=== PATIENT | female | born 1950 | race Caucasian/White ===

== ENCOUNTER → 2023-11-27 09:25 | Outpatient (BNVA) | payer MEDICARE, SELFPAY | PROVIDERS: PCP Internal Medicine; Referring Provider Physician Assistant Medical; Visit Provider Psychiatry & Neurology Neurology | DX: R26.9 Unspecified abnormalities of gait and mobility (principal); M47.812 Spondylosis without myelopathy or radiculopathy, cervical region; M54.9 Dorsalgia, unspecified; M47.816 Spondylosis without myelopathy or radiculopathy, lumbar region; R20.0 Anesthesia of skin; R20.2 Paresthesia of skin | CPT/HCPCS: 99202 ==

== ENCOUNTER 2023-11-27 09:56 | Outpatient (AMB) | payer MEDICARE, SELFPAY ==
--- NOTE | 2023-11-27 09:59 | A.OFFVIS_ITS ---
Intake Vital Signs 11/27/23 10:08 Height 5 ft 8 in Weight 267 lb 2 oz BMI 40.6 BP 122/70 Blood Pressure Location Rt brachial Position Supine Respiration 17 Pulse 59 Pulse Source Pulse Oximeter Pulse Oximetry (%) 95 Oxygen Delivery Method Room Air Intake Visit Reasons: E-SKEIN WINDER: BLE Neuropathy / Gait Instability - CONF Intake Note: Pt presents for new pt evaluation for numbness and tingling of lower and upper extremities. She c/o lack of coordination and mid back pain that radiates to the left mid section. Call Center Assistant Required: No Allergies sulfamethoxazole [From Bactrim] Allergy (Severe, Verified 11/27/23 10:01) Hives trimethoprim [From Bactrim] Allergy (Severe, Verified 11/27/23 10:01) Hives morphine Allergy (Unknown, Verified 11/27/23 10:01) Vomiting Medication List - Last Reconciled 11/27/23 by Angelina Dolan MD acetaminophen ER (Tylenol Arthritis Pain) 650 mg PO Q12H albuterol sulfate 90 mcg/actuation 2 puffs inhalation Q4H PRN amlodipine 10 mg PO DAILY betamethasone dipropionate 0.05% appl topical celecoxib mg PO BID cetirizine (Zyrtec) 10 mg PO DAILY PRN diphenhydramine HCl (Benadryl) 50 mg PO BEDTIME furosemide 40 mg PO DAILY gabapentin 100 mg PO TID ketoconazole 2% 1 appl topical BID lisinopril 40 mg PO DAILY metformin 500 mg PO DAILY metoprolol tartrate 25 mg PO BID nitroglycerin 0.4 mg sublingual Q5M PRN rosuvastatin 40 mg PO DAILY HPI HPI Comments History of Present Illness Details 73y/o female with h/o scoliosis h/o 2 ba ck surgeries , 1 neck surgery comes for evaluation of gait instability and lower extremity numbness, weakness and pain. Her first back surgery was 1982 -she recovered and did good for many years . In 2009 she started having more issues. In 2010 she had another surgery - fusion .she recovered well until 2021 she had neck pain and had surgery with cervical fusion.she did well but now she has pain in shoulders. About 18 months ago she started having numbness in legs balance issues and gait issues .she had multiple evaluations at [facility] and [facility] . she has pain in her midback and shooting pains . she has trouble with urinary incontinence. No recent falls but is using a walker sinceSept 2022. she was unable to do MRI - she could not lay flat [facility] Medical History (Updated 11/27/23 @ 12:45 by Angelina Dolan MD) Back pain Numbness and tingling of both legs Gait disorder Cervical spondylosis HTN (hypertension) Hyperlipidemia Carpal tunnel syndrome Lumbar spondylosis Arthritis of knee Anxiety Prediabetes CHF (congestive heart failure) Surgical History Hx of cervical spine surgery History of surgery on lower extremity History of ankle surgery History of carpal tunnel release History of back surgery Family History Father A-fib Diabetes Kidney disease History of hip replacement Mother Parkinson disease HTN (hypertension) Depression Osteoporosis Sister Breast cancer H/O knee surgery Social History Household Members: None Housing: House Alcohol intake: never Patient Tobacco Use Status: Never used Tobacco Physical Exam Vital Signs: Last Vital Signs Pulse 59 11/27/23 10:08 Resp 17 11/27/23 10:08 BP 122/70 11/27/23 10:08 Pulse Ox 95 11/27/23 10:08 Oxygen Delivery Method Room Air 11/27/23 10:08 BMI result Body Mass Index 40.6 Const General: cooperative and comfortable Nutritional Appearance: obese Orientation/consciousness: patient oriented x3 Neck Neck: Yes no meningeal signs Neuro Other: restricted range of motion - neck Mild weakness of LE extremities gait- was able to walk without walker , mild unsteadiness, slow and antalgic General: patient oriented x3, tone normal, moves all extremities and no meningeal signs Cranial nerves: Yes Facial sensation intact/muscles of mastication intact, Yes Nystagmus not present, Yes Normal facial strength present and Yes Midline tongue present Cognition (Neuro): normal cognition Motor exam (neuro): no tremor noted and Normal motor muscle tone present throughout Deep tendon reflexes (DTR's): Right triceps reflex intensity grade: 2+, Left tr iceps reflex intensity grade: 2+, Rt Biceps (C5, C6): 2+, Left biceps reflex intensity grade: 2+, Right patellar reflex intensity grade: 2+ and Left patellar reflex intensity grade: 2+ Assessment & Plan Assessment & Plan (1) Gait disorder: Comment: multifactorial - musculoskeletal Code(s): R26.9 - Unspecified abnormalities of gait and mobility (2) Cervical spondylosis: Code(s): M47.812 - Spondylosis without myelopathy or radiculopathy, cervical region (3) Back pain: Code(s): M54.9 - Dorsalgia, unspecified (4) Lumbar spondylosis: Code(s): M47.816 - Spondylosis without myelopathy or radiculopathy, lumbar region Plan I suggested to Increase gabapentin to 200mg tid Pain management EMG NCS LE PT for gait training Orders: Orders NE electromyogram (EMG) Today R20.0 - Anesthesia of skin, R20.2 - Paresthesia of skin PT Evaluation and Treatment Today R26.9 - Unspecified abnormalities of gait and mobility Referrals Pain Management Referral M54.9 - Dorsalgia, unspecified Coding Level of Care Code New Pt Level 4 (41953) Diagnoses Gait disorder R26.9 Cervical spondylosis M47.812 Back pain M54.9 Lumbar spondylosis M47.816
[2023-11-27 10:08] VITALS: BP 122/70; PULSE 59; RESP 17; O2SAT 95; BMI 40.6
== END 2023-11-27 10:29 | disposition home or self-care (01) ==
PROVIDERS: PCP Internal Medicine; Referring Provider Physician Assistant Medical; Visit Provider Psychiatry & Neurology Neurology
DX: R26.9 Unspecified abnormalities of gait and mobility (principal); M47.812 Spondylosis without myelopathy or radiculopathy, cervical region; M54.9 Dorsalgia, unspecified; M47.816 Spondylosis without myelopathy or radiculopathy, lumbar region
CPT/HCPCS: 99204

== ENCOUNTER 2023-12-06 13:59 | Outpatient (AMB) | payer MEDICARE, OTHER, SELFPAY ==
--- NOTE | 2023-12-06 14:14 | MHC.OFFVIS ---
Intake Vital Signs 12/06/23 14:28 Height 5 ft 8 in Weight 268 lb BMI 40.7 BP 140/80 H Blood Pressure Location Lt radial Position Sitting Respiration 16 Pulse 60 Pulse Source Pulse Oximeter Pulse Oximetry (%) 97 Oxygen Delivery Method Room Air Intake Visit Reasons: Dorsalgia, Unspecified/confirmed Allergies sulfamethoxazole [From Bactrim] Allergy (Severe, Verified 12/06/23 14:27) Hives trimethoprim [From Bactrim] Allergy (Severe, Verified 12/06/23 14:27) Hives morphine Allergy (Unknown, Verified 12/06/23 14:27) Vomiting HPI Dorsalgia, Unspecified/confirmed HPI Details Patient is a pleasant 73 years old female with prior history of cervical and lumbar spondylosis, scoliosis, gait disorder, knee arthritis, carpal tunnel syndrome with CTS release (06/2020), numbness and tingling of both legs, back surgery (1982), cervical spine fusion (2021), L4-L5 laminectomy with fusion (2010), complex left leg fracture repair with hardware (04/13/2018), left ankle triple arthrodesis (2012), presents today for evaluation of mid back pain with radiation to the left which is associated with shooting and sharp symptoms for the past 6 months. Denies any trauma, injury or falls. She denies any neck or lower back pain today. She has pending EMG and NVC studies scheduled for next month per Neurology. Her main concerns today are radicular left thoracic back pain which has been resistant to conservative treatments, including Tylenol, NSAIDs, gabapentin and daily home stretching exercises. She reports relief when she leans forward to the right. She recently completed lumbar xray and has showed report via her iphone which is attached below. Patient reports significant bilateral numbness and weakness in her legs and bilateral lymphadenopathy. She is wearing compression stockings and regularly takes furosemide. Patient also reports urinary incontinence and has been using walker since June 2023. Denies any fever, weight loss, bowel dysfunction or saddle anesthesia. Location Middle back pain radiates to the left Duration Chronic pain for >6 month in mid back Characteristics of symptom or complaint Shooting, sharp, spreading, radiating, piercing, aching Aggravating or associated factors Walking, standing, bending, extension, getting up Relieving factors Sitting, leaning forward and to the right, Tylenol, Celecoxib, gabapentin, Treatment None for mid back pain [facility] Medical History Back pain Numbness and tingling of both legs Gait disorder Cervical spondylosis HTN (hypertension) Hyperlipidemia Carpal tunnel syndrome Lumbar spondylosis Arthritis of knee Anxiety Prediabetes CHF (congestive heart failure) Surgical History Hx of cervical spine surgery History of surgery on lower extremity History of ankle surgery History of carpal tunnel release History of back surgery Family History Father A-fib Diabetes Kidney disease History of hip replacement Mother Parkinson disease HTN (hypertension) Depression Osteoporosis Sister Breast cancer H/O knee surgery Social History Household Members: None Housing: House Alcohol intake: never Patient Tobacco Use Status: Never used Tobacco Review of Systems Const All systems reviewed & are unremarkable except as noted in HPI and below Physical Exam Vital Signs: Last Vital Signs Pulse 60 12/06/23 14:28 Resp 16 12/06/23 14:28 BP 140/80 H 12/06/23 14:28 Pulse Ox 97 12/06/23 14:28 Oxygen Delivery Method Room Air 12/06/23 14:28 BMI result Body Mass Index 40.7 General: Appears afebrile. Alert and oriented. Mood and affect appropriate. Follows and participates in conversation appropriately. Respiratory effort is unlabored. No cough. Able to transition from sit to stand with assistance of walker. Neck Neck: Yes supple, No anterior neck swelling, Yes no JVD and Yes prominent dorsocervical fat pad Back/Spine/Pelvis Cervical Spine: loss of normal cervical lordosis, cervical muscular tenderness, pain with cervical ROM, Cervical spine scars present and No Cervical spine tenderness Thoracic/Lumbar Spine: Thoracic/lumbar spine scar(s), Lasegue's sign negative, straight leg raise negative bilaterally, pain with thoraco-lumbar ROM, paraspinal muscle tenderness on the left, thoraco-lumbar ROM limited, Thoracic/lumbar scoliosis, thoracic spinal tenderness and No lumbar spinal tenderness Pelvis: no buttock tenderness Sacroiliac joints: bilaterally nontender Results Reviewed Results Reviewed: CT CERVICAL SPINE WITHOUT CONTRAST 09/18/23 at [facility] HISTORY: Patient with neck pain and spondylosis with myelopathy. Please evaluate. History of prior surgery. COMPARISON: 03/28/2022. ENCOUNTER: Subsequent TECHNIQUE: Volumetric MDCT of the cervical spine using 40 x 1.0 mm collimation was done from the skull base to the lung apices reconstructed at 3 mm axial slice thickness for review with additional multiplanar 2D reformatted reconstructions. The following dose reduction technique was used: Dose was minimized by utilizing adaptive iterative reconstruction. FINDINGS: Again seen is the reversal of the usual cervical lordosis. There is no evidence of any prevertebral soft tissue swelling. C1-2: There is no evidence of any subluxation of C1 on C2. The lateral masses of C1 and C2 are in good alignment. The ring of C1 is in good alignment with the occiput. There are degenerative osteophytes and sclerosis noted involving the anterior C1-C2 articulation. C2-3: Again seen of the moderate left and mild right facet hypertrophic degenerative changes. Minimal posterior osteophytic ridging is seen. No bony canal or foraminal encroachment is seen. C3-4: Again seen is the mild soft tissue disc protrusion and a very slight anterolisthesis of C3 on C4 with moderate to severe left and moderate right facet hypertrophic degenerative changes with left-sided uncinate vertebral hypertrophy. This creates a mild canal narrowing and a severe left foraminal narrowing. The right neural foramen is mildly narrowed. C4-5: Again seen is the mild anterolisthesis of C4 on C5 with a mild posterior soft tissue disc protrusion with osteophytic ridging. This very mildly narrows the spinal canal. Moderate facet hypertrophic degenerative changes moderately narrows both neural foramen. There is moderate anterior osteophytes noted anteriorly. C5-6 through C7-T1: Note is made of the new posterior decompressive laminectomy changes with bilateral pedicle screws seen in the C5, C7 and T2 vertebral bodies and a left-sided pedicle screw in the C6 vertebral body. There are bilateral posterior fusion rods noted. There is anterior osteophytes noted with bony fusion of C5 and C6. There is loss of disc space height at C6-C7. There is a slight anterolisthesis of C7 on T1 again seen in the fused position. There is also loss of disc space height of T1 and T2 with endplate sclerotic changes. The spinal canal is mostly patent without any bony encroachment secondary to the decompressive laminectomy. There is moderate bony foraminal narrowing at C5-C6, C6-C7, C7-T1 and T1-T2. Mild postsurgical atrophy and changes involving the paraspinal muscles is noted. The remaining visualized extra-axial regions are unremarkable for acute abnormality. The lung apices are clear except for apical scarring. IMPRESSION: 1. Again seen is the reversal of the usual cervical lordosis. 2. There is now status post decompressive laminectomy changes and surgical fusion hardware as described above from the C5-C6 through C7-T1 levels. 3. There is cervical spondylosis present as described above. MRI would better assess for soft tissue disc protrusions. Please see above report for full details. Assessment & Plan Assessment & Plan (1) Lymphedema of both lower extremities: Code(s): I89.0 - Lymphedema, not elsewhere classified (2) Lumbar spondylosis: Code(s): M47.816 - Spondylosis without myelopathy or radiculopathy, lumbar region (3) Radicular pain of thoracic region: Code(s): M54.14 - Radiculopathy, thoracic region (4) Thoracic back pain: Code(s): M54.6 - Pain in thoracic spine (5) Muscle spasm: Code(s): M62.838 - Other muscle spasm (6) Post laminectomy syndrome: Code(s): M96.1 - Postlaminectomy syndrome, not elsewhere classified Plan MRI of the thoracic spine to assess for neural integrity and compression to address her ongoing left thoracic radicular pain. Patient requests this to be done at [facility] [[email or web address] Briefly discussed interventional treatments for thoracic back pain and post-laminectomy syndrome, including therapeutic injections, PNS vs SCS trial and RFA procedurs. Informational pamphlets provided to patient. Scripts provided for lidocaine patches and baclofen. Side effects and precautions reviewed with patient. Vascular Referral for evaluation of bilateral lymphedema which causes her significant BLE swelling and stiffness. All questions and concerns have been answered and patient agreed with the plan. Follow up for MRI results and sooner as needed. Orders: Orders MR thoracic spine wo con 12/06/23 M47.816 - Spondylosis without myelopathy or radiculopathy, lumbar region, M54.14 - Radiculopathy, thoracic region, M54.6 - Pain in thoracic spine Referrals Vascular Surgery Referral I89.0 - Lymphedema, not elsewhere classified Medications: New lidocaine 5% 1 patch topical DAILY 30 days 30 ea 0RF pain M54.14 - Radiculopathy, thoracic region, M54.6 - Pain in thoracic spine, M62.838 - Other muscle spasm baclofen 10 mg PO BID 30 days PRN 60 tabs 0RF muscle spasm M54.6 - Pain in thoracic spine, M62.838 - Other muscle spasm Coding Level of Care Code New Pt Level 4 (42209) Diagnoses Lymphedema of both lower extremities I89.0 Lumbar spondylosis M47.816 Radicular pain of thoracic region M54.14 Thoracic back pain M54.6 Muscle spasm M62.838 Post laminectomy syndrome M96.1
[2023-12-06 14:28] VITALS: BP 140/80; PULSE 60; RESP 16; O2SAT 97; BMI 40.7
== END 2023-12-06 15:25 | disposition home or self-care (01) ==
PROVIDERS: PCP Internal Medicine; Referring Provider Psychiatry & Neurology Neurology; Visit Provider Nurse Practitioner Family
DX: I89.0 Lymphedema, not elsewhere classified (principal); M47.816 Spondylosis without myelopathy or radiculopathy, lumbar region; M54.14 Radiculopathy, thoracic region; M54.6 Pain in thoracic spine; M62.838 Other muscle spasm; M96.1 Postlaminectomy syndrome, not elsewhere classified
CPT/HCPCS: 99204

== ENCOUNTER → 2023-12-06 13:59 | Outpatient (BNVA) | payer MEDICARE, OTHER, SELFPAY | PROVIDERS: PCP Internal Medicine; Referring Provider Psychiatry & Neurology Neurology; Visit Provider Nurse Practitioner Family | DX: M47.816 Spondylosis without myelopathy or radiculopathy, lumbar region (principal); I89.0 Lymphedema, not elsewhere classified; M54.14 Radiculopathy, thoracic region; M54.6 Pain in thoracic spine; M62.838 Other muscle spasm; M96.1 Postlaminectomy syndrome, not elsewhere classified | CPT/HCPCS: 99202 ==

== ENCOUNTER 2023-12-28 13:35 | Outpatient (REF) | payer MEDICARE, OTHER, SELFPAY ==
--- NOTE | 2023-12-28 13:40 | EMG_ITS ---
Chief complaint: Pain, numbness, weakness on lower extremities. History of 2 lumbar surgeries in the past, L4-5, fusion. History of left tibia/fibula fracture and surgery in the past. Reason for referral: Evaluate for neuropathy Referred by: Kavita Serrano FLOOR MANAGER Procedure done: Bilateral lower extremity NCS/EMG Precautions and/or limitations: Bilateral leg edema History of lumbar fusion The limb temperature was monitored continuously and remained between 32-36 degrees C during the performance of the NCS. Nerve Conduction Studies Anti Sensory Summary Table ?Stim Site NR Onset (ms) Norm Onset (ms) Peak (ms) Norm Peak (ms) O-P Amp (?V) Norm O-P Amp Site1 Site2 Delta-0 (ms) Dist (cm) [place] (m/s) Norm [place] (m/s) Left Sural Anti Sensory (Lat Mall) Calf ? 2.3 2.9 <4.0 7.6 >5.0 Calf Lat Mall 2.3 14.0 61 Right Sural Anti Sensory (Lat Mall) Calf ? 2.6 3.3 <4.0 10.4 >5.0 Calf Lat Mall 2.6 14.0 54 Motor Summary Table ?Stim Site NR Onset (ms) Norm Onset (ms) O-P Amp (mV) Norm O-P Amp iAmp (mV) Amp (1st) (%) Site1 Site2 Delta-0 (ms) Dist (cm) Dakota (m/s) Norm [place] (m/s) Right Peroneal Motor (Ext Dig Brev) Ankle ? 4.6 <4.0 1.4 >2.5 1.7 100.0 Ankle Ext Dig Brev 4.6 0.0 B Fib NR B Fib Ankle 37.0 >40 Poplt ? 12.4 1.3 1.5 92.9 Poplt B Fib 6.0 >40 Left Tibial Motor (Abd [place] Brev) Ankle ? 5.9 <5 2.2 >2.5 2.8 100.0 Ankle Abd [place] Brev 5.9 0.0 Knee ? 15.8 1.0 1.4 45.5 Knee Ankle 9.9 41.0 41 >40 Right Tibial Motor ([place]d [place] Brev) Ankle ? 5.4 <5 3.2 >2.5 3.8 100.0 Ankle Abd [place] Brev 5.4 0.0 Knee ? 13.8 0.2 0.4 6.3 Knee Ankle 8.4 40.0 48 >40 EMG ?Side Muscle Nerve Root Ins Act Fibs Psw Amp Dur Poly Recrt Int Pat Comment Right AbdHallucis MedPlantar S1-2 Nml Nml Nml Nml Nml 0 Nml Complete Right AntTibialis Dp Br Peron L4-5 Nml Nml Nml Nml Nml 0 Nml Complete Right PostTibialis Tibial L5, S1 Nml Nml Nml Nml Nml 0 Nml Complete Right MedGastroc Tibial S1-2 Nml Nml Nml Nml Nml 0 Nml Complete Right VastusMed Femoral L2-4 Nml Nml Nml Nml Nml 0 Nml Complete Left AbdHallucis MedPlantar S1-2 Nml Nml Nml Nml Nml 0 Nml Complete Left AntTibialis Dp Br Peron L4-5 Nml Nml Nml Incr Incr 0 Nml Complete Left MedGastroc Tibial S1-2 Nml Nml Nml Nml Nml 0 Nml Complete Left VastusMed Femoral L2-4 Nml Nml Nml Nml Nml 0 Nml Complete Left Peroneus Long Sup Br Peron L5-S1 Nml Nml Nml Nml Nml 0 Nml Complete FINDINGS: Right peroneal nerve showed prolonged distal latency, small amplitudes and difficulty obtaining response below fibula. Right tibial nerve showed prolonged distal latency and very small amplitude proximally. Left tibial nerve showed prolonged distal latency, small amplitudes and normal conduction velocity. Bilateral sural nerves were within normal. Concentric needle EMG was performed in selected muscles of the bilateral lower extremity. Study revealed Signs of electric abnormalities as shown in the table below. Left vastus medialis showed increased insertional activity, PSWs and fibrillations. IMPRESSION: 1. This is an abnormal study. 2. There are electrodiagnostic findings suggestive for chronic L4-5 radiculopathy. 3. There is no electrodiagnostic evidence for lumbosacral plexopathy, or peripheral neuropathy. CLINICAL COMMENT: Further clinical correlation recommended. Thank you for your kind referral. Lindsay Bass MD, LAUREL Board Certified, [place] [employer] and Rehabilitation (ABPMR) Board Certified, [place] Board of Electrodiagnostic Medicine (ABEM) CODIN 90254 x 2 MTDD
== END 2023-12-28 13:36 | disposition home or self-care (01) ==
LOC: HO.NEURO 13:35
PROVIDERS: PCP Internal Medicine; Visit Provider Psychiatry & Neurology Neurology
DX: R20.0 Anesthesia of skin (principal); R20.2 Paresthesia of skin
CPT/HCPCS: 95886; 95909

== ENCOUNTER → 2023-12-28 13:40 | Outpatient (BNV) | payer MEDICARE, OTHER, SELFPAY | PROVIDERS: PCP Internal Medicine; Visit Provider Physical Medicine & Rehabilitation | DX: M54.16 Radiculopathy, lumbar region (principal); M79.604 Pain in right leg; M79.605 Pain in left leg | CPT/HCPCS: 95886; 95909 ==

== ENCOUNTER 2024-01-02 14:00 | Outpatient (RCR) | payer MEDICARE, OTHER, SELFPAY ==
--- NOTE | 2023-12-19 15:07 | MHC.PT.EP ---
[facility] [place] Office [place] Office [place] Office [address] Michell Nazario [address] [phone] F: [phone] F: [phone] F: [phone] F: [phone] Physical Therapy Plan of Care Date of Evaluation: 12/19/23 Date of Surgery: Diagnosis: This is a 73 yo female presenting to skilled PT with a script for gait disorder. Assessment: This is a 73 yo female presenting to skilled PT with a script for gait disorder. Patient has a significant prior history of cervical and lumbar spondylosis, scoliosis, gait disorder, knee arthritis, carpal tunnel syndrome with CTS release (06/2020), numbness and tingling of both legs, back surgery (1982), cervical spine fusion (2021), L4-L5 laminectomy with fusion (2010), complex left leg fracture repair with hardware (04/13/2018), left ankle triple arthrodesis (2012), significant bilateral numbness and weakness in her legs and bilateral lymphadenopathy, urinary incontinence and has been using walker since June 2023. She has also had cardiac issues and SOB in the past few years. She just wrapped up PT for her knees at [facility] and reports bone on bone . The patient does report that her balance has been off and increasing so for the last 5 months. No new falls noted (in the past year). She reports that her L leg feels numb, tingling, and jabs of pain in the feet. Her R leg has shoots of pain and tingling in the great toe. She does have neuropathy and circulation problems. Assessment reveals pain that ranges from up to a 9/10 at the worst. Patient demos decreased BLE ROM, strength of core, back and BLE, and impaired posture with forward head and rounded shoulders, decreased balance, gait and endurance. Based on functional limitations, impaired QOL and pain tolerance patient is a good candidate for skilled PT 2x/wk for 4wks. Frequency and Duration: The patient will be seen 2x/wk for 4wks Short Term Goals: I in HEP Demo proper understanding of core stab in various positions Improve pain to at least 8/10 Shelter Goals: Increase balance tests to 30 secs EO and EC improve BLE strength to at least 4+/5 Improve confidence by 50% tolerate ascending and descending stairs with reciprocal gait Treatment Plan: Modalities to reduce pain, spasms and effusion. Manual therapy to restore motion and function. Therapeutic exercise to improve strength and flexibility. Neuromuscular re-education for posture and balance. Therapeutic activities to return to functional activities of daily living. Electronically signed by: Allie Alvarez PT Please sign and return to therapist. Thank you for your referral.
--- NOTE | 2024-02-01 14:41 | MHC.PT.DC ---
[facility] [place] [facility] [place] [facility] [place] [facility] [address] Michell Nazario [address] [phone] F: [phone] F: [phone] F: [phone] F: [phone] Physical Therapy Discharge Report Diagnosis: This is a 73 yo female presenting to skilled PT with a script for gait disorder. Date of Surgery: Date of Evaluation: 12/19/23 Date of Discharge: 02/01/24 Treatments to Date: 4 Cancellations to Date: 0 No Shows to Date: 0 Discharge Status: Patient Elected to Stop Discharge Summary: Patient came to 4 visits of PT, cancelled remaining appointments and did not call to rebook within 30 days of the last appointment. Patient has an HEP to continue on her own at this time. Chart was DC'd after 30 days of not being in the facility. Electronically signed by: Allie Alvarez PT Please sign and return to therapist. Thank you for your referral.
== END 2024-02-01 14:41 | disposition home or self-care (01) ==
LOC: HO.PTCHIC 14:00
PROVIDERS: PCP Internal Medicine; Visit Provider Psychiatry & Neurology Neurology
DX: R26.9 Unspecified abnormalities of gait and mobility (principal)
CPT/HCPCS: 97110; 97112; 97163

== ENCOUNTER 2024-01-22 14:16 | Outpatient (AMB) | payer MEDICARE, OTHER, SELFPAY ==
[2024-01-22 14:26] VITALS: BMI 40.7
--- NOTE | 2024-01-22 14:26 | MHC.OFFVIS ---
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 Pt states that swelling is worse in the evening and not so bad in the a.m.. Has tried compression stockings and Lasix. Also c/o weakness and numbness in both legs. Started in Jun 2022. Does have Hx of Left knee and ankle surgery. 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 She actually had to be hospitalized in the past for severe edema and was treated with diuretics. This seemed to improve the situation. She does have persistent swelling. In addition she has had a bout of cellulitis on that right lower extremity. She actually follows pain management for lumbar spondylosis. Upon discussion with her she has no prior history of any venous interventions. In addition she has no prior history of DVT as well. She now presents to us for evaluation regarding swollen lower extremities. Of note at the time of exam she was actually wearing compression stockings. [facility] Medical History Back pain Numbness and tingling of both legs Gait disorder Cervical spondylosis HTN (hypertension) Hyperlipidemia Carpal tunnel syndrome Lumbar spondylosis Arthritis of knee Anxiety Prediabetes CHF (congestive heart failure) Surgical History Hx of cervical spine surgery History of surgery on lower extremity History of ankle surgery History of carpal tunnel release History of back surgery Family History Father A-fib Diabetes Kidney disease History of hip replacement Mother Parkinson disease HTN (hypertension) Depression Osteoporosis Sister Breast cancer H/O knee surgery Social History Household Members: None Housing: House Alcohol intake: never Patient Tobacco Use Status: Never used Tobacco Review of Systems Const Reports as per HPI ENT Reports no additional complaints Card Denies chest pain, Denies chest pain at rest and Denies chest pain with activity Resp Denies chest congestion and Denies cough GI Reports no additional complaints Musc Details: pain over varicosities, aching of lower extremities, swelling, cramping, heaviness and tiredness, itching Denies abnormal gait Skin/Breast Reports pruritus and Denies wounds Neuro Reports no additional complaints and Denies abnormal gait Psych Denies no additional complaints Physical Exam Vital Signs: BMI result Body Mass Index 40.7 Const General: cooperative, healthy appearing and comfortable Orientation/consciousness: oriented to person, oriented to place and oriented to time Neck Carotids: no bruits Chest Chest palpation & inspection: normal inspection of the chest and normal palpation of entire chest wall Resp Effort & Inspection: normal respiratory effort and able to speak in complete sentences Cardio Rate: regular rate Heart sounds: S1 normal heart sound present and S2 normal heart sound present Peripheral pulses: Peripheral pulses 2+ throughout GI Inspection: Yes normal to inspection Skin Other: +2 edema, General skin exam: dry skin Neuro General: oriented to person, oriented to place and oriented to time Extrem Right lower extremity: full ROM, normal capillary refill and edema Left lower extremity: full ROM, normal capillary refill and edema Psych Mental Status: mental status grossly normal Assessment & Plan Assessment & Plan (1) Varicose veins of right lower extremity with inflammation: Code(s): I83.11 - Varicose veins of right lower extremity with inflammation Plan: Patient has significantly swollen lower extremities. I have taken the liberty of ordering venous insufficiency testing to rule that out. Should that prove to be negative will treat for lymphedema. (2) Lymphedema: Code(s): I89.0 - Lymphedema, not elsewhere classified Plan: Patient has clinical stigmata lymphedema. We will do venous testing. In addition we discussed use of compression and manual decongestive therapy. She will try that for the next month. Upon follow-up we will discuss possible treatment options including lymphedema pumps. Thank you for allowing us to assist in her care. If there are any questions or concerns please do not hesitate to contact us. Orders: Orders US venous duplex LE BI 1 Week I83.11 - Varicose veins of right lower extremity with inflammation Coding Level of Care Code Est Pt Level 4 (48802) Diagnoses Varicose veins of right lower extremity with inflammation I83.11 Lymphedema I89.0
== END 2024-01-22 15:20 | disposition home or self-care (01) ==
PROVIDERS: PCP Internal Medicine; Visit Provider Surgery Vascular Surgery
DX: I83.11 Varicose veins of right lower extremity with inflammation (principal); I89.0 Lymphedema, not elsewhere classified
CPT/HCPCS: 99213

== ENCOUNTER → 2024-01-22 14:16 | Outpatient (BNVA) | payer MEDICARE, OTHER, SELFPAY | PROVIDERS: PCP Internal Medicine; Visit Provider Surgery Vascular Surgery | DX: I83.11 Varicose veins of right lower extremity with inflammation (principal); I89.0 Lymphedema, not elsewhere classified | CPT/HCPCS: 99212 ==

== ENCOUNTER 2024-01-30 12:43 | Outpatient (REF) | payer MEDICARE, SELFPAY ==
--- NOTE | ~2024-01-30 | US_ITS ---
EXAMINATION: US LOWER EXTREMITY VENOUS (REFLUX EXAM), BILATERAL CLINICAL INFORMATION: Chronic venous insufficiency with lower extremity varicose veins with inflammation COMPARISON: None. TECHNIQUE: Color flow triplex imaging and compression Doppler was performed to evaluate both the deep and the superficial systems bilaterally. To evaluate the superficial system, the examination was performed in the upright position. Color-flow Doppler ultrasound and compression ultrasound were utilized. In addition, maneuvers were utilized to demonstrate reflux. FINDINGS: 1. DEEP VENOUS ULTRASOUND OF THE RIGHT LOWER EXTREMITY: Common Femoral Vein: Compressible, normal respiratory variation and augmented flow. Femoral Vein: Compressible, normal color flow and augmentation. Popliteal Vein: Compressible, normal augmentation. Deep Reflux: There is no evidence of reflux in the deep system in either the common femoral vein, superficial femoral or the popliteal vein. There is no evidence of a Gutierrez's cyst. Subcutaneous edema seen throughout the right calf 2. SUPERFICIAL ULTRASOUND WITH DOPPLER OF RIGHT LOWER EXTREMITY: GREAT SAPHENOUS VEIN: Saphenofemoral Junction: 1.1 cm; Reflux: 0 ms Proximal Thigh: 0.3 cm; Reflux: 0 ms Mid Thigh: 0.3 cm; Reflux: 0 ms Distal Thigh: 0.3 cm; Reflux: 0 ms At Knee: 0.3 cm; Reflux: 0 ms Proximal Calf: 0.2 cm; Reflux: 0 ms Mid Calf: 0.1 cm; Reflux: 0 ms Distal Calf: 0.2 cm; Reflux: 0 ms DUPLICATED MEDIAL GREAT SAPHENOUS VEIN: Diameter: None imaged Reflux: NA DUPLICATED LATERAL GREAT SAPHENOUS VEIN: Diameter: None imaged Reflux: NA SMALL SAPHENOUS VEIN: Saphenopopliteal Junction: 0.4 cm; Reflux: 0 ms Proximal: 0.3 cm; Reflux: 0 ms Distal: 0.2 cm; Reflux: 0 ms VEIN OF GIACOMINI: Size: NA Reflux: NA VARICOSITIES: Location: Proximal thigh arising from the great saphenous vein and midcalf arising from the great saphenous vein. Size: 0.3-0.4 cm Reflux: None PERFORATORS: Location: None imaged. Size: NA Reflux: NA 3. DEEP VENOUS ULTRASOUND OF THE LEFT LOWER EXTREMITY: Common Femoral Vein: Compressible, normal respiratory variation and augmented flow. Femoral Vein: Compressible, normal color flow and augmentation. Popliteal Vein: Compressible, normal augmentation. Deep Reflux: Deep venous reflux is seen in the popliteal vein measuring 1896 ms There is no evidence of a Gutierrez's cyst. 4. SUPERFICIAL ULTRASOUND WITH DOPPLER OF LEFT LOWER EXTREMITY: GREAT SAPHENOUS VEIN: Saphenofemoral Junction: 0.8 cm; Reflux: 0 ms Proximal Thigh: 0.6 cm; Reflux: 0 ms Mid Thigh: 0.3 cm; Reflux: 640 ms Distal Thigh: 0.3 cm; Reflux: 0 ms At Knee: 0.2 cm; Reflux: 0 ms Proximal Calf: 0.3 cm; Reflux: 0 ms Mid Calf: 0.2 cm; Reflux: 0 ms Distal Calf: 0.2 cm; Reflux: 0 ms DUPLICATED MEDIAL GREAT SAPHENOUS VEIN: Diameter: 0.3 cm Reflux: None DUPLICATED LATERAL GREAT SAPHENOUS VEIN: Diameter: None imaged. Reflux: NA SMALL SAPHENOUS VEIN: Saphenopopliteal Junction: 0.4 cm; Reflux: 0 ms Proximal: 0.3 cm; Reflux: 0 ms Distal: 0.3 cm; Reflux: 0 ms VEIN OF GIACOMINI: Size: NA Reflux: NA PERFORATORS: Location: None imaged Size: NA Reflux: NA VARICOSITIES: Location: Proximal and distal thigh and mid calf off the great saphenous vein Size: 0.3 cm Reflux: 1372 ms in the mid calf US/US venous insuf bilat IMPRESSION: Right: No significant venous insufficiency or reflux in the great saphenous vein or small saphenous vein. Branching varicosities are seen within the thigh and calf without significant reflux Left: Deep venous reflux in the left popliteal vein. There is also focal area of segmental reflux in the left great saphenous vein in the mid thigh. Branching varicosities in the thigh as described above
== END 2024-01-30 12:44 | disposition home or self-care (01) ==
LOC: HO.US 12:43
PROVIDERS: PCP Internal Medicine; Visit Provider Surgery Vascular Surgery
DX: I83.11 Varicose veins of right lower extremity with inflammation (principal)
CPT/HCPCS: 93970

== ENCOUNTER 2024-01-31 13:30 | Outpatient (AMB) | payer MEDICARE, OTHER, SELFPAY ==
--- NOTE | 2024-01-31 13:36 | A.OFFVIS_ITS ---
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 Patient continues to endorse mid back pain with radiation into her left side with shooting, burning, numbness and tingling sensations. Denies any recent cough, cold, infection, fever, any significant changes in her medical history, medications or recent hospitalizations. Ambulates with slow, antalgic gait. Uses walker with seat. Patient recently underwent Vascular Evaluation with Dr. Jackson and has pending results for venous insufficiency testing and potential lymphedema treatment. She continues to wear compression stockings. PRIOR: Patient is a pleasant 73 years old female with prior history of cervical and lumbar spondylosis, scoliosis, gait disorder, knee arthritis, carpal tunnel syndrome with CTS release (06/2020), numbness and tingling of both legs, back surgery (1982), cervical spine fusion (2021), L4-L5 laminectomy with fusion (2010), complex left leg fracture repair with hardware (04/13/2018), left ankle triple arthrodesis (2012), presents today for evaluation of mid back pain with radiation to the left which is associated with shooting and sharp symptoms for the past 6 months. Denies any trauma, injury or falls. She denies any neck or lower back pain today. She has pending EMG and NVC studies scheduled for next month per Neurology. Her main concerns today are radicular left thoracic back pain which has been resistant to conservative treatments, including Tylenol, NSAIDs, gabapentin and daily home stretching exercises. She reports relief when she leans forward to the right. She recently completed lumbar xray and has showed report via her iphone which is attached below. Patient reports significant bilateral numbness and weakness in her legs and bilateral lymphadenopathy. She is wearing compression stockings and regularly takes furosemide. Patient also reports urinary incontinence and has been using walker since June 2023. Denies any fever, weight loss, bowel dysfunction or saddle anesthesia. Location Middle back pain radiates to the left Duration Chronic pain for >6 month in mid back Characteristics of symptom or complaint Shooting, sharp, spreading, radiating, piercing, aching Aggravating or associated factors Walking, standing, bending, extension, getting up Relieving factors Sitting, leaning forward and to the right, Tylenol, Celecoxib, gabapentin, Treatment None for mid back pain [facility] Medical History Back pain Numbness and tingling of both legs Gait disorder Cervical spondylosis HTN (hypertension) Hyperlipidemia Carpal tunnel syndrome Lumbar spondylosis Arthritis of knee Anxiety Prediabetes CHF (congestive heart failure) Surgical History Hx of cervical spine surgery History of surgery on lower extremity History of ankle surgery History of carpal tunnel release History of back surgery Family History Father A-fib Diabetes Kidney disease History of hip replacement Mother Parkinson disease HTN (hypertension) Depression Osteoporosis Sister Breast cancer H/O knee surgery Social History Household Members: None Housing: House Alcohol intake: never Patient Tobacco Use Status: Never used Tobacco Review of Systems Const All systems reviewed & are unremarkable except as noted in HPI and below Physical Exam General: Appears afebrile. Alert and oriented. Mood and affect appropriate. Follows and participates in conversation appropriately. Respiratory effort is unlabored. No cough. Able to transition from sit to stand with assistance of walker. Antalgic gait. Neck Neck: Yes supple, No anterior neck swelling, Yes no JVD and Yes prominent dorsocervical fat pad Back/Spine/Pelvis Other: No midline tenderness to palpation in the thoracic or lumbar spine. Tenderness to palpation along the left paraspinal muscles in the thoracic and upper lumbar area. Lumbar extension and flexion reproduces moderate pain. Painful facet loading bilaterally. Cervical Spine: loss of normal cervical lordosis, cervical muscular tenderness, pain with cervical ROM, Cervical spine scars present and No Cervical spine tenderness Thoracic/Lumbar Spine: thoracic and lumbar spine normal to inspection, Thoracic/lumbar spine scar(s), pain with thoraco-lumbar ROM, paraspinal muscle tenderness on the left, thoraco-lumbar ROM limited, Thoracic/lumbar scoliosis, thoraco-lumbar spasm (lower thoracic) on the left, thoracic spinal tenderness and No lumbar spinal tenderness Pelvis: no buttock tenderness Results Reviewed Results Reviewed: MR SPINE THORACIC without CONTRAST 01/24/24 at [facility] INDICATION: Spondylosis without myelopathy or radiculopathy, lumbar region. Pain in thoracic spine, mid back radiating to the left. Scoliosis. TECHNIQUE: Unenhanced multiplanar, multisequence MR imaging of the thoracic spine. COMPARISON: None Available. FINDINGS: There is dextrocurvature of the thoracic spine. Vertebral heights are well maintained. There are type I Modic changes at T2-T3, T8-T9, and T10-T11. No suspicious osseous lesion is identified. Prevertebral and paraspinal soft tissues are within normal limits. Thoracic cord demonstrates normal course, caliber, and signal characteristics. No epidural fluid collection or hematoma is identified. There are degenerative multilevel disc bulges/protrusions at T1-T2, T2-T3, T3-T4 and T4-T5 and T5-T6, T6-T7, T8-T9 and T9-T10 and T10-T11. There is mild canal stenosis at T9-T10 and moderate to severe canal stenosis at T10-T11. There is diffuse multilevel neural foraminal narrowing severe at the bilateral T7-T8, T8- T9, and T9-T10 and T10-T11 Visualized chest and abdomen are grossly unremarkable. There are bilateral small shoulder effusions. IMPRESSION: Multilevel spondylosis with multilevel disc herniations/protrusions resulting in moderate to severe canal stenosis at T10-T11. There is multilevel neural foraminal narrowing severe at the bilateral T7-T8, T8-T9, T9-T10, T10-T11.. Multilevel endplate edema/Modic changes. CT CERVICAL SPINE WITHOUT CONTRAST 07/16/23 at [facility] HISTORY: Patient with neck pain and spondylosis with myelopathy. Please evaluate. History of prior surgery. COMPARISON: 03/28/2022. ENCOUNTER: Subsequent TECHNIQUE: Volumetric MDCT of the cervical spine using 40 x 1.0 mm collimation was done from the skull base to the lung apices reconstructed at 3 mm axial slice thickness for review with additional multiplanar 2D reformatted reconstructions. The following dose reduction technique was used: Dose was minimized by utilizing adaptive iterative reconstruction. FINDINGS: Again seen is the reversal of the usual cervical lordosis. There is no evidence of any prevertebral soft tissue swelling. C1-2: There is no evidence of any subluxation of C1 on C2. The lateral masses of C1 and C2 are in good alignment. The ring of C1 is in good alignment with the occiput. There are degenerative osteophytes and sclerosis noted involving the anterior C1-C2 articulation. C2-3: Again seen of the moderate left and mild right facet hypertrophic degenerative changes. Minimal posterior osteophytic ridging is seen. No bony canal or foraminal encroachment is seen. C3-4: Again seen is the mild soft tissue disc protrusion and a very slight anterolisthesis of C3 on C4 with moderate to severe left and moderate right facet hypertrophic degenerative changes with left-sided uncinate vertebral hypertrophy. This creates a mild canal narrowing and a severe left foraminal narrowing. The right neural foramen is mildly narrowed. C4-5: Again seen is the mild anterolisthesis of C4 on C5 with a mild posterior soft tissue disc protrusion with osteophytic ridging. This very mildly narrows the spinal canal. Moderate facet hypertrophic degenerative changes moderately narrows both neural foramen. There is moderate anterior osteophytes noted anteriorly. C5-6 through C7-T1: Note is made of the new posterior decompressive laminectomy changes with bilateral pedicle screws seen in the C5, C7 and T2 vertebral bodies and a left-sided pedicle screw in the C6 vertebral body. There are bilateral posterior fusion rods noted. There is anterior osteophytes noted with bony fusion of C5 and C6. There is loss of disc space height at C6-C7. There is a slight anterolisthesis of C7 on T1 again seen in the fused position. There is also loss of disc space height of T1 and T2 with endplate sclerotic changes. The spinal canal is mostly patent without any bony encroachment secondary to the decompressive laminectomy. There is moderate bony foraminal narrowing at C5-C6, C6-C7, C7-T1 and T1-T2. Mild postsurgical atrophy and changes involving the paraspinal muscles is noted. The remaining visualized extra-axial regions are unremarkable for acute abnormality. The lung apices are clear except for apical scarring. IMPRESSION: 1. Again seen is the reversal of the usual cervical lordosis. 2. There is now status post decompressive laminectomy changes and surgical fusion hardware as described above from the C5-C6 through C7-T1 levels. 3. There is cervical spondylosis present as described above. MRI would better assess for soft tissue disc protrusions. Please see above report for full details. Assessment & Plan Assessment & Plan (1) Thoracic back pain: Code(s): M54.6 - Pain in thoracic spine (2) Post laminectomy syndrome: Code(s): M96.1 - Postlaminectomy syndrome, not elsewhere classified (3) Thoracic spinal stenosis: Code(s): M48.04 - Spinal stenosis, thoracic region (4) Radicular pain of thoracic region: Code(s): M54.14 - Radiculopathy, thoracic region (5) Lumbar spondylosis: Code(s): M47.816 - Spondylosis without myelopathy or radiculopathy, lumbar region Plan Thoracic spine MRI results discussed with patient in greater detail today, noted for moderate to severe canal stenosis at T10-T1. We will proceed with Left Parasagital Interlaminar T10-T11 JORDIN with local and fluoroscopy to address left thoracic radicular symptoms. Expectations, risks and benefits were reviewed. Patient is aware she will be contacted to schedule this procedure. For thoracic spondylosis with multilevel degenerative disc changes, we reviewed diagnostic medial branch blocks for potential stimulative or ablative treatments. Short script provided for oxycodone for moderate to severe pain while awaiting to be scheduled for procedure. Continue intermittent use of NSAIDs, Tylenol, and muscle relaxants. All questions and concerns have been answered and patient agreed with the plan. Follow up after injections and sooner as needed. Medications: Changed 2 From oxycodone Partial Fill upon patient request. Take one tab 30 min prior to MRI test. May repeat x1. 5 mg PO ONCE PRN 2 tabs 0RF pain M48.04 - Spinal stenosis, thoracic region, M54.6 - Pain in thoracic spine, M96.1 - Postlaminectomy syndrome, not elsewhere classified To oxycodone 5 mg PO Q12H 10 days PRN 20 tabs 0RF pain (scale score 7-10) M48.04 - Spinal stenosis, thoracic region, M54.6 - Pain in thoracic spine, M96.1 - Postlaminectomy syndrome, not elsewhere classified Coding Level of Care Code Est Pt Level 4 (61294) Diagnoses Thoracic back pain M54.6 Post laminectomy syndrome M96.1 Thoracic spinal stenosis M48.04 Radicular pain of thoracic region M54.14 Lumbar spondylosis M47.816
[2024-01-31 13:41] VITALS: BP 148/65; PULSE 64; O2SAT 97; BMI 40.8
== END 2024-01-31 14:00 | disposition home or self-care (01) ==
PROVIDERS: PCP Internal Medicine; Visit Provider Nurse Practitioner Family
DX: M54.6 Pain in thoracic spine (principal); M96.1 Postlaminectomy syndrome, not elsewhere classified; M48.04 Spinal stenosis, thoracic region; M54.14 Radiculopathy, thoracic region; M47.816 Spondylosis without myelopathy or radiculopathy, lumbar region
CPT/HCPCS: 99214

== ENCOUNTER → 2024-01-31 13:30 | Outpatient (BNVA) | payer MEDICARE, OTHER, SELFPAY | PROVIDERS: PCP Internal Medicine; Visit Provider Nurse Practitioner Family | DX: M47.816 Spondylosis without myelopathy or radiculopathy, lumbar region (principal); M54.14 Radiculopathy, thoracic region; M48.04 Spinal stenosis, thoracic region; M54.6 Pain in thoracic spine; M96.1 Postlaminectomy syndrome, not elsewhere classified | CPT/HCPCS: 99212 ==

== ENCOUNTER 2024-02-26 06:12 | Outpatient (REF) | payer MEDICARE, OTHER, SELFPAY ==
--- NOTE | ~2024-02-26 | FL_ITS ---
EXAMINATION: XR FLUOROSCOPY WITH IMAGES CLINICAL INFORMATION: Left thoracic spine pain injection. COMPARISON: None available. TECHNIQUE: Fluoroscopy Supervised By: Dr. Ty Dai. Fluoroscopy Time: 0.3 minutes. Cumulative Dose: 7.68 mGy. DAP: 0.0947 mGym2. Images: 3. FINDINGS: The submitted images show a needle and injected contrast in the vicinity of the posterior elements of the thoracic spine. FL/FL guidance in treatment room IMPRESSION: Intraoperative fluoroscopic guidance is provided during thoracic spine pain management procedure. Please see the patient's Operative Report for full procedural details.
== END 2024-02-26 06:13 | disposition home or self-care (01) ==
LOC: CF 06:12
PROVIDERS: Visit Provider Anesthesiology
DX: M54.6 Pain in thoracic spine (principal); M96.1 Postlaminectomy syndrome, not elsewhere classified; M48.04 Spinal stenosis, thoracic region; M54.14 Radiculopathy, thoracic region; M47.816 Spondylosis without myelopathy or radiculopathy, lumbar region
CPT/HCPCS: 62321; J3301; Q9967

== ENCOUNTER 2024-02-26 09:10 | Outpatient (AMB) | payer MEDICARE, OTHER, SELFPAY ==
[2024-02-26 09:14] VITALS: BP 118/70; PULSE 58; RESP 14; O2SAT 94; BMI 40.7
--- NOTE | 2024-02-26 09:14 | MHC.OFFVIS ---
Vital Signs 02/26/24 09:14 02/26/24 10:27 Height 5 ft 8 in Weight 268 lb BMI 40.7 BP 118/70 120/76 Blood Pressure Location Lt brachial Lt brachial Position Sitting Sitting Respiration 14 18 Pulse 58 66 Pulse Source Pulse Oximeter Pulse Oximeter Pulse Oximetry (%) 94 96 Oxygen Delivery Method Room Air Room Air Comment Pre-Op Post-Op Intake Visit Reasons: LEFT PARASAGITTAL INTERLAMINAR T10,T11 JORDIN Allergies sulfamethoxazole [From Bactrim] Allergy (Severe, Verified 01/31/24 13:41) Hives trimethoprim [From Bactrim] Allergy (Severe, Verified 01/31/24 13:41) Hives morphine Allergy (Unknown, Verified 01/31/24 13:41) Vomiting PFSH Medical History Back pain Numbness and tingling of both legs Gait disorder Cervical spondylosis HTN (hypertension) Hyperlipidemia Carpal tunnel syndrome Lumbar spondylosis Arthritis of knee Anxiety Prediabetes CHF (congestive heart failure) Surgical History Hx of cervical spine surgery History of surgery on lower extremity History of ankle surgery History of carpal tunnel release History of back surgery Family History Father A-fib Diabetes Kidney disease History of hip replacement Mother Parkinson disease HTN (hypertension) Depression Osteoporosis Sister Breast cancer H/O knee surgery Social History Household Members: None Housing: House Alcohol intake: never Patient Tobacco Use Status: Never used Tobacco Physical Exam Vital Signs: Last Vital Signs Pulse 66 02/26/24 10:27 Resp 18 02/26/24 10:27 BP 120/76 02/26/24 10:27 Pulse Ox 96 02/26/24 10:27 Oxygen Delivery Method Room Air 02/26/24 10:27 BMI result Body Mass Index 40.7 Assessment & Plan Assessment & Plan (1) Thoracic back pain: Code(s): M54.6 - Pain in thoracic spine Category: Medical (2) Post laminectomy syndrome: Code(s): M96.1 - Postlaminectomy syndrome, not elsewhere classified Category: Medical (3) Thoracic spinal stenosis: Code(s): M48.04 - Spinal stenosis, thoracic region Category: Medical (4) Radicular pain of thoracic region: Code(s): M54.14 - Radiculopathy, thoracic region Category: Medical Plan: Interlaminar T10-T11 epidural steroid injection. ?Informed consent was explained to the patient. All questions were explained and answered.? The patient was taken inside the operating room where she was positioned prone on the operating table. Time-out was performed delineating correct site, side, the nature of the procedure, patient's allergy, preoperative antibiotic if needed.? All operating room staff was participating in OR time-out procedure. The back the thorax was prepped with ChloraPrep and draped with sterile towels.? Sterilely draped C-arm was brought over the operating field as square as possible image of T11 vertebrae was delineated on the screen. To obtain a sq image of the T11 vertebra tilting of the railroad car inspector contralateral to the right was required to 27 degrees.. The left lamina of the T11 vertebra was chosen as the starting point of the injection. The projection of the lamina to the skin was injected with small amount of lidocaine 1% and after that 20 gauge Touhy needle was inserted through the skin wheal and advanced toward the epidural space on intermittent anterior posterior and lateral views. Loss of resistance to air technique was used to locate the epidural space. When loss of resistance was felt injection of the contrast was performed delineating no intrathecal and no intravascular spread of the contrast. After that injection of the solution of preservative-free lidocaine 1% mixed with Kenalog 40 mg was performed into the needle. The needle was withdrawn sterile Band-Aid was applied. The patient tolerated procedure well. She was taken outside of the operating room to the recovery room and she recovered uneventfully. She is wheelchair-bound with chronic weakness of the bilateral lower extremities. She was taken outside of the recovery room in the wheelchair. She did not report progression of the weakness in bilateral lower extremities after the procedure. (5) Lumbar spondylosis: Code(s): M47.816 - Spondylosis without myelopathy or radiculopathy, lumbar region Category: Medical Plan Thoracic spine MRI results discussed with patient in greater detail today, noted for moderate to severe canal stenosis at T10-T1. We will proceed with Left Parasagital Interlaminar T10-T11 JORDIN with local and fluoroscopy to address left thoracic radicular symptoms. Expectations, risks and benefits were reviewed. Patient is aware she will be contacted to schedule this procedure. For thoracic spondylosis with multilevel degenerative disc changes, we reviewed diagnostic medial branch blocks for potential stimulative or ablative treatments. Short script provided for oxycodone for moderate to severe pain while awaiting to be scheduled for procedure. Continue intermittent use of NSAIDs, Tylenol, and muscle relaxants. All questions and concerns have been answered and patient agreed with the plan. Follow up after injections and sooner as needed. Orders: Orders FL guidance in treatment room Today Smiley Hopkins, [employer], [place] M54.6 - Pain in thoracic spine Referrals Neurosurgery Referral Ty Dai MD M48.04 - Spinal stenosis, thoracic region Coding Level of Care Code Procedure Only Diagnoses Thoracic back pain M54.6 Post laminectomy syndrome M96.1 Thoracic spinal stenosis M48.04 Radicular pain of thoracic region M54.14 Lumbar spondylosis M47.816
[2024-02-26 10:27] VITALS: BP 120/76; PULSE 66; RESP 18; O2SAT 96
== END 2024-02-26 10:14 | disposition home or self-care (01) ==
LOC: HO.PMCPRC 09:10
PROVIDERS: PCP Internal Medicine; Visit Provider Anesthesiology
DX: M54.6 Pain in thoracic spine (principal); M96.1 Postlaminectomy syndrome, not elsewhere classified; M48.04 Spinal stenosis, thoracic region; M54.14 Radiculopathy, thoracic region; M47.816 Spondylosis without myelopathy or radiculopathy, lumbar region
CPT/HCPCS: 62321

== ENCOUNTER 2024-02-27 14:39 | Outpatient (AMB) | payer MEDICARE, OTHER, SELFPAY ==
--- NOTE | 2024-02-27 14:46 | A.SPINEOV_ITS ---
Intake Visit Reasons: sever cervical stenosis Intake Note: Ms. Love is here today c/o neck pain. 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 She is a pleasant 73-year-old female comes in today with a chief complaint of mid back pain and numbness / tingling in her bilateral hands. She also reports worsening urinary and fecal incontinence over the course of the last 8 months, difficulties with balance over the course of the last year leading to her utilizing a walker, difficulties with hand articulation over the course of the last 8 months including dropping things, and feeling of instability while standing upright. She has a history of childhood scoliosis which was diagnosed 60+ years ago. She also reports a history of 3 previous spine surgeries including an L4-[address] Hannon, a L4-[address] La, and a multi-level cervical / thoracic laminectomy with Dr. La. She reports she has been utilizing Gabapentin, Celebrex, and Tylenol to help mitigate her symptoms with only modest relief. She has been to physical therapy and recently completed 6 weeks of PT 2 months ago. She also has had cortisone injections, the last of which was completed in the thoracic spine yesterday with Dr. Dai. PMH: L4-[address] Hannon, a L4-[address] La, and a multi-level cervical / thoracic laminectomy with Dr. La. Left ankle fusion after distal tibia fracture. HTN, HLD, Nephrolithiasis, coronary artery disease, asthma, seasonal allergies, anxiety. Social hx: Patient does not smoke, reports no substance use. Medications: Lisinopril, amlodipine, metoprolol, Celebrex, gabapentin, rosuvastatin, albuterol, Nasacort, furosemide, Zyrtec. Does not take nitroglycerin, was prescribed it for CAD but never used it. Allergies: Bactrim, morphine. Physical exam: The patient has 5/5 strength in her upper and lower extremities. She reports her bilateral hands have a feeling of numbness/tingling. The rest of her sensation is grossly intact. Her reflexes are 2+ intact, with no notable hyperreflexia. She has difficulty with ambulation due to balance issues, needs to utilize a walker. She rises from a seated position with the assistance of a chair/walker. (+) 3 beats of clonus on the right, no clonus on the left but possibly confounded by left ankle fusion. (-) Barker's bilaterally. Imaging review: MRI of the thoracic spine completed here at [facility] shows a notable dextroscoliosis thoracic spine. There is also several areas of mild-moderate stenosis likely as a result of the scoliosis found throughout the thoracic spine. However, most notable is the severe spinal cord compression seen at C3-4 on the localize review of the MRI. Impression: Denver is a pleasant 73-year-old female who comes in today with a chief complaint of mid back pain and bilateral hand numbness/tingling. She also reports several myelopathic symptoms such as fecal and urinary incontinence that is worsening over the course of the last 8 months, loss of hand maintenance of way supervisor strength, and loss of balance. She has 3 beats of clonus noted in her right ankle, and her MRI of the thoracic spine shows a severe compression of the spinal cord at C3-4 in the localizer view. The bulk of her symptoms are likely a result of the severe compression seen at C3-4. Most concerning is her disclosure that these symptoms have been worsening over the course of the last year. I was able to evaluate the patient a second time alongside Dr. Millard, who offered the patient a C3-4 ACDF. Due to the severity of the compression seen on MRI imaging, we adjusted our schedule and were able to fit her in for next week, 03/06/24. She was asked to call her primary care physician and flight engineer performance qualified see if they can see her before this. If not I asked her to at the very least ask to obtain an EKG. I will be ordering her a dedicated MRI of the cervical spine which will not prevent us from following through with her surgery, however it would be useful to better evaluate the extent of damage. Denver was given risk and benefits of surgery including but not limited to infection, hematoma, nerve injury, durotomy, weakness, bowel/bladder injury, persistent pain, as well as the option to continue with conservative treatment and patient wishes to proceed with surgery. They are aware they should stop NSAIDs 7 days prior to surgery. All questions were answered to the best of our ability. If there is anything about this patients medical history that we have overlooked or concerns you have about us proceeding with surgery we would appreciate any input you can offer. Thank you for allowing us to care for your patient. The total time spent with this visit with this patient was 65 minutes reviewing history, physical exam, MRI imaging review, and implementation of treatment plan or further diagnostic testing Javid Millard MD,PhD [facility] Orders: Orders MR cervical spine wo con Today G95.9 - Disease of spinal cord, unspecified Coding Level of Care Code New Pt Level 5 (56979) Diagnoses Cervical myelopathy G95.9
== END 2024-02-28 08:49 | disposition home or self-care (01) ==
PROVIDERS: PCP Internal Medicine; Referring Provider Nurse Practitioner Family; Visit Provider Physician Assistant
DX: G95.9 Disease of spinal cord, unspecified (principal)
CPT/HCPCS: 99205

== ENCOUNTER → 2024-02-27 14:39 | Outpatient (BNVA) | payer MEDICARE, SELFPAY | PROVIDERS: PCP Internal Medicine; Visit Provider Physician Assistant ==

== ENCOUNTER 2024-02-27 16:34 | Outpatient (REF) | payer MEDICARE, OTHER, SELFPAY ==
--- NOTE | ~2024-02-27 | MR_ITS ---
EXAMINATION: MR CERVICAL SPINE WITHOUT CONTRAST CLINICAL INFORMATION: Balance issues with urinary and fecal incontinence. Myelopathic reflexes. COMPARISON: CT cervical spine dated 03/28/2022. TECHNIQUE: Multiplanar, multisequential imaging of the cervical spine was performed without contrast. FINDINGS: VERTEBRAL BODIES AND PARASPINAL SOFT TISSUES: There is a reversal of the normal cervical lordosis centered at the C5-C6 level where there is severe disc space narrowing and endplate to endplate osseous fusion changes with a slight retrosubluxation. A rightward curvature of the cervical spine is again evident as well. No compression fractures are seen. There are chronic suspected endplate fusion changes at the C2-C3 level with ankylosis of the facet joints as well. Mild anterolisthesis again noted at the C3-C4 level with advanced facet arthropathy, more so on the left side. Mild anterior subluxation also again noted at the C4-C5 level with chronic disc desiccation and hypertrophic facet degeneration. Multilevel decompressive laminectomies are visible from the C5 through the C7 levels with posterior fusion hardware spanning from the C5 through the T2 levels. There are chronic-appearing endplate fusion changes at the C5-C6 level with bulky anterior endplate spurring. Severe loss of disc height hypertrophic endplate spurring evident at the C6-C7 level. There is kzbdtasw-eo-zujfyk disc space narrowing and an anterolisthesis at the C7-T1 level. Significant multilevel degenerative disc disease also visible in the upper thoracic spine with facet arthropathy and endplate spurring resulting in uaalujii-rj-olgtef foraminal encroachment. The paraspinal soft tissues are normal. There is a partial retropharyngeal course of the left common carotid artery. The vertebral artery flow-voids are maintained. The imaged portions of the lungs are grossly clear, though limited for assessment. CERVICOMEDULLARY JUNCTION AND VISUALIZED POSTERIOR FOSSA: The craniovertebral junction and imaged portions of the brain parenchyma appear normal. No syrinx is seen. There is perceived focal mild T2 hyperintense signal change within the cord at the C3-C4 level which may reflect myelomalacia and/or edema. SPINAL LEVELS: C2-C3: Mild endplate ridging in the midline. No central canal stenosis. Ankylosis of the hypertrophied facet joints. No significant foraminal encroachment. C3-C4: Mild anterolisthesis and broad-based central disc protrusion with thickening of the ligamentum flavum and advanced facet arthropathy. Findings result in severe central canal stenosis and moderate cord compression without intramedullary signal change. Significant bilateral foraminal narrowing as well, worse on the left side. C4-C5: Disc desiccation and mild anterolisthesis with ankylosis of the hypertrophied facet joints. No central canal stenosis. Uskfgtzh-pu-gcemnx bilateral foraminal narrowing, worse on the left side. C5-C6: Bulky anterior endplate fusion changes and facet arthropathy with a decompressive laminectomy. Significant bilateral foraminal narrowing. Posterior fusion hardware in place. C6-C7: Severe loss of disc height with disc desiccation and endplate ridging. Bilateral facet arthropathy. Decompressive laminectomy with severe left foraminal encroachment and moderate right foraminal narrowing. C7-T1: Decompressive laminectomy and mild anterolisthesis with unroofed desiccated disc. Severe right foraminal narrowing and moderate left foraminal narrowing from osseous spurring. Severe degenerative disc disease visible at the thoracic levels with disc-osteophyte complexes and facet arthropathy resulting in significant foraminal encroachment at the T1-T2 and T2-T3 levels. MR/MR cervical spine wo con IMPRESSION: Extensive multilevel cervicothoracic spondylosis and reversal of the normal cervical lordosis with a rightward curvature of the cervical spine as well. Status post decompressive laminectomies at the C5-C6 and C6-C7 levels with posterior fusion hardware in place spanning from the C5 through the T2 levels. High-grade central canal stenosis due to significant spondylosis with a broad-based central disc protrusion at the C3-C4 level compressing the cord. Mild intramedullary signal change may reflect myelomalacia and/or edema. Recommend follow-up neurosurgical consultation to guide further management. Spondylosis with hypertrophic facet degeneration contributes to significant multilevel foraminal narrowing as described, also evident at the upper thoracic levels as well.
== END 2024-02-27 16:35 | disposition home or self-care (01) ==
LOC: HO.MRI 16:34
PROVIDERS: PCP Internal Medicine; Visit Provider Physician Assistant
DX: G95.9 Disease of spinal cord, unspecified (principal)
CPT/HCPCS: 72141; 99202

== ENCOUNTER 2024-03-06 07:32 | Day surgery (SDC) | payer MEDICARE, OTHER, SELFPAY ==
[2024-03-04 12:15] VITALS: BP 118/58; PULSE 55; RESP 17; O2SAT 95; BMI 39.2
[2024-03-06] VITALS (12 sets, daily range): BP systolic 115–144; BP diastolic 49–71; PULSE 49–58; RESP 12–20; TEMP 36.1–36.3; O2SAT 93–97
--- NOTE | ~2024-03-06 | FL_ITS ---
EXAMINATION: XR FLUOROSCOPY WITH IMAGES CLINICAL INFORMATION: C3-C4, C4-C5 anterior cervical disc with fusion and plate. COMPARISON: None available. TECHNIQUE: Fluoroscopy Supervised By: Dr. Bryan Millard. Fluoroscopy Time: 15.0 seconds. Cumulative Dose: 2.5838 mGy. DAP: 0.5898 Gy-cm2. Images: 2. FINDINGS: Intraoperative fluoroscopy and spot films were performed during a procedure in the OR. There is ACDF hardware at C3-C4. Lateral mass fixation rods are present below that with multiple lateral mass screws extending below this. Please see Dr. Bryan Millard' report for complete details. FL/FL guidance in OR IMPRESSION: Intraoperative fluoroscopy and spot films were obtained. Please see Dr. Bryan Millard' report for complete details.
--- NOTE | 2024-03-06 07:03 | P.HPSUR_ITS ---
Pre-Procedural Eval Section A - 24 Hr Update-Section A only Date of Service: 03/06/24 The patient is an INPATIENT: No Changes since office visit: No Cold of Flu in the past 2 weeks, No New Medical Problems, No Changes in Medication and No Patient answered all questions The patient has been examined within 24 hours of the surgical procedure. The History & Physical has been completed within 30 days and I have reviewed it.: No Section B - Complete if H&P > 30 days Chief Complaint: Disease of spinal cord, unspecified Allergies: Allergies Allergy/AdvReac Type Severity Reaction Status Date / Time sulfamethoxazole Allergy Severe Hives Verified 01/31/24 13:41 [From Bactrim] trimethoprim [From Bactrim] Allergy Severe Hives Verified 01/31/24 13:41 morphine Allergy Unknown Vomiting Verified 01/31/24 13:41 Review of Systems Sugical H&P ROS: Negative: Constitution, Cardiovascular, Respiratory, Neuro logical, Psychiatric, Hem-Onc, Allergic/Immunologic, Gastrointestinal, Genitourinary, Musculoskeletal, Integumentary, Endocrine and Eyes/Ears/Nose/Throat Exam Surgical H&P Exam: Not Evaluated: HEENT, Not Evaluated: Heart, Not Evaluated: Lungs, Not Evaluated: Extremities, Not Evaluated: Abdomen, Not Evaluated: Skin and Not Evaluated: Neurological Plan Diagnosis/Plan: Unchanged C3-4, C4-5 ACDF with plating Time Spent With Patient Time: Total time managing care of this patient today _5___ minutes.
[2024-03-06] MEDS: methocarbamoL 750 MG TABLET PO (08:25)
[2024-03-06 08:30] LABS: Glucose, Whole Blood 102 mg/dL (60-115)
[2024-03-06] MEDS: Lactated Ringers 1,000 ML 100 ML IVCONT (08:57)
--- NOTE | 2024-03-06 09:35 | P.CONAN_ITS ---
Documented by User: Tequila Jones NP 03/05/24 11:46 HPI - Anesthesia Eval Consult details Narrative: 73yo F for Ant Cerv Discectomy w/ fusion PCP cleared Follows pulmo for asthma and chronic DEXTER Follows [facility] for htn, HF, non obstructive CAD by cath 2021, last office visit note 10/2023 states 02/2023 stress test falst positive No recent illness No CP/SOB with walking with walker Asthma. Stable. Rescue inhaler only with URI. Last was Fall 2022 CHF. LE edema 1-2+ is patients baseline Bilat groin rash. Tx with ketoconazole Pt requests sedated prior to laying flat d/t pain from back PMFSH Active Problems Active Problems: All Active Problems Cervical myelopathy (Acute) Thoracic spinal stenosis (Acute) Lymphedema (Acute) Varicose veins of right lower extremity with inflammation (Acute) Post laminectomy syndrome (Acute) Muscle spasm (Acute) Radicular pain of thoracic region (Acute) Thoracic back pain (Acute) Lymphedema of both lower extremities (Acute) Back pain (Acute) Numbness and tingling of both legs (Acute) Gait disorder (Acute) Cervical spondylosis (Acute) HTN (hypertension) (Acute) Hyperlipidemia (Acute) Carpal tunnel syndrome (Acute) Lumbar spondylosis (Acute) Arthritis of knee (Acute) Anxiety (Acute) Prediabetes (Acute) Past Medical History Medical History (Updated 03/04/24 @ 12:08 by Ena Reid RN) History of broken leg Kidney stones Sleep apnea SOB (shortness of breath) On beta amandeep at home Morbid obesity with BMI of 40.0-44.9, adult Umbilical hernia Diverticulosis Asthma Lumbar radiculopathy COVID-19 Habitual snoring DDD (degenerative disc disease), lumbar Osteoarthritis Shortness of breath on exertion Diastolic congestive heart failure Abnormal cardiovascular function study Back pain Numbness and tingling of both legs Gait disorder Cervical spondylosis HTN (hypertension) Hyperlipidemia Carpal tunnel syndrome Lumbar spondylosis Arthritis of knee Anxiety Prediabetes CHF (congestive heart failure) Family History Family History Father A-fib Diabetes Kidney disease History of hip replacement Mother Parkinson disease HTN (hypertension) Depression Osteoporosis Sister Breast cancer H/O knee surgery Family history of problems with anesthesia: No (Both parents with allergery to morphine) Surgical History Surgical History (Updated 03/04/24 @ 12:08 by Ena Reid RN) History of tonsillectomy and adenoidectomy Hx of umbilical hernia repair H/O colonoscopy Hx of cervical spine surgery History of surgery on lower extremity History of ankle surgery History of carpal tunnel release History of back surgery History of Problems with Anesthesia: No (Vomitting with morphine) Social History Social History Household Members: None Housing: House Are you a primary healthcare applications analyst to a significant other at home: No Do you presently have visiting nurse or other home services: No Alcohol intake: never Patient Tobacco Use Status: Never used Tobacco Use of substances other than those prescribed or required for medical reasons: No Have you been hit, kicked, punched, or otherwise hurt by someone within the past year? If so, by whom?: No Are you DNR?: No Advance Directives: No Advance Directives Information Provided: Yes Advance Directives on File: No Recently lost weight without trying: No How much weight loss: 2-13 pounds Eating poorly because of decreased appetite: No Nutrition screen score: 1 Nutrition Risks: No Nutritional Risk Patient : No : No Poor oral hygiene: No Meds Allergies Allergy/AdvReac Type Severity Reaction Status Date / Time sulfamethoxazole Allergy Severe Hives Verified 01/31/24 13:41 [From Bactrim] trimethoprim [From Bactrim] Allergy Severe Hives Verified 01/31/24 13:41 morphine Allergy Unknown Vomiting Verified 01/31/24 13:41 Home Medications ?Medication ?Instructions ?Recorded ?Confirmed ?Last Taken ?Type acetaminophen 650 mg 650 mg PO Q12H 01/09/22 03/04/24 03/05/24 History tablet,extended release (Tylenol Arthritis Pain) albuterol sulfate 90 mcg/actuation 2 puff inhalation Q4H PRN 01/09/22 03/04/24 03/06/24 History aerosol inhaler Shortness Of Breath Or Wheezing amlodipine 10 mg tablet 10 mg PO DAILY 01/09/22 03/04/24 03/06/24 History celecoxib 200 mg capsule 200 mg PO BID 01/09/22 03/04/24 02/27/24 History cetirizine 10 mg tablet (Zyrtec) 10 mg PO DAILY 01/09/22 03/04/24 03/05/24 History diphenhydramine HCl 25 mg capsule 50 mg PO BEDTIME 01/09/22 03/04/24 03/05/24 History (Benadryl) lisinopril 40 mg tablet 40 mg PO DAILY 01/09/22 03/04/24 03/05/24 History metoprolol tartrate 25 mg tablet 25 mg PO BID 01/09/22 03/04/24 03/06/24 History furosemide 40 mg tablet 40 mg PO DAILY 11/27/23 03/04/24 03/05/24 History ketoconazole 2 % topical cream 1 appl topical BID 11/27/23 03/04/24 03/05/24 History metformin 500 mg tablet 500 mg PO DAILY 11/27/23 03/04/24 03/05/24 History nitroglycerin 0.4 mg sublingual 0.4 mg sublingual Q5M PRN Angina 11/27/23 03/04/24 Unknown History tablet rosuvastatin 40 mg tablet 40 mg PO BEDTIME 11/27/23 03/04/24 03/05/24 History aspirin 81 mg tablet,delayed 81 mg PO DAILY 12/06/23 03/04/24 02/27/24 History release gabapentin 300 mg capsule 300 mg PO TID 01/31/24 03/04/24 03/06/24 History cholecalciferol (vitamin D3) 50 50 mcg PO DAILY 03/04/24 03/04/24 03/05/24 History mcg (2,000 unit) tablet (Vitamin D3) triamcinolone acetonide 55 mcg 2 spray intranasal DAILY 03/04/24 03/04/24 03/05/24 History nasal spray aerosol Exam Pertinent Lab Results Pertinent Lab Results: CBC and BMP reviewed on patients own portal access. Results from 11/2023 WNL. Requested results be faxed from [facility] Narrative Narrative: EKG 02/2024 per clearance note NSR RBBB Chronic T wave inversion in lead III No new changes ECHO 2022 Nml LV chamber size, Nml RWM, Nml LV systolic function, LVEF 55-60%, Indeterminate LV diastolic function 2. Mild concentric LVH 3. Severely dilated LA 4. Dilated RA 5. No hemodynamically signif valve ds Airway Mallampati Class: II TM Dist: >3cm Neck ROM: Limited Loose/Missing/Broken Teeth: No Heart: RRR Lungs: CTAB Assessment and Plan Assessment Anesthesia Assessment: Anesthesia Plan Discussed and PAT Visit Final Anesthetic Review Family History of Problems with Anesthesia: No (Both parents with allergery to morphine) History of Problems with Anesthesia: No (Vomitting with morphine) Documented by User: Lyric Baker, DO 03/06/24 09:37 [facility] Past Medical History Medical History (Updated 03/04/24 @ 12:08 by Ena Reid RN) History of broken leg Kidney stones Sleep apnea SOB (shortness of breath) On beta amandeep at home Morbid obesity with BMI of 40.0-44.9, adult Umbilical hernia Diverticulosis Asthma Lumbar radiculopathy COVID-19 Habitual snoring DDD (degenerative disc disease), lumbar Osteoarthritis Shortness of breath on exertion Diastolic congestive heart failure Abnormal cardiovascular function study Back pain Numbness and tingling of both legs Gait disorder Cervical spondylosis HTN (hypertension) Hyperlipidemia Carpal tunnel syndrome Lumbar spondylosis Arthritis of knee Anxiety Prediabetes CHF (congestive heart failure) Family History Family History Father A-fib Diabetes Kidney disease History of hip replacement Mother Parkinson disease HTN (hypertension) Depression Osteoporosis Sister Breast cancer H/O knee surgery Family history of problems with anesthesia: No Surgical History Surgical History (Updated 03/04/24 @ 12:08 by Ena Reid RN) History of tonsillectomy and adenoidectomy Hx of umbilical hernia repair H/O colonoscopy Hx of cervical spine surgery History of surgery on lower extremity History of ankle surgery History of carpal tunnel release History of back surgery History of Problems with Anesthesia: No Social History Social History Household Members: None Housing: House Are you a primary healthcare applications analyst to a significant other at home: No Do you presently have visiting nurse or other home services: No Alcohol intake: never Patient Tobacco Use Status: Never used Tobacco Use of substances other than those prescribed or required for medical reasons: No Have you been hit, kicked, punched, or otherwise hurt by someone within the past year? If so, by whom?: No Are you DNR?: No Advance Directives: No Advance Directives Information Provided: Yes Advance Directives on File: No Recently lost weight without trying: No How much weight loss: 2-13 pounds Eating poorly because of decreased appetite: No Nutrition screen score: 1 Nutrition Risks: No Nutritional Risk Patient : No : No Poor oral hygiene: No Meds Allergies Allergy/AdvReac Type Severity Reaction Status Date / Time sulfamethoxazole Allergy Severe Hives Verified 01/31/24 13:41 [From Bactrim] trimethoprim [From Bactrim] Allergy Severe Hives Verified 01/31/24 13:41 morphine Allergy Unknown Vomiting Verified 01/31/24 13:41 Home Medications ?Medication ?Instructions ?Recorded ?Confirmed ?Last Taken ?Type acetaminophen 650 mg 650 mg PO Q12H 01/09/22 03/04/24 03/05/24 History tablet,extended release (Tylenol Arthritis Pain) albuterol sulfate 90 mcg/actuation 2 puff inhalation Q4H PRN 01/09/22 03/04/24 03/06/24 History aerosol inhaler Shortness Of Breath Or Wheezing amlodipine 10 mg tablet 10 mg PO DAILY 01/09/22 03/04/24 03/06/24 History celecoxib 200 mg capsule 200 mg PO BID 01/09/22 03/04/24 02/27/24 History cetirizine 10 mg tablet (Zyrtec) 10 mg PO DAILY 01/09/22 03/04/24 03/05/24 History diphenhydramine HCl 25 mg capsule 50 mg PO BEDTIME 01/09/22 03/04/24 03/05/24 History (Benadryl) lisinopril 40 mg tablet 40 mg PO DAILY 01/09/22 03/04/24 03/05/24 History metoprolol tartrate 25 mg tablet 25 mg PO BID 01/09/22 03/04/24 03/06/24 History furosemide 40 mg tablet 40 mg PO DAILY 11/27/23 03/04/24 03/05/24 History ketoconazole 2 % topical cream 1 appl topical BID 11/27/23 03/04/2424 History metformin 500 mg tablet 500 mg PO DAILY 11/27/23 03/04/24 03/05/24 History nitroglycerin 0.4 mg sublingual 0.4 mg sublingual Q5M PRN Angina 11/27/23 03/04/24 Unknown History tablet rosuvastatin 40 mg tablet 40 mg PO BEDTIME 11/27/23 03/04/24 03/05/24 History aspirin 81 mg tablet,delayed 81 mg PO DAILY 12/06/23 03/04/24 02/27/24 History release gabapentin 300 mg capsule 300 mg PO TID 01/31/24 03/04/24 03/06/24 History cholecalciferol (vitamin D3) 50 50 mcg PO DAILY 03/04/24 03/04/24 03/05/24 History mcg (2,000 unit) tablet (Vitamin D3) triamcinolone acetonide 55 mcg 2 spray intranasal DAILY 03/04/24 03/04/24 03/05/24 History nasal spray aerosol Exam Exam Date and Time: March 06, 2024 0935 Height,Weight and Vital Signs: Height 5 ft 8 in Weight 117.027 kg Vital Signs Pulse Rate 55 03/04/24 12:15 Respiratory Rate 17 03/04/24 12:15 Blood Pressure 118/58 L 03/04/24 12:15 Pulse Oximetry 95 03/04/24 12:15 Oxygen Delivery Method Room Air 03/04/24 12:15 Temperature 97.4 F 03/06/24 08:27 Pulse Rate 54 03/06/24 08:27 Respiratory Rate 20 03/06/24 08:27 Blood Pressure 144/66 H 03/06/24 08:27 Pulse Oximetry 97 03/06/24 08:27 Oxygen Delivery Method Room Air 03/06/24 08:27 Airway Mallampati Class: II TM Dist: >3cm Neck ROM: Limited Loose/Missing/Broken Teeth: No (patient denies any loose or broken teeth) Heart: S1S2 Assessment and Plan Assessment Anesthesia Assessment: Anesthesia Plan Discussed and Chart Reviewed Final Anesthetic Review Family History of Problems with Anesthesia: No History of Problems with Anesthesia: No NPO: Yes ASA Class: III Final Preanesthetic Review: No Changes in Pt Med Stat, Meds/Allgs Chart Reviewed, Consent Obtained/Reviewed and Anes Risks/Benef Reviewed Patient Risk: Intermediate Procedure Risk: Intermediate Anesthetic Plan Anesthetic Plan: GA and Agree w/ Assess. and Plan Disposition: Standard PACU
--- NOTE | 2024-03-06 10:01 | PM.DS ---
DS: Providers Provider Date of Service: 03/06/24 <JUAN Hammonds - Last Filed: 03/06/24 10:02> Date of discharge: 03/06/24 <JUAN Hammonds - Last Filed: 03/06/24 10:02> Primary care physician: Patsy York MD <JUAN Hammonds - Last Filed: 03/06/24 10:02> Admitting clinician: Bryan Millard <JUAN Hammonds - Last Filed: 03/06/24 10:02> DS: Diagnosis Discharge Diagnosis (1) Cervical myelopathy: Status: Acute <JUAN Hammonds - Last Filed: 03/06/24 10:02> DS: Summary Time Attestation Discharge Coordination Time (in mins): 15 <JUAN Mathew - Last Filed: 03/06/24 12:20> Quality: Safe Use of Opioids Does Pt have an Active Cancer Diagnosis on the Problem List?: No <JUAN Mathew - Last Filed: 03/06/24 12:20> Quality: Stroke Does the patient have a stroke diagnosis?: No <JUAN Mathew - Last Filed: 03/06/24 12:20> Physical Exam Vital Signs: Vital Signs: Last Vital Signs Temp 97.4 F 03/06/24 08:27 Pulse 54 03/06/24 08:27 Resp 20 03/06/24 08:27 BP 144/66 H 03/06/24 08:27 Pulse Ox 97 03/06/24 08:27 O2 Del Method Room Air 03/06/24 08:27 BMI result Body Mass Index 39.2 <JUAN Hammonds - Last Filed: 03/06/24 10:02> DS: Data Data Completed and Pending Labs on day of discharge: Laboratory Results - last 24 hr 03/06/24 08:25 POC Glucose 102 <JUAN Hammonds - Last Filed: 03/06/24 10:02> Discharge Plan Discharge Patient Disposition: Home, Self-Care <JUAN Hammonds - Last Filed: 03/06/24 10:02> Referrals: Patsy York MD [Primary Care Provider] - 1 Week <JUAN Hammonds - Last Filed: 03/06/24 10:02> Discharge Medications: New oxycodone 5 mg tablet 5 mg PO Q6H PRN (Reason: severe pain (scale score 7-10)) Qty: 30 0RF Rx Instructions: Partial Fill upon patient request. Continued triamcinolone acetonide 55 mcg Aerosol,[place] 2 spray INTRANASAL DAILY Rx Instructions: administer into each nostril cholecalciferol (vitamin D3) [Vitamin D3] 50 mcg (2,000 unit) Tablet 50 mcg PO DAILY amlodipine 10 mg tablet 10 mg PO DAILY celecoxib 200 mg capsule 200 mg PO BID metoprolol tartrate 25 mg tablet 25 mg PO BID albuterol sulfate 90 mcg/actuation HFA aerosol inhaler 2 puff inhalation Q4H PRN (Reason: Shortness Of Breath Or Wheezing) lisinopril 40 mg tablet 40 mg PO DAILY cetirizine [Zyrtec] 10 mg tablet 10 mg PO DAILY diphenhydramine HCl [Benadryl] 25 mg capsule 50 mg PO BEDTIME acetaminophen [Tylenol Arthritis Pain] 650 mg tablet extended release 650 mg PO Q12H rosuvastatin 40 mg tablet 40 mg PO BEDTIME furosemide 40 mg tablet 40 mg PO DAILY metformin 500 mg tablet 500 mg PO DAILY ketoconazole 2 % cream 1 appl topical BID gabapentin 300 mg capsule 300 mg PO TID Held nitroglycerin 0.4 mg tablet, sublingual 0.4 mg sublingual Q5M PRN (Reason: Angina) Hold Instructions: Resume on 05/06/24. Patient reports she has never taken this medication Rx Instructions: do not exceed 3 doses per episode aspirin 81 mg tablet,delayed release (DR/EC) 81 mg PO DAILY Hold Instructions: Resume on 03/13/24. You may resume aspirin 1 week from the date of surgery <JUAN Hammonds - Last Filed: 03/06/24 10:02> Discharge Orders: Discharge Order (Routine); Ordered 03/06/24 Ordered By: Javid Hankins <JUAN Hammonds - Last Filed: 03/06/24 10:02> Diet: Advance to usual diet <JUAN Hammonds - Last Filed: 03/06/24 10:02> Advance to usual diet <JUAN Mathew - Last Filed: 03/06/24 12:20> Activity on Discharge: As tolerated <JUAN Hammonds Last Filed: 03/06/24 10:02> As tolerated <JUAN Mathew - Last Filed: 03/06/24 12:20> Activity Restrictions/Additional Instructions: After your spinal surgery we ask you to observe the following restrictions/guidelines: Activity: It is normal to feel some discomfort as you increase your activity, but that will improve with time. We ask you avoid heavy lifting or acitivities that cause pain. As a general rule, 8lbs is a safe limit for lifting right after surgery. Walk as much as you feel comfortable but not to exhaustion. You will feel extra tired the first few days after surgery. Stay well hydrated. It is OK to walk up and down stairs You may return to driving when you are off narcotics (such as vicodin, oxycodone, dilaudid, etc), and you are back to normal functional capacity. If you have any concerns please check with office before driving. Return to work is specific to each patient and each surgery, so please speak with your doctor/PA at first follow up. Please bring paperwork such as FMLA at that time if you need it filled out. Medications: You may resume aspirin 1 week from the date of surgery For optimum pain control, it is best to start with a combination of 500 mg of Tylenol every 4 hours with 600 mg of Motrin every 8 hours, and use narcotics as needed in between for breakthrough pain. We will give you a short supply of narcotics after surgery (usually one weeks worth). If you need more please call the office but do not use more than prescribed. You will need to give our office 48 hours notice if you need narcotics refilled and we do not fill narcotics on weekends or evenings. If you are on a narcotic, it is a good idea to take a stool softener such as colace or senna to avoid constipation If you take blood thinner such as aspirin, Plavix, Coumadin, Effient, Eliquis etc for conditions such as Afib, DVT, Pulmonary embolus, coronary disease, stents etc please speak with your surgeon about specific details as to when you can resume these medications. You can resume NSAIDs on post op day 1 (eg: Motrin, Naproxen, etc). Follow up: Please call the office, , after surgery to arrange a 3 week follow up for wound check. Wound Care: You may remove your dressing on the first day after surgery. ?You may ?leave open to air. Please do not remove the steri strips underneath. they will fall off on their own in one week. IT IS NORMAL FOR THE WOUND TO OOZE OR BE BLOODY FOR A FEW DAYS AFTER SURGERY. ?IF THIS HAPPENS JUST PLACE NEW DRESSING OVER IT TO AVOID STAINING CLOTHES. You may shower on post op day # 1 We ask that you do not let the water soak the wound. If it does get wet, just towel dry lightly. Please do not scrub your incision or place any type of chemical/ointment on the wound. No tub baths, pools or jacuzzis for one month. If you have any leaking or redness from your wound, or fevers, please call office <JUAN Hammonds - Last Filed: 03/06/24 10:02> Print Language: Tajik <JUAN Hammonds - Last Filed: 03/06/24 10:02>
[2024-03-06] MEDS: HYDROmorphone HCl 0.5 MG/0.5 ML SYRINGE IVPUSH ×4 (12:50→13:40)
--- NOTE | 2024-03-06 13:32 | P.OP_ITS ---
Operative Note Operative Note Date of Service: 03/06/24 Narrative: Preoperative Diagnosis: Progressive cervical myelopathy and cervical deformity. Status post posterior cervical laminectomy and instrumented fusion in another institution Procedure: C3-C4 Anterior discectomy, arthrodesis and implantation cage ; C3-C4 anterior instrumentation ; local autograft; microscope Informed Consent was obtained for this operation. I have explained the nature, purpose and benefits of the operation. I have discussed the risks and benefit of the operation including possible complications or adverse events with patient/family. Alternative(s) were discussed with the patient with their relative benefits and risks as well as the consequences of not accepting the operation were included in obtaining consent. Surgeon: CHANDNI PASTOR MD, PHD Procedure Assisted By: mina Keenan Description of Procedure: This patient is suffering from progressive cervical myelopathy due to severe spinal cord compression C3-C4. 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 The plan is to at least decompress the spinal cord and if possible also address the C4-5 level. The procedure complications were explained. The patient was consented. The patient was brought to the operating room and endotracheally intubated. The patient was put in supine position with slight extension of the neck. Prep and drape was done followed by timeout. A mid cervical incision was made followed by opening of the platysma. The prevertebral fascia was reached following the natural planes while the physician assistant passenger locomotive engineer provided manual retraction. The prevertebral fascia was opened to expose the disc space. A spinal needle was placed in the disk space to confirm the correct level with xray. The longus colli muscles were released bilaterally and a self retaining retractor was inserted. It became clear that there was severe osteoporosis and that the C4-5 interspace was overgrown with bone. Therefore I thought it was not a good idea to go into the C4-5 disc space. I turned my attention to the C3-C4 level. Two [employer] pins were placed in the C3 and C4 vertebral bodies and careful distraction was give over the interspace. The discectomy was completed toward the posterior annulus of the disc. The microscope was brought in. The remainder of the discectomy was completed. The posterior ligament was opened and resected to expose the underlying dura. Osteophytes were resected from the body of C3 and C4 and saved for autograft. Bilateral foraminotomies were done. The endplates were prepared after which a 8 mm cage filled with autograft was inserted into the disc space. A separate attached plate was locked down with 2 x 14 mm screws as anterior instrumentation. Finally I tried to put a 26 mm anterior plate from C3-C5 but the poor bone quality just did not allowing me to get appropriate fixation for the screws. Final x-rays in AP and lateral projection showed a satisfactory position of the implant. The physician assistant passenger locomotive engineer took over. The [employer] pin was removed. Hemostasis was done. He closed the incision in 2 layers with a 3-0 Vicryl. Steri-Strips used to approximate incision. An OpSite with Tegaderm was used to cover the incision. All sponge and needle counts were correct. Patient was extubated and transported in stable is to recovery room. Anesthesia: General Estimated Blood Loss (ml): 30 mL Duration of Surgery: 1 hour and 15 minutes Postoperative Plan: Discharge home Complications: None
== END 2024-03-06 15:08 | disposition home or self-care (01) ==
PROVIDERS: PCP Internal Medicine; Visit Provider Neurological Surgery
PROC: (CPT 22551; principal; 2024-03-06 10:20)
DX: G95.89 Other specified diseases of spinal cord (principal); G95.29 Other cord compression; M40.202 Unspecified kyphosis, cervical region; R20.0 Anesthesia of skin; R20.2 Paresthesia of skin; Z98.1 Arthrodesis status; R26.89 Other abnormalities of gait and mobility; R73.03 Prediabetes; I25.10 Atherosclerotic heart disease of native coronary artery without angina pectoris; I11.0 Hypertensive heart disease with heart failure; I50.30 Unspecified diastolic (congestive) heart failure; J45.909 Unspecified asthma, uncomplicated; Z79.51 Long term (current) use of inhaled steroids; Z79.899 Other long term (current) drug therapy; Z88.2 Allergy status to sulfonamides; Z88.5 Allergy status to narcotic agent; Z98.890 Other specified postprocedural states
CPT/HCPCS: 22551; 22853; 20936; 22845; 82947; C1713; C1889; J0131; J0690; J1100; J1170; J2405; J2704; J3010

== ENCOUNTER → 2024-03-06 07:32 | Outpatient (BNV) | payer MEDICARE, OTHER, SELFPAY | PROVIDERS: PCP Internal Medicine; Visit Provider Physician Assistant | DX: G95.9 Disease of spinal cord, unspecified (principal) | CPT/HCPCS: 20930; 22551; 22552; 22845; 22853; 99499 ==

== ENCOUNTER 2024-03-27 14:43 | Outpatient (REF) | payer MEDICARE, OTHER, SELFPAY | END 2024-03-27 14:44 | disposition home or self-care (01) | LOC: HO.HOSX 14:43 | PROVIDERS: PCP Internal Medicine; Visit Provider Physician Assistant | DX: G95.9 Disease of spinal cord, unspecified (principal); Z48.811 Encounter for surgical aftercare following surgery on the nervous system | CPT/HCPCS: 99212 ==

== ENCOUNTER 2024-03-27 14:43 | Outpatient (AMB) | payer MEDICARE, OTHER, SELFPAY ==
--- NOTE | 2024-03-27 14:54 | HO.SPINEOV ---
Intake Visit Reasons: 1st post op Intake Note: Ms. Love is here today for her 1st post-op appointment. 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 This patient originally presented with myelopathy, in the setting of a previous posterior laminectomy and lateral mass fixation done by few years back. She still continues to have the arm pain and numbness going down to her hands that she had before surgery but her legs feel significantly stronger in her walking is better. Overall from the standpoint of surgery she is recovered reasonably well. She continues to wear the collar. It seems to help some of her neck pain. She does not need any medications at this point for the neck pain, it is more stiffness and discomfort. No issues swallowing. On my exam, she is able to stand up out of her chair independently, she walks with a flexed posture and has her hard collar in place. Her wound is healed up nicely. In terms of her motor examination, she does have some mild hand weakness but overall strength in the upper extremities seems almost full. She has some mild iliopsoas weakness but distal lower extremity strength is full. We discussed activity guidelines, restrictions and expectations after anterior cervical fusion. Because of the poor bone quality seen at the time of surgery, and the hyperflexed position of her neck in the setting of the 2 previous surgeries, I am going to keep her in the collar for another 3 weeks and reassess with flexion-extension x-rays. If those look okay at that time, I will talk with Dr. Millard about letting her out of the collar. Jaison Millard MD, PhD [facility] Orders: Orders XR cervical spine 4V Today G95.9 - Disease of spinal cord, unspecified Coding Level of Care Code Global (03166) Diagnoses Cervical myelopathy G95.9
== END 2024-03-27 15:18 | disposition home or self-care (01) ==
PROVIDERS: PCP Internal Medicine; Visit Provider Physician Assistant
DX: G95.9 Disease of spinal cord, unspecified (principal)
CPT/HCPCS: 99024

== ENCOUNTER 2024-04-07 10:44 | Outpatient (AMB) | payer MEDICARE, OTHER, SELFPAY ==
[2024-04-07 10:45] VITALS: BMI 38.8
--- NOTE | 2024-04-07 10:45 | MHC.OFFVIS ---
Vital Signs 04/07/24 10:45 Height 5 ft 8 in Weight 255 lb BMI 38.8 Intake Visit Reasons: LEFT PARASAGITTAL INTERLAMINAR T10,T11 JORDIN Transitional Living Specialist Required: No Allergies sulfamethoxazole [From Bactrim] Allergy (Severe, Verified 04/07/24 10:46) Hives trimethoprim [From Bactrim] Allergy (Severe, Verified 04/07/24 10:46) Hives morphine Allergy (Unknown, Verified 04/07/24 10:46) Vomiting HPI Comments Details: Patient presents today via telehealth encounter to assess response to left parasagittal interlaminar T10-T11 JORDIN on 02/26/[address] Dai. Patient reports 30% but moderate pain relief in her mid back pain symptoms since the procedure with improvement in her daily functioning and sleep. She has also underwent cervical C3-C4 ACDF on 03/06/[address] Millard with improvement in her neck pain and gait balance with walking. Patient reports minimal 2/10 pain today. She reports ongoing muscle spasms with stiffness in lower thoracic spine and neck stiffness and requests baclofen refill. Reports good tolerance with baclofen without any side effects. She also reports taking Celebrex BID and gabapentin TID by PCP. Denies any recent cough, cold, infection, fever, or any other significant changes in her medical history, medications or recent hospitalizations. Past Procedures: 02/26/24: left Parasagittal Interlaminar T10-T11 JORDIN-30% pain relief PRIOR: Patient presents today to discuss recent thoracic spine MRI results. Patient continues to endorse mid back pain with radiation into her left side with shooting, burning, numbness and tingling sensations. Denies any recent cough, cold, infection, fever, any significant changes in her medical history, medications or recent hospitalizations. Ambulates with slow, antalgic gait. Uses walker with seat. Patient recently underwent Vascular Evaluation with Dr. Jackson and has pending results for venous insufficiency testing and potential lymphedema treatment. She continues to wear compression stockings. PRIOR: Patient is a pleasant 73 years old female with prior history of cervical and lumbar spondylosis, scoliosis, gait disorder, knee arthritis, carpal tunnel syndrome with CTS release (06/2020), numbness and tingling of both legs, back surgery (1982), cervical spine fusion (2021), L4-L5 laminectomy with fusion (2010), complex left leg fracture repair with hardware (04/13/2018), left ankle triple arthrodesis (2012), presents today for evaluation of mid back pain with radiation to the left which is associated with shooting and sharp symptoms for the past 6 months. Denies any trauma, injury or falls. She denies any neck or lower back pain today. She has pending EMG and NVC studies scheduled for next month per Neurology. Her main concerns today are radicular left thoracic back pain which has been resistant to conservative treatments, including Tylenol, NSAIDs, gabapentin and daily home stretching exercises. She reports relief when she leans forward to the right. She recently completed lumbar xray and has showed report via her iphone which is attached below. Patient reports significant bilateral numbness and weakness in her legs and bilateral lymphadenopathy. She is wearing compression stockings and regularly takes furosemide. Patient also reports urinary incontinence and has been using walker since June 2023. Denies any fever, weight loss, bowel dysfunction or saddle anesthesia. Location Middle back pain radiates to the left Duration Chronic pain for >6 month in mid back Characteristics of symptom or complaint Shooting, sharp, spreading, radiating, piercing, aching Aggravating or associated factors Walking, standing, bending, extension, getting up Relieving factors Sitting, leaning forward and to the right, Tylenol, Celecoxib, gabapentin, Treatment None for mid back pain [facility] Medical History History of broken leg Kidney stones Sleep apnea SOB (shortness of breath) On beta amandeep at home Morbid obesity with BMI of 40.0-44.9, adult Umbilical hernia Diverticulosis Asthma Lumbar radiculopathy COVID-19 Habitual snoring DDD (degenerative disc disease), lumbar Osteoarthritis Shortness of breath on exertion Diastolic congestive heart failure Abnormal cardiovascular function study Back pain Numbness and tingling of both legs Gait disorder Cervical spondylosis HTN (hypertension) Hyperlipidemia Carpal tunnel syndrome Lumbar spondylosis Arthritis of knee Anxiety Prediabetes CHF (congestive heart failure) Surgical History History of tonsillectomy and adenoidectomy Hx of umbilical hernia repair H/O colonoscopy Hx of cervical spine surgery History of surgery on lower extremity History of ankle surgery History of carpal tunnel release History of back surgery Family History Father A-fib Diabetes Kidney disease History of hip replacement Mother Parkinson disease HTN (hypertension) Depression Osteoporosis Sister Breast cancer H/O knee surgery Social History Household Members: None Housing: House Are you a primary resident care aide to a significant other at home: No Do you presently have visiting nurse or other home services: No Alcohol intake: never Patient Tobacco Use Status: Never used Tobacco Review of Systems Const All systems reviewed & are unremarkable except as noted in HPI and below ENT Reports Normal hearing present Neuro Reports Normal hearing present and Denies confusion Psych Denies confusion Physical Exam Vital Signs: BMI result Body Mass Index 38.8 Const General: cooperative, alert and awake; No confusion Orientation/consciousness: patient oriented x3 and No confusion Resp Effort & Inspection: able to speak in complete sentences, no audible wheezes and no cough Neuro General: patient oriented x3 and No confusion Cranial nerves: Yes Normal hearing present Cognition (Neuro): normal cognition Psych Mental Status: mental status grossly normal Speech and movement: Clear speech present Affect: normal affect Attitude: cooperative Thought process: Normal thought process present Thought content: Normal thought content present and No Depressive thoughts present Insight: Good insight present (Psych) Judgement: Good judgement present (Psych) Telehealth Telehealth Telehealth Platform: Telephone Location of provider rendering services: practice address Location of patient: address on file Patient Identification confirmed using: Name, : Yes Telehealth method: voice only Patient verbally consented to treatment: Yes Patient verbally consented to billing insurance company: Yes Patient informed of any privacy concerns related to visit: Yes Minutes spent on Phone/Video with Pt.: 16 Results Reviewed Results Reviewed: MR SPINE THORACIC without CONTRAST 01/24/24 at [facility] INDICATION: Spondylosis without myelopathy or radiculopathy, lumbar region. Pain in thoracic spine, mid back radiating to the left. Scoliosis. TECHNIQUE: Unenhanced multiplanar, multisequence MR imaging of the thoracic spine. COMPARISON: None Available. FINDINGS: There is dextrocurvature of the thoracic spine. Vertebral heights are well maintained. There are type I Modic changes at T2-T3, T8-T9, and T10-T11. No suspicious osseous lesion is identified. Prevertebral and paraspinal soft tissues are within normal limits. Thoracic cord demonstrates normal course, caliber, and signal characteristics. No epidural fluid collection or hematoma is identified. There are degenerative multilevel disc bulges/protrusions at T1-T2, T2-T3, T3-T4 and T4-T5 and T5-T6, T6-T7, T8-T9 and T9-T10 and T10-T11. There is mild canal stenosis at T9-T10 and moderate to severe canal stenosis at T10-T11. There is diffuse multilevel neural foraminal narrowing severe at the bilateral T7-T8, T8-T9, and T9-T10 and T10-T11 Visualized chest and abdomen are grossly unremarkable. There are bilateral small shoulder effusions. IMPRESSION: Multilevel spondylosis with multilevel disc herniations/protrusions resulting in moderate to severe canal stenosis at T10-T11. There is multilevel neural foraminal narrowing severe at the bilateral T7-T8, T8-T9, T9-T10, T10-T11.. Multilevel endplate edema/Modic changes. MR CERVICAL SPINE WITHOUT CONTRAST 02/27/24 CLINICAL INFORMATION: Balance issues with urinary and fecal incontinence. Myelopathic reflexes. COMPARISON: CT cervical spine dated 03/28/2022. TECHNIQUE: Multiplanar, multisequential imaging of the cervical spine was performed without contrast. FINDINGS: VERTEBRAL BODIES AND PARASPINAL SOFT TISSUES: There is a reversal of the normal cervical lordosis centered at the C5-C6 level where there is severe disc space narrowing and endplate to endplate osseous fusion changes with a slight retrosubluxation. A rightward curvature of the cervical spine is again evident as well. No compression fractures are seen. There are chronic suspected endplate fusion changes at the C2-C3 level with ankylosis of the facet joints as well. Mild anterolisthesis again noted at the C3-C4 level with advanced facet arthropathy, more so on the left side. Mild anterior subluxation also again noted at the C4-C5 level with chronic disc desiccation and hypertrophic facet degeneration. Multilevel decompressive laminectomies are visible from the C5 through the C7 levels with posterior fusion hardware spanning from the C5 through the T2 levels. There are chronic-appearing endplate fusion changes at the C5-C6 level with bulky anterior endplate spurring. Severe loss of disc height hypertrophic endplate spurring evident at the C6-C7 level. There is [id number] disc space narrowing and an anterolisthesis at the C7-T1 level. Significant multilevel degenerative disc disease also visible in the upper thoracic spine with facet arthropathy and endplate spurring resulting in [id number] foraminal encroachment. The paraspinal soft tissues are normal. There is a partial retropharyngeal course of the left common carotid artery. The vertebral artery flow-voids are maintained. The imaged portions of the lungs are grossly clear, though limited for assessment. CERVICOMEDULLARY JUNCTION AND VISUALIZED POSTERIOR FOSSA: The craniovertebral junction and imaged portions of the brain parenchyma appear normal. No syrinx is seen. There is perceived focal mild T2 hyperintense signal change within the cord at the C3-C4 level which may reflect myelomalacia and/or edema. SPINAL LEVELS: C2-C3: Mild endplate ridging in the midline. No central canal stenosis. Ankylosis of the hypertrophied facet joints. No significant foraminal encroachment. C3-C4: Mild anterolisthesis and broad-based central disc protrusion with thickening of the ligamentum flavum and advanced facet arthropathy. Findings result in severe central canal stenosis and moderate cord compression without intramedullary signal change. Significant bilateral foraminal narrowing as well, worse on the left side. C4-C5: Disc desiccation and mild anterolisthesis with ankylosis of the hypertrophied facet joints. No central canal stenosis. [id number] bilateral foraminal narrowing, worse on the left side. C5-C6: Bulky anterior endplate fusion changes and facet arthropathy with a decompressive laminectomy. Significant bilateral foraminal narrowing. Posterior fusion hardware in place. C6-C7: Severe loss of disc height with disc desiccation and endplate ridging. Bilateral facet arthropathy. Decompressive laminectomy with severe left foraminal encroachment and moderate right foraminal narrowing. C7-T1: Decompressive laminectomy and mild anterolisthesis with unroofed desiccated disc. Severe right foraminal narrowing and moderate left foraminal narrowing from osseous spurring. Severe degenerative disc disease visible at the thoracic levels with disc-osteophyte complexes and facet arthropathy resulting in significant foraminal encroachment at the T1-T2 and T2-T3 levels. IMPRESSION: Extensive multilevel cervicothoracic spondylosis and reversal of the normal cervical lordosis with a rightward curvature of the cervical spine as well. Status post decompressive laminectomies at the C5-C6 and C6-C7 levels with posterior fusion hardware in place spanning from the C5 through the T2 levels. High-grade central canal stenosis due to significant spondylosis with a broad-based central disc protrusion at the C3-C4 level compressing the cord. Mild intramedullary signal change may reflect myelomalacia and/or edema. Recommend follow-up neurosurgical consultation to guide further management. Spondylosis with hypertrophic facet degeneration contributes to significant multilevel foraminal narrowing as described, also evident at the upper thoracic levels as well. 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 of non-steroidal anti-inflammatories (NSAID) Category: Medical (2) Thoracic spinal stenosis: Code(s): M48.04 - Spinal stenosis, thoracic region Category: Medical (3) Muscle spasm: Code(s): M62.838 - Other muscle spasm Category: Medical (4) Post laminectomy syndrome: Code(s): M96.1 - Postlaminectomy syndrome, not elsewhere classified Category: Medical (5) Radicular pain of thoracic region: Code(s): M54.14 - Radiculopathy, thoracic region Category: Medical (6) Thoracic back pain: Code(s): M54.6 - Pain in thoracic spine Category: Medical (7) Cervical spondylosis: Code(s): M47.812 - Spondylosis without myelopathy or radiculopathy, cervical region Category: Medical Plan Patient is 1.5 months status post left parasagittal interlaminar T10-T11 JORDIN with mild-moderate pain relief with improvement in her daily functioning and sleep. She also underwent C3-C4 ACDF surgery on 03/06/24 with improvement in her neck pain, gait balance and walking. Discussed long-term adverse effects with NSAID use. CMP labs ordered per patient's requests. She is aware to take Celebrex on prn basis only. Refill for baclofen sent today. All questions and concerns have answered and patient agreed with the treatment plan. Follow-up as needed. I hereby testify that I spent 16 minutes in conversation with this patient as well as with planning and coordinating care for this patient and organizing this note. Orders: Orders Comprehensive Met. Panel Today Z79.1 - intermediate (current) use of non-steroidal anti-inflammatories (NSAID) Medications: Refilled baclofen 10 mg PO BID 30 days PRN 60 tabs 1RF muscle spasm M54.6 - Pain in thoracic spine, M62.838 - Other muscle spasm Coding Level of Care Code Tele Est Pt Level 4 (60666) Diagnoses NSAID long-term use Z79.1 Thoracic spinal stenosis M48.04 Muscle spasm M62.838 Post laminectomy syndrome M96.1 Radicular pain of thoracic region M54.14 Thoracic back pain M54.6 Cervical spondylosis M47.812
== END 2024-04-07 10:54 | disposition home or self-care (01) ==
LOC: HO.PMC 10:45
PROVIDERS: PCP Internal Medicine; Visit Provider Nurse Practitioner Family
DX: Z79.1 Long term (current) use of non-steroidal anti-inflammatories (NSAID) (principal); M48.04 Spinal stenosis, thoracic region; M62.838 Other muscle spasm; M96.1 Postlaminectomy syndrome, not elsewhere classified; M54.14 Radiculopathy, thoracic region; M54.6 Pain in thoracic spine; M47.812 Spondylosis without myelopathy or radiculopathy, cervical region
CPT/HCPCS: 99442

== ENCOUNTER → 2024-04-07 10:44 | Outpatient (BNVA) | payer MEDICARE, OTHER, SELFPAY | PROVIDERS: PCP Internal Medicine; Visit Provider Nurse Practitioner Family ==

== ENCOUNTER 2024-04-08 14:51 | Outpatient (AMB) | payer MEDICARE, OTHER, SELFPAY ==
[2024-04-08 15:02] VITALS: BMI 38.8
--- NOTE | 2024-04-08 15:02 | A.OFFVIS_ITS ---
Vital Signs 04/08/24 15:02 Height 5 ft 8 in Weight 255 lb BMI 38.8 Intake Visit Reasons: 01/29 US Follow Up Intake Note: follow up US bilateral LE 01/30/24 w/ hx of bilateral LE swelling Left LE slightly worse than the Right LE and worse in the evening, has tried compression stockings and this started in Jun 2022. Hx of LEft knee and ankle surgery. Pt states she feels legs are a bit stronger s/p cervical spine surgery ( 4 weeks ago) and lumbar injection. Accompanied by: Self / Same As Patient Allergies sulfamethoxazole [From Bactrim] Allergy (Severe, Verified 04/08/24 15:06) Hives trimethoprim [From Bactrim] Allergy (Severe, Verified 04/08/24 15:06) Hives morphine Allergy (Unknown, Verified 04/08/24 15:06) Vomiting HPI HPI 01/29 US Follow Up: Details: Very pleasant 73-year-old female presents for follow-up regarding lower extremity swelling. She has undergone venous insufficiency testing. Also of note she has most recently undergone Neurosurgery cervical spine C3-C4 anterior diskectomy arthrodesis and cage placement. She appears to be doing extremely well from that. She notes that the pain and discomfort in her neck and arms have decreased. She is still in the process of recovering at as a cervical collar. She now presents for follow-up. [facility] Medical History History of broken leg Kidney stones Sleep apnea SOB (shortness of breath) On beta amandeep at home Morbid obesity with BMI of 40.0-44.9, adult Umbilical hernia Diverticulosis Asthma Lumbar radiculopathy COVID-19 Habitual snoring DDD (degenerative disc disease), lumbar Osteoarthritis Shortness of breath on exertion Diastolic congestive heart failure Abnormal cardiovascular function study Back pain Numbness and tingling of both legs Gait disorder Cervical spondylosis HTN (hypertension) Hyperlipidemia Carpal tunnel syndrome Lumbar spondylosis Arthritis of knee Anxiety Prediabetes CHF (congestive heart failure) Surgical History History of tonsillectomy and adenoidectomy Hx of umbilical hernia repair H/O colonoscopy Hx of cervical spine surgery History of surgery on lower extremity History of ankle surgery History of carpal tunnel release History of back surgery Family History Father A-fib Diabetes Kidney disease History of hip replacement Mother Parkinson disease HTN (hypertension) Depression Osteoporosis Sister Breast cancer H/O knee surgery Social History Household Members: None Housing: House Are you a primary rn complex care to a significant other at home: No Do you presently have visiting nurse or other home services: No Alcohol intake: never Patient Tobacco Use Status: Never used Tobacco Review of Systems Const Reports as per HPI ENT Reports no additional complaints Card Denies chest pain, Denies chest pain at rest and Denies chest pain with activity Resp Denies chest congestion and Denies cough GI Reports no additional complaints Musc Details: pain over varicosities, aching of lower extremities, swelling, cramping, heaviness and tiredness, itching Denies abnormal gait Skin/Breast Reports pruritus and Denies wounds Neuro Reports no additional complaints and Denies abnormal gait Psych Denies no additional complaints Physical Exam Vital Signs: BMI result Body Mass Index 38.8 Const General: cooperative, healthy appearing and comfortable Orientation/consciousness: oriented to person, oriented to place and oriented to time Neck Carotids: no bruits Chest Chest palpation & inspection: normal inspection of the chest and normal palpation of entire chest wall Resp Effort & Inspection: normal respiratory effort and able to speak in complete sentences Cardio Rate: regular rate Heart sounds: S1 normal heart sound present and S2 normal heart sound present Peripheral pulses: Peripheral pulses 2+ throughout GI Inspection: Yes normal to inspection Skin Other: +2 edema, left leg more so than right General skin exam: dry skin Neuro General: oriented to person, oriented to place and oriented to time Extrem Right lower extremity: full ROM, normal capillary refill and edema Left lower extremity: full ROM, normal capillary refill and edema Psych Mental Status: mental status grossly normal Results Reviewed Results Reviewed: Brief summary of venous insufficiency testing is as follows: right great saphenous vein: negative right small saphenous vein: negative right accessory vein: none present left great saphenous vein: negative left small saphenous vein: negative left accessory vein: none present Please note there is no evidence of any venous aneurysms or significant tortuosity Assessment & Plan Assessment & Plan (1) Lymphedema: Code(s): I89.0 - Lymphedema, not elsewhere classified Category: Medical Plan: In short patient has an element of lymphedema. At the current time I would like her to recover from her Neurosurgery procedure. We did discuss routine conservative measures including compression elevation and exercise. She will follow up with us in approximately 3 months time. Thank you for allowing us to assist in her care Coding Level of Care Code Est Pt Level 4 (64077) Diagnoses Lymphedema I89.0
== END 2024-04-08 15:47 | disposition home or self-care (01) ==
PROVIDERS: PCP Internal Medicine; Visit Provider Surgery Vascular Surgery
DX: I89.0 Lymphedema, not elsewhere classified (principal)
CPT/HCPCS: 99213

== ENCOUNTER → 2024-04-08 14:51 | Outpatient (BNVA) | payer MEDICARE, OTHER, SELFPAY | PROVIDERS: PCP Internal Medicine; Visit Provider Surgery Vascular Surgery | DX: I89.0 Lymphedema, not elsewhere classified (principal) | CPT/HCPCS: 99212 ==

== ENCOUNTER 2024-04-15 10:51 | Outpatient (AMB) | payer MEDICARE, OTHER, SELFPAY ==
--- NOTE | 2024-04-15 11:09 | MHC.OFFVIS ---
Vital Signs 04/15/24 11:19 Height 5 ft 8 in Weight 257 lb 6 oz BMI 39.1 BP 134/82 Blood Pressure Location Lt brachial Position Sitting Pulse 56 Pulse Source Pulse Oximeter Pulse Oximetry (%) 96 Oxygen Delivery Method Room Air Intake Visit Reasons: 4 mo f/u - Conf Intake Note: Patient presents for 4 months f/u. Allergies sulfamethoxazole [From Bactrim] Allergy (Severe, Verified 04/15/24 11:14) Hives trimethoprim [From Bactrim] Allergy (Severe, Verified 04/15/24 11:14) Hives morphine Allergy (Unknown, Verified 04/15/24 11:14) Vomiting HPI Comments Details: 73y/o female with h/o scoliosis h/o 2 back surgeries , 1 neck surgery comes for follow up. she had recent ACDF C3-C4 on March 06 and still recovering . Her gait is better but still has some balance issues. she sees pain management. Her first back surgery was 1982 -she recovered and did good for many years . In 2009 she started having more issues. In 2010 she had another surgery - fusion .she recovered well until 2021 she had neck pain and had surgery with cervical fusion.she did well but now she has pain in shoulders. About 18 months ago she started having numbness in legs balance issues and gait issues .she had multiple evaluations at [facility] and [facility] . she has pain in her midback and shooting pains . she has trouble with urinary incontinence. No recent falls but is using a walker sinceSept 2022. [facility] Medical History History of broken leg Kidney stones Sleep apnea SOB (shortness of breath) On beta amandeep at home Morbid obesity with BMI of 40.0-44.9, adult Umbilical hernia Diverticulosis Asthma Lumbar radiculopathy COVID-19 Habitual snoring DDD (degenerative disc disease), lumbar Osteoarthritis Shortness of breath on exertion Diastolic congestive heart failure Abnormal cardiovascular function study Back pain Numbness and tingling of both legs Gait disorder Cervical spondylosis HTN (hypertension) Hyperlipidemia Carpal tunnel syndrome Lumbar spondylosis Arthritis of knee Anxiety Prediabetes CHF (congestive heart failure) Surgical History History of neck surgery History of tonsillectomy and adenoidectomy Hx of umbilical hernia repair H/O colonoscopy Hx of cervical spine surgery History of surgery on lower extremity History of ankle surgery History of carpal tunnel release History of back surgery Family History Father A-fib Diabetes Kidney disease History of hip replacement Mother Parkinson disease HTN (hypertension) Depression Osteoporosis Sister Breast cancer H/O knee surgery Social History Household Members: None Housing: House Are you a primary respiratory care technician to a significant other at home: No Do you presently have visiting nurse or other home services: No Alcohol intake: never Patient Tobacco Use Status: Never used Tobacco Physical Exam Vital Signs: Last Vital Signs Pulse 56 04/15/24 11:19 BP 134/82 04/15/24 11:19 Pulse Ox 96 04/15/24 11:19 Oxygen Delivery Method Room Air 04/15/24 11:19 BMI result Body Mass Index 39.1 Const General: cooperative and comfortable Nutritional Appearance: obese Orientation/consciousness: patient oriented x3 Neck Other: neck brace Neuro Other: Mild weakness of LE extremities gait- was able to walk without walker , mild unsteadiness, slow and antalgic General: patient oriented x3, tone normal and moves all extremities Cranial nerves: Yes Facial sensation intact/muscles of mastication intact, Yes Nystagmus not present, Yes Normal facial strength present and Yes Midline tongue present Cognition (Neuro): normal cognition Motor exam (neuro): no tremor noted and Normal motor muscle tone present throughout Deep tendon reflexes (DTR's): Right triceps reflex intensity grade: 1+, Left triceps reflex intensity grade: 1+, Rt Biceps (C5, C6): 1+, Left biceps reflex intensity grade: 1+, Right brachioradialis reflex intensity grade: 1+, Left brachioradialis reflex intensity grade: 1+, Right patellar reflex intensity grade: 1+ and Left patellar reflex intensity grade: 1+ Assessment & Plan Assessment & Plan (1) Gait disorder: Comment: multifactorial - musculoskeletal, cervical myelopathy Code(s): R26.9 - Unspecified abnormalities of gait and mobility Category: Medical (2) Cervical spondylosis: Code(s): M47.812 - Spondylosis without myelopathy or radiculopathy, cervical region Category: Medical (3) Back pain: Code(s): M54.9 - Dorsalgia, unspecified Category: Medical (4) Lumbar spondylosis: Code(s): M47.816 - Spondylosis without myelopathy or radiculopathy, lumbar region Category: Medical Plan continue gabapentin to 100mg tid F/u Pain management and Spine surgeons will consider PT for gait training Medications: Discontinued oxycodone Partial Fill upon patient request. Discontinued Reason: Stopped on Transfer 5 mg PO Q6H PRN 30 tabs 0RF severe pain (scale score 7-10) baclofen Discontinued Reason: Patient no longer taking 10 mg PO BID 30 days PRN 60 tabs 1RF muscle spasm M54.6 - Pain in thoracic spine, M62.838 - Other muscle spasm Coding Level of Care Code Est Pt Level 4 (23477) Diagnoses Gait disorder R26.9 Cervical spondylosis M47.812 Back pain M54.9 Lumbar spondylosis M47.816
[2024-04-15 11:19] VITALS: BP 134/82; PULSE 56; O2SAT 96; BMI 39.1
== END 2024-04-15 11:32 | disposition home or self-care (01) ==
PROVIDERS: PCP Internal Medicine; Visit Provider Psychiatry & Neurology Neurology
DX: R26.9 Unspecified abnormalities of gait and mobility (principal); M47.812 Spondylosis without myelopathy or radiculopathy, cervical region; M54.9 Dorsalgia, unspecified; M47.816 Spondylosis without myelopathy or radiculopathy, lumbar region
CPT/HCPCS: 99214

== ENCOUNTER → 2024-04-15 10:51 | Outpatient (BNVA) | payer MEDICARE, OTHER, SELFPAY | PROVIDERS: PCP Internal Medicine; Visit Provider Psychiatry & Neurology Neurology | DX: R26.9 Unspecified abnormalities of gait and mobility (principal); M47.812 Spondylosis without myelopathy or radiculopathy, cervical region; M54.9 Dorsalgia, unspecified; M47.816 Spondylosis without myelopathy or radiculopathy, lumbar region; Z79.899 Other long term (current) drug therapy | CPT/HCPCS: 99212 ==

== ENCOUNTER 2024-04-18 13:58 | Outpatient (AMB) | payer MEDICARE, OTHER, SELFPAY ==
--- NOTE | 2024-04-18 14:16 | A.SPINEOV_ITS ---
Intake Visit Reasons: 2nd post op with xrays Intake Note: Ms. Love is here today for her 2nd post op with xrays. 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 About 6 weeks ago she underwent an ACDF C3-4, unable to do C4-5 due to auto fusion. Severe osteoporosis was seen at the time of surgery. She had a severe cervical myelopathy at the time with gait imbalance, hand weakness and numbness of her arms. She tells me that since our last visit, she is continued to wear the collar religiously. She has not seen any significant improvement in the weakness and numbness of her hands, but does feel like her balance is better. Her is here with her today and he confirms that she is more steady on her feet. I reviewed her imaging today and reexamined her. She still does have significant hand weakness which I would rate as 4- out of 5 and some iliopsoas weakness with similar 4- out of 5. I did not elicit any hyperreflexia with reflex testing. Her X rays show stable implants of the C3-4 interbody cage. She has a over exaggerated kyphotic segment at C4-5 which puts her neck and a naturally flexed posture. With extension and in neutral views I do not see any change in position of the graft. I showed the patient her x-rays and told her that I would let her out of her collar but if she has any return of the sharp stabbing neck pain that she had before surgery she is to give us a call and we can reimage. I told her she can wean out of the collar as tolerated or just do away with it altogether. I will reassess in 6 weeks with another set of x-rays. I will also reimage her cervical spine with a new MRI if she does not see any improvement at that time in any of the weakness of her hands and numbness of her arms. I will update Dr. Millard in the status of her x-rays. Jaison Millard MD, PhD [facility] Orders: Orders XR cervical spine 4V Today G95.9 - Disease of spinal cord, unspecified Coding Level of Care Code Global (71098) Diagnoses Cervical myelopathy G95.9
== END 2024-04-18 15:06 | disposition home or self-care (01) ==
PROVIDERS: PCP Internal Medicine; Visit Provider Physician Assistant
DX: G95.9 Disease of spinal cord, unspecified (principal)
CPT/HCPCS: 99024

== ENCOUNTER → 2024-04-18 13:58 | Outpatient (BNVA) | payer MEDICARE, OTHER, SELFPAY | PROVIDERS: PCP Internal Medicine; Visit Provider Physician Assistant ==

== ENCOUNTER 2024-04-18 13:59 | Outpatient (REF) | payer MEDICARE, OTHER, SELFPAY ==
--- NOTE | ~2024-04-18 | XR_ITS ---
EXAMINATION: XR cervical spine 4V CLINICAL INFORMATION: Diffuse of the spinal cord COMPARISON: MR cervical spine 02/27/2024 TECHNIQUE: 4 views of the cervical spine were obtained. FINDINGS: The cervical spine is visualized to the level of C7-T1 on the lateral view. Reversal of usual cervical lordosis with cervical kyphosis. Status post C3-C4 anterior discectomy and spinal fusion and C4-T1 posterior spinal fusion and multilevel decompression. No evidence of hardware fracture or complication. Vertebral body heights are maintained. Evaluation for instability is limited by motion degradation on extension views. There is 4 mm of anterolisthesis of C3 on C4 in flexion which appears grossly similar in extension and 4 mm anterolisthesis of C4 on C5 in flexion which appears grossly similar and extension views. Advanced multilevel degenerative disc disease. No prevertebral soft tissue swelling. XR/XR cervical spine 4V IMPRESSION: 1. Status post C3-C4 anterior discectomy and spinal fusion and C4-T1 posterior spinal fusion and multilevel decompression. No evidence of hardware fracture or complication. 2. Evaluation for instability is limited by motion degradation on extension views. There is 4 mm of anterolisthesis of C3 on C4 in flexion which appears grossly similar in extension and 4 mm anterolisthesis of C4 on C5 in flexion which appears grossly similar and extension views. 3. Advanced multilevel degenerative disc disease. 4. Reversal of usual cervical lordosis with cervical kyphosis.
== END 2024-04-18 14:00 | disposition home or self-care (01) ==
LOC: HO.HOSX 13:59
PROVIDERS: Visit Provider Physician Assistant
DX: G95.9 Disease of spinal cord, unspecified (principal)
CPT/HCPCS: 72050; 99212

== ENCOUNTER 2024-05-30 13:32 | Outpatient (AMB) | payer MEDICARE, OTHER, SELFPAY ==
--- NOTE | 2024-05-30 13:43 | HO.SPINEOV ---
Intake Visit Reasons: 6 week f/u with Xrays Intake Note: Ms. Love is here today for a 6 week f/u. 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 We had attempted a C4-5 anterior diskectomy as well to to provide more correction of her curvature but found at the time of surgery that she was already fused at this level. She tells me that she has been weaning herself out of the collar but probably using it more than I would like. Her gait is stable she still has some mild hand weakness, her wound is healed up well. Her x-rays show stable positioning of the hardware. I told her to get rid of her collar and I gave her a referral to PT at her request as she would like to do some strengthening with her arms but I specifically told her that in no way shape perform his anyone to touch her neck or manipulate her neck or attempt range of motion of exercises etc.. She will follow up in 3 months with x-rays. Total amount of time spent in this visit was 20 minutes in discussion of symptoms, cervical x-ray imaging results and subsequent plan of care Jaison Millard MD,PhD [facility] Orders: Orders PT Evaluation and Treatment Today G95.9 - Disease of spinal cord, unspecified XR cervical spine 4V Today G95.9 - Disease of spinal cord, unspecified Coding Level of Care Code Est Pt Level 3 (38630) Diagnoses Cervical myelopathy G95.9
== END 2024-05-30 14:45 | disposition home or self-care (01) ==
PROVIDERS: PCP Internal Medicine; Visit Provider Physician Assistant
DX: G95.9 Disease of spinal cord, unspecified (principal)
CPT/HCPCS: 99024

== ENCOUNTER 2024-05-30 13:32 | Outpatient (REF) | payer MEDICARE, OTHER, SELFPAY ==
--- NOTE | ~2024-05-30 | XR_ITS ---
EXAMINATION: XR CERVICAL SPINE CLINICAL INFORMATION: Disease of spinal cord unspecified. COMPARISON: 03/06/2024, 02/27/2024, 04/18/2024. TECHNIQUE: 4 views of the cervical spine. FINDINGS: Diffuse demineralization. Reversal of the normal cervical lordosis with cervical kyphosis. Status post C3-C4 anterior discectomy and spinal fusion. Status post C4-T1 posterior spinal fusion and multilevel decompression. Limited visualization of C7 due to overlying bony and soft tissue structures. 4 mm anterolisthesis of C3 on C4 with flexion and extension. 4 mm anterolisthesis of C4 on C5 with flexion and extension. Advanced multilevel degenerative changes. XR/XR cervical spine 4V IMPRESSION: 1. Status post C3-C4 anterior discectomy and spinal fusion. Status post C4-T1 posterior spinal fusion and multilevel decompression. 2. Advanced multilevel degenerative changes.
== END 2024-05-30 13:33 | disposition home or self-care (01) ==
LOC: HO.HOSX 13:32
PROVIDERS: PCP Internal Medicine; Visit Provider Physician Assistant
DX: G95.9 Disease of spinal cord, unspecified (principal)
CPT/HCPCS: 72050; 99212

== ENCOUNTER 2024-07-29 14:33 | Outpatient (AMB) | payer MEDICARE, OTHER, SELFPAY ==
[2024-07-29 14:52] VITALS: BMI 38.8
--- NOTE | 2024-07-29 14:52 | A.OFFVIS_ITS ---
Vital Signs 07/29/24 14:52 Height 5 ft 8 in Weight 255 lb BMI 38.8 Intake Visit Reasons: 3m leg check/no testing Intake Note: 3 mo LE Check for LE swelling, bilateral LE swelling w/ Left LE worse than the Right LE. Pt states she does have some changes to the color of her skin, no drainage, does have some pain even with ambulation. Does have a discolored nodule on the back of her Right thigh. Accompanied by: Self / Same As Patient Allergies sulfamethoxazole [From Bactrim] Allergy (Severe, Verified 07/29/24 14:58) Hives trimethoprim [From Bactrim] Allergy (Severe, Verified 07/29/24 14:58) Hives morphine Allergy (Unknown, Verified 07/29/24 14:58) Vomiting HPI HPI 3m leg check/no testing: Details: Very pleasant 73-year-old female presents for follow-up regarding lower extremity swelling. She has had no significant improvement. She continues to improve with her C3-C4 anterior diskectomy arthrodesis and cage placement. She is actually due for a follow-up on 09/04/2024 with her primary care doctor. In a ddition she does have an appointment for her right posterior thigh mass with a general surgeon. She now presents for routine follow-up. She has had no significant improvement of her lower extremities. [facility] Medical History History of broken leg Kidney stones Sleep apnea SOB (shortness of breath) On beta amandeep at home Morbid obesity with BMI of 40.0-44.9, adult Umbilical hernia Diverticulosis Asthma Lumbar radiculopathy COVID-19 Habitual snoring DDD (degenerative disc disease), lumbar Osteoarthritis Shortness of breath on exertion Diastolic congestive heart failure Abnormal cardiovascular function study Back pain Numbness and tingling of both legs Gait disorder Cervical spondylosis HTN (hypertension) Hyperlipidemia Carpal tunnel syndrome Lumbar spondylosis Arthritis of knee Anxiety Prediabetes CHF (congestive heart failure) Surgical History History of neck surgery History of tonsillectomy and adenoidectomy Hx of umbilical hernia repair H/O colonoscopy Hx of cervical spine surgery History of surgery on lower extremity History of ankle surgery History of carpal tunnel release History of back surgery Family History Father A-fib Diabetes Kidney disease History of hip replacement Mother Parkinson disease HTN (hypertension) Depression Osteoporosis Sister Breast cancer H/O knee surgery Social History Household Members: None Housing: House Are you a primary long term care social worker to a significant other at home: No Do you presently have visiting nurse or other home services: No Alcohol intake: never Patient Tobacco Use Status: Never used Tobacco Review of Systems Const All systems reviewed & are unremarkable except as noted in HPI and below Reports no additional complaints ENT Reports Normal hearing present Card Denies chest pain, Denies chest pain at rest, Denies chest pain with activity and Denies pedal edema Resp Denies cough GI Denies abdominal pain Musc Denies abnormal gait, Denies muscle cramps and Denies radiating pain into limb Skin/Breast Denies skin ulcer and Denies wounds Neuro Reports Normal hearing present and Denies abnormal gait Psych Reports no additional complaints Physical Exam Vital Signs: BMI result Body Mass Index 38.8 Const General: cooperative, healthy appearing and comfortable Orientation/consciousness: oriented to person, oriented to place and oriented to time HEENT Head: Yes normal to inspection Neck Neck: Yes normal visual inspection Carotids: no bruits Chest Chest palpation & inspection: normal inspection of the chest Resp Effort & Inspection: normal respiratory effort and able to speak in complete sentences Auscultation: clear to auscultation bilaterally, no crackles, no rales, no rhonchi and no wheezes Cardio Rate: regular rate Rhythm: regular rhythm Heart sounds: S1 normal heart sound present and S2 normal heart sound present Bruits: no carotid bruits Peripheral pulses: Peripheral pulses 2+ throughout GI Inspection: Yes normal to inspection Skin Other: Right posterior thigh mass approximately 2 cm in diameter Wounds: no wounds Hair: normal Neuro General: oriented to person, oriented to place and oriented to time Cranial nerves: Yes CN's II-XII intact bilaterally and Yes Normal hearing present Cognition (Neuro): normal cognition Motor exam (neuro): 5/5 motor strength present throughout Extrem Other: venous exam: +2 edema Right in cm: Thigh 69 Knee 52 Calf 49.75 Ankle 33.25 Left in cm: Thigh 66 Knee 53 Calf 49.75 Ankle 33.5 Hip/waist 139 General: No clubbing, No cyanosis and Yes edema Psych Appearance: grossly normal Mental Status: mental status grossly normal Speech and movement: Normal speech and movement present Assessment & Plan Assessment & Plan (1) Lymphedema of both lower extremities: Code(s): I89.0 - Lymphedema, not elsewhere classified Category: Medical Plan: In short the patient has late on sent lymphedema. The patient has been on conservative treatment for at least 3 months with minimal relief. Patient has tried 30 mm of mercury compression garments, elevation, exercise healthy diet and doing manual says self MLD to the best of their ability for over 4 weeks but with no significant relief. She has been compliant with the program but has provided minimal relief. In addition on physical we are noticing hyperpigmentation. It appears that she has stage 2 lymphedema. Patient has c ompleted multiple forms of conservative therapy yet significant symptoms remain. Patient requires the use of a pneumatic compression device which we will assist in trying to have the patient obtain them. A pneumatic compression device will help reduce swelling and other lymphedema comorbidities. We will try to coordinate this after her neurosurgery follow-up in addition to the plan of this posterior thigh mass. She will follow up with us in our lymphedema clinic. Thank you for allowing us to assist in this patient's care. Coding Level of Care Code Est Pt Level 4 (91770) Diagnoses Lymphedema of both lower extremities I89.0
== END 2024-07-29 15:18 | disposition home or self-care (01) ==
PROVIDERS: PCP Internal Medicine; Visit Provider Surgery Vascular Surgery
DX: I89.0 Lymphedema, not elsewhere classified (principal)
CPT/HCPCS: 99214

== ENCOUNTER → 2024-07-29 14:33 | Outpatient (BNVA) | payer MEDICARE, OTHER, SELFPAY | PROVIDERS: PCP Internal Medicine; Visit Provider Surgery Vascular Surgery | DX: I89.0 Lymphedema, not elsewhere classified (principal) | CPT/HCPCS: 99212 ==

== ENCOUNTER 2024-09-04 13:55 | Outpatient (REF) | payer MEDICARE, OTHER, SELFPAY | END 2024-09-04 13:56 | disposition home or self-care (01) | LOC: HO.HOSX 13:55 | PROVIDERS: PCP Internal Medicine; Visit Provider Physician Assistant | DX: G95.9 Disease of spinal cord, unspecified (principal); M48.04 Spinal stenosis, thoracic region; Z98.1 Arthrodesis status | CPT/HCPCS: 72050; 99212 ==

== ENCOUNTER 2024-09-04 13:55 | Outpatient (AMB) | payer MEDICARE, OTHER, SELFPAY ==
--- NOTE | 2024-09-04 14:27 | HO.SPINEOV ---
Intake Visit Reasons: 3rd post op Intake Note: Ms. Love is here today for her 3rd post op. [employer] Required: No Allergies sulfamethoxazole [From Bactrim] Allergy (Severe, Verified 09/04/24 14:28) Hives trimethoprim [From Bactrim] Allergy (Severe, Verified 09/04/24 14:28) Hives morphine Allergy (Unknown, Verified 09/04/24 14:28) Vomiting Assessment & Plan Assessment & Plan (1) Thoracic spinal stenosis: Code(s): M48.04 - Spinal stenosis, thoracic region Category: Medical Plan Mrs Love is following up in the office today for a postoperative visit. She underwent a C3-4 anterior cervical fusion in the setting of a previous C5-7 fusion posteriorly at [facility], and had a significant kyphotic deformity with stenosis at C3-4 with myelopathic features. Our plan was to correct the C3-4 and C4-5 segments but unfortunately the time of surgery was found that C4-5 had already fused itself. We therefore did a C3-4 anterior cervical fusion. The patient had good results from that postoperatively in the sense that her neck pain got better, some of her myelopathic symptoms such as her urinary incontinence and gait imbalance improved as well. She has been followed with serial x-rays in the hardware appears to be in stable condition. She had another set of x-rays today and it looks as though the implant has not moved. It was noted at the time of surgery and on her x-rays that she does have osteoporosis. This was known from her pre-surgical evaluation as well with a DEXA scan showing osteoporosis. She has never had this treated. I think she is healing up well from the standpoint of her cervical spine, but unfortunately she has almost no range of motion of her neck. She does have some atrophy on the side of the muscles along the sternomastoid and scalene muscles. She also wanted to talk today about the original reason that she came in to see us which was thoracic back pain. This was being worked up by pain management and she had a number of injections which did give her a little bit of relief. What she reports is that the pain is still there when she is standing and moving around. It is in the mid to lower thoracic area. She also continues to complain of some worsening gait and the incontinence issues starting to creep back in. I evaluated her again today and shows she still has mild weakness of her iliopsoas muscle groups. She is still hyperreflexic in her Achilles with clonus in both ankles. She is still walking with a walker. It is hard to know if this is just residual from her cervical myelopathy or if it is related to her previous thoracic stenosis seen at T10-11. Her thoracic MRI done at [facility] also showed significant facet hypertrophy and overgrowth on the left from T9-T12. I am going to order a new thoracic MRI to see if this is getting worse. It is also clear on the thoracic MRI from earlier in the year that she has a significant scoliotic curvature so I will get standing scoliosis survey and AP and lateral thoracic x-rays. I will also get a CT scan to see how much of her thoracic spine is fused. This will help us make a better surgical determination. I will see her back on a day when Dr. Millard and I are both in clinic. Total amount of time spent in this visit was 30 minutes in discussion of symptoms, thoracic imaging results and subsequent plan of care Jaison Millard MD,PhD [facility] Orders: Orders MR thoracic spine wo con Today M48.04 - Spinal stenosis, thoracic region CT thoracic spine wo IV con Today M48.04 - Spinal stenosis, thoracic region XR scoliosis survey Today M48.04 - Spinal stenosis, thoracic region XR thoracic spine 2V Today M48.04 - Spinal stenosis, thoracic region Coding Level of Care Code Est Pt Level 4 (76376) Diagnoses Thoracic spinal stenosis M48.04
== END 2024-09-04 15:22 | disposition home or self-care (01) ==
LOC: HO.HNS 13:56
PROVIDERS: PCP Internal Medicine; Visit Provider Physician Assistant
DX: M48.04 Spinal stenosis, thoracic region (principal)
CPT/HCPCS: 99214

== ENCOUNTER 2024-09-17 14:00 | Outpatient (RCR) | payer MEDICARE, OTHER, SELFPAY ==
--- NOTE | 2024-07-01 14:54 | MHC.PT.EP ---
[facility] [place] Office [place] Office [place] Office [address] Michell Nazario [address] [phone] F: [phone] F: [phone] F: [phone] F: [phone] Physical Therapy Plan of Care Date of Evaluation: 07/01/24 Date of Surgery: 03/06/24 Diagnosis: This is a 73 yo female presenting to skilled PT with a script for s/p 03/06/24 cervical fusion. Assessment: This is a 73 yo female presenting to skilled PT with a script for s/p 03/06/24 cervical fusion. Patient is s/p anterior cervical fusion C3-4 for severe kyphotic curvature and cervical myelopathy (of note: Dr. Espitia attempted a C4-5 anterior diskectomy as well to to provide more correction of her curvature but found at the time of surgery that she was already fused at this level.) Per Dr. Espitia's note and instructions: She tells me that she has been weaning herself out of the collar but probably using it more than I would like. Her gait is stable she still has some mild hand weakness, her wound is healed up well. Her x-rays show stable positioning of the hardware. I told her to get rid of her collar and I gave her a referral to PT at her request as she would like to do some strengthening with her arms but I specifically told her that in no way shape or form is anyone to touch her neck or manipulate her neck or attempt range of motion of exercises etc. She will follow up in 3 months with x-rays. She reports that her pain increases without her collar, with ADLs and reaching up. Assessment reveals pain that ranges from up to a 6/10 at the worst. Patient demos decreased B shoulder ROM, strength of B shoulder's and impaired posture with forward head and rounded shoulders. Based on functional limitations, impaired QOL and pain tolerance patient is a good candidate for skilled PT 2x/wk for 4wks. Frequency and Duration: The patient will be seen 2x/wk for 4wks Short Term Goals: (In 2 weeks) Demo I with HEP Demo proper scapular recruitment with appropriate shoulder strengthening exercises Usp Goals: (in 4 wks) Improve shoulder nonpainful AROM to almost near equal B Demo at least 1 grade improvement in MMT for shoulder Improve outcome measure by at least 10 points Improve overall functional QOL by at least 50% Treatment Plan: Modalities to reduce pain, spasms and effusion. Manual therapy to restore motion and function. Therapeutic exercise to improve strength and flexibility. Neuromuscular re-education for posture and balance. Therapeutic activities to return to functional activities of daily living. Electronically signed by: Allie Alvarez PT Please sign and return to therapist. Thank you for your referral.
--- NOTE | 2024-10-16 14:17 | MHC.PT.DC ---
[facility] [place] [facility] [place] [facility] [place] [facility] [address] Michell Nazario [address] [phone] F: [phone] F: [phone] F: [phone] F: [phone] Physical Therapy Discharge Report Diagnosis: This is a 73 yo female presenting to skilled PT with a script for s/p 03/06/24 cervical fusion. Date of Surgery: 03/06/24 Date of Evaluation: 07/01/24 Date of Discharge: Treatments to Date: 16 Cancellations to Date: 0 No Shows to Date: 0 Discharge Status: Achieved Goals Improved Function Discharge Summary: 09/17: Patient has come to 16 visits of PT. She has been instructed thoroughly on and HEP and should be I at this time. She has met her goals for a strengthening program and is appropriate for DC at this time. DC to HEP. Electronically signed by: Allie Alvarez PT Please sign and return to therapist. Thank you for your referral.
== END 2024-10-16 14:17 | disposition home or self-care (01) ==
LOC: HO.PTCHIC 14:00
PROVIDERS: PCP Internal Medicine; Visit Provider Physician Assistant
DX: G95.9 Disease of spinal cord, unspecified (principal)
CPT/HCPCS: 97110; 97162

== ENCOUNTER 2024-10-17 15:28 | Outpatient (REF) | payer MEDICARE, OTHER, SELFPAY | END 2024-10-17 15:29 | disposition home or self-care (01) | LOC: HO.CT 15:28 | PROVIDERS: PCP Internal Medicine; Visit Provider Physician Assistant | DX: M48.04 Spinal stenosis, thoracic region (principal) | CPT/HCPCS: 72128 ==

== ENCOUNTER → 2024-10-25 14:02 | Outpatient (BNV) | payer MEDICARE, OTHER, SELFPAY | PROVIDERS: PCP Internal Medicine; Visit Provider Radiology Diagnostic Radiology | DX: M47.895 Other spondylosis, thoracolumbar region (principal); M41.9 Scoliosis, unspecified | CPT/HCPCS: 72146 ==

== ENCOUNTER 2024-10-25 14:04 | Outpatient (REF) | payer MEDICARE, OTHER, SELFPAY ==
--- NOTE | ~2024-10-25 | MR_ITS ---
EXAMINATION: MR THORACIC SPINE WITHOUT CONTRAST CLINICAL INFORMATION: Spinal stenosis, thoracic region. COMPARISON: None available. Correlated to CT thoracic spine dated October 17, 2024. TECHNIQUE: MRI of the thoracic spine was obtained using routine sequences without contrast. FINDINGS: Submitted for interpretation on November 03, 2024. S-shaped curvature of the thoracolumbar spine with a levoconvex rotoscoliosis in the lumbar spine with an apex at L1-2 and dextroconvex curvature at T9. There is paramagnetic field distortion secondary to metallic hardware at C7 and T2 level. There is bone marrow STIR signal abnormality in the endplates and posterior elements of T10 and T11. There is bone marrow STIR signal in the endplates from T1 to T5. Multilevel marginal osteophyte formation and disc desiccation. Probable grade 1 anterolisthesis T6-7 on a degenerative basis. Grade 1 anterolisthesis C7-T1. There is central spinal canal stenosis on a multifactorial basis at T10-11 resulting in CSF effacement of the thecal sac. No gross cord signal abnormality. There is central spinal canal stenosis at T3-4, T4-5 and T8-9 on a multifactorial basis without cord compression or cord signal abnormality. There is a left subarticular disc protrusion at T6-7 without cord compression. No cord signal abnormality. No prevertebral compartment hematoma, mass or fluid collection. The descending thoracic aorta diameter is 3 cm. MR/MR thoracic spine wo con IMPRESSION: Multilevel thoracolumbar spondylosis and dextroconvex scoliosis apex at T9 and levoconvex rotoscoliosis apex at L1-2. No central spinal canal stenosis at T10-11 and to a lesser extent T3-4, T4-5 and T8-9 levels without cord edema and or myelopathy. Electronically signed by: Balaji Holcomb MD 11/03/2024 02:30 PM [facility]
== END 2024-10-25 14:05 | disposition home or self-care (01) ==
LOC: HO.MRI 14:04
PROVIDERS: PCP Internal Medicine; Visit Provider Physician Assistant
DX: M48.04 Spinal stenosis, thoracic region (principal)
CPT/HCPCS: 72146

== ENCOUNTER → 2024-11-14 14:38 | Outpatient (BNVA) | payer MEDICARE, OTHER, SELFPAY | PROVIDERS: PCP Internal Medicine; Visit Provider Physician Assistant | DX: M47.14 Other spondylosis with myelopathy, thoracic region (principal) | CPT/HCPCS: 99212 ==

== ENCOUNTER 2025-01-14 05:57 | Day surgery (SDC) | payer MEDICARE, OTHER, SELFPAY ==
[2024-12-17 09:57] VITALS: BMI 40.3
[2024-12-17 10:02] VITALS: BP 132/61; PULSE 71; RESP 18; O2SAT 97
[2024-12-17 11:07] LABS: Hematocrit 39.1 % (37.0-47.0); Hemoglobin 13.3 g/dl (12.0-16.0); Mean Corpuscular Hemoglobin 31.4 pg (27.0-33.0); Mean Corpuscular Volume 92.2 fL (80.0-98.0); Mean Platelet Volume 10.7 fL (9.4-12.3); Platelet Count 191 X10*3/uL (160-400); Red Blood Count 4.24 X10*6/uL (4.20-5.50); Red Cell Distribution Width 12.8 % (11.0-16.0); White Blood Count 5.1 X10*3/uL (4.8-10.8)
[2024-12-17 11:30] LABS: Anion Gap 13 (12-20); Blood Urea Nitrogen 20 mg/dL (9-16); Calcium 9.7 mg/dL (8.4-10.2); Carbon Dioxide 26 mmol/L (22-29); Chloride 107 mmol/L (96-108); Creatinine Clr Calc Pharmacy 97.7; Estimated Glomerular Filt Rate > 60; Glucose Random 96 mg/dL (60-115); Potassium 3.8 mmol/L (3.3-5.1); Sodium 142 mmol/L (135-145)
--- NOTE | 2024-12-30 08:50 | P.CONAN_ITS ---
Documented by User: Tequila Jones NP 01/13/25 14:52 HPI - Anesthesia Eval Consult details Narrative: 74yo M for Right T10-T11 Laminotomy Thoracic, 01/14/25 12/17/[address] Mcdonough s/p ACDF 02/2024 with [facility]T 7 Follows [facility]. Stable at 10/2024 office visit, nonobstructive CAD. OK'd to proceed with gallbladder or lithotripsy . PMFSH Active Problems Active Problems: All Active Problems Thoracic myelopathy (Acute) Thoracic spinal stenosis (Acute) NSAID long-term use (Acute) Cervical myelopathy (Acute) Thoracic spinal stenosis (Acute) Lymphedema (Acute) Varicose veins of right lower extremity with inflammation (Acute) Post laminectomy syndrome (Acute) Muscle spasm (Acute) Radicular pain of thoracic region (Acute) Thoracic back pain (Acute) Lymphedema of both lower extremities (Acute) Carpal tunnel syndrome (Acute) Back pain (Acute) Numbness and tingling of both legs (Acute) Gait disorder (Acute) Cervical spondylosis (Acute) HTN (hypertension) (Acute) Hyperlipidemia (Acute) Lumbar spondylosis (Acute) Arthritis of knee (Acute) Anxiety (Acute) Prediabetes (Acute) Past Medical History Medical History Family history of anesthesia complication History of broken leg Kidney stones Sleep apnea On beta amandeep at home Morbid obesity with BMI of 40.0-44.9, adult Diverticulosis Asthma Lumbar radiculopathy COVID-19 Habitual snoring DDD (degenerative disc disease), lumbar Osteoarthritis Diastolic congestive heart failure Abnormal cardiovascular function study Back pain Numbness and tingling of both legs Gait disorder Cervical spondylosis HTN (hypertension) Hyperlipidemia Lumbar spondylosis Arthritis of knee Anxiety Prediabetes CHF (congestive heart failure) Family History Family History Father A-fib Diabetes Kidney disease History of hip replacement Mother Parkinson disease HTN (hypertension) Depression Osteoporosis Sister Breast cancer H/O knee surgery Family history of problems with anesthesia: No Surgical History Surgical History Hx of cystoscopy History of neck surgery History of tonsillectomy and adenoidectomy Hx of umbilical hernia repair H/O colonoscopy Hx of cervical spine surgery History of surgery on lower extremity History of ankle surgery History of carpal tunnel release History of back surgery History of Problems with Anesthesia: No Social History Social History Household Members: None Housing: House Are you a primary gericare aide to a significant other at home: No Do you presently have visiting nurse or other home services: No Alcohol intake: never Comment: advised of trip hazard Patient Tobacco Use Status: Never used Tobacco Use of substances other than those prescribed or required for medical reasons: No Have you been hit, kicked, punched, or otherwise hurt by someone within the past year? If so, by whom?: No Spiritual Healthcare Practices: none Restoration Healthcare Practices: Spiritism Cultural Healthcare Practices: none Are you DNR?: No Advance Directives: No Advance Directives Information Provided: Yes (as above noted) Advance Directives on File: No Recently lost weight without trying: No Eating poorly because of decreased appetite: No Nutrition Risks: No Nutritional Risk FDLMP: n/a : No (n/a) Poor oral hygiene: No (one chipped tooth left lower back side) Meds Allergies Allergy/AdvReac Type Severity Reaction Status Date / Time sulfamethoxazole Allergy Severe Hives Verified 01/14/25 06:17 [From Bactrim] trimethoprim [From Bactrim] Allergy Severe Hives Verified 01/14/25 06:17 morphine Allergy Intermediate Vomiting Verified 01/14/25 06:17 Home Medications ?Medication ?Instructions ?Recorded ?Confirmed ?Last Taken ?Type acetaminophen 650 mg 650 mg PO Q12H 01/09/22 01/14/25 03/05/24 History tablet,extended release (Tylenol Arthritis Pain) albuterol sulfate 90 mcg/actuation 2 puff inhalation Q4H PRN 01/09/22 01/14/25 03/06/24 History aerosol inhaler Shortness Of Breath Or Wheezing amlodipine 10 mg tablet 10 mg PO QAM 01/09/22 01/14/25 01/14/25 History celecoxib 200 mg capsule 200 mg PO BID 01/09/22 01/14/25 01/07/25 History cetirizine 10 mg tablet (Zyrtec) 10 mg PO QAM 01/09/22 01/14/25 03/05/24 History diphenhydramine HCl 25 mg capsule 50 mg PO BEDTIME 01/09/22 01/14/25 03/05/24 History (Benadryl) lisinopril 40 mg tablet 40 mg PO QAM 01/09/22 01/14/25 01/13/25 History furosemide 40 mg tablet 40 mg PO QAM 11/27/23 01/14/25 01/11/25 History ketoconazole 2 % topical cream 1 appl topical BID 11/27/23 01/14/25 03/05/24 History nitroglycerin 0.4 mg sublingual 0.4 mg sublingual Q5M PRN Angina 11/27/23 01/14/25 Unknown History tablet rosuvastatin 40 mg tablet 40 mg PO BEDTIME 11/27/23 01/14/25 03/05/24 History aspirin 81 mg tablet,delayed 81 mg PO QAM 12/06/23 01/14/25 01/07/25 History release cholecalciferol (vitamin D3) 50 50 mcg PO QAM 03/04/24 01/14/25 03/05/24 History mcg (2,000 unit) tablet (Vitamin D3) triamcinolone acetonide 55 mcg 2 spray intranasal BID 03/04/24 01/14/25 03/05/24 History nasal spray aerosol metformin 500 mg tablet,extended 500 mg PO QAM 04/07/24 01/14/25 01/13/25 History release 24 hr gabapentin 300 mg capsule 300 mg PO TID 07/29/24 01/14/25 01/14/25 History Tumeric 01/14/25 01/11/25 History Exam Height,Weight and Vital Signs: Height 5 ft 8 in Weight 120.202 kg Last Vital Signs Pulse 71 12/17/24 10:02 Resp 18 12/17/24 10:02 BP 132/61 12/17/24 10:02 Pulse Ox 97 12/17/24 10:02 O2 Del Method Room Air 12/17/24 10:02 Pertinent Lab Results Pertinent Lab Results: Laboratory Tests 12/17/24 10:46 WBC 5.1 RBC 4.24 Hgb 13.3 Hct 39.1 MCV 92.2 MCH 31.4 MCHC 34.0 RDW 12.8 Plt Count 191 MPV 10.7 Absolute Nucleated RBC 0.000 Nucleated RBC % (auto) 0.0 Sodium 142 Potassium 3.8 Chloride 107 Carbon Dioxide 26 Anion Gap 13 BUN 20 H Creatinine 0.71 Estim Creat Clear Calc 97.7 Estimated GFR > 60 Random Glucose 96 Calcium 9.7 Narrative Narrative: EKG 02/2024 per clearance note NSR RBBB Chronic T wave inversion in lead III No new changes ECHO 2022 Nml LV chamber size, Nml RWM, Nml LV systolic function, LVEF 55-60%, Indetermin ate LV diastolic function 2. Mild concentric LVH 3. Severely dilated LA 4. Dilated RA 5. No hemodynamically signif valve ds Assessment and Plan Assessment Anesthesia Assessment: Chart Reviewed Final Anesthetic Review Family History of Problems with Anesthesia: No History of Problems with Anesthesia: No Documented by User: Peyton Zamudio MD 01/14/25 08:15 [facility] Past Medical History Medical History Family history of anesthesia complication History of broken leg Kidney stones Sleep apnea On beta amandeep at home Morbid obesity with BMI of 40.0-44.9, adult Diverticulosis Asthma Lumbar radiculopathy COVID-19 Habitual snoring DDD (degenerative disc disease), lumbar Osteoarthritis Diastolic congestive heart failure Abnormal cardiovascular function study Back pain Numbness and tingling of both legs Gait disorder Cervical spondylosis HTN (hypertension) Hyperlipidemia Lumbar spondylosis Arthritis of knee Anxiety Prediabetes CHF (congestive heart failure) Family History Family History Father A-fib Diabetes Kidney disease History of hip replacement Mother Parkinson disease HTN (hypertension) Depression Osteoporosis Sister Breast cancer H/O knee surgery Surgical History Surgical History Hx of cystoscopy History of neck surgery History of tonsillectomy and adenoidectomy Hx of umbilical hernia repair H/O colonoscopy Hx of cervical spine surgery History of surgery on lower extremity History of ankle surgery History of carpal tunnel release History of back surgery Social History Social History Household Members: None Housing: House Are you a primary gericare aide to a significant other at home: No Do you presently have visiting nurse or other home services: No Alcohol intake: never Comment: advised of trip hazard Patient Tobacco Use Status: Never used Tobacco Use of substances other than those prescribed or required for medical reasons: No Have you been hit, kicked, punched, or otherwise hurt by someone within the past year? If so, by whom?: No Spiritual Healthcare Practices: none Restoration Healthcare Practices: Spiritism Cultural Healthcare Practices: none Are you DNR?: No Advance Directives: No Advance Directives Information Provided: Yes (as above noted) Advance Directives on File: No Recently lost weight without trying: No Eating poorly because of decreased appetite: No Nutrition Risks: No Nutritional Risk FDLMP: n/a : No (n/a) Poor oral hygiene: No (one chipped tooth left lower back side) Meds Allergies Allergy/AdvReac Type Severity Reaction Status Date / Time sulfamethoxazole Allergy Severe Hives Verified 01/14/25 06:17 [From Bactrim] trimethoprim [From Bactrim] Allergy Severe Hives Verified 01/14/25 06:17 morphine Allergy Intermediate Vomiting Verified 01/14/25 06:17 Home Medications ?Medication ?Instructions ?Recorded ?Confirmed ?Last Taken ?Type acetaminophen 650 mg 650 mg PO Q12H 01/09/22 01/14/25 03/05/24 History tablet,extended release (Tylenol Arthritis Pain) albuterol sulfate 90 mcg/actuation 2 puff inhalation Q4H PRN 01/09/22 01/14/25 03/06/24 History aerosol inhaler Shortness Of Breath Or Wheezing amlodipine 10 mg tablet 10 mg PO QAM 01/09/22 01/14/25 01/14/25 History celecoxib 200 mg capsule 200 mg PO BID 01/09/22 01/14/25 01/07/25 History cetirizine 10 mg tablet (Zyrtec) 10 mg PO QAM 01/09/22 01/14/25 03/05/24 History diphenhydramine HCl 25 mg capsule 50 mg PO BEDTIME 01/09/22 01/14/25 03/05/24 History (Benadryl) lisinopril 40 mg tablet 40 mg PO QAM 01/09/22 01/14/25 01/13/25 History furosemide 40 mg tablet 40 mg PO QAM 11/27/23 01/14/25 01/11/25 History ketoconazole 2 % topical cream 1 appl topical BID 11/27/23 01/14/25 03/05/24 History nitroglycerin 0.4 mg sublingual 0.4 mg sublingual Q5M PRN Angina 11/27/23 01/14/25 Unknown History tablet rosuvastatin 40 mg tablet 40 mg PO BEDTIME 11/27/23 01/14/25 03/05/24 History aspirin 81 mg tablet,delayed 81 mg PO QAM 12/06/23 01/14/25 01/07/25 History release cholecalciferol (vitamin D3) 50 50 mcg PO QAM 03/04/24 01/14/25 03/05/24 History mcg (2,000 unit) tablet (Vitamin D3) triamcinolone acetonide 55 mcg 2 spray intranasal BID 03/04/24 01/14/25 03/05/24 History nasal spray aerosol metformin 500 mg tablet,extended 500 mg PO QAM 04/07/24 01/14/25 01/13/25 History release 24 hr gabapentin 300 mg capsule 300 mg PO TID 07/29/24 01/14/25 01/14/25 History Tumeric 01/14/25 01/11/25 History Exam Airway Mallampati Class: III (unable to lie head flat) TM Dist: >3cm Neck ROM: Poor Loose/Missing/Broken Teeth: No Heart: RRR Lungs: mild wheeze bilateral bases Assessment and Plan Assessment Anesthesia Assessment: Anesthesia Plan Discussed Final Anesthetic Review NPO: Yes ASA Class: III Final Preanesthetic Review: Meds/Allgs Chart Reviewed, Consent Obtained/Reviewed and Anes Risks/Benef Reviewed Patient Risk: Intermediate Procedure Risk: Intermediate Anesthetic Plan Anesthetic Plan: GA Disposition: Standard PACU
[2025-01-14] VITALS (27 sets, daily range): BP systolic 87–157; BP diastolic 30–84; PULSE 63–81; RESP 14–21; TEMP 36.8–37.1; O2SAT 93–99; BMI 41.3
--- NOTE | ~2025-01-14 | FL_ITS ---
EXAMINATION: FL GUIDANCE ONLY HISTORY: t10-11 laminotomy COMPARISON: None available. TECHNIQUE: Fluoroscopy time: 18 seconds. Cumulative Dose: 20.382 mGy. DAP: 6.5225 mGym2 Images: 3. FINDINGS: Images demonstrate a probe directed toward a thoracic vertebral body. FL/FL guidance in OR IMPRESSION: Fluoroscopy during procedure. Please see procedure report for additional information. Electronically signed by: Polo Milan MD 01/14/2025 09:53 AM EDT
[2025-01-14] MEDS: methocarbamoL 750 MG TABLET PO (06:37)
[2025-01-14] MEDS: Albuterol Sulfate (0.083%) 2.5 MG/3 ML VIAL.NEB INHALE (06:38)
[2025-01-14] MEDS: Lactated Ringers 1,000 ML 50 ML IVCONT (06:58)
--- NOTE | 2025-01-14 07:00 | PC.NURSE ---
Patient in preop. States she took Tumeric supplement 3 days ago. Jaison Espitia, Javid Hankins, and Dr. Millard made aware. Okay per Dr. Millard, may proceed with surgery with no issues.
--- NOTE | 2025-01-14 07:18 | MHC.SHP ---
Pre-Procedural Eval Section A - 24 Hr Update-Section A only Date of Service: 01/14/25 Section B - Complete if H&P > 30 days Chief Complaint: Other spondylosis with myelopathy, thoracic region Allergies: Allergies Allergy/AdvReac Type Severity Reaction Status Date / Time sulfamethoxazole Allergy Severe Hives Verified 01/14/25 06:17 [From Bactrim] trimethoprim [From Bactrim] Allergy Severe Hives Verified 01/14/25 06:17 morphine Allergy Intermediate Vomiting Verified 01/14/25 06:17 Review of Systems Sugical H&P ROS: Negative: Constitution, Cardiovascular, Respiratory, Neurological, Psychiatric, Hem-Onc, Allergic/Immunologic, Gastrointestinal, Genitourinary, Musculoskeletal, Integumentary, Endocrine and Eyes/Ears/Nose/Throat Exam Surgical H&P Exam: Not Evaluated: HEENT, Not Evaluated: Heart, Not Evaluated: Lungs, Not Evaluated: Extremities, Not Evaluated: Abdomen, Not Evaluated: Skin and Not Evaluated: Neurological Exam Comment: The patient is awake, alert, no acute distress. Proposed surgical incision site is clean, dry with no signs of recent trauma or surgery. Plan Diagnosis/Plan: Unchanged I have reviewed the history and physical and performed a pertinent physical examination on my patient. No changes have occurred unless specified. Plan remains the same, T10-11 laminotomy. Time Spent With Patient Time: Total time managing care of this patient today __15__ minutes.
[2025-01-14] MEDS: ceFAZolin Sodium/Dextrose,Iso 2 GM/50 ML PIGGYBACK IV (07:40)
--- NOTE | 2025-01-14 07:53 | PM.DS ---
DS: Providers Provider Date of Service: 01/14/25 Date of discharge: 01/14/25 Primary care physician: Patsy York MD DS: Summary Time Attestation Discharge Coordination Time (in mins): 12 Quality: Safe Use of Opioids Does Pt have an Active Cancer Diagnosis on the Problem List?: No Quality: Stroke Does the patient have a stroke diagnosis?: No Physical Exam Vital Signs: Vital Signs: Last Vital Signs Temp 98.7 F 01/14/25 06:30 Pulse 78 01/14/25 06:30 Resp 16 01/14/25 06:30 BP 157/84 H 01/14/25 06:30 Pulse Ox 96 01/14/25 06:30 O2 Del Method Room Air 01/14/25 06:30 BMI result Body Mass Index 41.3 Discharge Plan Discharge Patient Disposition: Home, Self-Care Referrals: Patsy York MD [Primary Care Provider] - 1 Week Discharge Medications: New oxycodone 5 mg tablet 5 mg PO Q6H PRN (Reason: pain) Qty: 30 0RF Rx Instructions: Partial Fill upon patient request. Continued triamcinolone acetonide 55 mcg Aerosol,[place] 2 spray INTRANASAL BID Rx Instructions: administer into each nostril cholecalciferol (vitamin D3) [Vitamin D3] 50 mcg (2,000 unit) Tablet 50 mcg PO QAM Tumeric amlodipine 10 mg tablet 10 mg PO QAM celecoxib 200 mg capsule 200 mg PO BID albuterol sulfate 90 mcg/actuation HFA aerosol inhaler 2 puff inhalation Q4H PRN (Reason: Shortness Of Breath Or Wheezing) lisinopril 40 mg tablet 40 mg PO QAM cetirizine [Zyrtec] 10 mg tablet 10 mg PO QAM diphenhydramine HCl [Benadryl] 25 mg capsule 50 mg PO BEDTIME acetaminophen [Tylenol Arthritis Pain] 650 mg tablet extended release 650 mg PO Q12H rosuvastatin 40 mg tablet 40 mg PO BEDTIME furosemide 40 mg tablet 40 mg PO QAM nitroglycerin 0.4 mg tablet, sublingual 0.4 mg sublingual Q5M PRN (Reason: Angina) Rx Instructions: do not exceed 3 doses per episode ketoconazole 2 % cream 1 appl topical BID metformin 500 mg tablet extended release 24 hr 500 mg PO QAM gabapentin 300 mg capsule 300 mg PO TID Held aspirin 81 mg tablet,delayed release (DR/EC) 81 mg PO QAM Hold Instructions: Resume on 01/18/25. Discharge Orders: Discharge Order (Routine); Ordered 01/14/25 Ordered By: Javid Hankins Diet: Advance to usual diet Activity on Discharge: As tolerated Activity Restrictions/Additional Instructions: After your spinal surgery we ask you to observe the following restrictions/guidelines: Activity: It is normal to feel some discomfort as you increase your activity, but that will improve with time. We ask you avoid heavy lifting or acitivities that cause pain. As a general rule, 8lbs is a safe limit for lifting right after surgery. Walk as much as you feel comfortable but not to exhaustion. You will feel extra tired the first few days after surgery. Stay well hydrated. It is OK to walk up and down stairs You may return to driving when you are off narcotics (such as vicodin, oxycodone, dilaudid, etc), and you are back to normal functional capacity. If you have any concerns please check with office before driving. Return to work is specific to each patient and each surgery, so please speak with your doctor/PA at first follow up. Please bring paperwork such as FMLA at that time if you need it filled out. Medications: Please hold your aspirin for 3 days after surgery. We recommend you take 1,000mg Tylenol every 8 hours for the first few weeks after surgery, if you do not have any liver issues and can tolerate this medication. Do not exceed 4,000mg daily. We will give you a short supply of narcotics after surgery (usually one weeks worth). If you need more please call the office but do not use more than prescribed. You will need to give our office 48 hours notice if you need narcotics refilled and we do not fill narcotics on weekends or evenings. If you are on a narcotic, it is a good idea to take a stool softener such as colace or senna to avoid constipation If you take blood thinner such as aspirin, Plavix, Coumadin, Effient, Eliquis etc for conditions such as Afib, DVT, Pulmonary embolus, coronary disease, stents etc please speak with your surgeon about specific details as to when you can resume these medications. You can resume NSAIDs on post op day 1 (eg: Motrin, Naproxen, etc). Follow up: Please call the office, , after surgery to arrange a 3 week follow up for wound check. Wound Care: You may remove your dressing on the first day after surgery. ?You may ?leave open to air. Please do not remove the steri strips underneath. they will fall off on their own in one week. IT IS NORMAL FOR THE WOUND TO OOZE OR BE BLOODY FOR A FEW DAYS AFTER SURGERY. ?IF THIS HAPPENS JUST PLACE NEW DRESSING OVER IT TO AVOID STAINING CLOTHES. You may shower on post op day # 1 We ask that you do not let the water soak the wound. If it does get wet, just towel dry lightly. Please do not scrub your incision or place any type of chemical/ointment on the wound. No tub baths, pools or jacuzzis for one month. If you have any leaking or redness from your wound, or fevers, please call the office. Print Language: Danish
--- NOTE | 2025-01-14 09:20 | W.PM.OPN ---
Operative Note Operative Note Date of Service: 01/14/25 Narrative: Preoperative Diagnosis: T10-T11 spinal stenosis Operation: T10 T11 Laminotomy, Partial facetectomy and foraminotomy with use of microscope Consent Informed Consent was obtained for this operation. I have explained the nature, purpose and benefits of the operation. I have discussed the risks and benefit of the operation including possible complications or adverse events with patient/family. Alternative(s) were discussed with the patient with their relative benefits and risks as well as the consequences of not accepting the operation were included in obtaining consent. Surgeon: CHANDNI PASTOR MD, PHD Procedure Assisted By: JUAN Mathew Description of Procedure This 74-year-old female is what we are thinking is suffering from a thoracic myelopathy. Imaging reviews a extensive thoracolumbar scoliosis with the MRI showing predominantly right-sided spinal cord compression at T10-11.. The patient was offered a decompression of this level. The procedure complications were explained. The patient was consented. The patient was brought to the operating room and endotracheally intubated. The patient was turned in prone position on the Russel spine table. Prep and drape was done followed by timeout. It was extremely hard to verify the correct level. Lateral images were used less due to the scoliosis. The patient did have previous lumbar instrumentation in and this instrumentation was seen on a AP registered medical transcriptionist image on the MRI. I was able to count from the top of the instrumentation to the surgical level on the registered medical transcriptionist MRI. I then took an intraoperative AP and I was able to match this image with the AP registered medical transcriptionist MRI to confirm the T10-11 level. This was the best way of verifying the level to be operated on. The disc space was marked. A mid thoracic incision was made followed by release of the paravertebral muscles on the right side to expose the T10-T11 lamina. An intraoperative x-ray confirmed the level identified. The microscope was brought in. A right T10-11 laminotomy was done with a high-speed drill. I indeed found the compression of the spinal cord on the right side consisting of flavum ligament hypertrophy and synovial cyst, which was accordingly resected with a 2. Kerrison. This immediately led to a good decompression of the spinal cord. A final AP x-ray was taken to confirm the decompressed area. The microscope was removed. Hemostasis was done. The physician hospital clinic assistant close the incision in 2 layers. Steri-Strips were used to approximate incision. An OpSite with Tegaderm was used to cover the incision. All sponge needle counts were correct. Patient was extubated and transported in stable is to recovery room. Anesthesia: General Estimated Blood Loss (ml): 20 Complications: None Duration of Surgery: Under 90 Minutes Postoperative Plan: Discharge to home
[2025-01-14] MEDS: fentaNYL citrate/PF 100 MCG/2 ML VIAL 25 MCG IVPUSH ×4 (10:00→10:15)
[2025-01-14] MEDS: HYDROmorphone HCl 0.5 MG/0.5 ML SYRINGE 0.25 MG IVPUSH ×9 (10:20→11:10)
[2025-01-14] MEDS: oxyCODONE HCl Immed Release 5 MG TABLET PO (11:31)
== END 2025-01-14 13:33 | disposition home or self-care (01) ==
PROVIDERS: Anesthesiology; PCP Internal Medicine; Visit Provider Neurological Surgery
PROC: (CPT 63046; principal; 2025-01-14 07:30)
DX: M48.04 Spinal stenosis, thoracic region (principal); M47.14 Other spondylosis with myelopathy, thoracic region; G47.33 Obstructive sleep apnea (adult) (pediatric); Z88.2 Allergy status to sulfonamides; Z88.5 Allergy status to narcotic agent
CPT/HCPCS: 63046; 36415; 80048; 85027; J0131; J0690; J1171; J2003; J2371; J2405; J2598; J2704; J3010

== ENCOUNTER → 2025-01-14 05:57 | Outpatient (BNV) | payer MEDICARE, OTHER, SELFPAY | PROVIDERS: PCP Internal Medicine; Visit Provider Neurological Surgery | DX: M48.04 Spinal stenosis, thoracic region (principal) | CPT/HCPCS: 63046; 99499 ==

== ENCOUNTER 2025-01-27 16:05 | Outpatient (AMB) | payer MEDICARE, OTHER, SELFPAY ==
--- NOTE | 2025-01-27 16:22 | HO.SPINEOV ---
Intake Visit Reasons: Admission follow up Allergies sulfamethoxazole [From Bactrim] Allergy (Severe, Verified 01/14/25 06:17) Hives trimethoprim [From Bactrim] Allergy (Severe, Verified 01/14/25 06:17) Hives morphine Allergy (Intermediate, Verified 01/14/25 06:17) Vomiting Assessment & Plan Assessment & Plan (1) Thoracic myelopathy: Code(s): M47.14 - Other spondylosis with myelopathy, thoracic region Category: Medical Plan [place] is a pleasant 74 year old female who underwent T10 T11 Laminotomy, Partial facetectomy and foraminotomy on 01/14/25 to address her progressive thoracic myelopathy. To recap she presented to clinic before surgery with worsening leg weakness and numbness. She also had a component of intermittent incontinence. Pre-operatively she was documented as having a lot of difficulty standing up out of a chair to an upright position. She also had proximal leg weakness but distally had full strength per pre-operative records. Unfortunately she had a fairly complicated postoperative course, and was admitted to [facility] about 2-3 days after surgery for right-sided upper abdominal pain. She was initially worked up for possible cholelithiasis, and was scheduled for cholecystectomy. After further evaluation, she was found to have fairly significant hypoesthesia over her left lower extremity, it is significantly limited strength. Therefore, her cholecystectomy was postponed, and a subsequent MRI was ordered. This was reviewed in real time as the results became available by Dr. Millard and this commercial loan underwriter. The images were of very poor quality and provided minimal utility when attempting to decide subsequent interventions for [place]. Today, she reports that she is staying at an acute rehabilitation facility. She does feel that her strength is slowly improving, but is still worse than it was prior to surgery per her report. She is unable to ambulate independently, it continues to report pain that originates in her mid back and shoots around her side into the upper abdominal area. She reports continued hypoesthesia over her left lower extremity, and difficulty engaging much strength in her left lower extremity other than passive range of motion. On examination the patient is awake, alert, in no acute distress. She arrives today via EMS from her acute rehabilitation center, and remains in the stretcher for the duration of this examination. She reports decreased sensation to light touch over the left lower extremity, diffusely. She points near the liver when describing where the bulk of her pain is. Her left lower extremity strength is about 3/5 antigravity, but she is unable to engage much more than that. Her right lower extremity strength is 4/5 diffusely. The patient was evaluated alongside the attending neurosurgeon Dr. Millard today, who recommended that the patient come back in obtain a set of dynamic thoracic spine x-rays. We were unable to have them completed today as our x-ray department is already closed. I provided the patient with a letter to bring back to her rehabilitation facility requesting subsequent transportation next week to have x-ray orders completed no later than 02/06/2025. It was a standing order and the patient is aware that she may come any time during the day between [id number]. I would like to follow up with [place] on 02/13/2025 @ 2:00pm. Javid Millard MD,PhD [facility] Coding Level of Care Code Global (24841) Diagnoses Thoracic myelopathy M47.14
--- OUTSIDE RECORDS SUMMARY | 2025-01-27 18:43 | XMS_ITS ---
Author Organization [address] [facility] Address [address] [place] [address] Phone Care Team Providers Care Marine Geologist Name Role Phone Patsy York MD Primary Care Provider [phone] Post Acute Care Coordination Status:Closed (Closed) Start date:01/22/2025 Enrollment date:01/22/2025 Enrollment reason:Post acute care coordination End date:01/22/2025 Close reason:Created in Error Continued Care and Services Coordination
--- OUTSIDE RECORDS SUMMARY | 2025-01-27 18:43 | XMS_ITS | Encounter Summary ---
Author Organization [facility] Address [address] [place] [address] Care Team Providers Care Clerical Stock Inspector Name Role Phone Patsy York MD Primary Care Provider [phone] Encounter Details Date Type Department Care Team (Late st Contact Info) Description 12/12/[address] [facility] - Main Lab [address] [place] [address] Willis Martinez MD [address] [address] Dysuria Social History Tobacco Use Types Packs/Day Years Used Date Smoking Tobacco: Never Smokeless Tobacco: Never Alcohol Use Standard Drinks/Week Comments Yes 0 (1 standard drink = 0.6 oz pur e alcohol) Comments No Sex and Gender Information Value Date Recorded Sex Assigned at Female 01/18/2025 1:00 PM EDT Legal Sex Female 12:17 AM EST Gender Identity Female 01/18/2025 1:00 PM EDT Sexual Orientation Straight 01/18/2025 1: 00 PM EDT documented as of this encounter Plan of Treatment Upcoming Encounters Date Type Department Care Team (Late st Contact Info) Description 02/03/2025 1:00 PM EDT Office Visit General Surgery - [place] [address] [place] [id number] Ildefonso Ko MD [address] [facility] [address] [place] [address] 03/02/2025 1:00 PM EDT Office Visit Pulmonolgy - [place] [address] [place] [phone] Latrice Patino NP [address] [facility] [address] [place] [address] documented as of this encounter Procedures Procedure Name Priority Date/Time Associated Diagnosis Comments BACTERIAL IDENTIFICATION AND SUSCEPTIBILITY, AEROBIC Routine 12/11/2024 12:00 AM EST Dysuria documented in this encounter Results * (ABNORMAL) Bacterial identification and susceptibility, aerobic (12/11/2024 12:00 AM EST) Pathologist [facility] Culture, Bacterial ID and Sensitivity Pseudomonas aeruginosa(A) BARI 12/15/2024 9:11 AM EST [facility] Comment: The organism value for this result has been updated. These results have been appended to the previously preliminary verified report. Culture, Bacterial ID and Sensitivity Proteus mirabilis ESBL(A) BARI 12/15/2024 9:11 AM EST [facility] Comment: THIS ORGANISM IS POSITIVE FOR EXTENDED SPECTRUM BETA-LACTAMASE (ESBL). ??EXTENDED SPECTRUM BETA-LACTAMASE ??PRODUCING ORGANISMS DEMONSTRATE DECREASED ACTIVITY WITH PENICILLILNS, CEPHALOSPORINS AND AZTREONAM. The organism value for this result has been updated. These results have been appended to the previously preliminary verified report. Edited result: Previously reported as Proteus species on 12/13/2024 at 1040 EST. Edited result: Previously reported as Proteus mirabilis on 12/14/2024 at 0849 EST. Other Urine specimen from urethra / Unknown 12/11/2024 12/12/2024 10:22 AM EST [facility] - 12/15/2024 9:11 AM EST ESBL faxed to [facility] Organism Antibiotic Method Susceptibility Pseudomonas aeruginosa Piperacillin/Tazobactam BARI <=4 ug/ml: Susceptible Pseudomonas aeruginosa Ceftazidime BARI 1 ug/ml: Susceptible Pseudomonas aeruginosa Cefepime BARI 2 ug/ml: Susceptible Pseudomonas aeruginosa Meropenem BARI <=0.25 ug/ml: Susceptible Pseudomonas aeruginosa Amikacin BARI 2 ug/ml: Susceptible Pseudomonas aeruginosa Ciprofloxacin BARI 0.12 ug/ml: Susceptible Pseudomonas aeruginosa Levofloxacin BARI 0.5 ug/ml: Susceptible Proteus mirabilis ESBL Amoxicillin/Clavulanate BARI <=2 ug/ml: Susceptible Proteus mirabilis ESBL Ampicillin/Sulbactam BARI <=2 ug/ml: Susceptible Proteus mirabilis ESBL Piperacillin/Tazobactam BARI <=4 ug/ml: Susceptible Proteus mirabilis ESBL Cefazolin (Urine) BARI 2 ug/ml: Susceptible Proteus mirabilis ESBL Cefoxitin BARI <=4 ug/ml: Susceptible Proteus mirabilis ESBL Ceftazidime BARI <=0.5 ug/ml: Susceptible Proteus mirabilis ESBL Ceftriaxone BARI <=0.25 ug/ml: Susceptible Proteus mirabilis ESBL Cefepime BARI <=0.12 ug/ml: Susceptible Proteus mirabilis ESBL Meropenem BARI <=0.25 ug/ml: Susceptible Proteus mirabilis ESBL Amikacin BARI 4 ug/ml: Susceptible Proteus mirabilis ESBL Gentamicin BARI <=1 ug/ml: Susceptible Proteus mirabilis ESBL Ciprofloxacin BARI <=0.06 ug/ml: Susceptible Proteus mirabilis ESBL Levofloxacin BARI <=0.12 ug/ml: Susceptible Proteus mirabilis ESBL Nitrofurantoin BARI 128 ug/ml: Resistant Proteus mirabilis ESBL Trimethoprim/Sulf amethoxazol e BARI <=20 ug/ml: Susceptible us Willis Martinez MD LAB MICROBIOLOGY - G ENERAL ORDERABLES Final Result [facility] [address] [place] [address], [place] [phone] documented in this encounter Visit Diagnoses Diagnosis Dysuria documented in this encounter Additional Health Concerns Infection Onset Date Last Indicated Resolved Time ESBL 12/11/2024 12/11/2024 documented as of this encounter Care Teams Clerical Stock Inspector Relationship Specialty Start Date End Date Patsy York MD [address] [place] [address] PCP - General Internal Medicine 07/21/15 documented as of this encounter
--- OUTSIDE RECORDS SUMMARY | 2025-01-27 18:43 | XMS_ITS | Clinical Summary ---
Author Organization 175 [facility] Address [address] [place] [address] Phone Care Team Providers Care Transmitter Engineer In Charge Name Role Phone Patsy York MD Primary Care Provider Allergies Active Allergy Reactions Criticality Noted Date Comments Sulfamethoxazole-Trimethop rim 09/01/2024 Morphine Sulfate 09/01/2024 Sulfa (Sulfonamide Antibiotics) High 02/14/2006 Other Reaction(s): Hives/Urticaria Medications albuterol HFA (PROAIR HFA ; PROVENTIL HFA ; VENTOLIN HFA) 90 mcg/actuation inhaler Inhale 2 puffs by mouth. 04/24/20 24 Active aspirin 81 mg EC tablet Take 1 tablet (81 mg total) by mouth 1 (one) time each day. Active cetirizine (ZyrTEC) 10 mg capsule Take 1 capsule (10 mg total) by mouth 1 (one) time each day. 08/22/20 16 Active furosemide (LASIX) 40 mg tablet Take 1 tablet (40 mg total) by mouth 2 (two) times a day. Active gabapentin (NEURONTIN) 300 mg capsule Take 1 capsule (300 mg total) by mouth. 02/04/20 24 Active nitroglycerin (NITROSTAT) 0.[address] 1 tablet (0.4 mg total) under the tongue every 5 (five) minutes if needed. 03/01/20 23 Active oxyBUTYnin XL (DITROPAN-XL) 10 mg 24 hr tablet Take 1 tablet (10 mg total) by mouth 1 (one) time each day. 01/28/20 24 Active triamcinolone (NASACORT) 55 mcg nasal inhaler Administer 1 spray into affected nostril(s). Active zinc oxide 20 % ointment Apply thick layer to affected area (right buttock) twice daily. 11/26/19 24 Active calcium carbonate-vitam in D (Calcium with Vitamin D) 600 mg-10 mcg (400 unit) per tablet Take 1 tablet by mouth 2 (two) times a day. 04/15/20 24 Active fluticasone propion-salmete roL (Advair HFA) 230-21 mcg/actuation inhalerIndicati ons:Moderate persistent asthma without complication Inhale 2 puffs by mouth 2 (two) times a day. Rinse mouth with water after use to reduce aftertaste and incidence of candidiasis. Do not swallow. 12 g 6 09/01/20 24 025 Active rosuvastatin (CRESTOR) 40 mg tablet TAKE 1 TABLET BY MOUTH EVERY DAY 90 tablet 1 10/13/20 24 Active celecoxib (CeleBREX) 200 mg capsule TAKE 1 CAPSULE BY MOUTH TWICE A DAY 180 capsule 1 10/17/20 24 Active amLODIPine (NORVASC) 10 mg tabletIndicatio ns:Essential (primary) hypertension TAKE 1 TABLET BY MOUTH EVERY DAY 90 tablet 11/17/19 25 Active lisinopril (PRINIVIL,ZESTR IL) 40 mg tabletIndicatio ns:Essential (primary) hypertension Take 1 tablet (40 mg total) by mouth 1 (one) time each day. 90 tablet 1 11/14/19 25 Active metFORMIN XR (GLUCOPHAGE-XR) 500 mg 24 hr tablet Take 1 tablet (500 mg total) by mouth 1 (one) time each day with breakfast. 90 tablet 1 11/14/19 25 Active acetaminophen (TYLENOL) 500 mg tablet Take 2 tablets (1,000 mg total) by mouth every 8 (eight) hours for 7 days. 01/26/20 25 025 Active baclofen (LIORESAL) 10 mg tablet Take 1 tablet (10 mg total) by mouth 3 (three) times a day. 90 each 01/26/20 25 025 Active levoFLOXacin (LEVAQUIN) 750 mg tablet Take 1 tablet (750 mg total) by mouth 1 (one) time each day for 2 doses. 2 each 01/27/20 25 025 Active HYDROmorphone (DILAUDID) 2 mg tabletIndicatio ns:Thoracic myelopathy Take 1-2 tablets (2-4 mg total) by mouth every 6 (six) hours if needed for moderate pain or severe pain. Max Daily Amount: 16 mg 14 tablet 01/26/20 Active lidocaine 4 % patch Apply 1 patch topically 1 (one) time each day for 14 days. 01/27/20 Active pantoprazole (PROTONIX) 40 mg EC tablet Take 1 tablet (40 mg total) by mouth 2 (two) times a day before meals for 14 days. Do not crush, chew, or split. 01/26/20 025 Active polyethylene glycol (MIRALAX) 17 gram packet Take 17 g by mouth 1 (one) time each day for 3 days. 51 g 01/27/20 025 Active prochlorperazin e (COMPAZINE) 10 mg tablet Take 1 tablet (10 mg total) by mouth every 6 (six) hours if needed for nausea or vomiting for up to 7 days. 01/26/20 25 025 Active senna (SENOKOT) 8.6 mg tablet Take 2 tablets (17.2 mg total) by mouth at bedtime. 60 each 11 01/26/20 25 026 Active acetaminophen (TYLENOL 8 HOUR) 650 mg 8 hr tablet Take 1 tablet (650 mg total) by mouth. 025 Discontinued cholecalciferol (VITAMIN D-3) 50 mcg (2,000 unit) tablet Take 1 tablet (2,000 Units total) by mouth 1 (one) time each day. 12/10/19 24 025 Discontinued fluconazole (DIFLUCAN) 150 mg tablet Take one tablet every 3 days for 3 doses 04/02/20 24 025 Discontinued oxyCODONE (ROXICODONE) 5 mg immediate release tablet 01/31/20 025 Discontinued(S top Taking at Discharge) Active Problems Problem Noted Date Diagnosed Date Thoracic myelopathy 01/25/2025 Intractable abdominal pain 01/19/2025 Pain in abdomen on palpation 01/18/2025 RUQ abdominal pain 07/23/2024 CAD S/P percutaneous coronary angioplasty 2023 CTS (carpal tunnel syndrome) 07/23/2024 Biliary dyskinesia 07/23/2024 Morbid obesity with BMI of 40.0-44.9, adult 06/30 Family history of breast cancer 07/23/2024 Family history of colonic polyps 07/23/2024 Age related osteoporosis 04/17/2024 Cutaneous candidiasis 04/02/2024 Abnormal cardiovascular function study Overview (07/23/2024): Last Assessment & Plan: She has an abnormal stress test but otherwise unremarkable cardiac catheterization from November 2020. At this time I would pursue a coronary CTA for further delineation given I do not believe her dyspnea is related to worsening coronary disease. This seems most consistent with a combination of diastolic heart failure and elevation of her left hemidiaphragm causing atelectasis. Shortness of breath on exertion 03/12/2023 Overview (07/23/2024): Last Assessment & Plan: As I noted she has been getting short of breath with exertion which she feels like at times is getting worse since October. Etiology is not clear. Recent chest x-ray demonstrated her lungs were clear. I do not think she is in heart failure but she did have a BNP done when she was at [facility] and I will check that. On exam there is nothing to suggest significant valve disease and she did have an echocardiogram in January where LV function was normal. Her diastolic function was indeterminate. Her estimated PA pressure was not increased. She did have a nuclear stress test which was a regadenoson.Myocardial perfusion demonstrated a small in size mild intensity reversible perfusion defect in basal to mid inferolateral wall. The results would suggest she has ischemia due to coronary disease. This could cause shortness of breath with exertion however as I noted back in November 2020 cardiac catheter that I really did not demonstrate no significant coronary disease. I think would be unlikely to have progressed to severe coronary disease in that period of time. She does have some wheezing. I am going to check PFTs but she snores we will also check a sleep test. We will also check a D-dimer. BNP from February 12, 2023 was 51. Diastolic congestive heart failure 08/25/2022 Overview (07/23/2024): Last Assessment & Plan: Volume status appears acceptable today. Echocardiogram was rather unremarkable and she was thought to have mild diastolic dysfunction. We discussed dietary restrictions and low-salt diet. She will call the office if she gains more than 3 pounds in 1 day or 5 pounds in 1 week. . She has nonobstructive coronary disease based off catheterization from November 2020. Acute CHF (congestive heart failure) 08/09/2022 Anxiety 06/21/2021 Osteoarthritis of carpometac arpal (CMC) joint of both thumbs 04/06/2021 Primary osteoarthritis of right knee 04/06/2021 DDD (degenerative disc disease), lumbar 04/06/20 21 Lumbar radiculopathy 03/09/2021 Carpal tunnel syndrome, bilateral 03/09/2021 Overview (07/23/2024): Last Assessment & Plan: The patient has been diagnosed with bilateral carpal tunnel syndrome with the left side much more severely involved than the right. She is observed her hands for 5 years or more. She has had a variety of management including observation, activity modification, bracing, oral anti-inflammatories, Tylenol. None of these treatments have been effective. Nerve testing is confirmed the diagnosis and has not identified any other nerve involvement in the upper extremities. I have recommended left open carpal tunnel release as the next step in her treatment. I reviewed with her the risks of the surgery, and the benefits of the surgery. After this discussion of treatment alternatives and the surgery she has voiced informed consent. We will get her scheduled for left open carpal tunnel release to be done whenever OR time is available and convenient for her. She will follow up with me about 10-14 days postop for recheck and suture removal. She also may follow-up at any time on a as needed basis. Snoring 01/26/2021 Overview (07/23/2024): Last Assessment & Plan: She does snore. Question if she could have sleep apnea. We will schedule for sleep test. COVID-19 virus detected 12/23/2020 Overview (07/23/2024): Diagnosed in August 2020. 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 Hyperlipidemia 04/13/2007 Overview (07/23/2024): Last Assessment & Plan: Last lipid panel from March 2023. Total cholesterol 142, triglycerides 287, HDL 44, LDL 41. Continue statin therapy. We discussed low-fat diet and daily low impact exercise to improve triglycerides. Essential hypertension, benign 03/15/2006 Overview (07/23/2024): Last Assessment & Plan: 130/74 in office today, well-controlled on current regimen. Continue amlodipine, Lasix, lisinopril, and metoprolol. Assessment & Plan (11/07/2024 3:06 PM EST): Orders: Lipid panel with reflex to direct LDL; Future Encounters Date Type Department Care Team Description 01/18/2025 12:45 PM EDT - 01/25/2025 2:30 PM EDT Hospital Encounter [facility] [address] [place] [phone] Mina Colón MD Sondhi, Vikram, MD Santoyo-Pacheco, Omar D, MD Intractable abdominal pain (Primary Dx); Biliary dyskinesia; Pain in abdomen on palpation; Thoracic myelopathy Discharge Disposition: [facility] 12/12/2024 Lab Requisition [facility] Lab [address] [facility] [place] [phone] Willis Martinez MD Dysuria 11/07/2024 2:00 PM EST Office Visit [facility] [address] [facility] [address] [place] [phone] Sea Marie MD Essential hypertension, benign (Primary Dx); Coronary artery disease due to calcified coronary lesion; DEXTER (dyspnea on exertion) from Last 3 Months Immunizations Name Administration Dates Next Due Influenza trivalent, 0.5mL ( Fluzone High-dose) 65yo and older 07/05/2022,09/27/2021 Influenza trivalent, with pr eservative (Fluzone; Afluria) 6mo and older 08/22/2016,08/16/2015,09/30/2012,09/16 [employer] SARS-CoV-2 COVID -19, vector-nr, rS-Ad26, preservative free 01/31/2021 [employer] SARS-CoV-2 COVID-19, mRNA, LNP-S, preservative free 11/27/2021 Pneumococcal conjugate 20 va lent (Prevnar 20, PCV 20) 2mo and older 05/14/2023 Pneumococcal polysaccharide 23 valent (Pneumovax 23) 2yo and older 08/16/2015 RSV, bivalent, protein subun it RSVpreF, 0.5mL, Preservative Free (Arexvy) 60yo and older 08/15/2023 Tdap Tetanus diptheria acell ular pertussis (Boostrix; Adacel) 7yo and older 02/06/2011 Surgical History Surgery Date Site/Laterality Comments COLONOSCOPY 12/09/2007 PROCEDURE: HISTORICAL COLONOSCOPY; COMMENT: Negative/diverticulosis TONSILLECTOMY PROCEDURE: HISTORICAL TONSILLECTOMY KIDNEY STONE SURGERY PROCEDURE: AR NEPHROLITHOTOMY REMOVAL CALCULUS HERNIA REPAIR PROCEDURE: REPAIR UMBILICAL HERNIA BACK SURGERY 2010 PROCEDURE: HISTORICAL BACK SURGERY COLONOSCOPY 01/05/2015 PROCEDURE: HISTORICAL COLONOSCOPY; COMMENT: 5 mm cecal polyp: Tubular adenoma. ANKLE SURGERY 10/29/2012 Left PROCEDURE: HISTORICAL ANKLE SURGERY LEG SURGERY Left PROCEDURE: HISTORICAL LEG SURGERY; COMMENT: Tib/fib fx, mult surgery, most recent 05/02/2018 COLONOSCOPY 03/03/2021 PROCEDURE: HISTORICAL COLONOSCOPY; COMMENT: Sigmoid colon polyp, unable to visualize cecum. Pathology: tubular adenoma. Medical History Medical History Date Comments Essential hypertension, benign 03/15/2006 D X:Essential hypertension, benign Unspecified disorder of lipo id metabolism 04/13/2007 DX:Unspecified disorder of l ipoid metabolism Family history of colonic polyps 12/09/2007 DX:Family history of colonic polyps; COMMENT: Mother and father with diagnosis of colonic polyps at age younger than 60. Negative colonoscopy 12/09/2007, no colon cancer screening needed for 5 years. Back pain 11/24/2010 DX:Back pain; CO MMENT: Diffused spondylosis L, C spine Esophageal reflux DX:Esophageal reflux Asthma DX:Asthma Anxiety 06/21/2021 DX:Anxiety Morbid obesity with BMI of 4 0.0-44.9, adult ([facility]) 10/23/2013 DX:Morbid obesity with BMI o f 40.0-44.9, adult ([facility]); COMMENT: BMI 40.26 0n 08/28/13. Family History Medical History Relation Name Comments Breast cancer Aunt pat Arthritis Father Ankylosing Spon dyitis Colon polyps Father age < 60 Arthritis Mother Osteoporosis, s coliosis Colon polyps Mother age < 60 Breast cancer Mother's side pat niece Arthritis Paternal Grandmother Breast cancer Paternal Grandmother Breast cancer Sister 1 age 35 paternal grand mother, aunt and great aunt (all paternal) Relation Name Status Comments Aunt pat Alive Father Alive polyps, dm, htn Mother (Age 80) gi bleed,h tn, polyps Mother's side pat niece Alive Paternal Grandmother breast cancer in 80's Sister 1 age 35 Alive Sister 2 Alive breast cancer a ge 35 Sister 3 Alive Social History Tobacco Use Types Packs/Day Years Used Date Smoking Tobacco: Never Smokeless Tobacco: Never Tobacco Cessation:Counseling Given: Not Answered Alcohol Use Standard Drinks/Week Comments Yes 0 (1 standard drink = 0.6 oz pur e alcohol) Interpersonal Safety Answer Date Record ed Physical Abuse 01/18/2025 Verbal Abuse 01/18/2025 Comments No Sex and Gender Information Value Date Recorded Sex Assigned at Female 01/18/2025 1:00 PM EDT Legal Sex Female 12:17 AM EST Gender Identity Female 01/18/2025 1:00 PM EDT Sexual Orientation Straight 01/18/2025 1: 00 PM EDT Obstetrics History Para Term AB IAB SAB Ectopic Multiple Livin g Live Births 1 1 1 Date Outcome GA Total Labor Labor/2nd/3rd Weight Sex Type Anes PTL Zakia A1 A5 Name Clin Term Last Filed Vital Signs Vital Sign Reading Time Taken Comments Blood Pressure 137/76 01/25/2025 7:39 AM EDT Pulse 56 01/25/2025 7:39 AM EDT Temperature 36.7 ??C (98 ??F) 01/25/2025 7:39 AM EDT Respiratory Rate 17 01/25/2025 7:39 AM EDT Oxygen Saturation 98% 01/25/2025 7:39 AM EDT Inhaled Oxygen Concentration - - Weight 120 kg (264 lb 3.2 oz) 01/18/2025 10:36 P M EDT Height 172.7 cm (5' 7.99 ) 01/18/2025 10:36 PM E DT Body Mass Index 40.18 01/18/2025 10:36 PM EDT Plan of Treatment Upcoming Encounters Date Type Department Care Team (Late st Contact Info) Description 02/03/2025 1:00 PM EDT Office Visit [facility] [address] [phone] Ildefonso Ko MD [address] [phone] 03/02/2025 1:00 PM EDT Office Visit Pul[facility] [address] [phone] Latrice Patino NP [address] [phone] Health Maintenance Due Date Last Done Comments Zoster Vaccines (1 of 2) 2002 DTaP,Tdap,and Td Vaccines (2 - Td or Tdap) 02/06/2021 02/06/2011 Colorectal Cancer Screening: Stool Based Tests (FOBT/FIT) 10/07/2022 Depression Screening 10/07/2022 Hepatitis C Screening 10/07/2022 Medicare Annual Wellness Visit 10/07/2022 Social Influencers of Health Screening 10/07/2022 COVID-19 Vaccine ( season) 2024 08/15/2023, 11/27/2021, 01/31/2021 Hypertension/CHF/CAD Annual BMP Blood Test 01/24/2026 01/24/2025, 01/22/2025, 01/20/2025, Additional history exists Falls Risk Assessment 01/25/2026 01/25/2025 Breast Cancer Screening 10/08/2026 10/08/20, 09/23/2024, 03/08/2023, Additional history exists Cholesterol Screening (Lipid Panel) 04/02/2028 04/02/2023 Osteoporosis Screening (Bone Density Screening) 03/26/2034 03/26/2024, 03/26/2024, 04/21/2019 Pneumococcal Vaccine: 50+ Years Completed 05/14/2023, 08/16/2015 RSV Immunization Patients 60+ Years Old Completed 08/15/2023 Influenza Vaccine Completed 08/14/2024, , 09/27/2021, Additional history exists HIB Vaccines Aged Out No longer eligi ble based on patient's age to complete this topic HPV Vaccines Aged Out No longer eligi ble based on patient's age to complete this topic Hepatitis A Vaccines Aged Out No long er eligible based on patient's age to complete this topic Hepatitis B Vaccines Aged Out No long er eligible based on patient's age to complete this topic IPV Vaccines Aged Out No longer eligi ble based on patient's age to complete this topic MMR Vaccines Aged Out No longer eligi ble based on patient's age to complete this topic Meningococcal ACWY Vaccine Aged Out N o longer eligible based on patient's age to complete this topic Meningococcal B Vacine Aged Out No lo nger eligible based on patient's age to complete this topic RSV Immunization Patients Under 20 months Aged Out No longer eligible based on patient's age to complete this topic Varicella Vaccines Aged Out No longer eligible based on patient's age to complete this topic Procedures Procedure Name Priority Date/Time Associated Diagnosis Comments POCT GLUCOSE BLOOD Routine 01/25/2025 11:09 AM EDT POCT GLUCOSE BLOOD Routine 01/25/2025 7:39 AM EDT POCT GLUCOSE BLOOD Routine 01/24/2025 8:57 PM EDT POCT GLUCOSE BLOOD Routine 01/24/2025 4:37 PM EDT POCT GLUCOSE BLOOD Routine 01/24/2025 11:11 AM EDT POCT GLUCOSE BLOOD Routine 01/24/2025 8:26 AM EDT CBC WITH AUTO DIFFERENTIAL Routine 01/24/2025 6:17 AM EDT C-REACTIVE PROTEIN Routine 01/24/2025 6:17 AM EDT MAGNESIUM Routine 01/24/2025 6:17 AM EDT CBC AND DIFFERENTIAL Routine 01/24/2025 6:17 AM EDT BASIC METABOLIC PANEL Routine 01/24/2025 6:17 AM EDT POCT GLUCOSE BLOOD Routine 01/23/2025 8:31 PM EDT POCT GLUCOSE BLOOD Routine 01/23/2025 4:22 PM EDT ECG 12-LEAD Routine 01/23/2025 2:07 PM EDT POCT GLUCOSE BLOOD Routine 01/23/2025 11:01 AM EDT POCT GLUCOSE BLOOD Routine 01/23/2025 7:41 AM EDT POCT GLUCOSE BLOOD Routine 01/22/2025 8:09 PM EDT POCT GLUCOSE BLOOD Routine 01/22/2025 4:09 PM EDT POCT GLUCOSE BLOOD Routine 01/22/2025 11:10 AM EDT POCT GLUCOSE BLOOD Routine 01/22/2025 7:46 AM EDT CBC WITH AUTO DIFFERENTIAL Routine 01/22/2025 6:38 AM EDT C-REACTIVE PROTEIN Routine 01/22/2025 6:38 AM EDT CBC AND DIFFERENTIAL Routine 01/22/2025 6:38 AM EDT BASIC METABOLIC PANEL Routine 01/22/2025 6:38 AM EDT POCT GLUCOSE BLOOD Routine 01/21/2025 8:21 PM EDT MR LUMBAR SPINE WO AND W CONTRAST STAT 01/21/2025 6:23 PM EDT MR THORACIC SPINE WO AND W CONTRAST Routine 01/21/2025 6:23 PM EDT POCT GLUCOSE BLOOD Routine 01/21/2025 4:10 PM EDT POCT GLUCOSE BLOOD Routine 01/21/2025 11:18 AM EDT POCT GLUCOSE BLOOD Routine 01/21/2025 8:32 AM EDT POCT GLUCOSE BLOOD Routine 01/20/2025 7:47 PM EDT MR THORACIC SPINE WO CONTRAST STAT 01/20/2025 5:44 PM EDT POCT GLUCOSE BLOOD Routine 01/20/2025 5:36 PM EDT POCT GLUCOSE BLOOD Routine 01/20/2025 11:02 AM EDT POCT GLUCOSE BLOOD Routine 01/20/2025 8:07 AM EDT POCT GLUCOSE BLOOD Routine 01/20/2025 6:54 AM EDT CBC WITH AUTO DIFFERENTIAL Routine 01/20/2025 6:14 AM EDT TYPE AND SCREEN Routine 01/20/2025 6:14 AM EDT PROTHROMBIN TIME WITH INR Routine 01/20/2025 6:14 AM EDT ACTIVATED PARTIAL THROMBOPLASTIN TIME Routine 01/20/2025 6:14 AM EDT PHOSPHORUS Routine 01/20/2025 6:14 AM EDT MAGNESIUM Routine 01/20/2025 6:14 AM EDT BASIC METABOLIC PANEL Routine 01/20/2025 6:14 AM EDT CBC AND DIFFERENTIAL Routine 01/20/2025 6:14 AM EDT POCT GLUCOSE BLOOD Routine 01/19/2025 7:44 PM EDT POCT GLUCOSE BLOOD Routine 01/19/2025 4:54 PM EDT NM HEPATOBILIARY SYSTEM IMAGING Routine 01/19/2025 3:38 PM EDT POCT GLUCOSE BLOOD Routine 01/19/2025 11:14 AM EDT POCT GLUCOSE BLOOD Routine 01/19/2025 7:40 AM EDT COMPLETE BLOOD COUNT Routine 01/19/2025 6:46 AM EDT BASIC METABOLIC PANEL Routine 01/19/2025 6:46 AM EDT RAMÍREZ URINE CULTURE TUBE STAT 01/18/2025 4:50 PM EDT URINALYSIS WITH REFLEX MICROSCOPIC AND CULTURE STAT 01/18/2025 4:50 PM EDT URINALYSIS WITH REFLEX MICROSCOPIC AND CULTURE STAT 01/18/2025 4:50 PM EDT CULTURE URINE STAT 01/18/2025 4:50 PM EDT US ABDOMEN LIMITED STAT 01/18/2025 3:[address] ABDOMEN PELVIS WO CONTRAST STAT 01/18/2025 2:34 PM EDT LIPASE Add-On 01/18/2025 12:23 PM EDT CBC WITH AUTO DIFFERENTIAL STAT 01/18/2025 12:23 PM EDT COMPREHENSIVE METABOLIC PANEL STAT 01/18/2025 12:23 PM EDT CBC AND DIFFERENTIAL STAT 01/18/2025 12:23 PM EDT EXTERNAL XRAY REPORT 01/14/2025 EXTERNAL XRAY REPORT 01/14/2025 BACTERIAL IDENTIFICATION AND SUSCEPTIBILITY, AEROBIC Routine 12/11/2024 12:00 AM EST Dysuria MG MAMMO DIGITAL DIAGNOSTIC W FRANC RIGHT Routine 10/08/2024 2:22 PM EST Abnormal mammogram PERFECTO DEXA AXIAL SKELETON Routine 03/26/2024 5:09 PM EDT Encounter for screening for osteoporosis LIPID PANEL Routine 04/02/2023 CHOLECYSTECTOMY LAPAROSCOPIC Biliary dyskinesia Case Notes please add on for Dr. Perdomo 01/20/25 - laparoscopic cholecystectomy from Last 3 Months or Most Recently Relevant to Health Maintenance Results * (ABNORMAL) POCT Glucose, blood (01/25/2025 11:09 AM EDT) Only the most recent of27 resultswithin the time period is included. [facility] Glucose POCT 152(H) 70 - 100 mg/dL 01/25/2025 11:10 AM EDT [facility] Blood Capillary blood specimen / Unknown 01/25/2025 11:09 AM EDT 01/25/2025 11:11 AM EDT us Scott Wolfe MD LAB POINT OF C ARE TEST DOCKED DEVICE UNSOLICITED RESULTS Final Result [facility] [address] [place] [address], * (ABNORMAL) CBC auto differential (01/24/2025 6:17 AM EDT) Only the most recent of4 resultswithin the time period is included. [facility] WBC 8.7 4.8 - 10.8 K/mcL LAB HEMETOLOGY METHOD 01/24/2025 7:35 AM EDT [facility] RBC 4.40 3.80 - 4.80 M/mcL LAB HEMETOLOGY METHOD 01/24/2025 7:35 AM EDT [facility] Hemoglobin 13.6 11.5 - 16.0 g/dL LAB HEMETOLOGY METHOD 01/24/2025 7:35 AM [facility] Hematocrit 41.3 35.0 - 47.0 % LAB HEMETOLOGY METHOD 01/24/2025 7:35 AM EDT [facility] MCV 93.4 79.0 - 98.0 FL LAB HEMETOLOGY METHOD 01/24/2025 7:35 AM EDT [facility] MCH 30.8 27.0 - 32.0 pcg LAB HEMETOLOGY METHOD 01/24/2025 7:35 AM [facility] MCHC 32.9 32.0 - 37.0 g/dL LAB HEMETOLOGY METHOD 01/24/2025 7:35 AM [facility] RDW 12.6 11.0 - 15.0 % LAB HEMETOLOGY METHOD 01/24/2025 7:35 AM [facility] Platelets 261 130 - 400 K/mcL LAB HEMETOLOGY METHOD 01/24/2025 7:35 AM [facility] MPV 10.9 7.0 - 11.0 FL LAB HEMETOLOGY METHOD 01/24/2025 7:35 AM [facility] NRBC 0.0 <1.0 % LAB HEMETOLOGY METHOD 01/24/2025 7:35 AM [facility] NRBC Absolute 0.00 <0.10 K/[facility] LAB HEMETOLOGY METHOD 01/24/2025 7:35 AM [facility] Neutrophils Relative 78.8 % LAB HEMETOLOGY METHOD 01/24/2025 7:35 AM [facility] Lymphocytes Relative 9.6 % LAB HEMETOLOGY METHOD 01/24/2025 7:35 AM [facility] Monocytes Relative 10.4 % LAB HEMETOLOGY METHOD 01/24/2025 7:35 AM [facility] Eosinophils Relative 0.3 % LAB HEMETOLOGY METHOD 01/24/2025 7:35 AM [facility] Basophils Relative 0.0 % LAB HEMETOLOGY METHOD 01/24/2025 7:35 AM [facility] Immature Granulocytes Relative 0.9 % LAB HEMETOLOGY METHOD 01/24/2025 7:35 AM [facility] Neutrophils Absolute 6.84 1.50 - 7.00 [facility] HEMETOLOGY METHOD 01/24/2025 7:35 AM [facility] Lymphocytes Absolute 0.83(L) 1.00 - 5.00 K/[facility] LAB HEMETOLOGY METHOD 01/24/2025 7:35 AM EDT [facility] Monocytes Absolute 0.90 0.20 - 1.00 K/mcL LAB HEMETOLOGY METHOD 01/24/2025 7:35 AM EDT [facility] Eosinophils Absolute 0.03 0.00 - 0.50 K/mcL LAB HEMETOLOGY METHOD 01/24/2025 7:35 AM EDT [facility] Basophils Absolute 0.00 0.00 - 0.20 K/[facility] LAB HEMETOLOGY METHOD 01/24/2025 7:35 AM EDT [facility] Immature Granulocytes Absolute 0.08(H) 0.00 - 0.03 K/[facility] LAB HEMETOLOGY METHOD 01/24/2025 7:35 AM EDT [facility] Blood Venous blood specimen / Unknown Venipuncture / Unknown 01/24/2025 6:17 AM EDT 01/24/2025 7:03 AM EDT us Scott Wolfe MD LAB BLOOD ORDERABLES F inal Result [facility] [address] [place] [address], * C-reactive protein (01/24/2025 6:17 AM EDT) Only the most recent of2 resultswithin the time period is included. C-Reactive Protein <0.29 <=0.50 mg/dL LAB CHEMISTRY METHOD 01/24/2025 8:08 AM EDT [facility] Blood Venous blood specimen / Unknown Venipuncture / Unknown 01/24/2025 6:17 AM EDT 01/24/2025 7:02 AM EDT us Scott Wolfe MD LAB BLOOD ORDERABLES F inal Result [facility] [address] [place] [address], [place] [phone] * Magnesium (01/24/2025 6:17 AM EDT) Only the most recent of2 resultswithin the time period is included. [facility] Magnesium 2.3 1.9 - 2.6 mg/dL LAB CHEMISTRY METHOD 01/24/2025 7:59 AM EDT [facility] Blood Venous blood specimen / Unknown Venipuncture / Unknown 01/24/2025 6:17 AM EDT 01/24/2025 7:02 AM EDT Scott Wolfe MD LAB BLOOD ORDERABLES F inal Result [facility] [address] [place] [address], * (ABNORMAL) Basic metabolic panel (01/24/2025 6:17 AM EDT) Only the most recent of4 resultswithin the time period is included. [facility] Sodium 138 133 - 145 mmol/L LAB CHEMISTRY METHOD 01/24/2025 8:08 AM [facility] Potassium 3.9 3.5 - 5.5 mmol/L LAB CHEMISTRY METHOD 01/24/2025 8:08 AM [facility] Chloride 100 96 - 110 mmol/L LAB CHEMISTRY METHOD 01/24/2025 8:08 AM EDT [facility] CO2 33(H) 21 - 32 mmol/L LAB CHEMISTRY METHOD 01/24/2025 8:08 AM T [facility] Anion Gap 5 3 - 11 LAB CHEMISTRY METHOD 01/24/2025 8:08 AM [facility] Glucose 145(H) 70 - 100 mg/dL LAB CHEMISTRY METHOD 01/24/2025 8:08 AM [facility] BUN 22 5 - 25 mg/dL LAB CHEMISTRY METHOD 01/24/2025 8:08 AM EDT [facility] Creatinine 0.64 0.50 - 1.10 mg/dL LAB CHEMISTRY METHOD 01/24/2025 8:08 AM EDT [facility] eGFR 94 >=60 mL/min/1. 73m2 LAB CHEMISTRY METHOD 01/24/2025 8:08 AM EDT [facility] Comment:Calculation based on the??Chronic Kidney Disease Epidemiology Collaboration (CKD-EPI) equation refit??without adjustment for race. BUN/Creatinine Ratio 34.4 LAB CHEMISTRY METHOD 01/24/2025 8:08 AM EDT [facility] Calcium 9.1 8.5 - 10.5 mg/dL LAB CHEMISTRY METHOD 01/24/2025 8:08 AM EDT [facility] Blood Venous blood specimen / Unknown Venipuncture / Unknown 01/24/2025 6:17 AM EDT 01/24/2025 7:02 AM EDT us Scott Wolfe MD LAB BLOOD ORDERABLES F inal Result [facility] [address] [place] [address], * ECG 12 lead (01/23/2025 2:07 PM EDT) Ventricular Rate ECG 63 BPM GEMUSE Atrial Rate 63 BPM GEMUSE P-R Interval 156 ms GEMUSE QRS Duration 156 ms GEMUSE Q-T Interval 464 ms GEMUSE QTc 474 ms GEMUSE P Wave [place] 42 degrees GEMUSE R [place] -39 degrees GEMUSE T [place] -21 degrees GEMUSE ECG Interpretation Normal sinus rhythm Left axis deviation Right bundle branch block Abnormal ECG When compared with ECG of 09-AUG-2023 13:03, T wave inversion now evident in Anterior leads Confirmed by MD Frank, Sea ([id number]) on 01/24/2025 8:50:02 AM GEMUSE 01/23/2025 2:07 PM EDT 01/24/2025 8:50 AM EDT us Scott Wolfe MD ECG ORDERABLES Final Result GEMUSE * MR Lumbar Spine wo and w Contrast (01/21/2025 6:23 PM EDT) Anatomical Region Laterality Modality L-spine, Spine Magnetic Resonan ce 01/21/2025 6:57 PM EDT Impressions 01/21/2025 6:57 PM EDT Impression: 1. Limited exam as described above. 2. Likely at least mild central canal stenoses at L4-5. 3. No other definable significant abnormalities appreciated. This document has been electronically signed by: Antonio Alonso MD on 01/21/2025 18:57:31 Narrative 01/21/2025 6:57 PM EDT INDICATION: Numbness or tingling, paresthesia (Ped 0-18y) Exam: MRI of the lumbar spine, including gadolinium enhanced imaging. Comparison: Same day MRI thoracic spine. Findings: There is significant levoconvex lumbar curvature. There is posterior fusion hardware with bilateral pedicle screws at L3 and L5, with resultant susceptibility artifact. Otherwise, lumbar vertebral heights and signal intensities appear maintained. There is diffuse disc desiccation. Conus medullaris is not well delineated although appears to terminate near L1-L2 level. Axial images reveal likely mild central canal stenoses at L4-5 (6; 29). No other significant appearing central canal stenoses or significant focal disc herniation appreciated. Evaluation of foramina is limited by dextroconvex curvature. Gadolinium enhanced imaging reveals no definable abnormal epidural or paraspinal enhancement. No enhancing intradural lesions. Procedure Note Antonio Alonso MD - 01/21/2025 INDICATION: Numbness or tingling, paresthesia (Ped 0-18y) Exam: MRI of the lumbar spine, including gadolinium enhanced imaging. Comparison: Same day MRI thoracic spine. Findings: There is significant levoconvex lumbar curvature. There is posterior fusion hardware with bilateral pedicle screws at L3 and L5,with resultant susceptibility artifact. Otherwise, lumbar vertebral heightsand signal intensities appear maintained. There is diffuse disc desiccation. Conus medullaris is not well delineated although appears to terminatenear L1-L2 level. Axial images reveal likely mild central canal stenoses at L4-5 (6; 29).No other significant appearing central canal stenoses or significant focal disc herniation appreciated. Evaluation of foramina is limited by dextroconvex curvature. Gadolinium enhanced imaging reveals no definable abnormal epidural or paraspinal enhancement. No enhancing intradural lesions. IMPRESSION: Impression: 1. Limited exam as described above. 2. Likely at least mild central canal stenoses at L4-5. 3. No other definable significant abnormalities appreciated. This document has been electronically signed by: Antonio Alonso MD on 01/21/2025 18:57:31 Rose Mary MARTINEZ IMG MRI PROCEDURES Bella l Result * MR Thoracic Spine wo and w Contrast (01/21/2025 6:23 PM EDT) Anatomical Region Laterality Modality T-spine, Spine Magnetic Resonan ce 01/21/2025 6:48 PM EDT Impressions 01/21/2025 6:48 PM EDT Impression: 1. Limited exam as described above. 2. There appears to be at least moderate central canal stenoses at a lower thoracic level, possibly T11-T12 although indeterminate. 3. At the level above the significant central canal stenoses, there is some circumferential likely epidural enhancement, raising concern for epidural phlegmon in this location. There is a posterior paraspinal collection at this level as described above as well. This document has been electronically signed by: Antonio Alonso MD on 01/21/2025 18:48:29 Narrative 01/21/2025 6:48 PM EDT INDICATION: Myelopathy, acute or progressive Exam: MRI of the thoracic spine, including gadolinium enhanced imaging. Comparison: None. Findings: Evaluation of the thoracic vertebral level labeling is limited due to thoracolumbar curvature and incomplete coverage on localizer images. There is intact thoracic vertebral body heights. There is diffuse disc desiccation. Signal intensity within thoracic cord appears to be generally maintained. Axial images through the lower lumbar spine are provided. Axial images reveal likely at least moderate central canal stenoses at lower thoracic level (11; 20). This may be T11-T12 level however level is indeterminate. There is a posterior paraspinal circumscribed collection at this level measuring 4.3 x 1.8 cm transverse and AP dimension (13; 90), and 3.8 cm craniocaudad dimension (12; 9), differential considerations include postoperative seroma although infected collection not excluded. There appears to be some likely epidural rim enhancement at the level above significant central canal stenoses (13; 7), raising concern for epidural phlegmon in this location. No other clearly definable epidural collection appreciated. Procedure Note Antonio Alonso MD - 01/21/2025 INDICATION: Myelopathy, acute or progressive Exam: MRI of the thoracic spine, including gadolinium enhanced imaging. Comparison: None. Findings: Evaluation of the thoracic vertebral level labeling is limited due to thoracolumbar curvature and incomplete coverage on localizer images. There is intact thoracic vertebral body heights. There isdiffuse disc desiccation. Signal intensity within thoracic cord appears to be generally maintained. Axial images through the lower lumbar spine are provided. Axial images reveal likely at least moderate central canal stenoses at lower thoracic level (11; 20). This may be T11-T12 level however levelis indeterminate. There is a posterior paraspinal circumscribed collectionat this level measuring 4.3 x 1.8 cm transverse and AP dimension (13; 90), and 3.8 cm craniocaudad dimension (12; 9), differential considerations include postoperative seroma although infected collection not excluded. There appears to be some likely epidural rim enhancement at the level above significant central canal stenoses (13; 7), raising concern for epidural phlegmon in this location. No other clearly definable epidural collection appreciated. IMPRESSION: Impression: 1. Limited exam as described above. 2. There appears to be at least moderate central canal stenoses at alower thoracic level, possibly T11-T12 although indeterminate. 3. At the level above the significant central canal stenoses, there is some circumferential likely epidural enhancement, raising concern for epidural phlegmon in this location. There is a posterior paraspinal collection at this level as described above as well. This document has been electronically signed by: Antonio Alonso MD on 01/21/2025 18:48:29 us Scott Wolfe MD IMG MRI PROCEDURES Fin al Result * MR Thoracic Spine wo Contrast (01/20/2025 5:44 PM EDT) Anatomical Region Laterality Modality T-spine, Spine Magnetic Resonan ce 01/20/2025 5:44 PM EDT Impressions 01/20/2025 6:01 PM EDT Abbreviated exam at the patient's request. Only sagittal images were obtained before the patient requested to end the exam. Evidence of recent left T10-11 laminectomy with postsurgical changes in the posterior paraspinal musculature. ??Persistent severe spinal canal stenosis with mass effect upon the thoracic cord and increased cord signal at T10-11. Moderate to severe spinal canal stenosis with mass effect upon the cord at T9-10 and T12-L1. -------- FINAL REPORT -------- Dictated By: KD FLORES Dictated Date: 01/20/2025 17:44 ET Assigned Physician: KD FLORES Reviewed and Electronically Signed By: KD FLORES Signed Date: 01/20/2025 18:01 ET Workstation ID: [id number] Transcribed By: Self Edit Transcribed Date: 01/20/2025 17:44 ET Narrative 01/20/2025 6:01 PM EDT PROCEDURE: Thoracic spine MRI INDICATION: Spinal cord compression, numbness, tingling TECHNIQUE: Multiplanar, multisequence MRI of the thoracic spine Without contrast. COMPARISON: ??No priors available. FINDINGS: Motion degraded exam. ??Sagittal images only were obtained. Severe levoconvex thoracolumbar scoliosis with dextroconvex thoracic curvature. ??Straightening of the normal thoracic kyphosis. No fracture or suspicious marrow replacing lesion. Severe thoracolumbar facet arthritis. Diffuse degenerative disc bulging seen at several levels with endplate spurring. Congenitally narrow spinal canal. Fluid within the T12-L1 disc space with diffuse disc bulge and bilateral facet arthropathy with ligamentum flavum thickening contribute to moderate to severe spinal canal stenosis with mass effect upon the cord. There is also moderate to severe spinal canal stenosis with mass effect upon the cord at T9-10 secondary to diffuse disc bulging, bilateral facet arthropathy, and ligamentum flavum thickening. Left laminectomy with small fluid in the laminectomy bed at the level of T10-11. ??There is persistent severe spinal canal stenosis with mass effect upon the thoracic cord at T10-11. Increased cord signal at T10-11. ??Thoracic cord is otherwise normal in signal. ?? Cervicothoracic posterior fusion hardware seen extending to the level of T3. ??Lower lumbar fusion hardware noted. Postsurgical changes in the posterior paraspinal musculature at T10-11 with small fluid collection in the lower thoracic subcutaneous tissues, most likely a postoperative seroma Procedure Note Kd Flores MD - 01/20/2025 PROCEDURE: Thoracic spine MRI INDICATION: Spinal cord compression, numbness, tingling TECHNIQUE: Multiplanar, multisequence MRI of the thoracic spine Withoutcontrast. COMPARISON: No priors available. FINDINGS: Motion degraded exam. Sagittal images only were obtained. Severe levoconvex thoracolumbar scoliosis with dextroconvex thoraciccurvature. Straightening of the normal thoracic kyphosis. No fracture or suspicious marrow replacing lesion. Severe thoracolumbar facet arthritis. Diffuse degenerative disc bulging seen at several levels with endplatespurring. Congenitally narrow spinal canal. Fluid within the T12-L1 disc space with diffuse disc bulge and bilateralfacet arthropathy with ligamentum flavum thickening contribute to moderateto severe spinal canal stenosis with mass effect upon the cord. There is also moderate to severe spinal canal stenosis with mass effectupon the cord at T9-10 secondary to diffuse disc bulging, bilateral facetarthropathy, and ligamentum flavum thickening. Left laminectomy with small fluid in the laminectomy bed at the level [id number]. 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 Increased cord signal at T10-11. Thoracic cord is otherwise normal insignal. Cervicothoracic posterior fusion hardware seen extending to the level ofT3. Lower lumbar fusion hardware noted. Postsurgical changes in the posterior paraspinal musculature at [id number] small fluid collection in the lower thoracic subcutaneous tissues,most likely a postoperative seroma IMPRESSION: Abbreviated exam at the patient's request. Only sagittal images wereobtained before the patient requested to end the exam. Evidence of recent left T10-11 laminectomy with postsurgical changes inthe posterior paraspinal musculature. Persistent severe spinal canalstenosis with mass effect upon the thoracic cord and increased cord signalat T10-11. Moderate to severe spinal canal stenosis with mass effect upon the cord atT9-10 and T12-L1. -------- FINAL REPORT -------- Dictated By: KD FLORES Dictated Date: 01/20/2025 17:44 ET Assigned Physician: KD FLORES Reviewed and Electronically Signed By: KD FLORES Signed Date: 01/20/2025 18:01 ET Workstation ID: [id number] Transcribed By: Self Edit Transcribed Date: 01/20/2025 17:44 ET us Rose Mary MARTINEZ IMG MRI PROCEDURES Bella l Result * Activated partial thromboplastin time (01/20/2025 6:14 AM EDT) aPTT 27.1 24.1 - 39.3 sec LAB COAGULATION METHOD 01/20/2025 7:39 AM EDT [facility] Blood Venous blood specimen / Unknown Venipuncture / Unknown 01/20/2025 6:14 AM EDT 01/20/2025 6:58 AM EDT us Britt MARTINEZ LAB BLOOD ORDERABLES Final Re sult [facility] [address] [place] [address], [place] [phone] * (ABNORMAL) Prothrombin time with INR (01/20/2025 6:14 AM EDT) Protime 16.7(H) 10.6 - 13.9 sec LAB COAGULATION METHOD 01/20/2025 7:39 AM EDT [facility] INR 1.3 LAB COAGULATION METHOD 01/20/2025 7:39 AM EDT [facility] Blood Venous blood specimen / Unknown Venipuncture / Unknown 01/20/2025 6:14 AM EDT 01/20/2025 6:58 AM EDT us Britt MARTINEZ LAB BLOOD ORDERABLES Final Re sult Performing Organization Address [facility]/ZIP Co de Phone Number [facility] [address] [place] [address], [place] [phone] * Type and screen (01/20/2025 6:14 AM EDT) ABO Group B 01/20/2025 8:17 AM EDT [facility] Rh Type Positive 01/20/2025 8:17 AM EDT [facility] Antibody Screen Negative 01/20/2025 8:17 AM EDT [facility] Blood Venous blood specimen / Unknown Venipuncture / Unknown 01/20/2025 6:14 AM EDT 01/20/2025 6:59 AM EDT us Britt MARTINEZ LAB BLOOD BANK TEST ORDERABLE S Final Result Performing Organization Address [facility] de Phone Number [facility] [address] [place] [address], [place] [phone] * Phosphorus (01/20/2025 6:14 AM EDT) Phosphorus 2.6 2.5 - 4.5 mg/dL LAB CHEMISTRY METHOD 01/20/2025 7:39 AM EDT [facility] Blood Venous blood specimen / Unknown Venipuncture / Unknown 01/20/2025 6:14 AM EDT 01/20/2025 6:58 AM EDT us Britt MARTINEZ LAB BLOOD ORDERABLES Final Re sult [facility] [address] [place] [address], [place] [phone] * NM Hepatobiliary System Imaging (01/19/2025 3:38 PM EDT) Anatomical Region Laterality Modality Body Nuclear Medicine 01/19/2025 4:39 PM EDT Impressions 01/19/2025 4:42 PM EDT Impression: 1. No evidence of cystic or common bile duct obstruction. 2.. Delayed biliary to bowel transit. Teleulises MARTINEZ ([id number]) -------- FINAL REPORT -------- Dictated By: Ilda Baez Dictated Date: 01/19/2025 16:39 ET Assigned Physician: Ilda Baez Reviewed and Electronically Signed By: Ilda Baez Signed Date: 01/19/2025 16:42 ET Workstation ID: [id number] Transcribed By: Self Edit Transcribed Date: 01/19/2025 16:39 ET Narrative 01/19/2025 4:42 PM EDT History: Abdominal pain, distended gallbladder. Technique: Continuous anterior imaging of the abdomen was performed for 60 minutes following the intravenous administration of 4.3 mCi technetium 99m Choletec. Delayed images of the right upper quadrant were also obtained at 90 minutes and at 6 hours. Findings: The initial image demonstrates a normal, homogeneous pattern of radiotracer distribution throughout the liver. Activity is seen within the bile ducts by 10 minutes, within the gallbladder by 20 minutes, and within the small bowel by 6 hours. There is normal washout of hepatic activity. Procedure Note Ilda Baez MD - 01/19/2025 History: Abdominal pain, distended gallbladder. Technique: Continuous anterior imaging of the abdomen was performed for 60minutes following the intravenous administration of 4.3 mCi technetium 99mCholetec. Delayed images of the right upper quadrant were also obtained at90 minutes and at 6 hours. Findings: The initial image demonstrates a normal, homogeneous pattern ofradiotracer distribution throughout the liver. Activity is seen within thebile ducts by 10 minutes, within the gallbladder by 20 minutes, and withinthe small bowel by 6 hours. There is normal washout of hepatic activity. IMPRESSION: Impression: 1. No evidence of cystic or common bile duct obstruction. 2.. Delayed biliary to bowel transit. Telerad JUAN ([id number]) -------- FINAL REPORT -------- Dictated By: Ilda Baez Dictated Date: 01/19/2025 16:39 ET Assigned Physician: Ilda Baez Reviewed and Electronically Signed By: Ilda Baez Signed Date: 01/19/2025 16:42 ET Workstation ID: [id number] Transcribed By: Self Edit Transcribed Date: 01/19/2025 16:39 ET Rose Mary MARTINEZ IMG NM PROCEDURES Final Result * Complete blood count (01/19/2025 6:46 AM EDT) WBC 8.2 4.8 - 10.8 K/mcL LAB HEMETOLOGY METHOD 01/19/2025 7:59 AM EDT [facility] RBC 3.90 3.80 - 4.80 M/mcL LAB HEMETOLOGY METHOD 01/19/2025 7:59 AM EDT [facility] Hemoglobin 11.8 11.5 - 16.0 g/dL LAB HEMETOLOGY METHOD 01/19/2025 7:59 AM EDT [facility] Hematocrit 35.6 35.0 - 47.0 % LAB HEMETOLOGY METHOD 01/19/2025 7:59 AM EDT [facility] MCV 92.5 79.0 - 98.0 FL LAB HEMETOLOGY METHOD 01/19/2025 7:59 AM EDT [facility] MCH 30.6 27.0 - 32.0 pcg LAB HEMETOLOGY [facility] MCHC 33.1 32.0 - 37.0 g/dL LAB HEMETOLOGY METHOD 01/19/2025 7:59 AM [facility] RDW 12.7 11.0 - 15.0 % LAB HEMETOLOGY METHOD 01/19/2025 7:59 AM [facility] Platelets 212 130 - 400 K/mcL LAB HEMETOLOGY METHOD 01/19/2025 7:59 AM EDT [facility] MPV 10.7 7.0 - 11.0 FL LAB HEMETOLOGY METHOD 01/19/2025 7:59 AM EDT [facility] NRBC 0.0 <1.0 % LAB HEMETOLOGY METHOD 01/19/2025 7:59 AM EDT [facility] NRBC Absolute 0.00 <0.10 K/mcL LAB HEMETOLOGY METHOD 01/19/2025 7:59 AM EDT [facility] Blood Venous blood specimen / Unknown Venipuncture / Unknown 01/19/2025 6:46 AM EDT 01/19/2025 7:43 AM EDT Rancho Kemp MD LAB BLOOD ORDERABLES Final Resu lt [facility] [address] [place] [address], [place] [phone] * (ABNORMAL) Urinalysis with reflex microscopic and culture (01/18/2025 4:50 PM EDT) Specific [place] Urine 1.020 1.003 - 1.030 LAB URINALYSIS - AUTOMATED METHOD 01/18/2025 5:25 PM EDT [facility] pH, Urine 6.5 5.0 - 8.0 pH LAB URINALYSIS - AUTOMATED METHOD 01/18/2025 5:25 PM EDT [facility] Leukocytes, Urine Moderate(A) Negative LAB URINALYSIS - AUTOMATED METHOD [facility]2025 [facility] Nitrite, Urine Positive(A) Negative LAB URINALYSIS - AUTOMATED METHOD 01/18/2025 5:25 PM EDT [facility] Protein, Urine 30(A) <=Trace mg/dL LAB URINALYSIS - AUTOMATED METHOD 01/18/2025 5:25 PM [facility] Glucose, Urine Negative Negative mg/dL LAB URINALYSIS - AUTOMATED METHOD 01/18/2025 5:25 PM [facility] Ketones, Urine 40(A) Negative mg/dL LAB URINALYSIS - AUTOMATED METHOD 01/18/2025 5:25 PM [facility] Urobilinogen , Urine 1.0 0.2 - 1.0 mg/dL LAB URINALYSIS - AUTOMATED METHOD 01/18/2025 5:25 PM [facility] Bilirubin, Urine Negative Negative LAB URINALYSIS - AUTOMATED METHOD 01/18/2025 5:25 PM [facility] Blood, Urine Moderate(A) Negative LAB URINALYSIS - AUTOMATED METHOD 01/18/2025 5:25 PM [facility] RBC, Urine 31.4(H) 0 - 4 /HPF LAB URINALYSIS - AUTOMATED METHOD 01/18/2025 5:25 PM [facility] WBC, Urine 114.2(H) 0 - 4 /HPF LAB URINALYSIS - AUTOMATED METHOD 01/18/2025 5:25 PM [facility] Squamous Epithelial, Urine 73(H) 0 - 60 /LPF LAB URINALYSIS - AUTOMATED METHOD 01/18/2025 5:25 PM [facility] Bacteria, Urine Few(A) Negative /HPF LAB URINALYSIS - AUTOMATED METHOD 01/18/2025 5:25 PM [facility] Hyaline Casts, Urine 8.8(H) 0 - 3 /LPF LAB URINALYSIS - AUTOMATED METHOD 01/18/2025 5:25 PM [facility] Urine Urine specimen obtained by clean catch procedure / Unknown Non-blood Collection / Unknown 01/18/2025 4:50 PM EDT 01/18/2025 5:14 PM EDT Mina Colón MD LAB URINE ORDERABLES Final Result Performing Organization Address City/[facility]/ZIP Co de Phone Number [facility] [address] [place] [address], [place] [phone] * Ramírez urine culture tube (01/18/2025 4:50 PM EDT) Extra Tube Hold for add-ons. 01/18/2025 7:01 PM EDT [facility] Comment:Auto resulted. Urine Urine specimen obtained by clean catch procedure / Unknown Non-blood Collection / Unknown 01/18/2025 4:50 PM EDT 01/18/2025 5:14 PM EDT Mina Colón MD LAB URINE ORDERABLES Final Result Performing Organization Address [facility]/ZIP Co de Phone Number [facility] [address] [place] [address], [place] [phone] * (ABNORMAL) Culture urine (01/18/2025 4:50 PM EDT) Culture, Urine >100,000 CFU/mL Pseudomonas aeruginosa(A) BARI 01/21/2025 8:20 AM EDT [facility] Comment: This is an edited result. Previous organism was Gram negative bacilli on 01/20/2025 at 1000 EDT. Urine Urine specimen obtained by clean catch procedure / Unknown Non-blood Collection / Unknown 01/18/2025 4:50 PM EDT 01/18/2025 5:24 PM EDT Narrative Organism Antibiotic Method Susceptibility Pseudomonas aeruginosa Piperacillin/Tazobactam BARI 8 ug/ml: Susceptible Pseudomonas aeruginosa Ceftazidime BARI 2 ug/ml: Susceptible Pseudomonas aeruginosa Cefepime BARI 2 ug/ml: Susceptible Pseudomonas aeruginosa Meropenem BARI 0.5 ug/ml: Susceptible Pseudomonas aeruginosa Amikacin BARI 4 ug/ml: Susceptible Pseudomonas aeruginosa Ciprofloxacin BARI 0.25 ug/ml: Susceptible Pseudomonas aeruginosa Levofloxacin BARI 0.5 ug/ml: Susceptible us Mina Colón MD LAB MICROBIOLOGY - GENERAL ORDERABLES Final Result [facility] ([facility]) [facility] [address] [place] [address], [place] [phone] * US Abdomen Limited (01/18/2025 3:47 PM EDT) Anatomical Region Laterality Modality Body Ultrasound 01/18/2025 3:49 PM EDT Impressions 01/18/2025 3:52 PM EDT Impression: 1. Distended gallbladder with small amount of mobile sludge and no specific findings of acute cholecystitis. 2. Fatty liver. Telerad JUAN ([id number]) -------- FINAL REPORT -------- Dictated By: Ilda Baez Dictated Date: 01/18/2025 15:49 ET Assigned Physician: Ilda Baez Reviewed and Electronically Signed By: Ilda Baez Signed Date: 01/18/2025 15:52 ET Workstation ID: [id number] Transcribed By: Self Edit Transcribed Date: 01/18/2025 15:49 ET Narrative 01/18/2025 3:52 PM EDT History: Distended gallbladder noted on recent abdominal CT performed for right- sided abdominal pain. Comparison: CT abdomen/pelvis from earlier today. Findings: Real-time imaging of the abdomen, limited to the right upper quadrant, was performed. The hepatic echogenicity is moderately increased, with poor visualization of the nelson of the peripheral pulmonary vasculature, consistent with fatty infiltration. No masses are identified. The portal vein is patent and exhibits normal, hepatopedal flow. The gallbladder is distended to approximately 12 cm in length. No calculi are identified. A small amount of mobile sludge is present, felt to account for the heterogeneous gallbladder contents noted on the CT. The gallbladder wall is normal in thickness. No pericholecystic fluid is identified. The common duct is not visualized. No ascites is seen in the right upper quadrant. A survey view of the right kidney is remarkable for a nonobstructing calculus at the lower pole. The smaller calculus noted on the CT is not visualized. The pancreas is completely obscured by bowel gas shadowing and cannot be evaluated. Procedure Note Ilda Baez MD - 01/18/2025 History: Distended gallbladder noted on recent abdominal CT performed forright- sided abdominal pain. Comparison: CT abdomen/pelvis from earlier today. Findings: Real-time imaging of the abdomen, limited to the right upper quadrant, wasperformed. The hepatic echogenicity is moderately increased, with poor visualizationof the nelson of the peripheral pulmonary vasculature, consistent withfatty infiltration. No masses are identified. The portal vein is patentand exhibits normal, hepatopedal flow. The gallbladder is distended to approximately 12 cm in length. No calculiare identified. A small amount of mobile sludge is present, felt toaccount for the heterogeneous gallbladder contents noted on the CT. Thegallbladder wall is normal in thickness. No pericholecystic fluid isidentified. The common duct is not visualized. No ascites is seen in the right upper quadrant. A survey view of the rightkidney is remarkable for a nonobstructing calculus at the lower pole. Thesmaller calculus noted on the CT is not visualized. The pancreas is completely obscured by bowel gas shadowing and cannot beevaluated. IMPRESSION: Impression: 1. Distended gallbladder with small amount of mobile sludge and nospecific findings of acute cholecystitis. 2. Fatty liver. Teleulises MARTINEZ ([id number]) -------- FINAL REPORT -------- Dictated By: Ilda Baez Dictated Date: 01/18/2025 15:49 ET Assigned Physician: Ilda Baez Reviewed and Electronically Signed By: Ilda Baez Signed Date: 01/18/2025 15:52 ET Workstation ID: [id number] Transcribed By: Self Edit Transcribed Date: 01/18/2025 15:49 ET us Mina Colón MD IMG US PROCEDURES Final Res ult * CT Abdomen Pelvis wo Contrast (01/18/2025 2:34 PM EDT) Anatomical Region Laterality Modality Body Computed Tomogra phy 01/18/2025 2:40 PM EDT Impressions 01/18/2025 2:46 PM EDT Impression: 1. Abnormally distended gallbladder with suspected cholelithiasis. No specific findings of acute cholecystitis are seen. Consider right upper quadrant ultrasound if clinically appropriate. 2. Nonobstructing right renal calculi. Flores MARTINEZ ([id number]) -------- FINAL REPORT -------- Dictated By: Ilda Baez Dictated Date: 01/18/2025 14:40 ET Assigned Physician: Ilda Baez Reviewed and Electronically Signed By: Ilda Baez Signed Date: 01/18/2025 14:46 ET Workstation ID: [id number] Transcribed By: Self Edit Transcribed Date: 01/18/2025 14:40 ET Narrative 01/18/2025 2:46 PM EDT History: Right flank pain for several days. Comparison: 07/30/20 Technique: Helical volumetric imaging of the abdomen and pelvis was performed without intravenous or oral contrast (stone kee protocol). DLP: 1124.25 mGy/cm [employer] / [email or web address] VCT Iterative reconstruction technique Findings: The kidneys are normal in position and size. Nonobstructing right renal calculi include a 6 mm calculus in the interpolar area and a 10 mm calculus in the lower pole. No ureteral calculi are identified and there is no hydronephrosis. The perinephric fat is preserved. The unenhanced liver is heterogeneous in attenuation, suggesting fatty infiltration. This limits evaluation for masses. The gallbladder is distended to at least 11.5 cm in length. Heterogeneous gallbladder contents may reflect small calculi or sludge. There is no apparent gallbladder wall thickening and the pericholecystic fat is preserved. No biliary dilatation is noted. The spleen, pancreas and adrenal glands are unremarkable. The abdominal aorta is atherosclerotic. No aneurysm is identified. There is no ascites. The uterus is small, consistent with age. The urinary bladder is normal. No evidence of bowel obstruction is seen. Diverticulosis of the colon is present. The appendix is normal in caliber in the right lower quadrant. No abnormal perienteric or pericolonic fat stranding is seen. A small hiatal hernia is present. Ventral herniorrhaphy sequela are again noted. Postop changes consistent with old posterior decompression and fusion in the lower lumbar spine are again noted, with intact hardware. Procedure Note Ilda Baez MD - 01/18/2025 History: Right flank pain for several days. Comparison: 07/30/20 Technique: Helical volumetric imaging of the abdomen and pelvis wasperformed without intravenous or oral contrast (stone kee protocol). DLP: 1124.25 mGy/cm [employer] / [email or web address] VCT Iterative reconstruction technique Findings: The kidneys are normal in position and size. Nonobstructing right renalcalculi include a 6 mm calculus in the interpolar area and a 10 mmcalculus in the lower pole. No ureteral calculi are identified and thereis no hydronephrosis. The perinephric fat is preserved. The unenhanced liver is heterogeneous in attenuation, suggesting fattyinfiltration. This limits evaluation for masses. The gallbladder isdistended to at least 11.5 cm in length. Heterogeneous gallbladdercontents may reflect small calculi or sludge. There is no apparentgallbladder wall thickening and the pericholecystic fat is preserved. Nobiliary dilatation is noted. The spleen, pancreas and adrenal glands are unremarkable. The abdominal aorta is atherosclerotic. No aneurysm is identified. Thereis no ascites. The uterus is small, consistent with age. The urinarybladder is normal. No evidence of bowel obstruction is seen. Diverticulosis of the colon ispresent. The appendix is normal in caliber in the right lower quadrant. Noabnormal perienteric or pericolonic fat stranding is seen. A small hiatalhernia is present. Ventral herniorrhaphy sequela are again noted. Postop changes consistent with old posterior decompression and fusion inthe lower lumbar spine are again noted, with intact hardware. IMPRESSION: Impression: 1. Abnormally distended gallbladder with suspected cholelithiasis. Nospecific findings of acute cholecystitis are seen. Consider right upperquadrant ultrasound if clinically appropriate. 2. Nonobstructing right renal calculi. Teleulises MARTINEZ ([id number]) -------- FINAL REPORT -------- Dictated By: Ilda Baez Dictated Date: 01/18/2025 14:40 ET Assigned Physician: Ilda Baez Reviewed and Electronically Signed By: Ilda Baez Signed Date: 01/18/2025 14:46 ET Workstation ID: [id number] Transcribed By: Self Edit Transcribed Date: 01/18/2025 14:40 ET us Mina Colón MD IMG CT PROCEDURES Final Res ult * Lipase (01/18/2025 12:23 PM EDT) [facility] Lipase 22 13 - 75 unit/L LAB CHEMISTRY METHOD 01/18/2025 6:47 PM EDT [facility] Blood Venous blood specimen / Unknown Venipuncture / Unknown 01/18/2025 12:23 PM EDT 01/18/2025 12:55 PM EDT us Henrietta MARTINEZ LAB BLOOD ORDERABLES Final Resu lt [facility] [address] [place] [address], [place] [phone] * (ABNORMAL) Comprehensive metabolic panel (01/18/2025 12:23 PM EDT) [facility] Sodium 139 133 - 145 mmol/L LAB CHEMISTRY METHOD 01/18/2025 1:25 PM [facility] Potassium 3.9 3.5 - 5.5 mmol/L LAB CHEMISTRY METHOD 01/18/2025 1:25 PM [facility] Chloride 101 96 - 110 mmol/L LAB CHEMISTRY METHOD 01/18/2025 1:25 PM T [facility] CO2 30 21 - 32 mmol/L LAB CHEMISTRY METHOD 01/18/2025 1:25 PM EDT [facility] Anion Gap 8 3 - 11 LAB CHEMISTRY METHOD 01/18/2025 1:25 PM [facility] Glucose 115(H) 70 - 100 mg/dL LAB CHEMISTRY METHOD 01/18/2025 1:25 PM [facility] BUN 18 5 - 25 mg/dL LAB CHEMISTRY METHOD 01/18/2025 1:25 PM [facility] Creatinine 0.59 0.50 - 1.10 mg/dL LAB CHEMISTRY METHOD 01/18/2025 1:25 PM EDT [facility] eGFR 96 >=60 mL/min/1. 73m2 LAB CHEMISTRY METHOD 01/18/2025 1:25 PM T [facility] Comment:Calculation based on the??Chronic Kidney Disease Epidemiology Collaboration (CKD-EPI) equation refit??without adjustment for race. BUN/Creatinine Ratio 30.5 LAB CHEMISTRY METHOD 01/18/2025 1:25 PM EDT [facility] Calcium 9.9 8.5 - 10.5 mg/dL LAB CHEMISTRY METHOD 01/18/2025 1:25 PM [facility] AST (SGOT) 30 10 - 42 unit/L LAB CHEMISTRY METHOD 01/18/2025 1:25 PM [facility] ALT (SGPT) 29 10 - 60 unit/L LAB CHEMISTRY METHOD 01/18/2025 1:25 PM T [facility] Alkaline Phosphatase 114 42 - 121 unit/L LAB CHEMISTRY METHOD 01/18/2025 1:25 PM [facility] Total Protein 7.3 6.0 - 8.0 g/dL LAB CHEMISTRY METHOD 01/18/2025 1:25 PM [facility] Albumin 3.9 3.2 - 5.0 g/dL LAB CHEMISTRY METHOD 01/18/2025 1:25 PM [facility] Total Bilirubin 1.0 0.0 - 1.4 mg/dL LAB CHEMISTRY METHOD 01/18/2025 1:25 PM [facility] Blood Venous blood specimen / Unknown Venipuncture / Unknown 01/18/2025 12:23 PM EDT 01/18/2025 12:55 PM EDT us Mina Colón MD LAB BLOOD ORDERABLES Final Result [facility] [address] [place] [address], [place] [phone] * External Xray Report (01/14/2025) Only the most recent of2 resultswithin the time period is included. Anatomical Region Laterality Modality Radiographic Gudelia ging us Provider [facility] IMG XR PROCEDURES Final Result * (ABNORMAL) Bacterial identification and susceptibility, aerobic (12/11/2024 12:00 AM EST) Pathologist [facility] Culture, Bacterial ID and Sensitivity Pseudomonas aeruginosa(A) BARI 12/15/2024 9:11 AM EST [facility] Comment: The organism value for this result has been updated. These results have been appended to the previously preliminary verified report. Culture, Bacterial ID and Sensitivity Proteus mirabilis ESBL(A) BARI 12/15/2024 9:11 AM EST [facility] Comment: THIS ORGANISM IS POSITIVE [...] / Unknown 12/11/2024 12/12/2024 10:22 AM EST Narrative [facility] - 12/15/2024 9:11 AM EST ESBL [...] MICROBIOLOGY - G ENERAL ORDERABLES Final Result [facility]) [facility] [address] [place] [address], * MG Mammo Digital Diagnostic w Franc Right (10/08/2024 2:22 PM EST) Anatomical Region Laterality Modality Breast Right Mammography 10/08/2024 3:16 PM EST Impressions 10/08/2024 3:57 PM EST RIGHT BREAST: 0.4 cm mass in the lower outer quadrant, similar in appearance to prior studies as far back as 2021, can be considered a benign finding. ??Benign, no evidence of malignancy. Normal interval follow-up mammogram is recommended in 12 months. Findings and recommendations were discussed with the patient. ?? BREAST DENSITY: B - There are scattered areas of fibroglandular density. ?? BI-RADS CATEGORY: 2 - BENIGN RECOMMENDATION: Mammography: Screening bilateral mammogram is recommended in 1 year. Ultrasound: Screening left mammogram is recommended in 1 year. Mammo Location: [facility], [address] [place] [address], [phone], . -------- FINAL REPORT -------- Dictated By: Shima Boyd Dictated Date: 10/08/2024 15:16 ET Assigned Physician: Shima Boyd Reviewed and Electronically Signed By: Shima Boyd Signed Date: 10/08/2024 15:57 ET Workstation ID: [id number] Transcribed By: Self Edit Transcribed Date: 10/08/2024 15:31 ET Narrative 10/08/2024 3:57 PM EST HISTORY: Callback from screening for finding in the upper-outer quadrant of the right breast. STUDIES: 1. ??Unilateral right diagnostic mammography with tomosynthesis and CAD 2. ??Targeted ultrasound of the right breast TECHNIQUE: Unilateral right digital diagnostic mammography is obtained and read in conjunction with computer-aided detection. ??Tomosynthesis as well as 2-D C view imaging were obtained. Spot compression Tomosynthesis images were also obtained. COMPARISON: Comparison made to multiple prior, most recent September 23, 2024, and most remote December 08, 2023. RIGHT BREAST: ??Previously seen 0.4 cm mass is identified in the lower outer quadrant at about 5-7 cm from the nipple: ML 90 degrees , spot MLO 15/80 and spot CC 10/. ??On today's images, this appears similar to prior studies as far back as 2021. Targeted ultrasound of the right breast was performed at the location of the mammographic finding. ??The survey performed throughout the lower outer quadrant, including along the 9:00 axis, did not reveal suspicious sonographic findings. Procedure Note Shima Boyd MD - 10/08/2024 HISTORY: Callback from screening for finding in the upper-outer quadrantof the right breast. STUDIES: 1. Unilateral right diagnostic mammography with tomosynthesis and CAD 2. Targeted ultrasound of the right breast TECHNIQUE: Unilateral right digital diagnostic mammography is obtained andread in conjunction with computer-aided detection. Tomosynthesis as wellas 2-D C view imaging were obtained. Spot compression Tomosynthesis imageswere also obtained. COMPARISON: Comparison made to multiple prior, most recent August, and most remote December 08, 2023. RIGHT BREAST: Previously seen 0.4 cm mass is identified in the lowerouter quadrant at about 5-7 cm from the nipple: ML 90 degrees , spotMLO / and spot CC . On today's images, this appears similar toprior studies as far back as 2021. Targeted ultrasound of the right breast was performed at the location ofthe mammographic finding. The survey performed throughout the lower outerquadrant, including along the 9:00 axis, did not reveal suspicioussonographic findings. IMPRESSION: RIGHT BREAST: 0.4 cm mass in the lower outer quadrant, similar inappearance to prior studies as far back as 2021, can be considered abenign finding. Benign, no evidence of malignancy. Normal intervalfollow-up mammogram is recommended in 12 months. Findings and recommendations were discussed with the patient. BREAST DENSITY: B - There are scattered areas of fibroglandular density. BI-RADS CATEGORY: 2 - BENIGN RECOMMENDATION: Mammography: Screening bilateral mammogram is recommended in 1 year. Ultrasound: Screening left mammogram is recommended in 1 year. Mammo Location: [facility], [address] [place] [address], [id number], . -------- FINAL REPORT -------- Dictated By: Shima Boyd Dictated Date: 10/08/2024 15:16 ET Assigned Physician: Shima Boyd Reviewed and Electronically Signed By: Shima Boyd Signed Date: 10/08/2024 15:57 ET Workstation ID: [id number] Transcribed By: Self Edit Transcribed Date: 10/08/2024 15:31 ET Patsy York MD IMG BI PROCEDURES Final Result * [facility] DEXA AXIAL SKELETON (03/26/2024 5:09 PM EDT) Anatomical Region Laterality Modality Mammography 03/26/2024 1:05 PM EDT Narrative 03/26/2024 5:09 PM EDT [facility] Diagnostic Imaging Department [address] [place] [address] Patient: ??SARAH LOVEAN ?/Age/Sex: 1950 - Unit#: ??[id number] ? Location/Status: ??SPDIMAM/REG CLI ? Mnemonic/Ordering Site: ??MAMDEXAAX/SPMAM Ordering Physician: ??RORY ACOSTA PA-C [facility] Dexa Axial Skeleton - 03/26/24 - [id number] Report Status:Signed History: Low estrogen state due to menopause. Personal history of fracture. Comparison: No comparison imaging. Findings: Bone densitometry is performed utilizing dual energy x-ray absorptiometry (DXA) in the [employer] unit. The lumbar spine and proximal femora are evaluated in the AP projection. The FRAX questionaire was completed. The results indicate osteoporosis, with a left femoral neck T-score of -2.8. The Z score is -1.8, indicating low bone mineral density for age. ??The detailed DEXA report will be mailed to the referring physician's office. [employer]em[employer] FRAX: 10-year Probability of Fracture: Major Osteoporotic 16.6 percent ??Hip 3.1 percent. IMPRESSION: Osteoporosis. [id number] Dictating Physician: ??ILDA BAEZ MD Electronically Signed by: ??ILDA BAEZ MD Dic Date/Time: ??03/26/241708 Sign date/Time: ??03/26/241708 Procedure Note Ilda Baez MD - 06/16/2024 [facility] Diagnostic Imaging Department [address] [place] [address] Patient: ISAElenaDENVER./Age/Sex: 1950 - 73 - F Unit#: [id number] Location/Status: [facility] Mnemonic[facility] Ordering Physician: RORY ACOSTA PA-C [facility] Dexa Axial Skeleton - 03/26/24 - [id number] Report Status:Signed History: Low estrogen state due to menopause. Personal history offracture. Comparison: No comparison imaging. Findings: Bone densitometry is performed utilizing dual energy x-ray absorptiometry(DXA) in the [employer] unit. The lumbar spine and proximal femora areevaluated in the AP projection. The FRAX questionaire was completed. The results indicate osteoporosis, with a left femoral neck T-score of-2.8. The Z score is -1.8, indicating low bone mineral density for age. Thedetailed DEXA report will be mailed to the referring physician's office. [employer] FRAX: 10-year Probability of Fracture: Major Osteoporotic 16.6 percent Hip 3.1 percent. IMPRESSION: Osteoporosis. [id number] Dictating Physician: ILDA BAEZ MD Electronically Signed by: ILDA BAEZ MD Dic Date/Time: 03/26/241708 Sign date/Time: 03/26/241708 Rory MARTINEZ IMG BI PROCEDURES Final Result * (ABNORMAL) Lipid panel (04/02/2023) LDL/HDL Ratio 3 0 - 4 Triglycerides 287(A) 0 - 150 mg/dL Cholesterol 142 0 - 200 mg/dL HDL 44 >=40 mg/dL LDL Cholesterol 41 0 - 100 mg/dL Blood Venous blood specimen / Unknown Historical Provider LAB BLOOD ORDERABLES Bella l Result from Last 3 Months or Most Recently Relevant to Health Maintenance Additional Health Concerns Infection Onset Date Last Indicated ESBL 12/11/2024 12/11/2024 Insurance MEDICARE [facility] Advance Directives Documents on File Type Date Recorded Patient [employer] Attendant Expl anation Advance Directives and Living Will 01/21/2025 3:34 PM Luli Iqbal Health Care Prox y * Full Code - Default (Latest Code Status on File) Date Activated Date Inactivated Comments 01/18/2025 7:44 PM 01/25/2025 6:12 PM This is orde r is used when code status has not been discussed with the patient, or code status is otherwise unknown/unconfirmed To update the patient's code status, place a code status order. Do not modify or discontinue any currently active code status orders. Healthcare Agents on File Name Relationship Healthcare Agent [facility] p Communication Luli Romero Daughter First Alternate Health Care Agent Trang Iqbal Sister Second Alternate Health Care Agent Care Teams Transmitter Engineer In Charge Relationship Specialty Start Date End Date Patsy York MD [address] [place] [address] PCP - General Internal Medicine 07/21/15
--- OUTSIDE RECORDS SUMMARY | 2025-01-27 18:44 | XMS_ITS | Encounter Summary ---
Author Organization [employer] Address [address] [place] [address] Care Team Providers Care Mesh Cutter Name Role Phone Patsy York MD Primary Care Provider [phone] Reason for Visit * Reason Comments Flank Pain * Auth/Cert (Routine) Specialty Diagnoses / Procedures Referred By Contac t Referred To Contact Diagnoses Intractable abdominal pain Pain in abdomen on palpation Procedures . Rancho Kemp MD [address] [place] [phone] Phone: tel: fax: [facility] [address] [place] [phone] Phone: tel: Referral ID Status Reason Start Date Expiration Date Visits Re quested Visits Authorized [id number] 1 1 Encounter Details Date Type Department Care Team (Latest Contact Info) Description 01/18/2025 12:45 PM EDT - 01/25/2025 2:30 PM EDT Hospital Encounter [facility] [address] [place] [phone] Mina Colón MD [address] [address] Rancho Kemp MD [address] [place] [address] Scott Wolfe MD [address] [place] [address] Intractable abdominal pain (Primary Dx); Biliary dyskinesia; Pain in abdomen on palpation; Thoracic myelopathy Discharge Disposition: Residential Facility Social History Tobacco Use Types Packs/Day Years [...] PM EDT documented as of this encounter Last Filed Vital Signs Vital Sign Reading [...] Mass Index 40.18 01/18/2025 10:36 PM EDT documented in this encounter Functional Status * Are you deaf or do you have serious difficulty hearing? Answer Date of Assessment Author No 01/18/2025 3:13 PM EDT Sophia Cordoba RN * Are you blind or do you have serious difficulty seeing, even when wearing glasses? Answer Date of Assessment Author No 01/18/2025 3:13 PM EDT Sophia Cordoba RN * Do you have serious difficulty walking or climbing stairs? Answer Date of Assessment Author No 01/18/2025 3:13 PM EDSophia Valadez RN * Do you have serious difficulty dressing or bathing? Answer Date of Assessment Author No 01/18/2025 3:13 PM EDSophia Valadez RN * Because of a physical, mental, or emotional condition, do you have serious difficulty doing errandsalone such as visiting the doctor? Answer Date of Assessment Author No 01/18/2025 3:13 PM EDSophia Valadez RN documented as of this encounter Mental Status * Because of a physical, mental, or emotional condition, do you have serious difficulty concentrating, remembering, or making decisions? (5 years old or older) Answer Entry Date Author No 01/18/2025 3:13 PM Sophia Mckenna RN documented in this encounter Discharge Summaries * Scott Wolfe MD - 01/25/2025 2:12 PM EDT Images from the original note were not included. SOMERSET DISCHARGE SUMMARY Patient Information Denver Love : 1950 [74 y.o.] Admitting Provider Scott Wolfe MD Discharge Provider Jemal Velasquez MD, Scott Wolfe, * Primary Care Physician Patsy York MD Admission Date 01/18/2025 Discharge Date 01/25/2025 Summary of Hospital Problems Primary Discharge Diagnosis: Biliary colic/Dyskinesia Thoracic myelopathy UTI Secondary Discharge Diagnosis: HTN DM HLD Spinal stenosis Discharge Destination: SNF Code Status at Discharge: Full code Hospital Course Summary As taken from the history and physical: 74-year-old female with PMH of hypertension, hyperlipidemia, back pain, NIDDM and obesity presentsto the ED for abdominal pain, nausea, vomiting and constipation Patient reported having back surgery on 01/14/2025 She reported abdominal discomfort as per symptoms in the right upper quadrant area. Patient had pain on night but was unable to tolerate pain medication due to nausea and vomiting She has been able to tolerate small sips of water but feels dehydrated She denies any significant rectal pain/pressure. But has not had a bowel movement since her surgery. Denies any fever, chills, chest pain, shortness of breath, lightheaded, dizziness. She does have urinary incontinence at baseline but denies any dysuria, hematuria or difficulty with bladder emptying Enema was ordered earlier in the night but patient refused due to severe abdominal pain at the time Vitals - 130/59, pulse 58, RR 16, 94% on room air, and afebrile Labs - CBC and CMP within normal limits. UA + protein, moderate leukocytes, WBC 114, RBC 73. Urine culture pending Abdomen US - Distended gallbladder with small amount of mobile sludge and no specific findings of acute cholecystitis. Fatty liver. CT Abd/Pelvis W Cont - Abnormally distended gallbladder with suspected cholelithiasis. No specific findings of acute cholecystitis are seen. Consider right upper quadrant ultrasound if clinically appropriate. Nonobstructing right renal calculi. In the ED patient received dilaudid, zofan, 1L normal saline bolus The patient was then admitted to medicine for further evaluation and treatment. The following issues were addressed: # Left lower extremity weakness and paresthesia with proximal right lower extremity paresthesia. The patient reported increased lower extremity weakness and paresthesia, she reported this to staff after admission to the hospital, on January 20 she had a limited MRI because of intolerance to the procedure revealed severe spinal stenosis around the site of her surgery with abnormal cord signal, without signs of postop complications, the report was relayed to Dr. Millard, her neurosurgeon and theMRI images were uploaded to [facility], Dr. Millard reviewed the images and compared with older MRIs, his opinion is that there are no acute change, there is no indication for surgery, recommended short course of IV steroid for 3 days. I asked neurology to see the patient as we did not have neurosurgery coverage here. Neurology evaluated the patient, suspected myelopathy, recommended to complete workup with MRI of the thoracic and lumbar spine with and without contrast, After MRI w/wo ofT and L spineI, they recommended to contact neurosurgery given possibility of infection, I contacted Dr. Delgadillo again who was able to read the reports and reviewed the images uploaded to their gaming surveillance observer, Dr. Millard reported that there is no evidence of postop complication he believes the spinal stenosis is less severe than preoperatively, the enhancement and fluid collection are postoperative changes which require no acute intervention, patient has no leukocytosis and CRP is barely above the ULN will pursue no further workup, she is afebrile. Given no new changes in her neurological status and the patient will follow-up with neurosurgery office on Sunday , the patient has been contacted bythe office and is aware. Patient is medically stable for transfer to detention facility as recommended by PT. Patient will follow with neurosurgery as directed. Patient has completed a course of steroids, neurologically remained stable, will monitor closely. Patient has some low back pain, not associated to the surgical site, surgical dressing is intact, has some blood soiling which has been stable, no pain or tenderness around the site of surgery, no erythema, no palpable fluid collection. # Abdominal pain, gallbladder distention, gallbladder dyskinesis, constipation Patient has right upper flank discomfort, mild tenderness, no palpable masses. This was not the reason for her admission to the hospital. Discussed with general surgery, they think the patient has biliary dyskinesia and planned for surgery which is on hold pending evaluation of her new neurologicalchanges. The patient reported being constipated and started on bowel regimen with a large bowel movement following treatment with magnesium citrate, however, her right upper quadrant discomfort remained unchanged. Surgery spoke to the patient and she prefers to have this issue addressed as an outpatient once her acute neurological complaints are evaluated. During their stay, she had her diet advan casey to low-fat diet and she started well. Pain is much improved, continue symptomatic treatment with oral hydromorphone. Patient will follow-up with surgery as an outpatient to plan outpatient cholecystectomy. # UTI. On admission, the patient denied any urinary symptoms , she had a urine culture as an outpatient showing Pseudomonas and ESBL Proteus, no antibiotic was started because the patient was asymptomatic..Prior to admission, she had a symptomatic UTI about a month before and she received antibiotics, on admission the patient had another urine culture which grew pansensitive Pseudomonas, at the end of her hospital stay, the patient has complained of dysuria which is new, given recent cultures will give a course of levofloxacin for 5 days. EKG was obtained prior to treatment showing QTc less than 500. On hospital day 3 of treatment her urinary symptoms are improving, she will complete courseas an outpatient. # Hypertension. Blood pressure is well-controlled, continue amlodipine and lisinopril, avoid hypotension to maintain good perfusion to the spinal cord.. # Diabetes mellitus, glucose is at goal, c continue diabetic diet, continue home medication withoutchanges. Glucose was transiently elevated above the goal due to steroids but she has completed 3-day steroid course. # Hyperlipidemia. Continue statin. Disposition: SNF pending placement. Providers consulted: Cara Gomez MD, Neurology Procedures done: MR Lumbar Spine wo and w Contrast Final Result Impression: 1. Limited exam as described above. 2. Likely at least mild central canal stenoses at L4-5. 3. No other definable significant abnormalities appreciated. This document has been electronically signed by: Antonio Alonso MD on 01/21/2025 18:57:31 MR Thoracic Spine wo and w Contrast Final Result Impression: 1. Limited exam as described above. [...] by: Antonio Alonso MD on 01/21/2025 18:48:29 MR Thoracic Spine wo Contrast Final Result Abbreviated exam at the patient's request. Only sagittal images were obtained before the patient requested to end the exam. Evidence of recent left T10-11 laminectomy with postsurgical changes in the posterior paraspinal musculature. Persistent severe spinal canal stenosis with mass effect upon the thoracic cord and increased cord signal at T10-11. Moderate to severe spinal canal stenosis with mass effect upon the cord at T9-10 and T12-L1. -------- FINAL REPORT -------- Dictated By: CHADD FLORES Dictated Date: 01/20/2025 17:44 ET Assigned Physician: CHADD FLORES Reviewed and Electronically Signed By: CHADD FLORES Signed Date: 01/20/2025 18:01 ET Workstation ID: [id number] Transcribed By: Self Edit Transcribed Date: 01/20/2025 17:44 ET NM Hepatobiliary System Imaging Final Result Impression: 1. No evidence of cystic or common bile duct obstruction. 2.. Delayed biliary to bowel transit. Telerad PA ([id number]) -------- FINAL REPORT -------- Dictated By: Ilda Baez Dictated Date: 01/19/2025 16:39 ET Assigned Physician: Ilda Baez Reviewed and Electronically Signed By: Ilda Baez Signed Date: 01/19/2025 16:42 ET Workstation ID: [id number] Transcribed By: Self Edit Transcribed Date: 01/19/2025 16:39 ET US Abdomen Limited Final Result Impression: 1. Distended gallbladder with small amount of mobile sludge and no specific findings of acute cholecystitis. 2. Fatty liver. Telerad PA ([id number]) -------- FINAL REPORT -------- Dictated By: Ilda Baez Dictated Date: 01/18/2025 15:49 ET Assigned Physician: Ilda Baez Reviewed and Electronically Signed By: Ilda Baez Signed Date: 01/18/2025 15:52 ET Workstation ID: [id number] Transcribed By: Self Edit Transcribed Date: 01/18/2025 15:[address] Abdomen Pelvis wo Contrast Final Result Impression: 1. Abnormally distended gallbladder with suspected cholelithiasis. No specific findings of acute cholecystitis are seen. Consider right upper quadrant ultrasound if clinically appropriate. 2. Nonobstructing right renal calculi. Telerad PA ([id number]) -------- FINAL REPORT -------- Dictated By: Ilda Baez Dictated Date: 01/18/2025 14:40 ET Assigned Physician: Ilda Baez Reviewed and Electronically Signed By: Ilda Baez Signed Date: 01/18/2025 14:46 ET Workstation ID: [id number] Transcribed By: Self Edit Transcribed Date: 01/18/2025 14:40 ET Condition upon discharge Stable low back pain, Stable low right sided. RUQ pain improved,.No fever, chills . No Cough, ChestPain or Shortness of Breath, chronic urinary incontinence, dysuris noted today. Appetite is good. ,no peritoneal signs. Visit Vitals BP 137/76 (BP Location: Right arm, Patient Position: Lying) Pulse 56 Temp 36.7 ??C (98 ??F) (Temporal) Resp 17 Temp (24hrs), Av.6 ??C (97.9 ??F), Min:36.1 ??C (96.9 ??F), Max:36.9 ??C (98.4 ??F) Gen: Patient is an obese female, NAD CV -RRR no MGR Lungs -CTAB Abd - Soft, non-distended,minimal tenderness right upper quadrant, mild, no peritoneal signs. Extremities - No LE edema, Neuro - AO x3, UE no deficits.Sensibility seems to be returning and is hypoesthesia now limited to the left leg ,left patellar reflex present but decreased compared to right, stable left Babinski, no clonus, at least 3/5 strength foot for extension or dorsiflexion, 3-4/5 hip flexion 5/5 hip extension, 3-4/5 knee extension and flexion. . Body mass index is 40.18 kg/m??. No results found for: PTWT , PTHT 45 Minutes were spent in patient care including [id number] time, chart review, discussion with providers, documentation, order entry representative.Highcomplexity medical decision making. The more likely that radiates to the right future Follow-Up Instructions and Recommendations Bryan Millard MD [address] [place] [address] [address] [facility] [id number] @ 2:45 PM, scheduled with Javid MARTINEZ. Ildefonso Ko MD [address] [place] [phone] Call General Surgery office afetr discharge from rehab to schedule followup and plan elective cholecystectomy. Discharge Procedure Orders Discharge Diet: Diabetic 1800 Calorie Diet, Cardiac Heart Healthy Diet (Low Cholesterol / Low Fat /No Added Salt), Low Fat Diet Order Specific Question Answer Comments Discharge diet you should follow at home Diabetic 1800 Calorie Diet Discharge diet you should follow at home Cardiac Heart Healthy Diet (Low Cholesterol / Low Fat / NoAdded Salt) Discharge diet you should follow at home Low Fat Diet No restrictions, resume your usual activities Provider: Order Specific Question Answer Comments Instructions for follow-up: @ 2:45 PM, scheduled with Javid MARTINEZ. Follow-Up On: 01/27/2025 Provider: Order Specific Question Answer Comments Instructions for follow-up: Call General Surgery office afetr discharge from rehab to schedule followup and plan elective cholecystectomy. There are no outpatient Patient Instructions on file for this admission. Discharge Medications Pain Your medication list START taking these medications Instructions Last Dose Given Next Dose Due acetaminophen 500 mg tablet Commonly known as: TYLENOL Take 2 tablets (1,000 mg total) by mouth every 8 (eight) hours for 7 days. baclofen 10 mg tablet Commonly known as: LIORESAL Take 1 tablet (10 mg total) by mouth 3 (three) times a day. HYDROmorphone 2 mg tablet Commonly known as: DILAUDID Take 1-2 tablets (2-4 mg total) by mouth every 6 (six) hours if needed for moderate pain or severe pain. Max Daily Amount: 16 mg levoFLOXacin 750 mg tablet Commonly known as: LEVAQUIN Start taking on: January 26, 2025 Take 1 tablet (750 mg total) by mouth 1 (one) time each day for 2 doses. lidocaine 4 % patch Start taking on: January 26, 2025 Apply 1 patch topically 1 (one) time each day for 14 days. pantoprazole 40 mg EC tablet Commonly known as: PROTONIX Take 1 tablet (40 mg total) by mouth 2 (two) times a day before meals for 14 days. Do not crush, chew, or split. polyethylene glycol 17 gram packet Commonly known as: MIRALAX Start taking on: January 26, 2025 Take 17 g by mouth 1 (one) time each day for 3 days. prochlorperazine 10 mg tablet Commonly known as: COMPAZINE Take 1 tablet (10 mg total) by mouth every 6 (six) hours if needed for nausea or vomiting for up to7 days. senna 8.6 mg tablet Commonly known as: SENOKOT Take 2 tablets (17.2 mg total) by mouth at bedtime. CONTINUE taking these medications Instructions Last Dose Given Next Dose Due albuterol HFA 90 mcg/actuation inhaler Commonly known as: PROAIR HFA ; PROVENTIL HFA ; VENTOLIN HFA Inhale 2 puffs by mouth. amLODIPine 10 mg tablet Commonly known as: NORVASC TAKE 1 TABLET BY MOUTH EVERY DAY aspirin 81 mg EC tablet Take 1 tablet (81 mg total) by mouth 1 (one) time each day. Calcium with Vitamin D 600 mg-10 mcg (400 unit) per tablet Generic drug: calcium carbonate-vitamin D Take 1 tablet by mouth 2 (two) times a day. celecoxib 200 mg capsule Commonly known as: CeleBREX TAKE 1 CAPSULE BY MOUTH TWICE A DAY cetirizine 10 mg capsule Commonly known as: ZyrTEC Take 1 capsule (10 mg total) by mouth 1 (one) time each day. fluticasone propion-salmeteroL 230-21 mcg/actuation inhaler Commonly known as: Advair HFA Inhale 2 puffs by mouth 2 (two) times a day. Rinse mouth with water after use to reduce aftertaste and incidence of candidiasis. Do not swallow. furosemide 40 mg tablet Commonly known as: LASIX Take 1 tablet (40 mg total) by mouth 2 (two) times a day. gabapentin 300 mg capsule Commonly known as: NEURONTIN Take 1 capsule (300 mg total) by mouth. lisinopril 40 mg tablet Commonly known as: PRINIVIL,ZESTRIL Take 1 tablet (40 mg total) by mouth 1 (one) time each day. metFORMIN XR 500 mg 24 hr tablet Commonly known as: GLUCOPHAGE-XR Take 1 tablet (500 mg total) by mouth 1 (one) time each day with breakfast. nitroglycerin 0.4 mg SL tablet Commonly known as: NITROSTAT Place 1 tablet (0.4 mg total) under the tongue every 5 (five) minutes if needed. oxyBUTYnin XL 10 mg 24 hr tablet Commonly known as: DITROPAN-XL Take 1 tablet (10 mg total) by mouth 1 (one) time each day. rosuvastatin 40 mg tablet Commonly known as: CRESTOR TAKE 1 TABLET BY MOUTH EVERY DAY triamcinolone 55 mcg nasal inhaler Commonly known as: NASACORT Administer 1 spray into affected nostril(s). zinc oxide 20 % ointment Apply thick layer to affected area (right buttock) twice daily. STOP taking these medications oxyCODONE 5 mg immediate release tablet Commonly known as: ROXICODONE Where to Get Your Medications These medications were sent to [facility]/pharmacy #[id number] - [place], [place] [address] [facility] AT [address] [address] baclofen 10 mg tablet levoFLOXacin 750 mg tablet polyethylene glycol 17 gram packet senna 8.6 mg tablet You can get these medications from any pharmacy Bring a paper prescription for each of these medications HYDROmorphone 2 mg tablet Information about where to get these medications is not yet available Ask your nurse or doctor about these medications acetaminophen 500 mg tablet lidocaine 4 % patch pantoprazole 40 mg EC tablet prochlorperazine 10 mg tablet * Scott Wolfe MD - 01/23/2025 2:51 PM EDT Images from the original note were not included. ALEE DISCHARGE SUMMARY Patient Information Denver Love : 1950 [74 y.o.] Admitting Provider Scott Wolfe MD Discharge Provider Jemal Velasquez MD, Scott Wolfe, * Primary Care Physician Patsy York MD Admission Date 01/18/2025 Discharge Date 01/23/2025 Summary of Hospital Problems Primary Discharge Diagnosis: Biliary colic/Dyskinesia Thoracic myelopathy UTI Secondary Discharge Diagnosis: HTN DM HLD Spinal stenosis Discharge Destination: SNF Code Status at Discharge: Hospital Course Summary As taken from the history and physical: 74-year-old female with PMH of hypertension, hyperlipidemia, back pain, NIDDM and obesity presentsto the ED for abdominal pain, nausea, vomiting and constipation Patient reported having back surgery on 01/14/2025 She reported abdominal discomfort as per symptoms in the right upper quadrant area. Patient had pain on night but was unable to tolerate pain medication due to nausea and vomiting She has been able to tolerate small sips of water but feels dehydrated She denies any significant rectal pain/pressure. But has not had a bowel movement since her surgery. Denies any fever, chills, chest pain, shortness of breath, lightheaded, dizziness. She does have urinary incontinence at baseline but denies any dysuria, hematuria or difficulty with bladder emptying Enema was ordered earlier in the night but patient refused due to severe abdominal pain at the time Vitals - 130/59, pulse 58, RR 16, 94% on room air, and afebrile Labs - CBC and CMP within normal limits. UA + protein, moderate leukocytes, WBC 114, RBC 73. Urine culture pending Abdomen US - Distended gallbladder with small amount of mobile sludge and no specific findings of acute cholecystitis. Fatty liver. CT Abd/Pelvis W Cont - Abnormally distended gallbladder with suspected cholelithiasis. No specific findings of acute cholecystitis are seen. Consider right upper quadrant ultrasound if clinically appropriate. Nonobstructing right renal calculi. In the ED patient received dilaudid, zofan, 1L normal saline bolus The patient was then admitted to medicine for further evaluation and treatment. The following issues were addressed: # Left lower extremity weakness and paresthesia with proximal right lower extremity paresthesia. The patient reported increased lower extremity weakness and paresthesia, she reported this to staff after admission to the hospital, workup done January 20, limited MRI because of intolerance to the procedure revealed severe spinal stenosis around the site of her surgery with abnormal cord signal, without signs of postop complications, the report was relayed to Dr. Millard, her neurosurgeon and the MRI images were uploaded to [facility], Dr. Millard reviewed the images and compared with older MRIs, his opinion is that there are no acute changes, there is no indication for surgery, recommended short course of IV steroid for 3 days. I asked neurology to see the patient as we did not have neurosurgery coverage here. Neurology evaluated the patient, suspected myelopathy, recommended to complete workup with MRI of the thoracic and lumbar spine with and without contrast, After MRI w/wo of T and L spineI, they recommended to contact neurosurgery given possibility of infection, I contactedthe patient's neurosurgeon who was able to read the reports and reviewed the images uploaded to their gaming surveillance observer, Dr. Millard detailed that there is no evidence of postop complication he believes the spinal stenosis is less severe than preoperatively, the enhancement and fluid collection are postoperat marcia changes which require no acute intervention, patient has no leukocytosis and CRP is barely above the ULN will pursue no further workup, she is afebrile. Given no new changes in her neurological status and the patient will follow-up with neurosurgery office on Sunday next week, the patient has been contacted by the office and is aware. Patient is medically stable for transfer to detention facility as recommended by PT. Patient will follow with neurosurgery as directed. Patient has completed a course of steroids, neurologically remained stable, will monitor closely. # Abdominal pain, gallbladder distention, gallbladder dyskinesis, constipation Patient has right upper flank discomfort, mild tenderness, no palpable masses. Discussed with general surgery, they think the patient has biliary dyskinesia and planned for surgery which is on hold pending evaluation of her new neurological changes. The patient reported counseled the patient and started on bowel regimen with a large bowel movement following treatment with magnesium citrate, however, her right upper quadrant discomfort remains unchanged. Surgery spoke to the patient and she prefers to have this issue addressed as an outpatient once her acute neurological complaints are evaluated. Patient will follow-up with surgery as an outpatient to plan outpatient cholecystectomy. # UTI. On admission, the patient denied any urinary symptoms , she had a urine culture last week asan outpatient showing Pseudomonas and ESBL Proteus, no antibiotic was started because the patient was asymptomatic..Prior to admission, she had a symptomatic UTI about a month before and she receivedantibiotics, on admission the patient had another urine culture which grew pansensitive Pseudomonas, today the patient has complained of dysuria which is new, given recent cultures will give a courseof levofloxacin for 5 days. EKG was obtained prior to treatment showing QTc less than 500. # Hypertension. Blood pressure is well-controlled, continue amlodipine and lisinopril, avoid hypotension. # Diabetes mellitus, glucose is at goal, continues on insulin sliding scale, low-fat diet. # Hyperlipidemia. Continue atorvastatin Disposition: SNF pending placement. Providers consulted: Cara Gomez MD, Neurology Procedures done: MR Lumbar Spine wo and w Contrast Final Result Impression: 1. Limited exam as described above. 2. Likely at least mild central canal stenoses at L4-5. 3. No other definable significant abnormalities appreciated. This document has been electronically signed by: Antonio Alonso MD on 01/21/2025 18:57:31 MR Thoracic Spine wo and w Contrast Final Result Impression: 1. Limited exam as described above. [...] by: Antonio Alonso MD on 01/21/2025 18:48:29 MR Thoracic Spine wo Contrast Final Result Abbreviated exam at the patient's request. Only sagittal images were obtained before the patient requested to end the exam. Evidence of recent left T10-11 laminectomy with postsurgical changes in the posterior paraspinal musculature. Persistent severe spinal canal stenosis with mass effect upon the thoracic cord and increased cord signal at T10-11. Moderate to severe spinal canal stenosis with mass effect upon the cord at T9-10 and T12-L1. -------- FINAL REPORT -------- Dictated By: CHADD FLORES Dictated Date: 01/20/2025 17:44 ET Assigned Physician: CHADD FLORES Reviewed and Electronically Signed By: CHADD FLORES Signed Date: 01/20/2025 18:01 ET Workstation ID: [id number] Transcribed By: Self Edit Transcribed Date: 01/20/2025 17:44 ET NM Hepatobiliary System Imaging Final Result Impression: 1. No evidence of cystic or common bile duct obstruction. 2.. Delayed biliary to bowel transit. Telerad PA ([id number]) -------- FINAL REPORT -------- Dictated By: Ilda Baez Dictated Date: 01/19/2025 16:39 ET Assigned Physician: Ilda Baez Reviewed and Electronically Signed By: Ilda Baez Signed Date: 01/19/2025 16:42 ET Workstation ID: [id number] Transcribed By: Self Edit Transcribed Date: 01/19/2025 16:39 ET US Abdomen Limited Final Result Impression: 1. Distended gallbladder with small amount of mobile sludge and no specific findings of acute cholecystitis. 2. Fatty liver. Telerad PA ([id number]) -------- FINAL REPORT -------- Dictated By: Ilda Baez Dictated Date: 01/18/2025 15:49 ET Assigned Physician: Ilda Baez Reviewed and Electronically Signed By: Ilda Baez Signed Date: 01/18/2025 15:52 ET Workstation ID: [id number] Transcribed By: Self Edit Transcribed Date: 01/18/2025 15:[address] Abdomen Pelvis wo Contrast Final Result Impression: 1. Abnormally distended gallbladder with suspected cholelithiasis. No specific findings of acute cholecystitis are seen. Consider right upper quadrant ultrasound if clinically appropriate. 2. Nonobstructing right renal calculi. Teleulises MARTINEZ ([id number]) -------- FINAL REPORT -------- Dictated By: Ilda Baez Dictated Date: 01/18/2025 14:40 ET Assigned Physician: Ilda Baez Reviewed and Electronically Signed By: Ilda Baez Signed Date: 01/18/2025 14:46 ET Workstation ID: [id number] Transcribed By: Self Edit Transcribed Date: 01/18/2025 14:40 ET Condition upon discharge Stable pain, weakness and paresthesia. Stable low right sided. No fever, chills . No Cough, Chest Pain or Shortness of Breath, Amara Johnson MD chronic urinary incontinence, dysuris noted today. Appetite is good. Right upper quadrant mildly tender, no peritoneal signs. Visit Vitals BP 131/70 (BP Location: Right arm, Patient Position: Lying) Pulse 60 Temp 36.6 ??C (97.9 ??F) (Temporal) Resp 18 Temp (24hrs), Av.4 ??C (97.6 ??F), Min:35.9 ??C (96.6 ??F), Max:36.7 ??C (98.1 ??F) Gen: Patient is an obese female, NAD CV -RRR no MGR Lungs -CTAB Abd - Soft, non-distended, persistent tenderness right upper quadrant, mild, no peritoneal signs. Extremities - No LE edema, upper extremities with normal strength, left lower extremity with 2-3 out of 5 strength for dorsiflexion and extension, 3 out of 5 extension and flexion of the knee and hip, decreased sensation to touch all over the left leg, patient has preserved patellar reflex. Decreased sensation below the navel. Neuro - AO x3, left lower extremity weakness as above.Feels slightly better today. Surgical site w/o any pain, tenderness, drainage, dressing intact with stable hematic soiling. . Body mass index is 40.18 kg/m??. No results found for: PTWT , PTHT 6 every day0 Minutes were spent in patient care including [id number] time, chart review, discussion with providers, documentation, order entry representative.[facility] medical decision making. This note was written using sougou speech recognition software which is prone to typographical errors. If questions occur please do not hesitate to call this provider. The more likely that radiates to the right future Follow-Up Instructions and Recommendations No follow-up provider specified. No discharge procedures on file. There are no outpatient Patient Instructions on file for this admission. Discharge Medications Pain Your medication list ASK your doctor about these medications Instructions Last Dose Given Next Dose Due albuterol HFA 90 mcg/actuation inhaler Commonly known as: PROAIR HFA ; PROVENTIL HFA ; VENTOLIN HFA Inhale 2 puffs by mouth. amLODIPine 10 mg tablet Commonly known as: NORVASC TAKE 1 TABLET BY MOUTH EVERY DAY aspirin 81 mg EC tablet Take 1 tablet (81 mg total) by mouth 1 (one) time each day. Calcium with Vitamin D 600 mg-10 mcg (400 unit) per tablet Generic drug: calcium carbonate-vitamin D Take 1 tablet by mouth 2 (two) times a day. celecoxib 200 mg capsule Commonly known as: CeleBREX TAKE 1 CAPSULE BY MOUTH TWICE A DAY cetirizine 10 mg capsule Commonly known as: ZyrTEC Take 1 capsule (10 mg total) by mouth 1 (one) time each day. fluticasone propion-salmeteroL 230-21 mcg/actuation inhaler Commonly known as: Advair HFA Inhale 2 puffs by mouth 2 (two) times a day. Rinse mouth with water after use to reduce aftertaste and incidence of candidiasis. Do not swallow. furosemide 40 mg tablet Commonly known as: LASIX Take 1 tablet (40 mg total) by mouth 2 (two) times a day. gabapentin 300 mg capsule Commonly known as: NEURONTIN Take 1 capsule (300 mg total) by mouth. lisinopril 40 mg tablet Commonly known as: PRINIVIL,ZESTRIL Take 1 tablet (40 mg total) by mouth 1 (one) time each day. metFORMIN XR 500 mg 24 hr tablet Commonly known as: GLUCOPHAGE-XR Take 1 tablet (500 mg total) by mouth 1 (one) time each day with breakfast. nitroglycerin 0.4 mg SL tablet Commonly known as: NITROSTAT Place 1 tablet (0.4 mg total) under the tongue every 5 (five) minutes if needed. oxyBUTYnin XL 10 mg 24 hr tablet Commonly known as: DITROPAN-XL Take 1 tablet (10 mg total) by mouth 1 (one) time each day. oxyCODONE 5 mg immediate release tablet Commonly known as: ROXICODONE rosuvastatin 40 mg tablet Commonly known as: CRESTOR TAKE 1 TABLET BY MOUTH EVERY DAY triamcinolone 55 mcg nasal inhaler Commonly known as: NASACORT Administer 1 spray into affected nostril(s). zinc oxide 20 % ointment Apply thick layer to affected area (right buttock) twice daily. documented in this encounter Discharge Instructions * Discharge Instructions* Scott Wolfe MD - 01/25/2025 2:24 PM EDT Follow with PCP upon discharge from rehab. Follow with neurosurgery on 01/27/25 as directed, appointment already setup. Follow with general surgery as outpatient for elective cholecystectomy. documented in this encounter Medications at Time of Discharge acetaminophen (TYLENOL) 500 mg tablet Take 2 tablets (1,000 mg total) by mouth every 8 (eight) hours for 7 days. 01/25/2025 amLODIPine (NORVASC) 10 mg tabletIndications: Essential (primary) hypertension TAKE 1 TABLET BY MOUTH EVERY DAY 90 tablet 11/17/2024 aspirin 81 mg EC tablet Take 1 tablet (81 mg total) by mouth 1 (one) time each day. baclofen (LIORESAL) 10 mg tablet Take 1 tablet (10 mg total) by mouth 3 (three) times a day. 90 each 01/25/2025 calcium carbonate-vitamin D (Calcium with Vitamin D) 600 mg-10 mcg (400 unit) per tablet Take 1 tablet by mouth 2 (two) times a day. 04/15/2024 celecoxib (CeleBREX) 200 mg capsule TAKE 1 CAPSULE BY MOUTH TWICE A DAY 180 capsule 1 10/17/2024 cetirizine (ZyrTEC) 10 mg capsule Take 1 capsule (10 mg total) by mouth 1 (one) time each day. 08/22/2016 fluticasone propion-salmeteroL (Advair HFA) 230-21 mcg/actuation inhalerIndications :Moderate persistent asthma without complication Inhale 2 puffs by mouth 2 (two) times a day. Rinse mouth with water after use to reduce aftertaste and incidence of candidiasis. Do not swallow. 12 g 6 09/01/2024 furosemide (LASIX) 40 mg tablet Take 1 tablet (40 mg total) by mouth 2 (two) times a day. gabapentin (NEURONTIN) 300 mg capsule Take 1 capsule (300 mg total) by mouth. 02/04/2024 HYDROmorphone (DILAUDID) 2 mg tabletIndications: Thoracic myelopathy Take 1-2 tablets (2-4 mg total) by mouth every 6 (six) hours if needed for moderate pain or severe pain. Max Daily Amount: 16 mg 14 tablet 01/25/2025 levoFLOXacin (LEVAQUIN) 750 mg tablet Take 1 tablet (750 mg total) by mouth 1 (one) time each day for 2 doses. 2 each 01/26/2025 5 lidocaine 4 % patch Apply 1 patch topically 1 (one) time each day for 14 days. 01/26/2025 5 lisinopril (PRINIVIL,ZESTRIL) 40 mg tabletIndications: Essential (primary) hypertension Take 1 tablet (40 mg total) by mouth 1 (one) time each day. 90 tablet 1 11/14/2024 metFORMIN XR (GLUCOPHAGE-XR) 500 mg 24 hr tablet Take 1 tablet (500 mg total) by mouth 1 (one) time each day with breakfast. 90 tablet 1 11/14/2024 nitroglycerin (NITROSTAT) 0.[address] 1 tablet (0.4 mg total) under the tongue every 5 (five) minutes if needed. 03/01/2023 oxyBUTYnin XL (DITROPAN-XL) 10 mg 24 hr tablet Take 1 tablet (10 mg total) by mouth 1 (one) time each day. 01/28/2024 pantoprazole (PROTONIX) 40 mg EC tablet Take 1 tablet (40 mg total) by mouth 2 (two) times a day before meals for 14 days. Do not crush, chew, or split. 01/25/2025 5 polyethylene glycol (MIRALAX) 17 gram packet Take 17 g by mouth 1 (one) time each day for 3 days. 51 g 01/26/2025 5 prochlorperazine (COMPAZINE) 10 mg tablet Take 1 tablet (10 mg total) by mouth every 6 (six) hours if needed for nausea or vomiting for up to 7 days. 01/25/2025 5 rosuvastatin (CRESTOR) 40 mg tablet TAKE 1 TABLET BY MOUTH EVERY DAY 90 tablet 1 10/13/2024 senna (SENOKOT) 8.6 mg tablet Take 2 tablets (17.2 mg total) by mouth at bedtime. 60 each 11 01/25/2025 6 triamcinolone (NASACORT) 55 mcg nasal inhaler Administer 1 spray into affected nostril(s). zinc oxide 20 % ointment Apply thick layer to affected area (right buttock) twice daily. 11/26/2023 documented as of this encounter Ordered Prescriptions Prescription Sig Dispense Quantity Refills Last Filled Start Date End Date senna (SENOKOT) 8.6 mg tablet Take 2 tablets (17.2 mg total) by mouth at bedtime. 60 each 11 01/25/2025 6 prochlorperazine (COMPAZINE) 10 mg tablet Take 1 tablet (10 mg total) by mouth every 6 (six) hours if needed for nausea or vomiting for up to 7 days. 01/25/2025 5 polyethylene glycol (MIRALAX) 17 gram packet Take 17 g by mouth 1 (one) time each day for 3 days. 51 g 01/26/2025 5 pantoprazole (PROTONIX) 40 mg EC tablet Take 1 tablet (40 mg total) by mouth 2 (two) times a day before meals for 14 days. Do not crush, chew, or split. 01/25/2025 5 lidocaine 4 % patch Apply 1 patch topically 1 (one) time each day for 14 days. 01/26/2025 5 HYDROmorphone (DILAUDID) 2 mg tabletIndications: Thoracic myelopathy Take 1-2 tablets (2-4 mg total) by mouth every 6 (six) hours if needed for moderate pain or severe pain. Max Daily Amount: 16 mg 14 tablet 01/25/2025 levoFLOXacin (LEVAQUIN) 750 mg tablet Take 1 tablet (750 mg total) by mouth 1 (one) time each day for 2 doses. 2 each 01/26/2025 5 baclofen (LIORESAL) 10 mg tablet Take 1 tablet (10 mg total) by mouth 3 (three) times a day. 90 each 01/25/2025 5 acetaminophen (TYLENOL) 500 mg tablet Take 2 tablets (1,000 mg total) by mouth every 8 (eight) hours for 7 days. 01/25/2025 5 documented in this encounter Discharge Disposition Disposition Code Departure Means Destination Comment s Residential Facility Ambulance documented in this encounter Progress Notes * Kala Menchaca RN - 01/25/2025 1:10 AM EDT Problem: Sensory: Acute Pain Goal: Pain level will improve or be tolerable Outcome: Progressing Goal: Ability to develop a pain control plan will improve Outcome: Progressing Problem: Cognitive: Acute Pain Goal: Expressions of feelings of enhanced comfort will increase Outcome: Progressing Problem: Patient Specific Problem: Acute Pain Goal: Patient Specific Outcome Outcome: Progressing Problem: Skin Integrity: Pressure Injury Actual or Risk of Goal: Will not develop new pressure injury Outcome: Progressing Goal: Skin integrity will improve Outcome: Progressing Goal: Risk for impaired skin integrity will decrease Outcome: Progressing Problem: Activity:Pressure Injury Actual or Risk of Goal: Mobility will improve Outcome: Progressing Problem: Nutritional:Pressure Injury Actual or Risk of Goal: Nutritional status will improve Outcome: Progressing Problem: Patient Specific Problem: Pressure Injury Actual or Risk of Goal: Patient Specific Outcome Outcome: Progressing Goals: To improve left leg strength and resolve/decrease paresthesia to RLE Identify possible barriers to meeting goals/advancing plan of care: Previous back surgery a week ago Stability of the patient: Moderately Stable - Low risk of patient condition declining or worsening End of Shift Summary: Pt alert and oriented; vss. Pt reported 7/10 pain to lower back and po 2mg dilaudid given with positive results; scheduled tylenol as given as ordered. LLE strength is still weak 3/5, but improving reports pt. RLE strong but pt reporting numbness. 2A to T&R and with incontinence care. Rings appropriately for assistance. Sleeping at this time. * Scott Wolfe MD - 01/24/2025 12:00 PM EDT Denver Love 01/18[birth year]25 1950 74 y.o. [id number] Scott Wolfe, * INTERVAL HISTORY: No events overnight, the patient went for MRI last night ASSESSMENT/PLAN: # Left lower extremity weakness and paresthesia with proximal right lower extremity paresthesia. CRP normalized, afebrile, no pain in surgical site, no WBC increase despite steroids. . Stable for discharge, see my discharge note yesterday. She seems to have improved after 3 days course of steroids, strength increased all over the left leg although still weaker compared to right. Continue PT/OT, transfer to SNF when bed available, has FU appointment on Sunday with neurosurgery, may need to reschedule if staying here longer. # Abdominal pain, gallbladder distention, constipation Tolerating diet, no significant pain, continue symptomatic management, low fat diet, FU with surgery as outpatient for elective reji. # Hypertension. Blood pressure is well-controlled, continue amlodipine, holding lisinopril, avoid hypotension. # Diabetes mellitus, glucose is at goal, continues on insulin scale, low-fat diet.Should improve after steroid discontinuation. # Hyperlipidemia. Continue atorvastatin # UTI. Started Levaquin yesterday , tolerating well, still some dysuria, complete 5 days. Disposition: Discussed with [facility], sending referrals for SNF pending placement. 30 minutes were spent in patient care including [id number]-[id number] time, chart review, discussion with providers, documentation, order entry representative. Moderate complexity medical decision making. SUBJECTIVE : Low back pain + stable, no f/s/c, no n/v, appetite fairl, abdominal pain controlled, BM + yesterday,has not ambulated. OBJECTIVE: Vitals: 01/23/25 1506 01/23/25201001/24/25 0234 01/24/25 0756 BP: 130/65 131/70 (!) 144/78 (!) 145/76 BP Location: Right arm Right arm Left arm Patient Position: Lying Lying Lying Pulse: 62 60 64 57 Resp: 15 18 16 17 Temp: 36.7 ??C (98.1 ??F) 36.6 ??C (97.9 ??F) 37 ??C (98.6 ??F) 36.8 ??C (98.2 ??F) TempSrc: Temporal Temporal Temporal SpO2: 97% 98% 93% 94% Weight: Height: Temp (24hrs), Av.8 ??C (98.2 ??F), Min:36.6 ??C (97.9 ??F), Max:37 ??C (98.6 ??F) Intake/Output Summary (Last 24 hours) at 01/24/2025 1200 Last data filed at 01/23/20252019 Gross per 24 hour Intake 120 ml Output -- Net 120 ml Wt Readings from Last 1 Encounters: 01/18/25 2236 120 kg (264 lb 3.2 oz) 01/18/25 1210 126 kg (278 lb) PHYSICAL EXAM: Gen: Patient is an obese female, NAD CV -RRR no MGR Lungs -CTAB Abd - Soft, non-distended,minimal tenderness right upper quadrant, mild, no peritoneal signs. Extremities - No LE edema, Neuro - AO x3, UE no deficits, RLE with mild paresthesia proximally LLE persistent hypoesthesias, however, can fill temperature in the medial aspect of leg and all the thigh, ,left patellar reflex present but decreased compared to right, stable left Babinski, no clonus, at least 3/5 strength foot for extension or dorsiflexion, 3-4/5 hip flexion 5/5 hip extension, 3-4/5 knee extension and flexion. RESULTS: CBC BMP Results from last 7 days Lab Units 01/24/25 0617 01/22/25 0638 01/20/25 0614 01/19/25 0646 01/18/25 1223 WBC AUTO K/mcL 8.7 10.1 6.4 8.2 7.5 HEMOGLOBIN g/dL 13.6 13.3 12.5 11.8 13.1 HEMATOCRIT % 41.3 40.3 38.1 35.6 39.1 PLATELETS K/mcL 261 267 228 212 232 LYMPHS PCT AUTO % 9.6 6.1 17.6 -- 15.2 MONO PCT AUTO % 10.4 3.2 11.8 -- 9.0 EOS PCT AUTO % 0.3 0.1 2.0 -- 0.3 Results from last 7 days Lab Units 01/24/25 0617 01/22/25 0638 01/20/25 0614 01/19/25 0646 SODIUM mmol/L 138 140 141 139 POTASSIUM mmol/L 3.9 4.4 4.0 4.0 CHLORIDE mmol/L 100 101 103 103 CO2 mmol/L 33* 33* 34* 29 ANION GAP 5 6 4 7 BUN mg/dL 22 9 6 15 CREATININE mg/dL 0.64 0.52 0.58 0.49* CALCIUM mg/dL 9.1 9.5 8.8 8.9 MAGNESIUM mg/dL 2.3 -- 2.4 -- PHOSPHORUS mg/dL -- -- 2.6 -- Results from last 7 days Lab Units 01/24/25 1111 01/24/25 0826 01/24/25 0617 01/23/25 2031 01/23/25 1622 POCT GLUCOSE mg/dL 116* 150* -- 153* 146* GLUCOSE mg/dL -- -- 145* -- -- Results from last 7 days Lab Units 01/18/25 1223 AST unit/L 30 ALT unit/L 29 Imaging:MR Lumbar Spine wo and w Contrast Narrative: INDICATION: Numbness or tingling, paresthesia (Ped 0-18y) [...] or paraspinal enhancement. No enhancing intradural lesions. Impression: Impression: 1. Limited exam as described above. 2. Likely at least mild central canal stenoses at L4-5. 3. No other definable significant abnormalities appreciated. This document has been electronically signed by: Antonio Alonso MD on 01/21/2025 18:57:31 MR Thoracic Spine wo and w Contrast Narrative: INDICATION: Myelopathy, acute or progressive Exam: MRI [...] No other clearly definable epidural collection appreciated. Impression: Impression: 1. Limited exam as described above. [...] by: Antonio Alonso MD on 01/21/2025 18:48:29 Scheduled Medications PRN Medications IV Medications acetaminophen, 1,000 mg, q8h LEXIE amLODIPine, 10 mg, Daily atorvastatin, 80 mg, Nightly baclofen, 10 mg, TID enoxaparin, 40 mg, Daily gabapentin, 300 mg, TID insulin lispro, 1-6 Units, Before meals & nightly levoFLOXacin, 750 mg, Daily lidocaine, 1 patch, Daily lisinopril, 40 mg, Daily pantoprazole, 40 mg, BID AC polyetheylene glycol, 17 g, Daily senna, 2 tablet, Nightly sodium phosphate, 133 mL, Once bisacodyL, 10 mg, Daily PRN ekckeloyhw-etrmyrcfrnyzr-ffpqijtp, 1 tablet, q6h PRN dextrose 50%, 12.5 g, q15 min PRN dextrose 50%, 25 g, q15 min PRN dextrose, 15 g, q15 min PRN dextrose, 30 g, q15 min PRN glucagon injection, 1 mg, Once PRN HYDROmorphone, 2 mg, q4h PRN HYDROmorphone, 4 mg, q4h PRN HYDROmorphone, 0.5 mg, q3h PRN prochlorperazine, 10 mg, q6h PRN Or prochlorperazine, 10 mg, q6h PRN Or prochlorperazine, 25 mg, q12h PRN [x] Code status: Full Code - Default [x] VTE Prophylaxis: Pneumoboots [x] Lines, tubes, drains: None Health Care proxy with Phone number: HCP: , PPX: Pneumoboots * Lb George RN - 01/24/2025 4:47 AM EDT Problem: Sensory: Acute Pain Goal: Pain level will improve or be tolerable Outcome: Progressing Goal: Ability to develop a pain control plan will improve Outcome: Progressing Goals: Identify possible barriers to meeting goals/advancing plan of care: iv abx, pain management, pt/ot Stability of the patient: Moderately Stable - Low risk of patient condition declining or worsening End of Shift Summary: pt reporting increase in sensation to pelvic region, reported dysuria on previous shift, pt now on levaquin, 3d decodron completed for spinal stenosis, pt pain well controlled, medicated x1 thus far on engineering writer's watch with good effect, fs bs well controlled with hs showing bs of 153, pt currently resting in bed, no issues noted/reported, will continue to monitor * Flavio Yi - 01/23/2025 11:52 AM EDT [facility] Physical Therapy Treatment PT Discharge Recommendations: Inpatient rehab facility placement Equipment Recommended: defer to IPR Staff Recommendations for safe patient handling: Assist x2 for bed mobility, unable to transfer at this time Precautions Medical Precautions: Fall Risk Safety Interventions: Call jeffrey within reach, ID band on, Bed alarm RUE Weight Bearing Status: Full LUE Weight Bearing Status: Full RLE Weight Bearing Status: Full LLE Weight Bearing Status: Full Orthopedic Precautions: Back Precautions (recent T10-11 fusion at [facility] by Dr Millard.) History of Present Illness: Patient is a 74 y.o. 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 Osteoarthritis of carpometacarpal (CMC) joint of both thumbs Primary osteoarthritis of right knee Snoring Shortness of breath on exertion Umbilical hernia DDD (degenerative disc disease), lumbar Cutaneous candidiasis COVID-19 virus detected Carpal tunnel syndrome, bilateral Anxiety Age related osteoporosis Abnormal cardiovascular function study RUQ abdominal pain CAD S/P percutaneous coronary angioplasty CTS (carpal tunnel syndrome) Biliary dyskinesia Morbid obesity with BMI of 40.0-44.9, adult ([facility]) Family history of breast cancer Family history of colonic polyps Pain in abdomen on palpation Intractable abdominal pain Fall prevention education provided including use of call light in hospital, use of appropriate assistive device, safe mobility techniques, and safety measures at home. Continue PT as per POC. Subjective I am down to do whatever you guys want to try Objective 01/23/25 1100 PT Last Visit PT Received On 01/23/25 General Family/Caregiver Present No PT Time Calculation PT Start Time 1100 PT Stop Time 1130 PT Time Calculation (min) 30 min Precautions Medical Precautions Fall Risk Safety Interventions Call jeffrey within reach;ID band on;Bed alarm RUE Weight Bearing Status Full LUE Weight Bearing Status Full RLE Weight Bearing Status Full LLE Weight Bearing Status Full Orthopedic Precautions Back Precautions (recent T10-11 fusion at [facility] by Dr Millard.) Oxygen Therapy Oxygen Therapy None (Room air) Pain Assessment Pain Frequency Constant/continuous Cognition Overall Cognitive Status WFL Arousal/Alertness Appropriate responses to stimuli Orientation Level Oriented X4 Following Commands Follows all commands and directions without difficulty Activity Tolerance Endurance Tolerates 20 - 30 min activity with multiple rests Static Sitting Balance Static Sitting-Level of Assistance Contact guard Static Sitting-Balance Support Feet supported;No upper extremity supported Static Standing Balance Static Standing-Level of Assistance Assist x2 Static Standing-Balance Support Right upper extremity supported;Left upper extremity supported Bed Mobility Sitting to Lying Assistance Assist x2 Lying to Sitting Assistance Maximum assistance Transfers Sit to Stand Assistance Assist x3 Ambulation Walking Assistance (unable to ambulate at this time) RLE Assessment RLE Assessment Within Functional Limits LLE Assessment LLE Assessment Impaired LLE Assessment Comments knee extension 3/5 Procedures Procedures Therapeutic Activity Therapeutic Activity Therapeutic Activity Time Entry 30 Therapeutic Activity 1 Pt started session in supine and was agreeable to participate in PT. Pt performed bed mobility with Max Ax1 to sit up at the EOB. Pt scoote forward with Max A to place feet on floor. Pt sat at the EOB for 5 minutes while therapist tested strength and sensation. Pt then attempted stand at walker with Assist x3 without success. Pt took a rest break before attempting again. Ptattempted another sit to stand with Assist x3 with knees blocked and was successful. Pt remained standing for 30 seconds before becoming dizzy and needing to sit down. Pt took an extended rest break sitting. Pt then performed a final sit to stand with Assist x 3 and was able to remain standing for 1 minute. While standing pt performed weight shifts on R and L LEs. Pt has increased difficulty shifting her weight towards L due to decreased sensation. Pt then sat down due to fatigue. Pt scooted towards the head of the bed and performed bed mobility with Assist x2 to return to supine. Pt was thenboosted up in bed and finished session with call jeffrey in reach. PT Assessment PT Assessment Results Decreased strength;Decreased endurance;Impaired balance;Impaired gait;Decreased mobility;Orthopedic restrictions;Impaired sensation Prognosis Good Evaluation/Treatment Tolerance Patient tolerated treatment well Comments Pt had slightly more difficulty when performing sit to stands compared to last session. Ptremains motivated and willing to participate. Pt fatigues quickly when standing and has difficulty bearing weight through LLE due to decreased strength and sensation Plan Treatment/Interventions Functional transfer training;LE strengthening/ROM;Endurance training;Patient/family training;Equipment eval/education;Bed mobility;Gait training;Balance training PT Plan Skilled PT PT Frequency 5 days per week PT Discharge Recommendations Inpatient rehab facility placement Equipment Recommended defer to IPR Procedure/Treatment: Procedures Procedures: Therapeutic Activity Therapeutic Activity Therapeutic Activity Time Entry: 30 Therapeutic Activity 1: (P) Pt started session in supine and was agreeable to participate in PT. Ptperformed bed mobility with Max Ax1 to sit up at the EOB. Pt scoote forward with Max A to place feet on floor. Pt sat at the EOB for 5 minutes while therapist tested strength and sensation. Pt then attempted stand at walker with Assist x3 without success. Pt took a rest break before attempting again. Pt attempted another sit to stand with Assist x3 with knees blocked and was successful. Pt remained standing for 30 seconds before becoming dizzy and needing to sit down. Pt took an extended rest break sitting. Pt then performed a final sit to stand with Assist x 3 and was able to remain standingfor 1 minute. While standing pt performed weight shifts on R and L LEs. Pt has increased difficultyshifting her weight towards L due to decreased sensation. Pt then sat down due to fatigue. Pt scooted towards the head of the bed and performed bed mobility with Assist x2 to return to supine. Pt wasthen boosted up in bed and finished session with call jeffrey in reach. Patient left lying supine in bed. RN notified of pt. status, location, response to treatment, and therapy recommendations. Physical Therapy Assessment/Plan PT Assessment PT Assessment Results: Decreased strength, Decreased endurance, Impaired balance, Impaired gait, Decreased mobility, Orthopedic restrictions, Impaired sensation Prognosis: Good Evaluation/Treatment Tolerance: Patient tolerated treatment well Comments: Pt had slightly more difficulty when performing sit to stands compared to last session. Pt remains motivated and willing to participate. Pt fatigues quickly when standing and has difficultybearing weight through LLE due to decreased strength and sensation Medical Staff Made Aware: Yes Plan Treatment/Interventions: Functional transfer training, LE strengthening/ROM, Endurance training, Patient/family training, Equipment eval/education, Bed mobility, Gait training, Balance training PT Plan: Skilled PT PT Frequency: 5 days per week PT Discharge Recommendations: Inpatient rehab facility placement Equipment Recommended: defer to IPR PT - Evaluation Status: Complete Physical Therapy Goals/Education Encounter Problems Encounter Problems (Active) Template: Physical Therapy Problem: PT Short Term Goals Dates: Start: 01/21/25 Goal: PT STG 1 the pt will complete transfers with cg Dates: Start: 01/21/25 Expected End: 01/29/25 Outcomes Date/Time User Outcome 01/23/25 1146 Flavio Yi Progressing Goal: PT STG 2 the pt will ambulate 50' with walker and CG Dates: Start: 01/21/25 Expected End: 01/29/25 Outcomes Date/Time User Outcome 01/23/25 1146 Flavio Yi Progressing Goal: PT STG 3 the pt will go up and down 4 steps with 1 railing and min A Dates: Start: 01/21/25 Expected End: 01/29/25 Outcomes Date/Time User Outcome 01/23/25 1146 Flavio Yi Progressing Encounter Problems (Resolved) There are no resolved problems. Education Documentation Body Mechanics, taught by Flavio Yi at 01/23/2025 11:46 AM. Learner: Patient Readiness: Acceptance Method: Explanation Response: Verbalizes Understanding Mobility Training, taught by Flavio Yi at 01/23/2025 11:46 AM. Learner: Patient Readiness: Acceptance Method: Explanation Response: Verbalizes Understanding Education Comments No comments found. Flavio Yi Cosigned by Pilar Spencer PT at 01/23/2025 11:57 AM EDT Associated attestation - Pilar Spencer PT - 01/23/2025 11:57 AM EDT Pt was integrally and physically involved in the decision making, delivery of interventions, and ongoing assessment during the pt's care session. * Estrella Meade, OT - 01/23/2025 10:45 AM EDT [facility] Occupational Therapy Treatment Note DATE: Thursday January 23, 2025 TIME IN: 1045 TIME OUT: 1115 Pt: Denver Love [id number] DISCHARGE RECS: Inpatient rehab facility placement EQUIPMENT RECS: Walker-rolling SAFE PT HANDLING REC FOR STAFF: Max assist x2 persons PRECAUTIONS: Precautions Medical Precautions: Fall Risk Safety Interventions: Call jeffrey within reach, ID band on, Bed alarm RUE Weight Bearing Status: Full LUE Weight Bearing Status: Full RLE Weight Bearing Status: Full LLE Weight Bearing Status: Full Orthopedic Precautions: Back Precautions ASSESSMENT: Pt participated in skilled OT session today. Patient engaged in therapeutic activity. Patient was most limited today by decreased sensation in L LE. Patient verbalized understanding to education provided and responded appropriately to cues. Patient would continue to benefit from skilledacute care OT to address ADLs, txfers, sit to stands, standing balance, fxnl mobility. Strength, spinal precautions. Subjective Pt agreeable to participate in session Objective 01/23/25 1045 OT Last Visit OT Received On 01/23/25 General Family/Caregiver Present No OT Time Calculation OT Start Time 1045 OT Stop Time 1115 OT Time Calculation (min) 30 min Precautions Medical Precautions Fall Risk Safety Interventions Call jeffrey within reach;ID band on;Bed alarm RUE Weight Bearing Status Full LUE Weight Bearing Status Full RLE Weight Bearing Status Full LLE Weight Bearing Status Full Orthopedic Precautions Back Precautions Vital Signs Patient Identification Yes Pain Assessment Pain Assessment 0-10 Pain Score 3 Pain Type Acute pain Pain Location Back Cognition Overall Cognitive Status WFL Arousal/Alertness Appropriate responses to stimuli Orientation Level Oriented X4 Following Commands Follows all commands and directions without difficulty Therapeutic Activity Therapeutic Activity Time Entry 30 Therapeutic Activity 1 Upon approach, pt semi supine in bed. pt very pleasant and agreeable to participate in session. pt completed bed mobility with max assist via log rolling. Pt total assist to don slip on sneakers. Pt sat EOB for approx 5 mintues with SPV for safety. Pt completed sit to stand to RW with max assist x2-3 persons x3 trials with seated rest breaks b/t sets for fatigue management.Overall, pt tolerated session well. Pt very motivated to participate in session and improve overallfunction. OT recommended rehab for deficits to be addressed. EOB to supine with total assist. Pt respositioned for comfort. Call jeffrey left within reach. Bed alarm actviated prior to OT departing room. OT Assessment OT Assessment Results Decreased ADL status;Decreased upper extremity strength;Decreased endurance;Decreased sensation;Decreased fine motor control;Decreased functional mobility;Decreased gross motor control Prognosis Good Evaluation/Treatment Tolerance Patient tolerated treatment well Plan Treatment Interventions ADL retraining;Functional transfer training;UE strengthening/ROM;Endurance training OT Plan Skilled OT OT Frequency 2-5 days per week OT Duration of Sessions 30-60 min per session OT Treatments per day 1 time per day OT - Evaluation Status Complete OT Discharge Recommendations Inpatient rehab facility placement Equipment Recommended Walker-rolling ADDITIONAL COMMENTS: Chart reviewed. RN clears pt for session. Pt agrees to participate and received supine with HOB elevated. All lines in place. Medical and safety precautions observed appropriately. Patient educated on Role of OT and ADL Techniques and Safety . Fair verbal understanding and returndemonstration. Additional education and training recommended. EXIT STATUS: Session ended with patient supine with HOB elevated. Needs in reach. RN notified. Assessment & Plan EDUCATION Education Documentation Body Mechanics, taught by Estrella Meade OT at 01/23/2025 2:24 PM. Learner: Patient Readiness: Eager Method: Explanation Response: Verbalizes Understanding ADL Training, taught by Estrella Meade OT at 01/23/2025 2:24 PM. Learner: Patient Readiness: Eager Method: Explanation Response: Verbalizes Understanding Education Comments No comments found. Encounter Problems Encounter Problems (Active) Template: Occupational Therapy Problem: OT Short Term Goals Dates: Start: 01/22/25 Goal: pt will complete commode txfer with max assist Dates: Start: 01/22/25 Expected End: 01/29/25 Goal: pt will complete sit to stand to RW with max assist Dates: Start: 01/22/25 Expected End: 01/29/25 Encounter Problems (Resolved) There are no resolved problems. Estrella Meade OT * Danielle Marquez RD - 01/23/2025 10:14 AM EDT 01/23/2025 @ 10:14 AM EDT Nutrition Follow Up Note Reason for RD Intervention: Assessment Type: Follow-up Reason for Assessment: Pressure Injury Anthropometrics: Height: 172.7 cm (67.99 ) Weight: 120 kg (264 lb 3.2 oz) Weight Method: Actual BMI (Calculated): 40.2 BMI Class: Obesity Class III IBW (lbs): 140 UBW (lbs): 268 Current Diet and Supplements: Dietary Orders (From admission, onward) Start Ordered 01/23/25 1013 Adult diet [facility]; Bariatric/GI; Low Fat Diet effective now Question Answer Comment Location [facility] Diet Type (req) Bariatric/GI Bariatric/GI Low Fat 01/23/25 1012 History of presenting illness: Patient is a 74 y.o. female with a history of Past Medical History: Diagnosis Date Anxiety 06/21/2021 DX:Anxiety Asthma DX:Asthma Back pain 11/24/2010 DX:Back pain; COMMENT: Diffused spondylosis L, C spine Esophageal reflux DX:Esophageal reflux Essential hypertension, benign 03/15/2006 DX:Essential hypertension, benign Family history of colonic polyps 12/09/2007 DX:Family history of colonic polyps; COMMENT: Mother and father with diagnosis of colonic polyps atage younger than 60. Negative colonoscopy 12/09/2007, no colon cancer screening needed for 5 years. Morbid obesity with BMI of 40.0-44.9, adult ([facility]) 10/23/2013 DX:Morbid obesity with BMI of 40.0-44.9, adult ([facility]); COMMENT: BMI 40.26 0n 08/28/13. 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 COLONOSCOPY 03/03/2021 PROCEDURE: HISTORICAL COLONOSCOPY; COMMENT: Sigmoid colon polyp, unable to visualize cecum. Pathology: tubular adenoma. HERNIA REPAIR PROCEDURE: REPAIR UMBILICAL HERNIA KIDNEY STONE SURGERY PROCEDURE: NM NEPHROLITHOTOMY REMOVAL CALCULUS LEG SURGERY Left PROCEDURE: HISTORICAL LEG SURGERY; COMMENT: Tib/fib fx, mult surgery, most recent 05/02/2018 TONSILLECTOMY PROCEDURE: HISTORICAL TONSILLECTOMY admitted 01/18/2025 with Pain in abdomen on palpation. Food/Nutrition History: Previous Diet / Nutrition Education / Counseling: Pt reports good PO intake and appetite prior to admission- usually eats 2 meals per day. Follows a low sodium diet at home. Prefers sugar free products. Denies issues chewing/swallowing or food allergies. Reports usual weight of 268 lb, indicating a4 lb weight loss (1.4%). Appetite AGRICULTURIST: Good Intake AGRICULTURIST: Stable Weight History: Wt Readings from Last 10 Encounters: 01/18/25 120 kg (264 lb 3.2 oz) 11/07/24 124 kg (273 lb) 09/01/24 122 kg (268 lb 9.6 oz) 08/14/24 121 kg (267 lb) 08/12/24 123 kg (270 lb 8 oz) 06/26/24 118 kg (261 lb 3.2 oz) 04/15/24 117 kg (257 lb) 04/02/24 117 kg (257 lb 6.4 oz) 03/04/24 116 kg (256 lb) 02/28/24 120 kg (263 lb 12.8 oz) Subjective Assessment: Pt seen for follow up. Remains on clear liquid diet. Reports nausea with movement, occasional abdominal pain and back pain and constipation x 3 days. Pt reports feeling hungry. Pt has been NPO/clearsx ~6 days. Pt to follow up as outpatient for biliary dyskinesia. No drainage from stage 2 pressure injury noted. Nutrition-Related Lab Values: Results from last 7 days Lab Units 01/23/25 0741 01/22/25 0746 01/22/25 0638 01/20/25 0654 01/20/25 0614 01/19/25 0646 01/18/25 1223 SODIUM mmol/L -- -- 140 -- 141 < > 139 POTASSIUM mmol/L -- -- 4.4 -- 4.0 < > 3.9 PHOSPHORUS mg/dL -- -- -- -- 2.6 -- -- MAGNESIUM mg/dL -- -- -- -- 2.4 -- -- CHLORIDE mmol/L -- -- 101 -- 103 < > 101 CO2 mmol/L -- -- 33* -- 34* < > 30 BUN mg/dL -- -- 9 -- 6 < > 18 CREATININE mg/dL -- -- 0.52 -- 0.58 < > 0.59 EGFR mL/min/1.73m2 -- -- 99 -- 96 < > 96 CALCIUM mg/dL -- -- 9.5 -- 8.8 < > 9.9 BILIRUBIN TOTAL mg/dL -- -- -- -- -- -- 1.0 ALK PHOS unit/L -- -- -- -- -- -- 114 ALT unit/L -- -- -- -- -- -- 29 AST unit/L -- -- -- -- -- -- 30 POCT GLUCOSE mg/dL 176* < > -- < > -- < > -- GLUCOSE mg/dL -- -- 166* -- 113* < > 115* WBC AUTO K/mcL -- -- 10.1 -- 6.4 < > 7.5 < > = values in this interval not displayed. Lab Results Component Value Date LIPASE 01/18/2025 Medications: acetaminophen, 1,000 mg, oral, q8h LEXIE amLODIPine, 10 mg, oral, Daily atorvastatin, 80 mg, oral, Nightly baclofen, 10 mg, oral, TID ceFAZolin, 2 g, intravenous, Once dexAMETHasone, 4 mg, intravenous, q6h LEXIE enoxaparin, 40 mg, subcutaneous, Daily gabapentin, 300 mg, oral, TID insulin lispro, 1-6 Units, subcutaneous, Before meals & nightly lisinopril, 40 mg, oral, Daily pantoprazole, 40 mg, oral, BID AC polyetheylene glycol, 17 g, oral, Daily senna, 2 tablet, oral, Nightly sodium phosphate, 133 mL, rectal, Once CONTINUOUS: PRN medications: bisacodyL, jevtwxvpmd-hawbxhsxxdaii-vbcihcpq, dextrose 50%, dextrose 50%, dextrose, dextrose, glucagon injection, HYDROmorphone, HYDROmorphone, HYDROmorphone, ondansetron (ZOFRAN-ODT) disintegrating tablet OR ondansetron Food/Nutrition-Current Status: Intake Type: P.O. Appetite: Good Intake Amount (%): 50-75% Intake Assessment: Inadequate Nutrition Focused Physical Findings: Overall Appearance: No findings of muscle or fat depletion Digestive System (Mouth to Rectum): Nausea, Constipation (Abdominal pain) Nerves and Cognition: Alert, Oriented Skin: Per wound RN: Left buttock with small scabbed stage 2 pressure injury and MASD/ IAD Fluid Accumulation/Edema: +1 (right lower extremity) Nutrition Diagnosis: Code Type: None Identified Status: No improvement Diagnosis: Inadequate Oral Intake Etiology: Changes in taste and appetite or preference, Compromised GI function Symptoms: limited diet advancement due to cholecystitis Nutrition Interventions: Paged provider- consider advancement of diet to low fat given NPO/clear liquid diet x 6 days Reviewed meal preferences with pt. Updated in [place] meal planning program/ discussed with diet office staff. Monitor adequacy of PO intake; consider offering snacks/supplements if pt consuming <65% of meals on follow up. Monitor skin integrity- hold off on ordering micronutrients at this time to avoid exacerbating nausea. Provided information re: low fat diet for biliary dyskinesia on previous visit. Will continue to review with pt as needed. Goals: Patient will tolerate diet progression. , Patient will consume greater than or equal to 75% meals.,Monitor/control glucose levels, Electrolytes within normal range., Maintain weight., Stooling appropriately., Wound healing progress., and Patient/family demonstrates understanding of diet education provided. Coordination of Patient Care: Discussed with provider(s) via [employer] Secure Chat/[employer]iku. Monitoring/Evaluation: Fluid/Beverage Intake, Food Intake, Weight, Renal/Electrolyte Profile, Gastrointestinal Profile, Diet Order Follow Up: Nutrition Priority Level: High Please consult nutrition if needed sooner. RD remains available and will continue to follow. Signature: Danielle Marquez RD * Lb George RN - 01/23/2025 7:55 AM EDT Problem: Sensory: Acute Pain Goal: Pain level will improve or be tolerable Outcome: Progressing Goal: Ability to develop a pain control plan will improve Outcome: Progressing Goals: Identify possible barriers to meeting goals/advancing plan of care: iv steroids Stability of the patient: Moderately Stable - Low risk of patient condition declining or worsening End of Shift Summary: pt with spinal stenosis, continues on iv decadron, pt reports weakness/parathesia remains in lle yet reports mild improvement, pain well controlled on engineering writer's watch with prn dilaudid, pt medicated x1 with good effect, pt reportedly to f/u as outpt regarding biliary dyskenesia, currently resting in bed with no complaints * Scott Wolfe MD - 01/22/2025 6:47 PM EDT Denver Love 01/18/2025 1950 74 y.o. [id number] Scott Wolfe, * INTERVAL HISTORY: No events overnight, the patient went for MRI last night ASSESSMENT/PLAN: # Left lower extremity weakness and paresthesia with proximal right lower extremity paresthesia. The patient reported increased lower extremity weakness and paresthesia, she reported this to staff the night before last night, workup done yesterday January 20, limited MRI because of intolerance to theprocedure revealed severe spinal stenosis around the site of her surgery with abnormal cord signal,without signs of postop complications, the report was relayed to Dr. Millard, her neurosurgeon andthe MRI images were uploaded to [facility], Dr. Millard reviewed the images and compared with older MRIs, his opinion is that there is no acute changes, there is no indication for surgery, recommended short course of IV steroid for 3 days. I asked neurology to see the patient today, we do not have neurosurgery coverage here. Neurology evaluated the patient, suspected myelopathy, recommended to complete workup with MRI of the thoracic and lumbar spine with and without contrast, I was contacted by neurology for the follow-up, given concern for infection they recommended to contact neurosurgery, I relayed information to neurology that I contacted the patient's neurosurgeon who was able to read the reports and reviewed the images uploaded to their gaming surveillance observer, Dr. Millard detailed that there is no is of postop complication he believes the spinal stenosis is less severe than preoperatively, the enhancement and fluid collection are postoperative changes which require no acute intervention, patient has no leukocytosis and CRP will pursue no further workup is almost normal, she is afebrile. Given no new changes in her neurological status and the patient will follow-up with neurosurgeryoffice on Sunday next week, the patient has been contacted by the office and is aware. # Abdominal pain, gallbladder distention, constipation Patient has right upper flank discomfort, mild tenderness, no palpable masses. Discussed with general surgery, they think the patient has biliary dyskinesia and planned for surgery which is on hold pending evaluation of her new neurological changes. The patient has bowel regimen with a large bowel movement today, however, her right upper quadrant discomfort remains unchanged. Surgery spoke to thepatient and she prefers to have this issue addressed as an outpatient once her acute neurological complaints are evaluated. Patient will follow-up with surgery as an outpatient to planned outpatient cholecystectomy. # Hypertension. Blood pressure is well-controlled, continue amlodipine, holding lisinopril, avoid hypotension. # Diabetes mellitus, glucose is at goal, continues on insulin scale, low-fat diet. # Hyperlipidemia. Continue atorvastatin # Bacteriuria, pyuria. Denies any urinary symptoms, she had a urine culture last week as an outpatient showing Pseudomonas and ESBL Proteus, holding on antibiotics given she is asymptomatic. She received prophylactic antibiotics for surgery which are on hold. Patient continues to deny any urinary symptoms, she had a symptomatic UTI about a month ago and she received antibiotics, at this time she denies any urinary symptoms. Disposition: Discussed with [facility], sending referrals for SNF pending placement. 60 minutes were spent in patient care including gbgx-[id number]-aluv time, chart review, discussion with providers, documentation, order entry representative. High complexity medical decision making. SUBJECTIVE : Stable pain, weakness and paresthesia. Stable mid back pain. No fever, chills . No Cough, Chest Pain or Shortness of Breath, No Urinary Symptoms except for Chronic urinary incontinence. Appetite is good. Right upper quadrant. Slightly better OBJECTIVE: Vitals: 01/21/25 2020 01/22/25 0449 01/22/25 0753 01/22/25 1504 BP: (!) 146/82 (!) 151/81 (!) 152/75 (!) 150/75 BP Location: Left arm Left arm Left arm Left arm Patient Position: Lying Lying Lying Lying Pulse: 67 67 69 62 Resp: 16 18 18 20 Temp: 37 ??C (98.6 ??F) 36.2 ??C (97.2 ??F) 36.5 ??C (97.7 ??F) 36.3 ??C (97.3 ??F) TempSrc: Oral Temporal Temporal Temporal SpO2: 95% 96% 96% 97% Weight: Height: Temp (24hrs), Av.5 ??C (97.7 ??F), Min:36.2 ??C (97.2 ??F), Max:37 ??C (98.6 ??F) Intake/Output Summary (Last 24 hours) at 01/22/2025 1847 Last data filed at 01/22/2025 1700 Gross per 24 hour Intake 2565.83 ml Output -- Net 2565.83 ml Wt Readings from Last 1 Encounters: 01/18/25 2236 120 kg (264 lb 3.2 oz) 01/18/25 1210 126 kg (278 lb) PHYSICAL EXAM: Gen: Patient is an obese female, NAD CV -RRR no MGR Lungs -CTAB Abd - Soft, non-distended, persistent tenderness right upper quadrant, mild, no peritoneal signs. Extremities - No LE edema, upper extremities with normal strength, left lower extremity with 2-3 out of 5 strength for dorsiflexion and extension, 3 out of 5 extension and flexion of the knee and hip, decreased sensation to touch all over the left leg, patient has preserved patellar reflex. Decree sensation below the navel. Neuro - AO x3, left lower extremity weakness as above. RESULTS: MRI results from yesterday reviewed in detail, there is paraspinal fluid collection and epidural enhancement as well as spinal stenosis, I had results faxed to Dr. Millard and the images were uploaded to the [facility] gaming surveillance observer, I was contacted by Dr. Hughse who reviewed the imaging orders, his impression is that spinal this is less severe than prior to the patient's operation and the fluidcollection and epidural and corresponds to postop changes rather than infection, he recommends no further At this time, completed 3 days of steroids he recommended and he will follow the patient on Sunday at his office, his office contacted the patient with the appointment. CBC BMP Results from last 7 days Lab Units 01/22/25 0638 01/20/25 0614 01/19/25 0646 01/18/25 1223 WBC AUTO K/mcL 10.1 6.4 8.2 7.5 HEMOGLOBIN g/dL 13.3 12.5 11.8 13.1 HEMATOCRIT % 40.3 38.1 35.6 39.1 PLATELETS K/mcL 267 228 212 232 LYMPHS PCT AUTO % 6.1 17.6 -- 15.2 MONO PCT AUTO % 3.2 11.8 -- 9.0 EOS PCT AUTO % 0.1 2.0 -- 0.3 Results from last 7 days Lab Units 01/22/25 0638 01/20/25 0614 01/19/25 0646 01/18/25 1223 SODIUM mmol/L 140 141 139 139 POTASSIUM mmol/L 4.4 4.0 4.0 3.9 CHLORIDE mmol/L 101 103 103 101 CO2 mmol/L 33* 34* 29 30 ANION GAP 6 4 7 8 BUN mg/dL 9 6 15 18 CREATININE mg/dL 0.52 0.58 0.49* 0.59 CALCIUM mg/dL 9.5 8.8 8.9 9.9 MAGNESIUM mg/dL -- 2.4 -- -- PHOSPHORUS mg/dL -- 2.6 -- -- Results from last 7 days Lab Units 01/22/25 1609 01/22/25 1110 01/22/25 0746 01/22/25 0638 01/21/252020 POCT GLUCOSE mg/dL 137* 133* 175* -- 171* GLUCOSE mg/dL -- -- -- 166* -- Results from last 7 days Lab Units 01/18/25 1223 AST unit/L 30 ALT unit/L 29 Imaging:MR Lumbar Spine wo and w Contrast Narrative: INDICATION: Numbness or tingling, paresthesia (Ped 0-18y) [...] or paraspinal enhancement. No enhancing intradural lesions. Impression: Impression: 1. Limited exam as described above. 2. Likely at least mild central canal stenoses at L4-5. 3. No other definable significant abnormalities appreciated. This document has been electronically signed by: Antonio Alonso MD on 01/21/2025 18:57:31 MR Thoracic Spine wo and w Contrast Narrative: INDICATION: Myelopathy, acute or progressive Exam: MRI [...] No other clearly definable epidural collection appreciated. Impression: Impression: 1. Limited exam as described above. [...] by: Antonio Alonso MD on 01/21/2025 18:48:29 Scheduled Medications PRN Medications IV Medications acetaminophen, 1,000 mg, q8h LEXIE amLODIPine, 10 mg, Daily atorvastatin, 80 mg, Nightly baclofen, 10 mg, TID ceFAZolin, 2 g, Once dexAMETHasone, 4 mg, q6h LEXIE enoxaparin, 40 mg, Daily gabapentin, 300 mg, TID insulin lispro, 1-6 Units, Before meals & nightly [Held by provider] lisinopril, 40 mg, Daily pantoprazole, 40 mg, BID AC polyetheylene glycol, 17 g, Daily senna, 2 tablet, Nightly sodium phosphate, 133 mL, Once bisacodyL, 10 mg, Daily PRN gqtwvbgisi-nxtxbguwjnkim-hdakqrho, 1 tablet, q6h PRN dextrose 50%, 12.5 g, q15 min PRN dextrose 50%, 25 g, q15 min PRN dextrose, 15 g, q15 min PRN dextrose, 30 g, q15 min PRN glucagon injection, 1 mg, Once PRN HYDROmorphone, 2 mg, q4h PRN HYDROmorphone, 4 mg, q4h PRN HYDROmorphone, 0.5 mg, q3h PRN ondansetron (ZOFRAN-ODT) disintegrating tablet, 4 mg, q8h PRN Or ondansetron, 4 mg, q8h PRN [x] Code status: Full Code - Default [x] VTE Prophylaxis: Pneumoboots [x] Lines, tubes, drains: None Health Care proxy with Phone number: HCP: Pipo., PPX: Pneumoboots * Estrella Meade OT - 01/22/2025 9:30 AM EDT [facility] Occupational Therapy Evaluation DATE: December TIME IN: 0930 TIME OUT: 1000 Pt: Denver Love ROOM: [address] [place] [address] Discharge Recommendation: Inpatient Rehab, Rehab, and Pt is currently below their baseline and currently requires physical assistance with all ADL and mobility tasks therefore this therapist recommends rehab in order for deficits to be addressed needed to safely d/c back into the community and return to prior level of function. Equipment Recommendation: walker Staff recommendations for safe patient handling: Max assist x2 persons, sit to stand to RW Assessment: Patient is a 74 y.o. y.o. female presenting for OT evaluation following admission due to abdominal pain, recent T10-11 fusion at [facility] with Dr Millard. During today's skilled acute care OT evaluation, pt demonstrated the following deficits: decreased sensation in L LE, txfers, sit to stands, bed mobility, adherence to spinal precautions, fxnl mobility, ADLs, IADLs . Pt currently requires assistance for ADLs and physical assistance for functional transfers/mobility. Pt will continue to benefit from skilled acute care OT services this admission to facilitate improvementsin the areas of deficit listed above and to progress toward their PLOF with ADLs and IADLs. OT Time Calculation OT Start Time: 0930 OT Stop Time: 1000 OT Time Calculation (min): 30 min History of Present Illness: Patient is a 74 y.o. female admitted to [facility] on 01/18/2025. Occupational Therapy evaluation and treatment ordered to assess ADL independence, safety, and functional mobility for discharge planning. 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 Osteoarthritis of carpometacarpal (CMC) joint of both thumbs Primary osteoarthritis of right knee Snoring Shortness of breath on exertion Umbilical hernia DDD (degenerative disc disease), lumbar Cutaneous candidiasis COVID-19 virus detected Carpal tunnel syndrome, bilateral Anxiety Age related osteoporosis Abnormal cardiovascular function study RUQ abdominal pain CAD S/P percutaneous coronary angioplasty CTS (carpal tunnel syndrome) Biliary dyskinesia Morbid obesity with BMI of 40.0-44.9, adult ([facility]) Family history of breast cancer Family history of colonic polyps Pain in abdomen on palpation Intractable abdominal pain Past Medical History: Diagnosis Date Anxiety 06/21/2021 DX:Anxiety Asthma DX:Asthma Back pain 11/24/2010 DX:Back pain; COMMENT: Diffused spondylosis L, C spine Esophageal reflux DX:Esophageal reflux Essential hypertension, benign 03/15/2006 DX:Essential hypertension, benign Family history of colonic polyps 12/09/2007 DX:Family history of colonic polyps; COMMENT: Mother and father with diagnosis of colonic polyps atage younger than 60. Negative colonoscopy 12/09/2007, no colon cancer screening needed for 5 years. Morbid obesity with BMI of 40.0-44.9, adult ([facility]) 10/23/2013 DX:Morbid obesity with BMI of 40.0-44.9, adult ([facility]); COMMENT: BMI 40.26 0n 08/28/13. 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 COLONOSCOPY 03/03/2021 PROCEDURE: HISTORICAL COLONOSCOPY; COMMENT: Sigmoid colon polyp, unable to visualize cecum. Pathology: tubular adenoma. HERNIA REPAIR PROCEDURE: REPAIR UMBILICAL HERNIA KIDNEY STONE SURGERY PROCEDURE: NM NEPHROLITHOTOMY REMOVAL CALCULUS LEG SURGERY Left PROCEDURE: HISTORICAL LEG SURGERY; COMMENT: Tib/fib fx, mult surgery, most recent 05/02/2018 TONSILLECTOMY PROCEDURE: HISTORICAL TONSILLECTOMY Subjective I'll try Patient agreeable to engage in OT evaluation and treatment. Objective Patient was identified by name and x2. Hearing: Intact Speech: Intact Vision: Vision: Intact 01/22/25 0930 OT Last Visit OT Received On 01/22/25 General Family/Caregiver Present No OT Time Calculation OT Start Time 0930 OT Stop Time 1000 OT Time Calculation (min) 30 min Precautions Medical Precautions Fall Risk Safety Interventions Call jeffrey within reach;ID band on;Bed alarm RUE Weight Bearing Status Full LUE Weight Bearing Status Full RLE Weight Bearing Status Full LLE Weight Bearing Status Full Orthopedic Precautions Back Precautions (recent T10-11 fusion at [facility] by Dr Millard.) Vital Signs Patient Identification Yes Oxygen Therapy Oxygen Therapy None (Room air) Pain Assessment Pain Assessment No/denies pain Pain Score 0 - No pain Home Living Type of Home House Lives With Spouse Home Adaptive Equipment Walker - rolling;Cane Home Layout One level Home Access Stairs to enter with rails Entrance Stairs-Rails Rail on the right going up Entrance Stairs-Number of Steps 4 Prior Function Level of [place] Independent with mobility and functional transfers Ambulation Status Household ambulator;Community ambulator Receives Help From Family Indoor Mobility Assistance Independent Stairs Assistance Independent Prior Device Use No prior device use Which is your dominant hand? Right ADL/IADL History ADL Assistance (Self Care) Independent Homemaking Assistance (Functional Cognition) Independent ADL Eating Assistance Setup Grooming Assistance Setup Oral Hygiene Assistance Setup Bathing Assistance Moderate assistance (assistance with buttocks, perinreal area and distal andrew LEs) UE Dressing Assistance Minimum assistance LE Dressing Assistance Dependent;Assist x2 Footwear Assistance Dependent Toileting Assistance Dependent (bed level d/t pt unable to take steps at this time) Bed Mobility Lying to Sitting Assistance Maximum assistance (assistance with trunk, lifting L LE to EOB and scooting to EOB) Functional Transfers Sit to Stand Assistance Assist x2;Maximum assistance (x3 trials) Cognition Overall Cognitive Status WFL Arousal/Alertness Appropriate responses to stimuli Orientation Level Oriented X4 Following Commands Follows all commands and directions without difficulty Proprioception Proprioception Severe deficits in the LLE Sensation Light Touch Severe deficits in the LLE Hand Function Gross Grasp Functional Coordination Coordination Functional RUE Assessment RUE Assessment Within Functional Limits LUE Assessment LUE Assessment Within Functional Limits RLE Assessment RLE Assessment Within Functional Limits LLE Assessment LLE Assessment Impaired OT Assessment OT Assessment Results Decreased ADL status;Decreased endurance;Decreased functional mobility;Decreased gross motor control;Decreased IADLs;Decreased fine motor control Prognosis Good Evaluation/Treatment Tolerance Patient tolerated treatment well Plan Treatment Interventions ADL retraining;Functional transfer training;UE strengthening/ROM;Endurance training OT Plan Skilled OT OT Frequency 2-5 days per week OT Duration of Sessions 30-60 min per session OT Treatments per day 1 time per day OT - Evaluation Status Complete OT Discharge Recommendations Inpatient rehab facility placement Equipment Recommended Walker-rolling OT Evaluation Time Entry OT Evaluation (Moderate) Time Entry 30 Andrew UE WFL. Pt with decrease in sensation in L LE. Pt completed sit to stand to RW with max assist x2 persons, each person standing on each side of pt to assist with lifting and blocking L knee. Pt unable to take steps at this time d/t weakness and decrease in sensation. R LE WFL with sensation. Ptis currently below her baseline and requires physical assistance with all ADL and mobility tasks therefore this therapist recommends rehab in order for deficits to be addressed needed for pt to safely d/c back into community. AM-PAC 6 Clicks Occupational Therapy Scoring Form: Unable: 1 A Lot: 2 A Little: 3 None: 4 How much help from another person does the patient currently need? Putting on and taking off regular lower body clothing [] [x] [] [] Bathing (including washing, rinsing and drying) [] [x] [] [] Toileting, which includes using toilet, bed moreland, or urinal [] [x] [] [] Putting on and taking off regular upper body clothing [] [] [x] [] Personal grooming such as brushing teeth [] [] [x] [] Eating meals [] [] [x] [] Score: 15 /24 Score indicates pt would benefit from rehab post acute hospitalization. *Score of 18 and below indicates rehab is needed* *Score of over 18 indicates pt is safe to discharge home* ADDITIONAL COMMENTS: Chart reviewed. RN clears pt for session. Pt agrees to participate and received supine with HOB elevated. All lines in place. Daughter present during session. Medical precautions observed appropriately. Initiated education on Role of OT and ADL Techniques and Safety . Pt needs reinforcement for carry over. EXIT STATUS: Session ended with patient supine with HOB elevated. Needs in reach. RN made aware. OT Goals Pt seen for OT eval and treatment session to assess ADL and functional status. See above for details of evaluation/treatment session. OT Assessment OT Assessment Results: Decreased ADL status, Decreased endurance, Decreased functional mobility, Decreased gross motor control, Decreased IADLs, Decreased fine motor control Prognosis: Good Evaluation/Treatment Tolerance: Patient tolerated treatment well Plan Treatment Interventions: ADL retraining, Functional transfer training, UE strengthening/ROM, Endurance training OT Plan: Skilled OT OT Frequency : 2-5 days per week OT Duration of Sessions: 30-60 min per session OT Treatments per day: 1 time per day OT - Evaluation Status: Complete OT Discharge Recommendations: Inpatient rehab facility placement Equipment Recommended: Walker-rolling Encounter Problems Encounter Problems (Active) Template: Occupational Therapy Problem: OT Short Term Goals Dates: Start: 01/22/25 Goal: pt will complete commode txfer with max assist Dates: Start: 01/22/25 Expected End: 01/29/25 Goal: pt will complete sit to stand to RW with max assist Dates: Start: 01/22/25 Expected End: 01/29/25 Encounter Problems (Resolved) There are no resolved problems. Education Documentation Body Mechanics, taught by Estrella Meade OT at 01/22/2025 12:19 PM. Learner: Family, Patient Readiness: Eager Method: Explanation Response: Verbalizes Understanding Comment: Pt educated on spinal precautions and importance of maintaining precautions t/o daily tasks. Precautions, taught by Estrella Meade OT at 01/22/2025 12:19 PM. Learner: Family, Patient Readiness: Eager Method: Explanation Response: Verbalizes Understanding Comment: Pt educated on spinal precautions and importance of maintaining precautions t/o daily tasks. ADL Training, taught by Estrella Meade OT at 01/22/2025 12:19 PM. Learner: Family, Patient Readiness: Eager Method: Explanation Response: Verbalizes Understanding Comment: Pt educated on spinal precautions and importance of maintaining precautions t/o daily tasks. Education Comments No comments found. Estrella Meade OT * Flavio Yi - 01/22/2025 9:15 AM EDT [facility] Physical Therapy Treatment PT Discharge Recommendations: Inpatient rehab facility placement Equipment Recommended: defer to IPR Staff Recommendations for safe patient handling: Max A for bed mobility, back precautions Precautions Medical Precautions: Fall Risk Safety Interventions: Call jeffrey within reach, ID band on, Bed alarm RUE Weight Bearing Status: Full LUE Weight Bearing Status: Full RLE Weight Bearing Status: Full LLE Weight Bearing Status: Full Orthopedic Precautions: Back Precautions (recent T10-T11 fusion at [facility]) History of Present Illness: Patient is a 74 y.o. 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 Osteoarthritis of carpometacarpal (CMC) joint of both thumbs Primary osteoarthritis of right knee Snoring Shortness of breath on exertion Umbilical hernia DDD (degenerative disc disease), lumbar Cutaneous candidiasis COVID-19 virus detected Carpal tunnel syndrome, bilateral Anxiety Age related osteoporosis Abnormal cardiovascular function study RUQ abdominal pain CAD S/P percutaneous coronary angioplasty CTS (carpal tunnel syndrome) Biliary dyskinesia Morbid obesity with BMI of 40.0-44.9, adult ([facility]) Family history of breast cancer Family history of colonic polyps Pain in abdomen on palpation Intractable abdominal pain Fall prevention education provided including use of call light in hospital, use of appropriate assistive device, safe mobility techniques, and safety measures at home. Continue PT as per POC. Subjective Ill see what I can do Objective 01/22/25 0915 PT Last Visit PT Received On 01/22/25 General Family/Caregiver Present Yes PT Time Calculation PT Start Time 914 PT Stop Time 944 PT Time Calculation (min) 30 min Precautions Medical Precautions Fall Risk Safety Interventions Call jeffrey within reach;ID band on;Bed alarm RUE Weight Bearing Status Full LUE Weight Bearing Status Full RLE Weight Bearing Status Full LLE Weight Bearing Status Full Orthopedic Precautions Back Precautions (recent T10-T11 fusion at [facility]) Vital Signs Patient Identification Yes Oxygen Therapy Oxygen Therapy None (Room air) Pain Assessment Pain Frequency Constant/continuous Cognition Overall Cognitive Status WFL Arousal/Alertness Appropriate responses to stimuli Orientation Level Oriented X4 Following Commands Follows all commands and directions without difficulty Activity Tolerance Endurance Tolerates 20 - 30 min activity with multiple rests Static Sitting Balance Static Sitting-Level of Assistance Contact guard Static Sitting-Balance Support Feet supported;No upper extremity supported Static Standing Balance Static Standing-Level of Assistance Assist x2 Static Standing-Balance Support Right upper extremity supported;Left upper extremity supported Bed Mobility Sitting to Lying Assistance Assist x2 Lying to Sitting Assistance Maximum assistance Transfers Sit to Stand Assistance Assist x2 RUE Assessment RUE Assessment Within Functional Limits LUE Assessment LUE Assessment Within Functional Limits RLE Assessment RLE Assessment Within Functional Limits LLE Assessment LLE Assessment Impaired LLE Assessment Comments L hip flex 3-/5, knee ext 3-/5, 2/5 DF Procedures Procedures Therapeutic Activity Therapeutic Activity Therapeutic Activity Time Entry 30 Therapeutic Activity 1 Pt started session in supine and was very motivated to participate in therapy session. Pt practiced and performed bed mobility to sit up on the EOB with Max Ax1. Pt remained sitting on the EOB with CGA for 5 minutes while therapist performed a strength and sensation assessment. Pt then stood up at the walker with Assist x2. While standing pt performed weight shifts onto LLE. Pt then sat down and had an extended rest period. Pt performed another sit to stand with Assist x2to walker and performed more weight shifting. Pt reported some fatigue and was helped back into bedwith Assist x2. Pt left in bed with call jeffrey within reach. PT Assessment PT Assessment Results Decreased strength;Decreased endurance;Impaired balance;Impaired gait;Decreased mobility Prognosis Good Evaluation/Treatment Tolerance Patient tolerated treatment well Comments Pt has improved function since last time. Stil continues to have numbness and decreased sensation in LLE although this has improced since last session as well. Medical Staff Made Aware Yes Plan Treatment/Interventions Functional transfer training;LE strengthening/ROM;Endurance training;Bed mobility;Gait training;Balance training PT Plan Skilled PT PT Discharge Recommendations Inpatient rehab facility placement Procedure/Treatment: Procedures Procedures: Therapeutic Activity Therapeutic Activity Therapeutic Activity Time Entry: 30 Therapeutic Activity 1: Pt started session in supine and was very motivated to participate in therapy session. Pt practiced and performed bed mobility to sit up on the EOB with Max Ax1. Pt remained sitting on the EOB with CGA for 5 minutes while therapist performed a strength and sensation assessment. Pt then stood up at the walker with Assist x2. While standing pt performed weight shifts onto LLE. Pt then sat down and had an extended rest period. Pt performed another sit to stand with Assist x2 to walker and performed more weight shifting. Pt reported some fatigue and was helped back into bed with Assist x2. Pt left in bed with call jeffrey within reach. Patient left lying supine in bed. RN notified of pt. status, location, response to treatment, and therapy recommendations. Physical Therapy Assessment/Plan PT Assessment PT Assessment Results: Decreased strength, Decreased endurance, Impaired balance, Impaired gait, Decreased mobility Prognosis: Good Evaluation/Treatment Tolerance: Patient tolerated treatment well Comments: Pt has improved function since last time. Stil continues to have numbness and decreased sensation in LLE although this has improced since last session as well. Medical Staff Made Aware: Yes Plan Treatment/Interventions: Functional transfer training, LE strengthening/ROM, Endurance training, Bed mobility, Gait training, Balance training PT Plan: Skilled PT PT Frequency: 5 days per week PT Discharge Recommendations: Inpatient rehab facility placement Equipment Recommended: defer to IPR PT - Evaluation Status: Complete Physical Therapy Goals/Education Encounter Problems Encounter Problems (Active) Template: Physical Therapy Problem: PT Short Term Goals Dates: Start: 01/21/25 Goal: PT STG 1 the pt will complete transfers with cg Dates: Start: 01/21/25 Expected End: 01/29/25 Outcomes Date/Time User Outcome 01/22/25 1224 Flavio iY Progressing Goal: PT STG 2 the pt will ambulate 50' with walker and CG Dates: Start: 01/21/25 Expected End: 01/29/25 Outcomes Date/Time User Outcome 01/22/25 1224 Flavio Yi Progressing Goal: PT STG 3 the pt will go up and down 4 steps with 1 railing and min A Dates: Start: 01/21/25 Expected End: 01/29/25 Outcomes Date/Time User Outcome 01/22/25 1224 Flavio Yi Progressing Encounter Problems (Resolved) There are no resolved problems. Education Documentation Mobility Training, taught by Flavio Yi at 01/22/2025 12:24 PM. Learner: Patient Readiness: Acceptance Method: Explanation Response: Verbalizes Understanding Comment: Pt educated on sit to stand technique and weight shifting for improved LLE strength and proprioception. Education Comments No comments found. Flavio Yi Cosigned by Francie Mariee PT at 01/22/2025 12:31 PM EDT Associated attestation - Francie Mariee, PT - 01/22/2025 12:31 PM EDT PT was integrally and physically involved in the decision making, delivery of interventions and ongoing assessment during the patient's care session . * Mandi Albarado RN - 01/22/2025 2:27 AM EDT Goals: Problem: Sensory: Acute Pain Goal: Pain level will improve or be tolerable Outcome: Progressing Problem: Sensory: Acute Pain Goal: Ability to develop a pain control plan will improve Outcome: Progressing Problem: Skin Integrity: Pressure Injury Actual or Risk of Goal: Will not develop new pressure injury Outcome: Progressing Problem: Nutritional:Pressure Injury Actual or Risk of Goal: Nutritional status will improve Outcome: Progressing Identify possible barriers to meeting goals/advancing plan of care: await snf placement Stability of the patient: Moderately Stable - Low risk of patient condition declining or worsening End of Shift Summary: vss cont to c/o ruq pain. Denies nausea. Continues to have spasms lle w slight weakness noted * Scott Wolfe MD - 01/21/2025 6:10 PM EDT Denver Love 01/[birth year] 74 y.o. [id number] Wolfe, * INTERVAL HISTORY: No events overnight reported by nursing, patient was seen by neurology today. Appreciate recommendations. ASSESSMENT/PLAN: # Left lower extremity weakness and paresthesia with proximal right lower extremity paresthesia. The patient reported increased lower extremity weakness and paresthesia, she reported this to staff the night before last night, workup done yesterday January 20, limited MRI because of intolerance to theprocedure revealed severe spinal stenosis around the site of her surgery with abnormal cord signal,without signs of postop complications, the report was relayed to Dr. Millard, her neurosurgeon andthe MRI images were uploaded to [facility], Dr. Millard reviewed the images and compared with older MRIs, his opinion is that there is no acute changes, there is no indication for surgery, recommended short course of IV steroid for 3 days. I asked neurology to see the patient today, we do not have neurosurgery coverage here. Neurology evaluated the patient, suspected myelopathy, recommended to complete workup with MRI of the thoracic and lumbar spine with and without contrast, neurology will follow the patient tomorrow, neurology recommended to consider neurosurgical consultation, I relayed neurosurgical impression to neurologist. # Abdominal pain, gallbladder distention, constipation Patient has right upper flank discomfort, mild tenderness, no palpable masses. Discussed with general surgery, they think the patient has biliary dyskinesia and planned for surgery which is on hold pending evaluation of her new neurological changes. The patient has bowel regimen with a large bowel movement today, however, her right upper quadrant discomfort remains unchanged. Surgery spoke to thepatient and she prefers to have this issue addressed as an outpatient once her acute neurological complaints are evaluated. Patient will follow-up with surgery as an outpatient to planned outpatient cholecystectomy. # Hypertension. Blood pressure is well-controlled, continue amlodipine, holding lisinopril, avoid hypotension. # Diabetes mellitus, glucose is at goal, continues on insulin scale, low-fat diet. # Hyperlipidemia. Continue atorvastatin # Bacteriuria, pyuria. Denies any urinary symptoms, she had a urine culture last week as an outpatient showing Pseudomonas and ESBL Proteus, holding on antibiotics given she is asymptomatic. She received prophylactic antibiotics for surgery which are on hold. Patient continues to deny any urinary symptoms, she had a symptomatic UTI about a month ago and she received antibiotics, at this time she denies any urinary symptoms. Disposition: Pending MRI, neuro reassessment. SUBJECTIVE : Patient denies any changes since yesterday and the strength or sensation of the left leg, she has been nonambulatory, seen by PT and recommended rehab, persistent intermittent right upper quadrant pain. Stable mid back pain. No fever, chills . No Cough, Chest Pain or Shortness of Breath, No UrinarySymptoms except for Chronic urinary incontinence. Appetite is good. OBJECTIVE: Vitals: 01/20/25 1946 01/21/25 0239 01/21/25 0830 01/21/25 1542 BP: 137/67 135/79 (!) 141/71 139/63 BP Location: Right arm Patient Position: Lying Pulse: 64 69 67 63 Resp: 18 18 18 17 Temp: 36.4 ??C (97.5 ??F) 36.8 ??C (98.2 ??F) 36.2 ??C (97.1 ??F) 36.3 ??C (97.3 ??F) TempSrc: Temporal SpO2: 96% 92% 97% 98% Weight: Height: Temp (24hrs), Av.4 ??C (97.5 ??F), Min:36.2 ??C (97.1 ??F), Max:36.8 ??C (98.2 ??F) No intake or output data in the 24 hours ending 01/21/25 1810 Wt Readings from Last 1 Encounters: 01/18/25 2236 120 kg (264 lb 3.2 oz) 01/18/25 1210 126 kg (278 lb) PHYSICAL EXAM: Gen: Patient is an obese female, NAD CV -RRR no MGR Lungs -CTAB Abd - Soft, non-distended, persistent tenderness right upper quadrant, mild, no peritoneal signs. Extremities - No LE edema, upper extremities with normal strength, left lower extremity with 2-3 out of 5 strength for dorsiflexion and extension, 3 out of 5 extension and flexion of the knee and hip, decreased sensation to touch all over the left leg, patient has preserved patellar reflex. Decree sensation below the navel. Neuro - AO x3, left lower extremity weakness as above. RESULTS: CBC BMP Results from last 7 days Lab Units 01/20/25 0614 01/19/25 0646 01/18/25 1223 WBC AUTO K/mcL 6.4 8.2 7.5 HEMOGLOBIN g/dL 12.5 11.8 13.1 HEMATOCRIT % 38.1 35.6 39.1 PLATELETS K/mcL 228 212 232 LYMPHS PCT AUTO % 17.6 -- 15.2 MONO PCT AUTO % 11.8 -- 9.0 EOS PCT AUTO % 2.0 -- 0.3 Results from last 7 days Lab Units 01/20/25 0614 01/19/25 0646 01/18/25 1223 SODIUM mmol/L 141 139 139 POTASSIUM mmol/L 4.0 4.0 3.9 CHLORIDE mmol/L 103 103 101 CO2 mmol/L 34* 29 30 ANION GAP 4 7 8 BUN mg/dL 6 15 18 CREATININE mg/dL 0.58 0.49* 0.59 CALCIUM mg/dL 8.8 8.9 9.9 MAGNESIUM mg/dL 2.4 -- -- PHOSPHORUS mg/dL 2.6 -- -- Results from last 7 days Lab Units 01/21/25 1610 01/21/25 1118 01/21/25 0832 01/20/25 1947 01/20/25 1736 POCT GLUCOSE mg/dL 184* 232* 159* 125* 118* Results from last 7 days Lab Units 01/18/25 1223 AST unit/L 30 ALT unit/L 29 Imaging:MR Thoracic Spine wo Contrast Narrative: PROCEDURE: Thoracic spine MRI INDICATION: Spinal cord compression, numbness, tingling TECHNIQUE: Multiplanar, multisequence MRI of the thoracic spine Without contrast. COMPARISON: No priors available. FINDINGS: Motion degraded exam. Sagittal images only were obtained. Severe levoconvex thoracolumbar scoliosis with dextroconvex thoracic curvature. Straightening of the normal thoracic kyphosis. No [...] laminectomy bed at the level of T10-11. There is persistent severe spinal canal stenosis with mass effect upon the thoracic cord at T10-11. Increased cord signal at T10-11. Thoracic cord is otherwise normal in signal. Cervicothoracic posterior fusion hardware seen extending to the level of T3. Lower lumbar fusion hardware noted. Postsurgical changes in the posterior paraspinal musculature at T10-11 with small fluid collection in the lower thoracic subcutaneous tissues, most likely a postoperative seroma Impression: Abbreviated exam at the patient's request. Only sagittal images were obtained before the patient requested to end the exam. Evidence of recent left T10-11 laminectomy with postsurgical changes in the posterior paraspinal musculature. Persistent severe spinal canal stenosis with mass effect upon the thoracic cord and increased cord signal at T10-11. Moderate to severe spinal canal stenosis with mass effect upon the cord at T9-10 and T12-L1. -------- FINAL REPORT -------- Dictated By: CHADD FLORES Dictated Date: 01/20/2025 17:44 ET Assigned Physician: CHADD FLORES Reviewed and Electronically Signed By: CHADD FLORES Signed Date: 01/20/2025 18:01 ET Workstation ID: [id number] Transcribed By: Self Edit Transcribed Date: 01/20/2025 17:44 ET Scheduled Medications PRN Medications IV Medications acetaminophen, 1,000 mg, q8h LEXIE amLODIPine, 10 mg, Daily atorvastatin, 80 mg, Nightly baclofen, 10 mg, TID ceFAZolin, 2 g, Once dexAMETHasone, 4 mg, q6h LEXIE gabapentin, 300 mg, TID insulin lispro, 1-6 Units, Before meals & nightly [Held by provider] lisinopril, 40 mg, Daily pantoprazole, 40 mg, BID AC polyetheylene glycol, 17 g, Daily senna, 2 tablet, Nightly sodium phosphate, 133 mL, Once bisacodyL, 10 mg, Daily PRN dextrose 50%, 12.5 g, q15 min PRN dextrose 50%, 25 g, q15 min PRN dextrose, 15 g, q15 min PRN dextrose, 30 g, q15 min PRN glucagon injection, 1 mg, Once PRN HYDROmorphone, 2 mg, q4h PRN HYDROmorphone, 4 mg, q4h PRN HYDROmorphone, 0.5 mg, q3h PRN ondansetron (ZOFRAN-ODT) disintegrating tablet, 4 mg, q8h PRN Or ondansetron, 4 mg, q8h PRN lactated Ringer's, Last Rate: 125 mL/hr (01/21/25 1253) [x] Code status: Full Code - Default [x] VTE Prophylaxis: Pneumoboots [x] Lines, tubes, drains: None Health Care proxy with Phone number: HCP: , PPX: Pneumoboots * Danielle Marquez, JAYLA - 01/21/2025 4:14 PM EDT 01/21/2025 @ 4:14 PM EDT Nutrition Initial Assessment Reason for RD Intervention: Assessment Type: Nutrition Trigger Reason for Assessment: Pressure Injury Anthropometrics: Height: 172.7 cm (67.99 ) Weight: 120 kg (264 lb 3.2 oz) Weight Method: Actual BMI (Calculated): 40.2 BMI Class: Obesity Class III IBW (lbs): 140 UBW (lbs): 268 Current Diet and Supplements: Dietary Orders (From admission, onward) Start Ordered 01/21/25 0903 Adult diet [facility]; Modified Consistency Options for Liquidsand Solids, Bariatric/GI; Clear Liquid; Low Fat Diet effective now Question Answer Comment Location [facility] Diet Type (req) Modified Consistency Options for Liquids and Solids Diet Type (req) Bariatric/GI Modified Consistency Options for Liquids and Solids Clear Liquid Bariatric/GI Low Fat 01/21/25 0903 History of presenting illness: Patient is a 74 y.o. female with a history of Past Medical History: Diagnosis Date Anxiety 06/21/2021 DX:Anxiety Asthma DX:Asthma Back pain 11/24/2010 DX:Back pain; COMMENT: Diffused spondylosis L, C spine Esophageal reflux DX:Esophageal reflux Essential hypertension, benign 03/15/2006 DX:Essential hypertension, benign Family history of colonic polyps 12/09/2007 DX:Family history of colonic polyps; COMMENT: Mother and father with diagnosis of colonic polyps atage younger than 60. Negative colonoscopy 12/09/2007, no colon cancer screening needed for 5 years. Morbid obesity with BMI of 40.0-44.9, adult (CMS/HCC) 10/23/2013 DX:Morbid obesity with BMI of 40.0-44.9, adult ([facility]); COMMENT: BMI 40.26 0n 08/28/13. 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 COLONOSCOPY 03/03/2021 PROCEDURE: HISTORICAL COLONOSCOPY; COMMENT: Sigmoid colon polyp, unable to visualize cecum. Pathology: tubular adenoma. HERNIA REPAIR PROCEDURE: REPAIR UMBILICAL HERNIA KIDNEY STONE SURGERY PROCEDURE: NM NEPHROLITHOTOMY REMOVAL CALCULUS LEG SURGERY Left PROCEDURE: HISTORICAL LEG SURGERY; COMMENT: Tib/fib fx, mult surgery, most recent 05/02/2018 TONSILLECTOMY PROCEDURE: HISTORICAL TONSILLECTOMY admitted 01/18/2025 with Pain in abdomen on palpation. Food/Nutrition History: Previous Diet / Nutrition Education / Counseling: Pt reports good PO intake and appetite prior to admission- usually eats 2 meals per day. Follows a low sodium diet at home. Prefers sugar free products. Denies issues chewing/swallowing or food allergies. Reports usual weight of 268 lb, indicating a4 lb weight loss (1.4%). Appetite AGRICULTURIST: Good Intake AGRICULTURIST: Stable Weight History: Wt Readings from Last 10 Encounters: 01/18/25 120 kg (264 lb 3.2 oz) 11/07/24 124 kg (273 lb) 09/01/24 122 kg (268 lb 9.6 oz) 08/14/24 121 kg (267 lb) 08/12/24 123 kg (270 lb 8 oz) 06/26/24 118 kg (261 lb 3.2 oz) 04/15/24 117 kg (257 lb) 04/02/24 117 kg (257 lb 6.4 oz) 03/04/24 116 kg (256 lb) 02/28/24 120 kg (263 lb 12.8 oz) Subjective Assessment: Pt seen for stage 2 pressure injury. Pt admitted for abdominal pain and intermittent vomiting. Recently had discecttomy to thoracic spine on 01/14 and has not been eating much since that time besides fluids and toast/crackers. CT 01/18 showing abnormally distended gallbladder with suspected cholelithiasis however without specific findings of acute cholecystitis. Pt given option of undergoing cholecystectomy this admission, but chose to follow up as outpatient. Currently on clear liquid diet, which she states she is tolerating well. Observed 100% of lunch tray consumed. Had large BM yesterday- no BM so far today. POCs have been elevated since admission (likely from decadron- no prior history of DM). Prefers sugar free products- will update in [place]. Stage 2 wound to left buttocks noted bywound RN- no drainage documented. Nutrition-Related Lab Values: Results from last 7 days Lab Units 01/21/25 1610 01/20/25 0654 01/20/25 0614 01/19/25 0646 01/18/25 1223 SODIUM mmol/L -- -- 141 < > 139 POTASSIUM mmol/L -- -- 4.0 < > 3.9 PHOSPHORUS mg/dL -- -- 2.6 -- -- MAGNESIUM mg/dL -- -- 2.4 -- -- CHLORIDE mmol/L -- -- 103 < > 101 CO2 mmol/L -- -- 34* < > 30 BUN mg/dL -- -- 6 < > 18 CREATININE mg/dL -- -- 0.58 < > 0.59 EGFR mL/min/1.73m2 -- -- 96 < > 96 CALCIUM mg/dL -- -- 8.8 < > 9.9 BILIRUBIN TOTAL mg/dL -- -- -- -- 1.0 ALK PHOS unit/L -- -- -- -- 114 ALT unit/L -- -- -- -- 29 AST unit/L -- -- -- -- 30 POCT GLUCOSE mg/dL 184* < > -- < > -- GLUCOSE mg/dL -- -- 113* < > 115* WBC AUTO K/mcL -- -- 6.4 < > 7.5 < > = values in this interval not displayed. Lab Results Component Value Date LIPASE 01/18/2025 Medications: acetaminophen, 1,000 mg, oral, q8h LEXIE amLODIPine, 10 mg, oral, Daily atorvastatin, 80 mg, oral, Nightly baclofen, 10 mg, oral, TID ceFAZolin, 2 g, intravenous, Once dexAMETHasone, 4 mg, intravenous, q6h LEXIE gabapentin, 300 mg, oral, TID HYDROmorphone, 1 mg, intravenous, Once insulin lispro, 1-6 Units, subcutaneous, Before meals & nightly [Held by provider] lisinopril, 40 mg, oral, Daily LORazepam, 1 mg, oral, Once pantoprazole, 40 mg, oral, BID AC polyetheylene glycol, 17 g, oral, Daily senna, 2 tablet, oral, Nightly sodium phosphate, 133 mL, rectal, Once CONTINUOUS: lactated Ringer's, 125 mL/hr, Last Rate: 125 mL/hr (01/21/25 1253) PRN medications: bisacodyL, dextrose 50%, dextrose 50%, dextrose, dextrose, glucagon injection, HYDROmorphone, HYDROmorphone, HYDROmorphone, ondansetron (ZOFRAN-ODT) disintegrating tablet OR ondansetron Food/Nutrition-Current Status: Intake Type: P.O. Appetite: Good Intake Amount (%): 50-75% Intake Assessment: Inadequate (due to clear liquid diet) Main IVF: LR Main IVF Rate (mL/hr): 125 Nutrition Focused Physical Findings: Overall Appearance: No findings of muscle or fat depletion Digestive System (Mouth to Rectum): Nausea Nerves and Cognition: Alert, Oriented Skin: Per wound RN: Left buttock with small scabbed stage 2 pressure injury and MASD/ IAD Fluid Accumulation/Edema: +1 (right lower extremity) Nutrition Diagnosis: Code Type: None Identified Status: New Diagnosis: Inadequate Oral Intake Etiology: Changes in taste and appetite or preference, Compromised GI function Symptoms: limited diet advancement due to cholecystitis Nutrition Interventions: Diet Order, Medical Food Supplement, Nutrition Education -Advance diet as medically able to low fat solids -Monitor adequacy of PO intake; consider offering snacks/supplements if pt consuming <65% of meals on follow up. Will hold off on ensure clear at this time given pt report of preferring sugar freeproducts -Provided education regarding low fat diet for cholelithiasis/ cholecystectomy. Provided verbal andwritten education. Please refer to education note for details of information and handouts provided. -Reviewed meal preferences with pt. Updated in [place] meal planning program/ discussed with diet office staff. - Follow skin integrity- monitor need for additional protein/ micronutrients. Goals: Patient will tolerate diet progression. , Patient will initially consume at least 50% of meals. , Monitor/control glucose levels, Electrolytes within normal range., Maintain weight., Stooling appropriately., and Wound healing progress. Coordination of Patient Care: Care plan discussed with patient/family. Monitoring/Evaluation: Fluid/Beverage Intake, Food Intake, Weight, Renal/Electrolyte Profile, Gastrointestinal Profile, Food and Nutrition Knowledge/Skills, Diet Order, IV Fluid Intake Follow Up: Nutrition Priority Level: High Please consult nutrition if needed sooner. RD remains available and will continue to follow. Signature: Danielle Marquez RD * Edie Brewer RN - 01/21/2025 2:23 PM EDT CM Progress Note JOVANNA: 01/22 Barriers: Neuro Consult, IV steroids Plan: PT recommenced SNF, [facility] and [facility] * JUAN Joe - 01/21/2025 10:50 AM EDT GENERAL SURGERY POSTOPERATIVE PROGRESS NOTE Patient: Denver Love : 1950 (74 y.o. female) Admit Date: 01/18/2025 Location: 512/512-1 Dictating Physician: JUAN Joe Attending: Scott Wolfe, * Primary Care Provider: Patsy York MD Subjective: Encounter Date & Time: 01/21/25 Supervising Physician: Veronique Perdomo MD Subjective: Follow up: RUQ pain, biliary dyskinesia Patient reports persistent discomfort in the right upper quadrant abdomen Denies nausea or vomiting at present. Denies fevers, chills. Reports she was tolerating clear liquids without exacerbation of abdominal symptoms. Per recommendations from her neurosurgeon, she was given a dose of IV decadron 10 mg last night andwill be receiving an additional 4mg every 6 hours. From discussion with ALEE this will be continuedfor about 3 days. Neurology is being consulted to evaluate patient while she is in house. Objective: Temp: 36.2 ??C (97.1 ??F) (01/21 830) Heart Rate: 67 (01/21 830) Resp: 18 (01/21 830) BP: 141/71 (01/21 830) Weight (kg): 120 BMI: Body mass index is 40.18 kg/m??. GENERAL APPEARANCE: Pleasant, awake, alert, and in no acute distress. HEENT: Normocephalic, atraumatic. EOMI, sclera anicteric. RESPIRATORY: Non-labored respirations on room air. GASTROINTESTINAL: Obese body habitus. Soft, non-distended, focally tender in the right upper quadrant abdomen. Bowel sounds normoactive. INTEGUMENTARY: Skin color, texture, and turgor normal. No rashes, eruptions, or skin breakdown noted on visible skin. Warm and dry. PSYCHIATRIC: Normal mood and affect. No psychomotor agitation or obvious behavioral abnormality. Results: Laboratories: Lab Results Component Value Date WBC 6.4 01/20/2025 HGB 12.5 01/20/2025 HCT 38.1 01/20/2025 MCV 93.2 01/20/2025 PLT 228 01/20/2025 Lab Results Component Value Date GLUCOSE 159 (H) 01/21/2025 CALCIUM 8.8 01/20/2025 NA 141 01/20/2025 K 4.0 01/20/2025 CO2 34 (H) 01/20/2025 CL 103 01/20/2025 BUN 6 01/20/2025 CREATININE 0.58 01/20/2025 Lab Results Component Value Date PT 16.7 (H) 01/20/2025 INR 1.3 01/20/2025 APTT 27.1 01/20/2025 Lab Results Component Value Date MG 2.4 01/20/2025 PHOS 2.6 01/20/2025 Imaging: MR Thoracic Spine wo Contrast Narrative: PROCEDURE: Thoracic spine MRI INDICATION: Spinal cord compression, numbness, tingling TECHNIQUE: Multiplanar, multisequence MRI of the thoracic spine Without contrast. COMPARISON: No priors available. FINDINGS: Motion degraded exam. Sagittal images only were obtained. Severe levoconvex thoracolumbar scoliosis with dextroconvex thoracic curvature. Straightening of the normal thoracic kyphosis. No [...] laminectomy bed at the level of T10-11. There is persistent severe spinal canal stenosis with mass effect upon the thoracic cord at T10-11. Increased cord signal at T10-11. Thoracic cord is otherwise normal in signal. Cervicothoracic posterior fusion hardware seen extending to the level of T3. Lower lumbar fusion hardware noted. Postsurgical changes in the posterior paraspinal musculature at T10-11 with small fluid collection in the lower thoracic subcutaneous tissues, most likely a postoperative seroma Impression: Abbreviated exam at the patient's request. Only sagittal images were obtained before the patient requested to end the exam. Evidence of recent left T10-11 laminectomy with postsurgical changes in the posterior paraspinal musculature. Persistent severe spinal canal stenosis with mass effect upon the thoracic cord and increased cord signal at T10-11. Moderate to severe spinal canal stenosis with mass effect upon the cord at T9-10 and T12-L1. -------- FINAL REPORT -------- Dictated By: CHADD FLORES Dictated Date: 01/20/2025 17:44 ET Assigned Physician: CHADD FLORES Reviewed and Electronically Signed By: CHADD FLORES Signed Date: 01/20/2025 18:01 ET Workstation ID: [id number] Transcribed By: Self Edit Transcribed Date: 01/20/2025 17:44 ET Assessment & Plan: Problem List: 1. Intractable abdominal pain 2. Biliary dyskinesia 3. Pain in abdomen on palpation Assessment: 74 y.o. female with PMH including non-insulin dependent diabetes mellitus, hypertension, hyperlipidemia, asthma, GERD, obesity, back pain with history of multiple back surgeries (most recently 01/14/[address] Millard at [facility]) is evaluated in follow up by the general surgery service for right upper quadrant abdominal pain. Laboratories without leukocytosis, elevated lipase, or abnormal LFTs. CTAP 01/18/25 demonstrated an abnormally distended gallbladder with suspected cholelithiasis however without specific findings of acute cholecystitis. GBUS 01/18/25 demonstrated a distended gallbladder with small amount of mobile sludge and without specific findings of acute cholecystitis. Patient then underwent HIDA without CCK on 01/19/25 which demonstrated no evidence of cystic or CBD obstruction, however did note delayed biliary to bowel transit. After speaking further with patient, she notes she underwent outpatient HIDA with CCK previously and I do see that she had this done on 07/02/2024 which demonstrated biliary dyskinesia with abnormal gallbladder ejection fraction of 6%.She followed up with Dr. Ko outpatient to discuss interval elective cholecystectomy however this unfortunately never took place secondary to other health concerns that needed to be addressed first (was recovering from neck surgery, UTI, kidney stones). We initially were planning to take the patient to OR this admission for laparoscopic cholecystectomy, however she developed new neurologic changes prompting further workup with MRI of her spine. OR was placed on hold. From discussion with ALEE, her neurosurgeon feels workup to reveal postoperative/i nflammatory changes. Steroids have been initiated for at least 3 days. Plan: - Given there are no concerns for acute cholecystitis however the patient remains uncomfortable, she was given the option of undergoing laparoscopic cholecystectomy this admission versus following upclosely outpatient for interval procedure - Patient opted to proceed with outpatient follow up - This will be arranged with Dr. Ko, as they were previously established - Patient may advance to a low fat clear liquid diet as tolerated - We discussed she may advance to a low fat solid diet as tolerated, however it is okay if she needs to stick with clears while awaiting interval cholecystectomy as long as she is able to take in enough to keep herself hydrated - Analgesics and antiemetics PRN - Further medical management per ALEE - General surgery will signs off at this time, please reconsult as needed - Discussed and evaluated with Dr. Veronique Perdomo, who agrees with the above plan Cosigned by Veronique Perdomo MD at 01/21/2025 2:29 PM EDT Associated attestation - Veronique Perdomo MD - 01/21/2025 2:29 PM EDT Patient was seen and examined with surgical PA earlier today. Agree with assessment and plan below.She continues to have right upper quadrant pain likely due to biliary dyskinesia without signs of acute cholecystitis. Had been able to tolerate clear liquids. Has now been started on short-term steroids for spinal canal stenosis with mass effect on the thoracic cord due to postop changes secondaryto a recent T10-T11 laminectomy. Lower extremity numbness unchanged. As for biliary disease is a nonemergent, would recommend holding off on cholecystectomy at this time, allowing her to heal from her recent back surgery and proceed with an outpatient elective procedure. Patient agrees with the plan. * Francie Mariee, PT - 01/21/2025 9:15 AM EDT [facility] Physical Therapy Evaluation & Treatment PT Discharge Recommendations: Inpatient rehab facility placement Equipment Recommended: defer to IPR Staff Recommendations for safe patient handling: max A bed mob, unable to stand Modified Bolivar Scale Score: AM-PAC 6 Clicks Scoring Form: Unable: 1 A Lot: 2 A Little: 3 None: 4 How much difficulty does the patient currently have? Turning over in bed (including adjustment of bedclothes, sheets, and blankets) [] [x] [] [] Sitting down on and standing up from a chair with arms (wheelchair, bedside commode etc [] [x] [] [] Moving from lying on back to sitting on the side of the bed [] [x] [] [] How much help from another person does the patient currently need? Moving to and from a bed to a chair ( including a wheelchair) [x] [] [] [] To walk in hospital room [x] [] [] [] Climbing 3-5 steps with a railing [x] [] [] [] Score: score indicates the pt would benefit from STR after acute discharge Precautions Medical Precautions: Fall Risk Safety Interventions: Call jeffrey within reach, ID band on, Bed alarm RUE Weight Bearing Status: Full LUE Weight Bearing Status: Full RLE Weight Bearing Status: Full LLE Weight Bearing Status: Full Orthopedic Precautions: Back Precautions (recent T10-T11 fusion at [facility]) Fall prevention education provided including use of call light in hospital, use of appropriate assistive device, safe mobility techniques, and safety measures at home. PT Received On: 01/21/25 PT Start Time: 0915 PT Stop Time: 45 PT Time Calculation (min): 30 min Precautions Medical Precautions: Fall Risk Safety Interventions: Call jeffrey within reach, ID band on, Bed alarm RUE Weight Bearing Status: Full LUE Weight Bearing Status: Full RLE Weight Bearing Status: Full LLE Weight Bearing Status: Full Orthopedic Precautions: Back Precautions (recent T10-T11 fusion at [facility]) Cognition Overall Cognitive Status: Within Functional Limits Arousal/Alertness: Appropriate responses to stimuli Orientation Level: Oriented X4 Following Commands: Follows all commands and directions without difficulty Hearing: Intact Vision: Intact Speech: Intact Integumentary: no acute issues noted History of Present Illness: Patient is a 74 y.o. female admitted to [facility] on 01/18/2025. 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 Osteoarthritis of carpometacarpal (CMC) joint of both thumbs Primary osteoarthritis of right knee Snoring Shortness of breath on exertion Umbilical hernia DDD (degenerative disc disease), lumbar Cutaneous candidiasis COVID-19 virus detected Carpal tunnel syndrome, bilateral Anxiety Age related osteoporosis Abnormal cardiovascular function study RUQ abdominal pain CAD S/P percutaneous coronary angioplasty CTS (carpal tunnel syndrome) Biliary dyskinesia Morbid obesity with BMI of 40.0-44.9, adult ([facility]) Family history of breast cancer Family history of colonic polyps Pain in abdomen on palpation Intractable abdominal pain Past Medical History: Diagnosis Date Anxiety 06/21/2021 DX:Anxiety Asthma DX:Asthma Back pain 11/24/2010 DX:Back pain; COMMENT: Diffused spondylosis L, C spine Esophageal reflux DX:Esophageal reflux Essential hypertension, benign 03/15/2006 DX:Essential hypertension, benign Family history of colonic polyps 12/09/2007 DX:Family history of colonic polyps; COMMENT: Mother and father with diagnosis of colonic polyps atage younger than 60. Negative colonoscopy 12/09/2007, no colon cancer screening needed for 5 years. Morbid obesity with BMI of 40.0-44.9, adult ([facility]) 10/23/2013 DX:Morbid obesity with BMI of 40.0-44.9, adult ([facility]); COMMENT: BMI 40.26 0n 08/28/13. 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 COLONOSCOPY 03/03/2021 PROCEDURE: HISTORICAL COLONOSCOPY; COMMENT: Sigmoid colon polyp, unable to visualize cecum. Pathology: tubular adenoma. HERNIA REPAIR PROCEDURE: REPAIR UMBILICAL HERNIA KIDNEY STONE SURGERY PROCEDURE: NM NEPHROLITHOTOMY REMOVAL CALCULUS LEG SURGERY Left PROCEDURE: HISTORICAL LEG SURGERY; COMMENT: Tib/fib fx, mult surgery, most recent 05/02/2018 TONSILLECTOMY PROCEDURE: HISTORICAL TONSILLECTOMY Social History Home Living Environment: Home Living Type of Home: House Lives With: Spouse Home Adaptive Equipment: Walker - rolling, Cane Home Layout: One level Home Access: Stairs to enter with rails Entrance Stairs-Rails: Rail on the right going up Entrance Stairs-Number of Steps: 4 Prior Function Level of Alpine: Independent with mobility and functional transfers Ambulation Status: Household ambulator, Community ambulator Receives Help From: Family Indoor Mobility Assistance: Independent Which is your dominant hand?: Right General Assessment 01/21/25 0915 PT Last Visit PT Received On 01/21/25 PT Time Calculation PT Start Time 914 PT Stop Time 944 PT Time Calculation (min) 30 min Precautions Medical Precautions Fall Risk Safety Interventions Call jeffrey within reach;ID band on;Bed alarm RUE Weight Bearing Status Full LUE Weight Bearing Status Full RLE Weight Bearing Status Full LLE Weight Bearing Status Full Orthopedic Precautions Back Precautions (recent T10-T11 fusion at [facility]) Vital Signs Patient Identification Yes Pain Assessment Pain Assessment 0-10 Pain Score 5 - Moderate pain Pain Type Surgical pain Pain Location Back Cognition Overall Cognitive Status WFL Arousal/Alertness Appropriate responses to stimuli Orientation Level Oriented X4 Following Commands Follows all commands and directions without difficulty Home Living Type of Home House Lives With Spouse Home Adaptive Equipment Walker - rolling;Cane Home Layout One level Home Access Stairs to enter with rails Entrance Stairs-Rails Rail on the right going up Entrance Stairs-Number of Steps 4 Prior Function Level of Alpine Independent with mobility and functional transfers Ambulation Status Household ambulator;Community ambulator Receives Help From Family Indoor Mobility Assistance Independent Sensation Light Touch Severe deficits in the LLE Sharp/Dull Severe deficits in the LLE Stereognosis Severe deficits in the LLE Proprioception Proprioception Severe deficits in the LLE Proprioception Comments the pt has absent sensation in the L LE from the hip to toes Static Sitting Balance Static Sitting-Level of Assistance Contact guard Static Sitting-Balance Support Feet supported;Right upper extremity supported;Left upper extremity supported Static Sitting-Comment/Number of Minutes the pt is unable to feel that her L foot is on the floor and she states she feels a little pressure in the low back but none in l buttocks when sitting Dynamic Sitting Balance Dynamic Sitting-Level of Assistance Minimum assistance Dynamic Sitting-Balance Lateral lean Dynamic Sitting-Balance Support Right upper extremity supported;Left upper extremity supported;Feetsupported Dynamic Standing Balance Dynamic Standing-Level of Assistance (the pt was unable to stand due to lack of sensation in the L LE and unable to push through the L to stand or support weight with the L LE) Bed Mobility Rolling Left and Right Assistance Moderate assistance Rolling Left and Right Deficit Assist with left leg;Assist with right leg;Assist to reposition upper body Sitting to Lying Assistance Maximum assistance Sitting to Lying Deficit Assist lifting left leg onto bed;Assist lifting right leg onto bed;Assist to lower upper body onto bed Lying to Sitting Assistance Maximum assistance Lying to Sitting Deficit Assist lifting left leg off of bed;Assist lifting right leg off of bed;Assist to push upper body to upright;Assist to scoot to edge of bed Transfers Sit to Stand Assistance Maximum assistance Ambulation Walking Assistance (unable to amb) RUE Assessment RUE Assessment Within Functional Limits LUE Assessment LUE Assessment Within Functional Limits RLE Assessment RLE Assessment Impaired RLE Assessment Comments hip ext 2/5 , hip flex 2/5, knee ext/flexion 3/5 andkle df/pf 3/5 (she appears to have sensation in the R LE) LLE Assessment LLE Assessment Within Functional Limits LLE Assessment Comments L hip flexion 1/5, ext 1/5 knee ext 3-/5 knee flex 2/5 , ankle pf/df 2/5 PT Assessment PT Assessment Results Decreased strength;Decreased endurance;Impaired balance;Impaired gait;Decreased mobility Prognosis Good Evaluation/Treatment Tolerance Patient tolerated treatment well Medical Staff Made Aware Yes Plan Treatment/Interventions Functional transfer training;LE strengthening/ROM;Endurance training;Bed mobility;Gait training;Balance training PT Plan Skilled PT PT Frequency 5 days per week PT Discharge Recommendations Inpatient rehab facility placement Equipment Recommended defer to IPR PT - Evaluation Status Complete PT Evaluation Time Entry PT Evaluation (Moderate) Time Entry 30 Treatment performed during evaluation: None performed ADDITIONAL COMMENTS: Chart reviewed. RN clears pt for session. Pt agrees to participate and presented in supine upon PT arrival. All lines in place. Medical precautions observed appropriately. Initiated education on the importance of PT, bed mobility safety, Transfer Safety, Ambulation Safety , Therapy Plan of Care, Home Safety, Energy Conservations strategies, and importance of OOB activity . Pt verbalized understanding. EXIT STATUS: Session ended with patient supine, tray table and call light within reach, and RN made aware. Physical Therapy Assessment/Plan Denver Love is a 74 y.o. female admitted to [facility] on 01/18/2025 for Intractable abdominal pain [R10.9] Pain in abdomen on palpation [R10.9] . Pt presents with decreased BLE strength, balance deficits, decreased activity tolerance, and far below functional baseline. Pt performed bed mobility Maximal assist, HOB elevated, Transfers with Dependent, . Pt will benefit from skilled acute PT during hospital stay to improve the deficits listed above and optimize function. PT recommends Inpatient rehab facility placement when medically stable for safe discharge and to optimize functional mobility and independence. Goals Encounter Problems Encounter Problems (Active) Template: Physical Therapy Problem: PT Short Term Goals Dates: Start: 01/21/25 Goal: PT STG 1 the pt will complete transfers with cg Dates: Start: 01/21/25 Expected End: 01/29/25 Goal: PT STG 2 the pt will ambulate 50' with walker and CG Dates: Start: 01/21/25 Expected End: 01/29/25 Goal: PT STG 3 the pt will go up and down 4 steps with 1 railing and min A Dates: Start: 01/21/25 Expected End: 01/29/25 Encounter Problems (Resolved) There are no resolved problems. Education Documentation Precautions, taught by Francie Mariee PT at 01/21/2025 12:42 PM. Learner: Patient Readiness: Eager Method: Explanation, Demonstration Response: Verbalizes Understanding Comment: educated on log roilling technique and back precautions Body Mechanics, taught by Francie Mariee PT at 01/21/2025 12:42 PM. Learner: Patient Readiness: Eager Method: Explanation, Demonstration Response: Verbalizes Understanding Comment: educated on log roilling technique and back precautions Home Exercise Program, taught by Francie Mariee PT at 01/21/2025 12:42 PM. Learner: Patient Readiness: Eager Method: Explanation, Demonstration Response: Verbalizes Understanding Comment: educated on log roilling technique and back precautions Mobility Training, taught by Francie Mariee PT at 01/21/2025 12:42 PM. Learner: Patient Readiness: Eager Method: Explanation, Demonstration Response: Verbalizes Understanding Comment: educated on log roilling technique and back precautions Education Comments No comments found. Francie Mariee PT * Kala Menchaca RN - 01/21/2025 1:56 AM EDT Problem: Sensory: Acute Pain Goal: Pain level will improve or be tolerable Outcome: Progressing Goal: Ability to develop a pain control plan will improve Outcome: Progressing Problem: Cognitive: Acute Pain Goal: Expressions of feelings of enhanced comfort will increase Outcome: Progressing Problem: Patient Specific Problem: Acute Pain Goal: Patient Specific Outcome Outcome: Progressing Problem: Skin Integrity: Pressure Injury Actual or Risk of Goal: Will not develop new pressure injury Outcome: Progressing Goal: Skin integrity will improve Outcome: Progressing Goal: Risk for impaired skin integrity will decrease Outcome: Progressing Problem: Activity:Pressure Injury Actual or Risk of Goal: Mobility will improve Outcome: Progressing Problem: Nutritional:Pressure Injury Actual or Risk of Goal: Nutritional status will improve Outcome: Progressing Problem: Patient Specific Problem: Pressure Injury Actual or Risk of Goal: Patient Specific Outcome Outcome: Progressing Goals: Continue with plan of care; follow up with results of MRI Identify possible barriers to meeting goals/advancing plan of care: Recent [place] [facility] Stability of the patient: Moderately Unstable - Medium risk of patient condition declining or worsening End of Shift Summary: Pt alert and oriented; VSS. Reported 5/10 pain 2mg po dilaudid given with positive effect. Diet was advanced to low fat diet; tolerated crackers and tea well. 2A T&R for incontinence care. * Scott Wolfe MD - 01/20/2025 2:41 PM EDT Denver Love 01/18/2025 1950 74 y.o. [id number] Scott Wolfe, * Addendum: MRI results results reviewed, the study was limited because the patient to rest for the procedure, cytology images were obtained, as per radiology there are postop changes, there is persistent severespinal canal stenosis, spinal cord compression with abnormal signal, I contacted Dr. Millard from neurosurgery, he was made aware of the changes in the clinical changes and the patient, he does not see any indication for reoperation, recommended considering IV steroids and close monitoring, IV Decadron ordered. The plan was discussed with the patient, MRI images were sent to [facility], Dr. Millard will review the images and get back to me tomorrow if he has further recommendations. INTERVAL HISTORY: I was notified this morning by nursing that my nurse reported some new left lower extremity weakness and increasing paresthesia, also the patient reported new paresthesias in the proximal right leg. No overnight documentation was found in this regard. I spoke with the last night the staff who reported that the nighttime PA for surgery noted some left dropfoot of uncertain chronicity, the patient did not report new paresthesias or weakness yesterday, she reported generalized weakness and a PT had been ordered which is still pending, and MRI was ordered overnight for lumbar and thoracic spine with and without contrast which was scheduled for this afternoon, I was able to obtain the surgical note which reported laminotomy, facetectomy and foraminotomy of T10-11 for spinal cord compression onthe right side. I contacted Dr. Chadd Flores who is covering MRI today who considered an MRI without contrast is helpful to rule out spinal cord compression postoperatively. ASSESSMENT/PLAN: # Left lower extremity weakness and paresthesia with proximal right lower extremity paresthesia. The patient reported this appears to be progressing overnight, has been stable throughout the day, currently awaiting for MRI to rule out postoperative complication. Patient was operated at [facility] by Dr. Millard, awaiting MRI results to contact neurosurgery. We do not have neurosurgery available in-house. # Abdominal pain, gallbladder distention, constipation Patient has right upper flank discomfort, mild tenderness, no palpable masses. Discussed with general surgery, they think the patient has biliary dyskinesia and planned for surgery for today which sebastian hold pending evaluation of her new neurological changes. The patient has bowel regimen with a large bowel movement today, however, her right upper quadrant discomfort remains unchanged. # Hypertension. Blood pressure is well-controlled, continue lisinopril and amlodipine today, hold lisinopril tomorrow. # Diabetes mellitus, glucose is at goal, continues on insulin scale, currently n.p.o. awaiting MRI results. # Hyperlipidemia. Continue atorvastatin # Bacteriuria, pyuria. Denies any urinary symptoms, she had a urine culture last week as an outpatient showing Pseudomonas and ESBL Proteus, holding on antibiotics given she is asymptomatic. She received prophylactic antibiotics for surgery which are on hold. Patient continues to deny any urinary symptoms, she had a symptomatic UTI about a month ago and she received antibiotics, at this time she denies any urinary symptoms. Disposition: Surgery tomorrow SUBJECTIVE : Patient continues to have right flank pain, no nausea or vomiting, last bowel movement today without changes and flank pain. She reported paresthesia of most of the left lower extremity and proximal right leg, she had difficulty moving her left foot. Chronic nasal congestion due to seasonal allergies. No nausea or vomiting. Patient denied back pain earlier today. No fever or chills. Patient denies any urinary symptoms since admission, has chronic incontinence. No report of retention OBJECTIVE: Vitals: 01/19/25 1522 01/19/25 1943 01/20/25 0304 01/20/25 0806 BP: 137/57 130/61 (!) 140/66 (!) 156/65 BP Location: Left arm Lower;Left arm Right arm Right arm Patient Position: Lying Lying Lying Lying Pulse: 57 56 57 66 Resp: 18 14 18 18 Temp: 36.4 ??C (97.6 ??F) 36.7 ??C (98 ??F) 36.2 ??C (97.1 ??F) 36.6 ??C (97.9 ??F) TempSrc: Temporal Temporal Temporal Temporal SpO2: 96% 95% 94% 96% Weight: Height: Temp (24hrs), Av.5 ??C (97.7 ??F), Min:36.2 ??C (97.1 ??F), Max:36.7 ??C (98 ??F) Intake/Output Summary (Last 24 hours) at 01/20/2025 1441 Last data filed at 01/19/2025 2100 Gross per 24 hour Intake -- Output 200 ml Net -200 ml Wt Readings from Last 1 Encounters: 01/18/25 2236 120 kg (264 lb 3.2 oz) 01/18/25 1210 126 kg (278 lb) PHYSICAL EXAM: Gen: Patient is an obese female, NAD CV -RRR no MGR Lungs -CTAB Abd - Soft, non-distended, persistent tenderness right upper quadrant, also mild tenderness in the right lower quadrant, Patient had a dressing in the mid upper back with 2 bloody spots, no surrounding erythema, no palpable hematoma or bleeding. Extremities - No LE edema, upper extremities with normal strength, left lower extremity with 2 out of 5 strength for dorsiflexion and extension, 3 out of 5 extension and flexion of the knee and hip, decreased sensation to touch all over the left leg, patient has preserved patellar reflex Neuro - AO x3 RESULTS: CBC BMP Results from last 7 days Lab Units 01/20/25 0614 01/19/25 0646 01/18/25 1223 WBC AUTO K/mcL 6.4 8.2 7.5 HEMOGLOBIN g/dL 12.5 11.8 13.1 HEMATOCRIT % 38.1 35.6 39.1 PLATELETS K/mcL 228 212 232 LYMPHS PCT AUTO % 17.6 -- 15.2 MONO PCT AUTO % 11.8 -- 9.0 EOS PCT AUTO % 2.0 -- 0.3 Results from last 7 days Lab Units 01/20/25 0614 01/19/25 0646 01/18/25 1223 SODIUM mmol/L 141 139 139 POTASSIUM mmol/L 4.0 4.0 3.9 CHLORIDE mmol/L 103 103 101 CO2 mmol/L 34* 29 30 ANION GAP 4 7 8 BUN mg/dL 6 15 18 CREATININE mg/dL 0.58 0.49* 0.59 CALCIUM mg/dL 8.8 8.9 9.9 MAGNESIUM mg/dL 2.4 -- -- PHOSPHORUS mg/dL 2.6 -- -- Results from last 7 days Lab Units 01/20/25 1102 01/20/25 0807 01/20/25 0654 01/20/25 0614 01/19/25 1944 POCT GLUCOSE mg/dL 120* 121* 121* -- 129* GLUCOSE mg/dL -- -- -- 113* -- Results from last 7 days Lab Units 01/18/25 1223 AST unit/L 30 ALT unit/L 29 Imaging:NM Hepatobiliary System Imaging Narrative: History: Abdominal pain, distended gallbladder. Technique: Continuous anterior imaging of the abdomen was performed for 60 minutes following the intravenous administration of 4.3 mCi technetium 99m Choletec. Delayed images of the right upper quadrant were also obtained at 90 minutes and at 6 hours. Findings: The initial image demonstrates a normal, homogeneous pattern of radiotracer distribution throughoutthe liver. Activity is seen within the bile ducts by 10 minutes, within the gallbladder by 20 minutes, and within the small bowel by 6 hours. There is normal washout of hepatic activity. Impression: Impression: 1. No evidence of cystic or common bile duct obstruction. 2.. Delayed biliary [place] bowel [place] ([id number]) -------- FINAL REPORT -------- Dictated By: Ilda Baez Dictated Date: 01/19/2025 16:39 ET Assigned Physician: Ilda Baez Reviewed and Electronically Signed By: Ilda Baez Signed Date: 01/19/2025 16:42 ET Workstation ID: [id number] Transcribed By: Self Edit Transcribed Date: 01/19/2025 16:39 ET Scheduled Medications PRN Medications IV Medications acetaminophen, 1,000 mg, q8h LEXIE amLODIPine, 10 mg, Daily atorvastatin, 80 mg, Nightly ceFAZolin, 2 g, Once gabapentin, 300 mg, TID insulin lispro, 1-6 Units, Before meals & nightly [Held by provider] lisinopril, 40 mg, Daily LORazepam, 1 mg, Once polyetheylene glycol, 17 g, Daily senna, 2 tablet, Nightly sodium phosphate, 133 mL, Once bisacodyL, 10 mg, Daily PRN dextrose 50%, 12.5 g, q15 min PRN dextrose 50%, 25 g, q15 min PRN dextrose, 15 g, q15 min PRN dextrose, 30 g, q15 min PRN glucagon injection, 1 mg, Once PRN HYDROmorphone, 2 mg, q4h PRN HYDROmorphone, 4 mg, q4h PRN ondansetron (ZOFRAN-ODT) disintegrating tablet, 4 mg, q8h PRN Or ondansetron, 4 mg, q8h PRN lactated Ringer's, Last Rate: 125 mL/hr (01/19/25 0437) [x] Code status: Full Code - Default [x] VTE Prophylaxis: Pneumoboots [x] Lines, tubes, drains: None Health Care proxy with Phone number: HCP: , PPX: Pneumoboots Disclaimer: Speech recognition software was utilized to dictate portions of this document. Errors in licensing engineer may be present. Please call / cortext me if any questions. Portions of this note such ROS, Exam, Assessment and Plan were copy pasted from previous notes. Information was reviewed and changes were made accordingly. I agree with above mentioned information * Jaden Aceves - 01/20/2025 2:33 PM EDT SPIRITUAL CARE Date/Time:01/20/25 at 2:33 PM EDT Type of Visit: Initial Visit and Sr Risk Management Consultant Rounding Reason for Visit: Spiritual/Emotional Support and Spiritual Assessment Time Spent: 25 Minutes Location: [address] [place] [address] Sacramental Encounters: Communion Given Indicator: Yes Sacrament of Sick-Anointing: Anointed Spiritual Distress Assessment: Spiritual Distress Assessment at beginning of visit Meaning - Overall Life Balance: No evidence of unmet spiritual need Transcendence: No evidence of unmet spiritual need Values - Acknowledgement: No evidence of unmet spiritual need Values - Control: No evidence of unmet spiritual need Psycho-Social Identity: No evidence of unmet spiritual need SDAT Beginning of Visit Average Score: 0 Spiritual Distress Assessment at end of visit Meaning - Overall Life Balance: No evidence of unmet spiritual need Transcendence: No evidence of unmet spiritual need Values - Acknowledgement: No evidence of unmet spiritual need Values - Control: No evidence of unmet spiritual need Psycho-Social Identity: No evidence of unmet spiritual need SDAT End of Visit Average Score: 0 Spiritual Assessment/Distress Spiritual Care Assessment: Assessment: [place], was awake, alert, sitting in bed and resting at the time of visit. Listen as she shared medical journey/history, diagnosis, care plan and feeling at the time of visit. Voiced hope and wish to get better, return to normal daily activities. Voiced receiving sacrament of anointing ofthe sick from his glycerin operator before hospital admission. Voiced being supported by her sister and nephew. Voiced looking forward to dimension stone quarry supervisor's visit. Expressed desire to receive anointing of the sick and Holy communion. Prayed for recovery and good health. Thankful for the visit. Intervention: NE Spiritual Care Interventions : provided support, explored hope, listened empathically, and provided prayer Outcomes: distress reduced, expressed gratitude, and expressed peace Plan of Care: Visit as needed *Reference: Spiritual Distress Assessment Tool: The SDAT is a clinical tool used by chaplains to identify unmet spiritual and emotional needs that can impact Goals of Care in the following categories: Spiritual Distress Assessment Legend Spiritual Needs Related Questions Meaning Are you having difficulties coping with what is happening to your now? Does your hospitalization have any repercussions on the way you live usually? Transcendence Do you have a particular hoahaoism, aram, or spirituality? Is your hoahaoism/spirituality/aram challenged by what is happening to you now? Values Do you think that the health professionals caring for you know you well enough? Do you feel that you are participating in the decisions made about your care? Psycho-Social Identity Do you have any worries or difficulties regarding your family or other persons close to you? Do you feel lonely? Do you have links to your aram community? SCALE 0= no evidence of unmet spiritual needs 1= some evidence of unmet spiritual needs 2= substantial evidence of unmet spiritual needs 3= evidence of severe unmet spiritual needs * Maricarmen Lin RN - 01/20/2025 12:57 PM EDT Images from the original note were not included. Wound Care Initial Consult Visit Date: 01/20/2025 Patient Name: Denver Love Date of : 1950 Reason for Consult: Wound RN Consult received to assess buttock and recommend topical treatment. Wound History: hx of back surgery on 01/14 and decreased mobility and urine incontinence, patient states to wear depends Nutritional Status: Pertinent Labs: Albumin Date Value Ref Range Status 01/18/2025 3.9 3.2 - 5.0 g/dL Final WBC Date Value Ref Range Status 01/20/2025 6.4 4.8 - 10.8 K/mcL Final WBC, Urine Date Value Ref Range Status 01/18/2025 114.2 (H) 0 - 4 /HPF Final Hemoglobin A1C Date Value Ref Range Status 12/05/2023 6.1 <=6.5 % Final Glucose POCT Date Value Ref Range Status 01/20/2025 120 (H) 70 - 100 mg/dL Final Wound Assessment: Wound Pressure Injury 01/19/25 Buttocks Left (Active) Wound Image 01/20/25 1108 Wound Bed Tissue Assessment [place] 01/20/25 1108 Felipa-Wound Assessment Unable to assess 01/20/25 0943 Dressing Moisture barrier;Foam 01/20/25 1108 Dressing Status Clean;Dry;Intact 01/20/25 0943 Pressure Injury Stage 2 01/20/25 1108 Wound Incision 01/19/25 Back Medial (Active) Wound Bed Tissue Assessment Unable to assess 01/20/25 0943 Felipa-Wound Assessment Unable to assess 01/20/25 0943 Dressing Status Clean;Dry;Intact 01/20/25 0943 Support Surface: Patient is on [place] bed. Her Audi is 15 and at mild risk. Wound Summary Assessment: Left buttock with small scabbed stage 2 Pi and MASD/ IAD urine incontinence is a major contributing factor. Wound Plan: Recommending to apply zinc barrier ointment and allevyn- change QOD and prn. 01/20/2025 12:57 PM EDT * Pilar Spencer PT - 01/20/2025 12:33 PM EDT Physical Therapy Therapy session was attempted for Denver Love by Pilar Spencer PT on 01/20/2025. The patient was unable to be seen for the following reason(s): Medically unstable/on Medical hold-awaiting Mri results Plan for return visit: As soon as possible * Genna Soni - 01/20/2025 11:06 AM EDT IMM given to patient to sign at bedside @11:06 am, lfet copy for pt to keep, copy fax over to MR and sign copy added to pt chart. * HARESH Galloway - 01/20/2025 10:53 AM EDT Unable to determine need relative to social work consult. ICC coordinating disposition. * JUAN Joe - 01/20/2025 10:30 AM EDT GENERAL SURGERY POSTOPERATIVE PROGRESS NOTE Patient: Denver Love : 1950 (74 y.o. female) Admit Date: 01/18/2025 Location: [address] [place] [address] Dictating Physician: JUAN Joe Attending: Scott Wolfe, * Primary Care Provider: Patsy York MD Subjective: Encounter Date & Time: 01/20/25 Supervising Physician: Veronique Perdomo MD Subjective: Follow up: RUQ pain, biliary dyskinesia Patient reports persistent discomfort in the right upper quadrant abdomen Denies nausea or vomiting at present. Denies fevers, chills. Overnight provider noted that patient describes new foot drop and bilateral lower extremity paresthesias. Recent laminectomy procedure 01/14/2025 Objective: Temp: 36.6 ??C (97.9 ??F) (01/20 806) Heart Rate: 66 (01/20 806) Resp: 18 (01/20 806) BP: 156/65 (01/20 806) Weight (kg): 120 BMI: Body mass index is 40.18 kg/m??. GENERAL APPEARANCE: Pleasant, awake, alert, and in no acute distress. HEENT: Normocephalic, atraumatic. EOMI, sclera anicteric. RESPIRATORY: Non-labored respirations on room air. GASTROINTESTINAL: Obese body habitus. Soft, non-distended, focally tender in the right upper quadrant abdomen. Bowel sounds normoactive. INTEGUMENTARY: Skin color, texture, and turgor normal. No rashes, eruptions, or skin breakdown noted on visible skin. Warm and dry. PSYCHIATRIC: Normal mood and affect. No psychomotor agitation or obvious behavioral abnormality. Results: Laboratories: Lab Results Component Value Date WBC 6.4 01/20/2025 HGB 12.5 01/20/2025 HCT 38.1 01/20/2025 MCV 93.2 01/20/2025 PLT 228 01/20/2025 Lab Results Component Value Date GLUCOSE 121 (H) 01/20/2025 CALCIUM 8.8 01/20/2025 NA 141 01/20/2025 K 4.0 01/20/2025 CO2 34 (H) 01/20/2025 CL 103 01/20/2025 BUN 6 01/20/2025 CREATININE 0.58 01/20/2025 Lab Results Component Value Date PT 16.7 (H) 01/20/2025 INR 1.3 01/20/2025 APTT 27.1 01/20/2025 Lab Results Component Value Date MG 2.4 01/20/2025 PHOS 2.6 01/20/2025 Imaging: NM Hepatobiliary System Imaging Narrative: History: Abdominal pain, distended gallbladder. Technique: Continuous anterior imaging of the abdomen was performed for 60 minutes following the intravenous administration of 4.3 mCi technetium 99m Choletec. Delayed images of the right upper quadrant were also obtained at 90 minutes and at 6 hours. Findings: The initial image demonstrates a normal, homogeneous pattern of radiotracer distribution throughoutthe liver. Activity is seen within the bile ducts by 10 minutes, within the gallbladder by 20 minutes, and within the small bowel by 6 hours. There is normal washout of hepatic activity. Impression: Impression: 1. No evidence of cystic or common bile duct obstruction. 2.. Delayed biliary to bowel transit. Telerad PA ([id number]) -------- FINAL REPORT -------- Dictated By: Ilda Baez Dictated Date: 01/19/2025 16:39 ET Assigned Physician: Ilda Baez Reviewed and Electronically Signed By: Ilda Baez Signed Date: 01/19/2025 16:42 ET Workstation ID: [id number] Transcribed By: Self Edit Transcribed Date: 01/19/2025 16:39 ET Assessment & Plan: Problem List: 1. Intractable abdominal pain 2. Biliary dyskinesia Assessment: 74 y.o. female with PMH including non-insulin dependent diabetes mellitus, hypertension, hyperlipidemia, asthma, GERD, obesity, back pain with history of multiple back surgeries (most recently 01/14/[address] Millard at [facility]) is evaluated in follow up by the general surgery service for right upper quadrant abdominal pain. Laboratories without leukocytosis, elevated lipase, or abnormal LFTs. CTAP 01/18/25 demonstrated an abnormally distended gallbladder with suspected cholelithiasis however without specific findings of acute cholecystitis. GBUS 01/18/25 demonstrated a distended gallbladder with small amount of mobile sludge and without specific findings of acute cholecystitis. Patient then underwent HIDA without CCK on 01/19/25 which demonstrated no evidence of cystic or CBD obstruction, however did note delayed biliary to bowel transit. After speaking further with patient, she notes she underwent outpatient HIDA with CCK previously and I do see that she had this done on 07/02/2024 which demonstrated biliary dyskinesia with abnormal gallbladder ejection fraction of 6%.She followed up with Dr. Ko outpatient to discuss interval elective cholecystectomy however this unfortunately never took place secondary to other health concerns that needed to be addressed first (was recovering from neck surgery, UTI, kidney stones). Initially the plan today was to proceed with laparoscopic cholecystectomy this morning, however overnight patient developed worsening paresthesias to the bilateral lower extremities and foot drop. Recommendations have been made to obtain MRI imaging of the thoracic and lumbar spine to rule out hematoma/seroma formation vs other pathology. Given these new findings, OR has been cancelled pending further workup. Plan: - OR for laparoscopic cholecystectomy cancelled this morning - Patient may still be able to undergo surgical intervention this admission, however this may need to be deferred to outpatient follow up pending further workup - Follow up MRI thoracic/lumbar spine - Consider neurosurgery consultation - At present patient is scheduled to go for imaging around 5pm today - Analgesics and antiemetics PRN - DVT prophylaxis - Incentive spirometry - Further medical management per ALEE - Discussed with Dr. Veronique Perdomo who agrees with the above plan Cosigned by Veronique Perdomo MD at 01/20/2025 1:09 PM EDT Associated attestation - Veronique Perdomo MD - 01/20/2025 1:09 PM EDT Patient was seen and examined with surgical PA this morning. Agree with assessment and plan below. On my exam continues to have moderate right upper quadrant tenderness. Left lower extremity numbnesspresents to just below the knee. Cholecystectomy on hold. MRI pending to evaluate recent laminectomy to rule out compression. * JUAN Garcia - 01/19/2025 9:52 PM EDT Subjective: Overnight events: Patient seen routinely and following up the evening before her scheduled lap cholecystectomy. During our discussion she describes a profound weakness in her left lower extremity with increased paresthesias bilaterally left greater than right. 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 Millard on 01/14/2025. She states she had imbalance and mild lower extremity numbness and that the symptoms occurred since her admission here at [facility] where she was admitted and evaluated for persistent right upper quadrant pain. Patient with symptomatic biliary dyskinesia. Objective: Visit Vitals BP 137/67 Pulse 64 Temp 36.4 ??C (97.5 ??F) Resp 18 No intake or output data in the 24 hours ending 01/20/252151 Admission on 01/18/2025 Component Date Value Sodium 01/18/2025 139 Potassium 01/18/2025 3.9 Chloride 01/18/2025 101 CO2 01/18/2025 30 Anion Gap 01/18/2025 8 Glucose 01/18/2025 115 (H) BUN 01/18/2025 18 Creatinine 01/18/2025 0.59 eGFR 01/18/2025 96 BUN/Creatinine Ratio 01/18/2025 30.5 Calcium 01/18/2025 9.9 AST (SGOT) 01/18/2025 30 ALT (SGPT) 01/18/2025 29 Alkaline Phosphatase 01/18/2025 114 Total Protein 01/18/2025 7.3 Albumin 01/18/2025 3.9 Total Bilirubin 01/18/2025 1.0 WBC 01/18/2025 7.5 RBC 01/18/2025 4.20 Hemoglobin 01/18/2025 13.1 Hematocrit 01/18/2025 39.1 MCV 01/18/2025 93.3 MCH 01/18/2025 31.3 MCHC 01/18/2025 33.5 RDW 01/18/2025 12.5 Platelets 01/18/2025 232 MPV 01/18/2025 10.8 NRBC 01/18/2025 0.0 NRBC Absolute 01/18/2025 0.00 Neutrophils Relative 01/18/2025 74.6 Lymphocytes Relative 01/18/2025 15.2 Monocytes Relative 01/18/2025 9.0 Eosinophils Relative 01/18/2025 0.3 Basophils Relative 01/18/2025 0.5 Immature Granulocytes Re* 01/18/2025 0.4 Neutrophils Absolute 01/18/2025 5.58 Lymphocytes Absolute 01/18/2025 1.14 Monocytes Absolute 01/18/2025 0.67 Eosinophils Absolute 01/18/2025 0.02 Basophils Absolute 01/18/2025 0.04 Immature Granulocytes Ab* 01/18/2025 0.03 Specific Ira Urine 01/18/2025 1.020 pH, Urine 01/18/2025 6.5 Leukocytes, Urine 01/18/2025 Moderate (A) Nitrite, Urine 01/18/2025 Positive (A) Protein, Urine 01/18/2025 30 (A) Glucose, Urine 01/18/2025 Negative Ketones, Urine 01/18/2025 40 (A) Urobilinogen, Urine 01/18/2025 1.0 Bilirubin, Urine 01/18/2025 Negative Blood, Urine 01/18/2025 Moderate (A) RBC, Urine 01/18/2025 31.4 (H) WBC, Urine 01/18/2025 114.2 (H) Squamous Epithelial, Uri* 01/18/2025 73 (H) Bacteria, Urine 01/18/2025 Few (A) Hyaline Casts, Urine 01/18/2025 8.8 (H) Extra Tube 01/18/2025 Hold for add-ons. Culture, Urine 01/18/2025 >100,000 CFU/mL Gram negative bacilli (A) Lipase 01/18/2025 22 Sodium 01/19/2025 139 Potassium 01/19/2025 4.0 Chloride 01/19/2025 103 CO2 01/19/2025 29 Anion Gap 01/19/2025 7 Glucose 01/19/2025 86 BUN 01/19/2025 15 Creatinine 01/19/2025 0.49 (L) eGFR 01/19/2025 100 BUN/Creatinine Ratio 01/19/2025 30.6 Calcium 01/19/2025 8.9 WBC 01/19/2025 8.2 RBC 01/19/2025 3.90 Hemoglobin 01/19/2025 11.8 Hematocrit 01/19/2025 35.6 MCV 01/19/2025 92.5 MCH 01/19/2025 30.6 MCHC 01/19/2025 33.1 RDW 01/19/2025 12.7 Platelets 01/19/2025 212 MPV 01/19/2025 10.7 NRBC 01/19/2025 0.0 NRBC Absolute 01/19/2025 0.00 Glucose POCT 01/19/2025 102 (H) Glucose POCT 01/19/2025 130 (H) Glucose POCT 01/19/2025 102 (H) Glucose POCT 01/19/2025 129 (H) Sodium 01/20/2025 141 Potassium 01/20/2025 4.0 Chloride 01/20/2025 103 CO2 01/20/2025 34 (H) Anion Gap 01/20/2025 4 Glucose 01/20/2025 113 (H) BUN 01/20/2025 6 Creatinine 01/20/2025 0.58 eGFR 01/20/2025 96 BUN/Creatinine Ratio 01/20/2025 10.3 Calcium 01/20/2025 8.8 Magnesium 01/20/2025 2.4 Phosphorus 01/20/2025 2.6 aPTT 01/20/2025 27.1 Protime 01/20/2025 16.7 (H) INR 01/20/2025 1.3 ABO Group 01/20/2025 B Rh Type 01/20/2025 Positive Antibody Screen 01/20/2025 Negative WBC 01/20/2025 6.4 RBC 01/20/2025 4.10 Hemoglobin 01/20/2025 12.5 Hematocrit 01/20/2025 38.1 MCV 01/20/2025 93.2 MCH 01/20/2025 30.6 MCHC 01/20/2025 32.8 RDW 01/20/2025 12.7 Platelets 01/20/2025 228 MPV 01/20/2025 10.5 NRBC 01/20/2025 0.0 NRBC Absolute 01/20/2025 0.00 Neutrophils Relative 01/20/2025 67.4 Lymphocytes Relative 01/20/2025 17.6 Monocytes Relative 01/20/2025 11.8 Eosinophils Relative 01/20/2025 2.0 Basophils Relative 01/20/2025 0.9 Immature Granulocytes Re* 01/20/2025 0.3 Neutrophils Absolute 01/20/2025 4.32 Lymphocytes Absolute 01/20/2025 1.13 Monocytes Absolute 01/20/2025 0.76 Eosinophils Absolute 01/20/2025 0.13 Basophils Absolute 01/20/2025 0.06 Immature Granulocytes Ab* 01/20/2025 0.02 Glucose POCT 01/20/2025 121 (H) Glucose POCT 01/20/2025 121 (H) Glucose POCT 01/20/2025 120 (H) Glucose POCT 01/20/2025 118 (H) Glucose POCT 01/20/2025 125 (H) MR Thoracic Spine wo Contrast Narrative: PROCEDURE: Thoracic spine MRI INDICATION: Spinal cord compression, numbness, tingling TECHNIQUE: Multiplanar, multisequence MRI of the thoracic spine Without contrast. COMPARISON: No priors available. FINDINGS: Motion degraded exam. Sagittal images only were obtained. Severe levoconvex thoracolumbar scoliosis with dextroconvex thoracic curvature. Straightening of the normal thoracic kyphosis. No [...] laminectomy bed at the level of T10-11. There is persistent severe spinal canal stenosis with mass effect upon the thoracic cord at T10-11. Increased cord signal at T10-11. Thoracic cord is otherwise normal in signal. Cervicothoracic posterior fusion hardware seen extending to the level of T3. Lower lumbar fusion hardware noted. Postsurgical changes in the posterior paraspinal musculature at T10-11 with small fluid collection in the lower thoracic subcutaneous tissues, most likely a postoperative seroma Impression: Abbreviated exam at the patient's request. Only sagittal images were obtained before the patient requested to end the exam. Evidence of recent left T10-11 laminectomy with postsurgical changes in the posterior paraspinal musculature. Persistent severe spinal canal stenosis with mass effect upon the thoracic cord and increased cord signal at T10-11. Moderate to severe spinal canal stenosis with mass effect upon the cord at T9-10 and T12-L1. -------- FINAL REPORT -------- Dictated By: CHADD FLORES Dictated Date: 01/20/2025 17:44 ET Assigned Physician: CHADD FLORES Reviewed and Electronically Signed By: CHADD FLORES Signed Date: 01/20/2025 18:01 ET Workstation ID: [id number] Transcribed By: Self Edit Transcribed Date: 01/20/2025 17:44 ET General: no apparent distress HNT: moist mucous membranes Eyes: sclera anicteric Thorax: clear to auscultation bilaterally, Tegaderm dressing still intact with right sided paraspinal musculature swelling without palpable seroma or hematoma. No erythema or induration noted. Cardiovascular: no murmurs, pulse regular rate and rhythm Abdomen: soft, non-tender, non-distended, bowel sounds noted Extremities: Left anterior tibialis 0/5, left EHL 1/5, right lower extremity 5/5. Dense circumferential esthesia from left knee down, to a lesser density but similar distribution right lower extremity. Neurologic: alert/awake/oriented Assessment: 74 y.o female here for right upper quadrant pain found to have persistent symptoms associated with biliary dyskinesia and scheduled for laparoscopic cholecystectomy. However upon further questioning patient revealed to us that she has had increased neurologic symptoms since her arrival primarily significant left lower extremity weakness and dense paresthesias of bilateral lower extremities left greater than right. Plan: I immediately spoke with the medicine service and Rose Mary Morrison PA-C ordered a thoracolumbar MRI. This study will not be performed until tomorrow and may delay treatment of the gallbladder. Patient will be discussed with Dr. Ochoa in the a.m. * Scott Wolfe MD - 01/19/2025 5:21 PM EDT Denver Love 01/18/[birth year]25 1950 74 y.o. [id number] Scott Wolfe, * INTERVAL HISTORY: No events overnight ASSESSMENT/PLAN: # Abdominal pain, gallbladder distention, constipation Patient has right upper flank discomfort, mild tenderness, no palpable masses. Discussed with general surgery, they think the patient has biliary dyskinesia and planned for surgery tomorrow. In the meantime we will manage with aggressive bowel regimen. Continue symptomatic treatment p.o. # Hypertension. Blood pressure is well-controlled, continue lisinopril and amlodipine today, hold lisinopril tomorrow. # Diabetes mellitus, glucose of blood, continue erratic diet, n.p.o. at midnight, insulin and lifestyle # Hyperlipidemia. Continue atorvastatin # Bacteriuria, pyuria. Denies any urinary symptoms, she had an outpatient urine culture showing Pseudomonas and ESBL Proteus, continue antibiotics given she is asymptomatic, surgery will use preop antibiotic prophylaxis Disposition: Surgery tomorrow SUBJECTIVE : Patient continues to have right flank pain, no nausea or vomiting, passing gas, no bowel movement. Feels very weak, has not been ambulating since admission. Chronic nasal congestion due to seasonal allergies. No nausea or vomiting. No postoperative back pain. No focal numbness or numbness. No feveror chills. Patient has any urinary symptoms since admission, has chronic incontinence. OBJECTIVE: Vitals: 01/19/25 0252 01/19/25 0346 01/19/25 0740 01/19/25 1522 BP: 130/59 (!) 142/65 137/57 BP Location: Right arm Left arm Patient Position: Lying Lying Pulse: 58 62 67 57 Resp: 16 15 18 Temp: 36.3 ??C (97.3 ??F) 36.3 ??C (97.3 ??F) 36.4 ??C (97.6 ??F) TempSrc: Temporal Temporal SpO2: 94% 94% 96% Weight: Height: Temp (24hrs), Av.4 ??C (97.6 ??F), Min:36.1 ??C (97 ??F), Max:36.9 ??C (98.4 ??F) Intake/Output Summary (Last 24 hours) at 01/19/2025 1721 Last data filed at 01/19/2025 0300 Gross per 24 hour Intake 951.25 ml Output -- Net 951.25 ml Wt Readings from Last 1 Encounters: 01/18/25 2236 120 kg (264 lb 3.2 oz) 01/18/25 1210 126 kg (278 lb) PHYSICAL EXAM: Gen: Patient is an obese female, NAD CV -RRR no MGR Lungs -CTAB Abd - Soft, non-distended, mild tenderness right upper quadrant, also mild tenderness in the right lower quadrant, Extremities - No LE edema Neuro - AO x3 RESULTS: CBC BMP Results from last 7 days Lab Units 01/19/25 0646 01/18/25 1223 WBC AUTO K/mcL 8.2 7.5 HEMOGLOBIN g/dL 11.8 13.1 HEMATOCRIT % 35.6 39.1 PLATELETS K/mcL 212 232 LYMPHS PCT AUTO % -- 15.2 MONO PCT AUTO % -- 9.0 EOS PCT AUTO % -- 0.3 Results from last 7 days Lab Units 01/19/25 0646 01/18/25 1223 SODIUM mmol/L 139 139 POTASSIUM mmol/L 4.0 3.9 CHLORIDE mmol/L 103 101 CO2 mmol/L 29 30 ANION GAP 7 8 BUN mg/dL 15 18 CREATININE mg/dL 0.49* 0.59 CALCIUM mg/dL 8.9 9.9 Results from last 7 days Lab Units 01/19/25 1654 01/19/25 1114 01/19/25 0740 01/19/25 0646 01/18/25 1223 POCT GLUCOSE mg/dL 102* 130* 102* -- -- GLUCOSE mg/dL -- -- -- 86 115* Results from last 7 days Lab Units 01/18/25 1223 AST unit/L 30 ALT unit/L 29 Imaging:NM Hepatobiliary System Imaging Narrative: History: Abdominal pain, distended gallbladder. Technique: Continuous anterior imaging of the abdomen was performed for 60 minutes following the intravenous administration of 4.3 mCi technetium 99m Choletec. Delayed images of the right upper quadrant were also obtained at 90 minutes and at 6 hours. Findings: The initial image demonstrates a normal, homogeneous pattern of radiotracer distribution throughoutthe liver. Activity is seen within the bile ducts by 10 minutes, within the gallbladder by 20 minutes, and within the small bowel by 6 hours. There is normal washout of hepatic activity. Impression: Impression: 1. No evidence of cystic or common bile duct obstruction. 2.. Delayed biliary to bowel transit. Telerad JUAN ([id number]) -------- FINAL REPORT -------- Dictated By: Ilda Baez Dictated Date: 01/19/2025 16:39 ET Assigned Physician: Ilda Baez Reviewed and Electronically Signed By: Ilda Baez Signed Date: 01/19/2025 16:42 ET Workstation ID: [id number] Transcribed By: Self Edit Transcribed Date: 01/19/2025 16:39 ET Scheduled Medications PRN Medications IV Medications acetaminophen, 1,000 mg, q8h LEXIE amLODIPine, 10 mg, Daily atorvastatin, 80 mg, Nightly gabapentin, 300 mg, TID insulin lispro, 1-6 Units, Before meals & nightly lisinopril, 40 mg, Daily polyetheylene glycol, 17 g, Daily senna, 2 tablet, Nightly sodium phosphate, 133 mL, Once bisacodyL, 10 mg, Daily PRN dextrose 50%, 12.5 g, q15 min PRN dextrose 50%, 25 g, q15 min PRN dextrose, 15 g, q15 min PRN dextrose, 30 g, q15 min PRN glucagon injection, 1 mg, Once PRN HYDROmorphone, 2 mg, q4h PRN HYDROmorphone, 4 mg, q4h PRN ondansetron (ZOFRAN-ODT) disintegrating tablet, 4 mg, q8h PRN Or ondansetron, 4 mg, q8h PRN lactated Ringer's, Last Rate: 125 mL/hr (01/19/25 7703) [x] Code status: Full Code - Default [x] VTE Prophylaxis: Pneumoboots [x] Lines, tubes, drains: None Health Care proxy with Phone number: HCP: Pipo., PPX: Pneumoboots Disclaimer: Speech recognition software was utilized to dictate portions of this document. Errors in licensing engineer may be present. Please call / cortext me if any questions. Portions of this note such ROS, Exam, Assessment and Plan were copy pasted from previous notes. Information was reviewed and changes were made accordingly. I agree with above mentioned information * Edie Brewer RN - 01/19/2025 4:34 PM EDT 01/19/25 1633 Initial Transition Plan Initial Transition Plan Home Health Care Back up Transition Plan Back up Transition plan Residential Facility Discharge Planning Living Arrangements Spouse/significant other Type of Residence Private residence Assistive Devices Walker;Eyeglasses Support Systems Children;Immediate family Medication Coverage Has Med Coverage Under Insurance Plan Yes Medication Affordability No concerns related to payment for meds Anticipated Discharge Needs Discipline following for SNF placement Courtroom Deputy Informed Choice Informed Choice Given? Yes ICC met with patient at bedside. Patient is open to both home PT as well as inpatient PT if recommended. Evaluation pending, ICC will continue to follow * Leesa Cordoba PT - 01/19/2025 3:30 PM EDT Physical Therapy Therapy session was attempted for Denver Love by Leesa Cordoba PT on 01/19/2025. The patient was unable to be seen for the following reason(s): Other: Pt going to a test at this time Plan for return visit: Tomorrow * Veronique Perdomo MD - 01/19/2025 1:52 PM EDT Patient was seen and examined. She states that the right upper quadrant pain is slowly starting to come back. Currently no nausea or vomiting. Denies diarrhea. Vitals reviewed. Hypertension improving. No leukocytosis.On exam she has moderate RUQ tenderness and < epigastric pain. HIDA scan still pending. She needs to return for additional images. Will review once available. * Lb George RN - 01/19/2025 4:47 AM EDT Problem: Sensory: Acute Pain Goal: Pain level will improve or be tolerable Outcome: Progressing Goal: Ability to develop a pain control plan will improve Outcome: Progressing Goals: Identify possible barriers to meeting goals/advancing plan of care: ivf, pain management, surgery consult Stability of the patient: Moderately Stable - Low risk of patient condition declining or worsening End of Shift Summary: pt admit with r flank pain, ct abd showing suspected cholelithiasis, one-timeorder received of iv dilaudid with good effect, pt currently denies any need for further medicinal intervention, ivf infusing, abd rounded/distended, lbm 3/18, pt denies any feelings of constipation,medicated with miralax in ed, currently resting comfortably in bed, no issues noted/reported at current * Marlyn Wolfe RN - 01/18/2025 10:03 PM EDT ED RN HANDOFF (All [place] Below Must Be Completed) Reason/Diagnosis for Admission: Abnormally distended gallbladder with suspected cholelithiasis. Type of Admission: [x] Medsurg, [] Telemetry Already in a Hospital Bed: [] Yes / [x] No Room Considerations/Precautions (ex: fever, diarrhea, or any infectious concerns): [] Yes / [x] No Airfield Services Officer: [] Yes / [x] No If YES, Cardiac Rhythm: [] NSR, [] SB, [] ST, [] A-FIB, [] A-Flutter, [] Pacemaker, [] 1st Degree HB, [] 2nd Degree HB, [] 3rd Degree HB Reason for Airfield Services Officer: VS: Visit Vitals BP 128/56 (BP Location: Right arm;Upper, Patient Position: Lying) Pulse 59 Temp 36.7 ??C (98.1 ??F) (Oral) Resp 20 Ht 1.727 m (68 ) Wt 126 kg (278 lb) SpO2 100% BMI 42.27 kg/m?? OB Status Postmenopausal Smoking Status Never BSA 2.35 m?? Current Mental Status: A/O x [x]4, []3, []2, []1 Current Ambulation Status: IV Access: [x] Yes / [] No Field IV present: [] Yes / [] No Hx of Violence: [] Yes / [x] No / [] Unknown Fall Risk:[x] Yes / [] No Yellow Bracelet Applied [x] Yes / [] No Yellow Socks Applied [] Yes / [] No Patient Belongings inventoried and BL completed: [x] Yes / [] No Patient belongings stored in the security closet: [] Yes (If Yes please supply Security bag #): [x] No Patient Medications stored in Pharmacy: [] Yes (If Yes please supply Medication Security bag #): [x] No ED Summary of Care: miralax given, LR running at 125 mL/hr, hydromorphone, zofran, 1L of NS Submitted by and Phone Extension: [phone] * Alondra Carreon RN - 01/18/2025 12:13 PM EDT Patient states that she had Laminotomy on Sunday. * Alondra Carreon RN - 01/18/2025 12:11 PM EDT Right sided flank pain since Sunday. Nausea and vomiting. Decreased PO intake. Hx of kidney stones and gallbladder sludge. No symptoms. * Mina Colón MD - 01/18/2025 12:06 PM EDT Emergency Medicine Note Patient Name: Denver Love Initial Evaluation: 01/18/2025 : 1950 Patient's PCP: Patsy York MD Emergency Physician: Mina Colón MD History of Present Illness Chief Complaint: Chief Complaint Patient presents with Flank Pain HPI: This is a 74-year-old female presenting for right flank and right abdominal pain and back pain. She is status approximately 4 days status post a T8 10 and T11 discectomy. She is but in the last couple days she has had pain in the right flank and also right abdomen she has a history of kidney stones as well as gallbladder sludge. She states pain is severe no nausea vomiting. ROS: I have performed a ROS with the pertinent positives and negatives documented in the history ofpresent illness. Previous History Past Medical History: Diagnosis Date Anxiety 06/21/2021 DX:Anxiety Asthma DX:Asthma Back pain 11/24/2010 DX:Back pain; COMMENT: Diffused spondylosis L, C spine Esophageal reflux DX:Esophageal reflux Essential hypertension, benign 03/15/2006 DX:Essential hypertension, benign Family history of colonic polyps 12/09/2007 DX:Family history of colonic polyps; COMMENT: Mother and father with diagnosis of colonic polyps atage younger than 60. Negative colonoscopy 12/09/2007, no colon cancer screening needed for 5 years. Morbid obesity with BMI of 40.0-44.9, [facility]) 10/23/2013 DX:Morbid obesity with BMI of 40.0-44.9, adult ([facility]); COMMENT: BMI 40.26 0n 08/28/13. 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 COLONOSCOPY 03/03/2021 PROCEDURE: HISTORICAL COLONOSCOPY; COMMENT: Sigmoid colon polyp, unable to visualize cecum. Pathology: tubular adenoma. HERNIA REPAIR PROCEDURE: REPAIR UMBILICAL HERNIA KIDNEY STONE SURGERY PROCEDURE: NM NEPHROLITHOTOMY REMOVAL CALCULUS LEG SURGERY Left PROCEDURE: HISTORICAL LEG SURGERY; COMMENT: Tib/fib fx, mult surgery, most recent 05/02/2018 TONSILLECTOMY PROCEDURE: HISTORICAL TONSILLECTOMY Social History Tobacco Use Smoking status: Never Smokeless tobacco: Never Substance Use Topics Alcohol use: Yes Drug use: No Family History Problem Relation Name Age of Onset Arthritis Mother Osteoporosis, scoliosis Colon polyps Mother age < 60 Arthritis Father Ankylosing Spondyitis Colon polyps Father age < 60 Breast cancer Sister age 35 35.00 paternal grandmother, aunt and great aunt (all paternal) Arthritis Paternal Grandmother Breast cancer Paternal Grandmother Breast cancer Aunt pat Breast cancer Mother's side pat niece is allergic to sulfa (sulfonamide antibiotics), bactrim [sulfamethoxazole- trimethoprim], morphine sulfate, and other. No current facility-administered medications on file prior to encounter. Current Outpatient Medications on File Prior to Encounter Medication Sig Dispense Refill acetaminophen (TYLENOL 8 HOUR) 650 mg 8 hr tablet Take 1 tablet (650 mg total) by mouth. albuterol HFA (PROAIR HFA ; PROVENTIL HFA ; VENTOLIN HFA) 90 mcg/actuation inhaler Inhale 2 puffs by mouth. amLODIPine (NORVASC) 10 mg tablet TAKE 1 TABLET BY MOUTH EVERY DAY 90 tablet 0 aspirin 81 mg EC tablet Take 1 tablet (81 mg total) by mouth 1 (one) time each day. calcium carbonate-vitamin D (Calcium with Vitamin D) 600 mg-10 mcg (400 unit) per tablet Take 1 tablet by mouth 2 (two) times a day. celecoxib (CeleBREX) 200 mg capsule TAKE 1 CAPSULE BY MOUTH TWICE A DAY 180 capsule 1 cetirizine (ZyrTEC) 10 mg capsule Take 1 capsule (10 mg total) by mouth 1 (one) time each day. cholecalciferol (VITAMIN D-3) 50 mcg (2,000 unit) tablet Take 1 tablet (2,000 Units total) by mouth1 (one) time each day. fluconazole (DIFLUCAN) 150 mg tablet Take one tablet every 3 days for 3 doses fluticasone propion-salmeteroL (Advair HFA) 230-21 mcg/actuation inhaler Inhale 2 puffs by mouth 2 (two) times a day. Rinse mouth with water after use to reduce aftertaste and incidence of candidiasis. Do not swallow. 12 g 6 furosemide (LASIX) 40 mg tablet Take 1 tablet (40 mg total) by mouth 2 (two) times a day. gabapentin (NEURONTIN) 300 mg capsule Take 1 capsule (300 mg total) by mouth. lisinopril (PRINIVIL,ZESTRIL) 40 mg tablet Take 1 tablet (40 mg total) by mouth 1 (one) time each day. 90 tablet 1 metFORMIN XR (GLUCOPHAGE-XR) 500 mg 24 hr tablet Take 1 tablet (500 mg total) by mouth 1 (one) timeeach day with breakfast. 90 tablet 1 nitroglycerin (NITROSTAT) 0.[address] 1 tablet (0.4 mg total) under the tongue every 5 (five) minutes if needed. oxyBUTYnin XL (DITROPAN-XL) 10 mg 24 hr tablet Take 1 tablet (10 mg total) by mouth 1 (one) time each day. oxyCODONE (ROXICODONE) 5 mg immediate release tablet rosuvastatin (CRESTOR) 40 mg tablet TAKE 1 TABLET BY MOUTH EVERY DAY 90 tablet 1 triamcinolone (NASACORT) 55 mcg nasal inhaler Administer 1 spray into affected nostril(s). zinc oxide 20 % ointment Apply thick layer to affected area (right buttock) twice daily. Physical Exam ED Triage Vitals [01/18/25 1210] Temp Heart Rate Resp BP 36.6 ??C (97.9 ??F) 69 20 (!) 164/83 SpO2 Temp Source Heart Rate Source Patient Position 97 % Oral Monitor Sitting BP Location FiO2 (%) Right arm -- General: Well-appearing, well nourished, in no acute distress obese female moderate distress d nose appear unremarkable, airway is patent Neck: Supple, full range of motion, no meningismus, no JVD Chest: Clear to auscultation; no evidence of respiratory distress Circulatory: The rate and rhythm , no murmurs rubs or gallops Abdomen: Non-distended, diffuse tendernes RLQ and RUQ, no rebouned Extremities: Normal ROM, No edema, ranging all extremities without difficulty Thoracic surgicial site c/d/ i Skin: Warm and dry, well-perfused , no rashes Neuro: Alert and oriented x 3. no motor or sensory deficits Psyche: Normal affect Results Labs Reviewed COMPREHENSIVE METABOLIC PANEL - Abnormal Result Value Sodium 139 Potassium 3.9 Chloride 101 CO2 30 Anion Gap 8 Glucose 115 (*) BUN 18 Creatinine 0.59 eGFR 96 BUN/Creatinine Ratio 30.5 Calcium 9.9 AST (SGOT) 30 ALT (SGPT) 29 Alkaline Phosphatase 114 Total Protein 7.3 Albumin 3.9 Total Bilirubin 1.0 CBC AND DIFFERENTIAL Narrative: The following orders were created for panel order CBC and differential. Procedure Abnormality Status --------- ------ CBC auto differential[[id number]] Final result Please view results for these tests on the individual orders. CBC WITH AUTO DIFFERENTIAL WBC 7.5 RBC 4.20 Hemoglobin 13.1 Hematocrit 39.1 MCV 93.3 MCH 31.3 MCHC 33.5 RDW 12.5 Platelets 232 MPV 10.8 NRBC 0.0 NRBC Absolute 0.00 Neutrophils Relative 74.6 Lymphocytes Relative 15.2 Monocytes Relative 9.0 Eosinophils Relative 0.3 Basophils Relative 0.5 Immature Granulocytes Relative 0.4 Neutrophils Absolute 5.58 Lymphocytes Absolute 1.14 Monocytes Absolute 0.67 Eosinophils Absolute 0.02 Basophils Absolute 0.04 Immature Granulocytes Absolute 0.03 URINALYSIS WITH REFLEX MICROSCOPIC AND CULTURE Narrative: The following orders were created for panel order Urinalysis with reflex microscopic and culture. Procedure Abnormality Status --------- ------ Urinalysis with reflex ...[[id number]] Ramírez urine culture tube[[id number]] Please view results for these tests on the individual orders. URINALYSIS WITH REFLEX MICROSCOPIC AND CULTURE Abnormal Labs Reviewed COMPREHENSIVE METABOLIC PANEL - Abnormal; Notable for the following components: Result Value Glucose 115 (*) All other components within normal limits CT Abdomen Pelvis wo Contrast Final Result Impression: 1. Abnormally distended gallbladder with suspected cholelithiasis. No specific findings of acute cholecystitis are seen. Consider right upper quadrant ultrasound if clinically appropriate. 2. Nonobstructing right renal calculi. Flores MARTINEZ ([id number]) -------- FINAL REPORT -------- Dictated By: Ilda Baez Dictated Date: 01/18/2025 14:40 ET Assigned Physician: Ilda Baez Reviewed and Electronically Signed By: Sasha Ilda Signed Date: 01/18/2025 14:46 ET Workstation ID: [id number] Transcribed By: Self Edit Transcribed Date: 01/18/2025 14:40 ET US Abdomen Limited (Results Pending) I have discussed the incidental/abnormal imaging and/or lab abnormalities with the patient and haveinstructed them the need for further evaluation and workup with their primary care doctor. I have provided the patient with a paper copy of the abnormality. The laboratory results, imaging results and other diagnostic exam results were reviewed in the EMR. EKG Interpretation Critical Care Time None ? Medical Decision Making Differential diagnosis of this abdominal pain includes but is not limited to: Kidney stone, diverticulitis, abdominal aortic aneurysm, ovarian cyst, constipation, occult neoplasm, enteritis, appendicitis, gastritis, cholecystitis, gallstones, pancreatitis, unspecified colitis including infectious and noninfectious, mesenteric ischemia Medications sodium chloride 0.9 % bolus 1,000 mL (0 mL intravenous Stopped 01/18/25 1510) ondansetron (PF) (ZOFRAN) injection 4 mg (4 mg intravenous Given 01/18/25 1408) HYDROmorphone (PF) injection 0.5 mg (0.5 mg intravenous Given 01/18/25 1406) HYDROmorphone (PF) injection 0.5 mg (0.5 mg intravenous Given 01/18/25 1511) ED Course as of 01/21/25 0832 Sun Jan 18, 2025 1645 Patient's ultrasound is negative. However I reassessed the patient she still having significant pain requiring another dose of Dilaudid. I do not think this is related to her T10 surgical procedure. She does have point tenderness in the right upper quadrant underneath the rib cage consistent with a Kauffman sign. I discussed the case with surgery although her labs are reassuring and imaging reassuring this may represent a calculus cholecystitis. We would like we will request to admit for HIDA scan and for pain control surgery requested admit to [facility] and will follow [JL] ED Course User Index [JL] Mina Colón MD Clinical Impressions as of 01/21/25 0832 Intractable abdominal pain Procedures Procedures Diagnosis No diagnosis found. Disposition Data Unavailable ED Prescriptions None Physician Attestation Mina Colón MD 01/18/25 1526 Mina Colón MD 01/21/25 0833 documented in this encounter Consult Notes * Anel Gomez MD - 01/22/2025 3:52 PM EDT TeleNeurology Consult Reason for consult: Thoracic cord compression History obtained from: Patient and EMR/Housestaff Referring physician: Scott Wolfe, * History of Present Illness: Today the patient reports pain, N/T in her back and legs, left leg more N/T She reports low back pain rated 7/10 ROS: All 14 systems were reviewed and were negative except what is mentioned above in the HPI. Past medical, surgical, social and family histories were reviewed and noted in EMR Current medications were reviewed and noted in EMR PAST MEDICAL HISTORY Past Medical History: Diagnosis Date Anxiety 06/21/2021 DX:Anxiety Asthma DX:Asthma Back pain 11/24/2010 DX:Back pain; COMMENT: Diffused spondylosis L, C spine Esophageal reflux DX:Esophageal reflux Essential hypertension, benign 03/15/2006 DX:Essential hypertension, benign Family history of colonic polyps 12/09/2007 DX:Family history of colonic polyps; COMMENT: Mother and father with diagnosis of colonic polyps atage younger than 60. Negative colonoscopy 12/09/2007, no colon cancer screening needed for 5 years. Morbid obesity with BMI of 40.0-44.9, adult ([facility]) 10/23/2013 DX:Morbid obesity with BMI of 40.0-44.9, adult ([facility]); COMMENT: BMI 40.26 0n 08/28/13. 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 amLODIPine (NORVASC) 10 mg tablet TAKE 1 TABLET BY MOUTH EVERY DAY 90 tablet 0 aspirin 81 mg EC tablet Take 1 tablet (81 mg total) by mouth 1 (one) time each day. calcium carbonate-vitamin D (Calcium with Vitamin D) 600 mg-10 mcg (400 unit) per tablet Take 1 tablet by mouth 2 (two) times a day. celecoxib (CeleBREX) 200 mg capsule TAKE 1 CAPSULE BY MOUTH TWICE A DAY 180 capsule 1 cetirizine (ZyrTEC) 10 mg capsule Take 1 capsule (10 mg total) by mouth 1 (one) time each day. fluticasone propion-salmeteroL (Advair HFA) 230-21 mcg/actuation inhaler Inhale 2 puffs by mouth 2 (two) times a day. Rinse mouth with water after use to reduce aftertaste and incidence of candidiasis. Do not swallow. 12 g 6 furosemide (LASIX) 40 mg tablet Take 1 tablet (40 mg total) by mouth 2 (two) times a day. gabapentin (NEURONTIN) 300 mg capsule Take 1 capsule (300 mg total) by mouth. lisinopril (PRINIVIL,ZESTRIL) 40 mg tablet Take 1 tablet (40 mg total) by mouth 1 (one) time each day. 90 tablet 1 metFORMIN XR (GLUCOPHAGE-XR) 500 mg 24 hr tablet Take 1 tablet (500 mg total) by mouth 1 (one) timeeach day with breakfast. 90 tablet 1 nitroglycerin (NITROSTAT) 0.[address] 1 tablet (0.4 mg total) under the tongue every 5 (five) minutes if needed. oxyBUTYnin XL (DITROPAN-XL) 10 mg 24 hr tablet Take 1 tablet (10 mg total) by mouth 1 (one) time each day. oxyCODONE (ROXICODONE) 5 mg immediate release tablet rosuvastatin (CRESTOR) 40 mg tablet TAKE 1 TABLET BY MOUTH EVERY DAY 90 tablet 1 triamcinolone (NASACORT) 55 mcg nasal inhaler Administer 1 spray into affected nostril(s). zinc oxide 20 % ointment Apply thick layer to affected area (right buttock) twice daily. MEDICATIONS Scheduled Meds:acetaminophen, 1,000 mg, oral, q8h LEXIE amLODIPine, 10 mg, oral, Daily atorvastatin, 80 mg, oral, Nightly baclofen, 10 mg, oral, TID ceFAZolin, 2 g, intravenous, Once dexAMETHasone, 4 mg, intravenous, q6h LEXIE enoxaparin, 40 mg, subcutaneous, Daily gabapentin, 300 mg, oral, TID insulin lispro, 1-6 Units, subcutaneous, Before meals & nightly [Held by provider] lisinopril, 40 mg, oral, Daily pantoprazole, 40 mg, oral, BID AC polyetheylene glycol, 17 g, oral, Daily senna, 2 tablet, oral, Nightly sodium phosphate, 133 mL, rectal, Once Continuous Infusions: PRN Meds:PRN medications: bisacodyL, dextrose 50%, dextrose 50%, dextrose, dextrose, glucagon injection, HYDROmorphone, HYDROmorphone, HYDROmorphone, ondansetron (ZOFRAN-ODT) disintegrating tablet OR ondansetron ALLERGIES Allergies Allergen Reactions Sulfa (Sulfonamide Antibiotics) Other Reaction(s): Hives/Urticaria Bactrim [Sulfamethoxazole-Trimethoprim] Morphine Sulfate FAMILY HISTORY Family History Problem Relation Name Age of Onset Arthritis Mother Osteoporosis, scoliosis Colon polyps Mother age < 60 Arthritis Father Ankylosing Spondyitis Colon polyps Father age < 60 Breast cancer Sister age 35 35.00 paternal grandmother, aunt and great aunt (all paternal) Arthritis Paternal Grandmother Breast cancer Paternal Grandmother Breast cancer Aunt pat Breast cancer Mother's side pat niece SOCIAL HISTORY Social History Socioeconomic History Marital status: Spouse name: Not on file Number of children: Not on file Years of education: Not on file Highest education level: Not on file Occupational History Not on file Tobacco Use Smoking status: Never Smokeless tobacco: Never Substance and Sexual Activity Alcohol use: Yes Drug use: No Sexual activity: Not on file Other Topics Concern Not on file Social History Narrative Not on file NEUROLOGICAL EXAMINATION Vital Sign: Visit Vitals BP (!) 150/75 (BP Location: Left arm, Patient Position: Lying) Pulse 62 Temp 36.3 ??C (97.3 ??F) (Temporal) Resp 20 Ht 1.727 m (67.99 ) Wt 120 kg (264 lb 3.2 oz) SpO2 97% BMI 40.18 kg/m?? OB Status Postmenopausal Smoking Status Never BSA 2.3 m?? The exam was done with the assistance of the DAVID BAUM, for Tele communication purpose. General exam: Well developed, well dressed and in no acute distress. Symmetric chest rise, normal respiratory effort and rhythm. No audible wheezing heard. Mental status: Alert and oriented to person, place and time. Patient is speaking in full sentences. Cranial Nerves: Extraocular movements intact. Face is symmetric at rest. Sensation is equal to LT on face. 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 Deferred gait LABS: [facility] (last 7 days): ABG Anemia Results from last 7 days Lab Units 01/22/25 0638 WBC AUTO K/mcL 10.1 HEMOGLOBIN g/dL 13.3 HEMATOCRIT % 40.3 PLATELETS K/mcL 267 Hematology Results from last 7 days Lab Units 01/22/25 0638 WBC AUTO K/mcL 10.1 HEMOGLOBIN g/dL 13.3 HEMATOCRIT % 40.3 PLATELETS K/mcL 267 LYMPHS PCT AUTO % 6.1 MONO PCT AUTO % 3.2 EOS PCT AUTO % 0.1 Chemistry Results from last 7 days Lab Units 01/22/25 1110 01/22/25 0746 01/22/25 0638 SODIUM mmol/L -- -- 140 POTASSIUM mmol/L -- -- 4.4 CHLORIDE mmol/L -- -- 101 CO2 mmol/L -- -- 33* BUN mg/dL -- -- 9 CREATININE mg/dL -- -- 0.52 POCT GLUCOSE mg/dL 133* < > -- GLUCOSE mg/dL -- -- 166* CALCIUM mg/dL -- -- 9.5 < > = values in this interval not displayed. Results from last 7 days Lab Units 01/18/25 1223 ALK PHOS unit/L 114 BILIRUBIN TOTAL mg/dL 1.0 TOTAL PROTEIN g/dL 7.3 ALT unit/L 29 AST unit/L 30 Results from last 7 days Lab Units 01/22/25 0638 CRP mg/dL 0.72* Cardiac No results found for: TROPONINT , TROPONINI , HSTROPI Coagulation Results from last 7 days Lab Units 01/20/25 0614 INR 1.3 No results found for: PTT Thyroid Function / HGBA1C Lab Results Component Value Date HGBA1C 6.1 12/05/2023 Urine No results found for: COLORUA , CLARITYUA , SPECGRAVUA , PHUA , PROTUA , GLUCOSEUA , KETONESUA , BILIRUBINUA , BLOODUA , UROBILINOGUA , NITRITEUA Micro Culture, Urine Date Value Ref Range Status 01/18/2025 >100,000 CFU/mL Pseudomonas aeruginosa (A) Final Comment: This is an edited result. Previous organism was Gram negative bacilli on 01/20/2025 at 1000 EDT. Assessment: I independently reviewed results of MRI Thoracic spine from 01/20 and 01/21 MRI T spine w/wo at least moderate central canal stenoses at a lower thoracic level, possibly T11-T12. At the level above the significant central canal stenoses, there is some circumferential likely epidural enhancement, raising concern for epidural phlegmon in this location. There is a posterior paraspinal collection MRI L spine w/wo reported as mild central canal stenoses at L4-5 MRI is limited due to sagittal images only. No prior images to compare. MRI reported as recent left T10-11 laminectomy with postsurgical changes in the posterior paraspinal musculature. Persistent severe spinal canal stenosis with mass effect upon the thoracic cord and increased cord signal at T10-11. Moderate to severe spinal canal stenosis with mass effect upon the cord at T9-10 and T12-L1. 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 Sincerely, Dr. Gomez Neurology attending Department of Neurology The patient received guidance on receiving healthcare through telehealth, including the use of HIPAA privacy -compliant technology for remote communication and its associated privacy risks. The patient was also informed of the limitations of treatment provided through telehealth and that in the event of a lost or failed video connection, the provider may call back or reschedule the visit. Alternatively, the patient may opt for an in-person visit. The patient gave consent for the use of video communication and provided care and confirmed that they were in a quiet and private location to discuss their health freely. The patient understands the visit will be submitted to their insurance and that they are responsible for any copay or deductible charges. Additionally, if the patient is LimitedEnglish Proficient, deaf, or hard of hearing, speech impaired, or has another disability which impairs their ability to communicate, the services of a qualified informal waiter/waitress will be provided during the visit. Patients Location: [facility] Total time: 35 min Other individuals taking part in remote visit: BAUTISTA The text in the report has been created with a speech recognition text to software program. Effortshave been made to eliminate errors in this report, however, if there are some errors that remain, please take them in the context in which they are written. * Anel Gomez MD - 01/21/2025 12:01 PM EDTAssociated Order(s): IP CONSULT TO NEUROLOGY TeleNeurology Consult Reason for consult: Thoracic cord compression History obtained from: Patient and EMR/Housestaff Referring physician: Scott Wolfe, * History of Present Illness: Denver Love is a 74 y.o. female with PMH of hypertension, hyperlipidemia, back pain, NIDDM andobesity presented on 01/18 to the ED for abdominal pain, nausea, vomiting and constipation for 5 days Patient had back surgery on 01/14/2025 Patient had pain on night but was unable to tolerate pain medication due to nausea and vomiting Due to abdominal pain, gallbladder distention, constipation and concern for biliary dyskinesia surgery was scheduled for 01/19/25 however patient developed worsening paresthesias to the bilateral lower extremities and foot drop and surgery for laparoscopic cholecystectomy was cancelled while pendingfurther evaluation. Dr. Velasquez contacted Dr. Millard from neurosurgery, he was made aware of the changes, he did not see any indication for reoperation Today the patient reports pain, N/T in her back and legs She had surgery last Sun, she started having pain a day after the surgery on her right low back andabdomen, she had N/V. Sunday she called her pcp and was referred to the ED She used to walk with a walker at home but was no longer able to walk with the walker since Sunday due weakness in her legs New sx since Sunday am: Left leg numbness and right upper leg numbness She had residual N/T in her legs L>R for years but in different areas of the legs Left leg weakness in new Spasm in both legs since Sunday evening, more in the right leg She reports SENA, -06/07, she is showing me frontal area Associated vision sx: not new but blurry vision at times Home AP tx: ASA 81mg qday for for cardiac issues Prior neurological history: negative for epilepsy, stroke History of head/neck surgery? Low back surgery in 2010,T and C surgeries in 2021, Cervical spine surgery in 2023, last surgery was January 14. Ambulation: ambulate with a walker Bowel/ bladder control : urine incontinence and at times bowel incontinence for over a year Saddle anesthesia for about 5-6 years Smoking: denies Alcohol: denies ROS: All 14 systems were reviewed and were negative except what is mentioned above in the HPI. Past medical, surgical, social and family histories were reviewed and noted in EMR Current medications were reviewed and noted in EMR PAST MEDICAL HISTORY Past Medical History: Diagnosis Date Anxiety 06/21/2021 DX:Anxiety Asthma DX:Asthma Back pain 11/24/2010 DX:Back pain; COMMENT: Diffused spondylosis L, C spine Esophageal reflux DX:Esophageal reflux Essential hypertension, benign 03/15/2006 DX:Essential hypertension, benign Family history of colonic polyps 12/09/2007 DX:Family history of colonic polyps; COMMENT: Mother and father with diagnosis of colonic polyps atage younger than 60. Negative colonoscopy 12/09/2007, no colon cancer screening needed for 5 years. Morbid obesity with BMI of 40.0-44.9, adult ([facility]) 10/23/2013 DX:Morbid obesity with BMI of 40.0-44.9, adult ([facility]); COMMENT: BMI 40.26 0n 08/28/13. 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 amLODIPine (NORVASC) 10 mg tablet TAKE 1 TABLET BY MOUTH EVERY DAY 90 tablet 0 aspirin 81 mg EC tablet Take 1 tablet (81 mg total) by mouth 1 (one) time each day. calcium carbonate-vitamin D (Calcium with Vitamin D) 600 mg-10 mcg (400 unit) per tablet Take 1 tablet by mouth 2 (two) times a day. celecoxib (CeleBREX) 200 mg capsule TAKE 1 CAPSULE BY MOUTH TWICE A DAY 180 capsule 1 cetirizine (ZyrTEC) 10 mg capsule Take 1 capsule (10 mg total) by mouth 1 (one) time each day. fluticasone propion-salmeteroL (Advair HFA) 230-21 mcg/actuation inhaler Inhale 2 puffs by mouth 2 (two) times a day. Rinse mouth with water after use to reduce aftertaste and incidence of candidiasis. Do not swallow. 12 g 6 furosemide (LASIX) 40 mg tablet Take 1 tablet (40 mg total) by mouth 2 (two) times a day. gabapentin (NEURONTIN) 300 mg capsule Take 1 capsule (300 mg total) by mouth. lisinopril (PRINIVIL,ZESTRIL) 40 mg tablet Take 1 tablet (40 mg total) by mouth 1 (one) time each day. 90 tablet 1 metFORMIN XR (GLUCOPHAGE-XR) 500 mg 24 hr tablet Take 1 tablet (500 mg total) by mouth 1 (one) timeeach day with breakfast. 90 tablet 1 nitroglycerin (NITROSTAT) 0.[address] 1 tablet (0.4 mg total) under the tongue every 5 (five) minutes if needed. oxyBUTYnin XL (DITROPAN-XL) 10 mg 24 hr tablet Take 1 tablet (10 mg total) by mouth 1 (one) time each day. oxyCODONE (ROXICODONE) 5 mg immediate release tablet rosuvastatin (CRESTOR) 40 mg tablet TAKE 1 TABLET BY MOUTH EVERY DAY 90 tablet 1 triamcinolone (NASACORT) 55 mcg nasal inhaler Administer 1 spray into affected nostril(s). zinc oxide 20 % ointment Apply thick layer to affected area (right buttock) twice daily. MEDICATIONS Scheduled Meds:acetaminophen, 1,000 mg, oral, q8h LEXIE amLODIPine, 10 mg, oral, Daily atorvastatin, 80 mg, oral, Nightly ceFAZolin, 2 g, intravenous, Once dexAMETHasone, 4 mg, intravenous, q8h LEXIE gabapentin, 300 mg, oral, TID insulin lispro, 1-6 Units, subcutaneous, Before meals & nightly [Held by provider] lisinopril, 40 mg, oral, Daily polyetheylene glycol, 17 g, oral, Daily senna, 2 tablet, oral, Nightly sodium phosphate, 133 mL, rectal, Once Continuous Infusions:lactated Ringer's, 125 mL/hr, Last Rate: 125 mL/hr (01/20/252234) PRN Meds:PRN medications: bisacodyL, dextrose 50%, dextrose 50%, dextrose, dextrose, glucagon injection, HYDROmorphone, HYDROmorphone, HYDROmorphone, ondansetron (ZOFRAN-ODT) disintegrating tablet OR ondansetron ALLERGIES Allergies Allergen Reactions Sulfa (Sulfonamide Antibiotics) Other Reaction(s): Hives/Urticaria Bactrim [Sulfamethoxazole-Trimethoprim] Morphine Sulfate FAMILY HISTORY Family History Problem Relation Name Age of Onset Arthritis Mother Osteoporosis, scoliosis Colon polyps Mother age < 60 Arthritis Father Ankylosing Spondyitis Colon polyps Father age < 60 Breast cancer Sister age 35 35.00 paternal grandmother, aunt and great aunt (all paternal) Arthritis Paternal Grandmother Breast cancer Paternal Grandmother Breast cancer Aunt pat Breast cancer Mother's side pat niece SOCIAL HISTORY Social History Socioeconomic History Marital status: Spouse name: Not on file Number of children: Not on file Years of education: Not on file Highest education level: Not on file Occupational History Not on file Tobacco Use Smoking status: Never Smokeless tobacco: Never Substance and Sexual Activity Alcohol use: Yes Drug use: No Sexual activity: Not on file Other Topics Concern Not on file Social History Narrative Not on file NEUROLOGICAL EXAMINATION Vital Sign: Visit Vitals BP (!) 141/71 Pulse 67 Temp 36.2 ??C (97.1 ??F) Resp 18 Ht 1.727 m (67.99 ) Wt 120 kg (264 lb 3.2 oz) SpO2 97% BMI 40.18 kg/m?? OB Status Postmenopausal Smoking Status Never BSA 2.3 m?? The exam was done with the assistance of the DAVID BAUM, for Tele communication purpose. General exam: Well developed, well dressed and in no acute distress. Symmetric chest rise, normal respiratory effort and rhythm. No audible wheezing heard. Mental status: Alert and oriented to person, place and time. Patient is speaking in full sentences.Affect/mood appropriate. Cranial Nerves: Visual Acuity: Good BL Extraocular movements intact. Face is symmetric at rest. Sensation is equal to LT on face. Tongue is midline with normal tongue protrusion and lateral movements. 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 Coordination and Gait: Finger to nose testing intact bilaterally with no dysmetria. Deferred gait LABS: [facility] (last 7 days): ABG Anemia Results from last 7 days Lab Units 01/20/25 0614 WBC AUTO K/mcL 6.4 HEMOGLOBIN g/dL 12.5 HEMATOCRIT % 38.1 PLATELETS K/mcL 228 Hematology Results from last 7 days Lab Units 01/20/25 0614 WBC AUTO K/mcL 6.4 HEMOGLOBIN g/dL 12.5 HEMATOCRIT % 38.1 PLATELETS K/mcL 228 LYMPHS PCT AUTO % 17.6 MONO PCT AUTO % 11.8 EOS PCT AUTO % 2.0 Chemistry Results from last 7 days Lab Units 01/21/25 1118 01/20/25 0654 01/20/25 0614 SODIUM mmol/L -- -- 141 POTASSIUM mmol/L -- -- 4.0 CHLORIDE mmol/L -- -- 103 CO2 mmol/L -- -- 34* BUN mg/dL -- -- 6 CREATININE mg/dL -- -- 0.58 POCT GLUCOSE mg/dL 232* < > -- GLUCOSE mg/dL -- -- 113* CALCIUM mg/dL -- -- 8.8 < > = values in this interval not displayed. Results from last 7 days Lab Units 01/18/25 1223 ALK PHOS unit/L 114 BILIRUBIN TOTAL mg/dL 1.0 TOTAL PROTEIN g/dL 7.3 ALT unit/L 29 AST unit/L 30 Cardiac No results found for: TROPONINT , TROPONINI , HSTROPI Coagulation Results from last 7 days Lab Units 01/20/25 0614 INR 1.3 No results found for: PTT Thyroid Function / HGBA1C Lab Results Component Value Date HGBA1C 6.1 12/05/2023 Urine No results found for: COLORUA , CLARITYUA , SPECGRAVUA , PHUA , PROTUA , GLUCOSEUA , KETONESUA , BILIRUBINUA , BLOODUA , UROBILINOGUA , NITRITEUA Micro Culture, Urine Date Value Ref Range Status 01/18/2025 >100,000 CFU/mL Pseudomonas aeruginosa (A) Final Comment: This is an edited result. Previous organism was Gram negative bacilli on 01/20/2025 at 1000 EDT. Assessment: I independently reviewed results of MRI Thoracic spine from 01/20 MRI is limited due to sagittal images only. No prior images to compare. MRI reported as recent left T10-11 laminectomy with postsurgical changes in the posterior paraspinal musculature. Persistent severe spinal canal stenosis with mass effect upon the thoracic cord and increased cord signal at T10-11. Moderate to severe spinal canal stenosis with mass effect upon the cord at T9-10 and T12-L1. 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 Sincerely, Dr. Gomez Neurology attending Department of Neurology The patient received guidance on receiving healthcare through telehealth, including the use of HIPAA privacy -compliant technology for remote communication and its associated privacy risks. The patient was also informed of the limitations of treatment provided through telehealth and that in the event of a lost or failed video connection, the provider may call back or reschedule the visit. Alternatively, the patient may opt for an in-person visit. The patient gave consent for the use of video communication and provided care and confirmed that they were in a quiet and private location to discuss their health freely. The patient understands the visit will be submitted to their insurance and that they are responsible for any copay or deductible charges. Additionally, if the patient is LimitedEnglish Proficient, deaf, or hard of hearing, speech impaired, or has another disability which impairs their ability to communicate, the services of a qualified informal waiter/waitress will be provided during the visit. Patients Location: [facility] Total time: 75 min Other individuals taking part in remote visit: [place] The text in the report has been created with a speech recognition text to software program. Effortshave been made to eliminate errors in this report, however, if there are some errors that remain, please take them in the context in which they are written. * JUAN Barber - 01/18/2025 8:03 PM EDT GENERAL SURGERY CONSULTATION Patient: Denver Love : 1950 (74 y.o. female) Admit Date: 01/18/2025 Location: Dictating Physician: JUAN Barber Attending: Dr. Kory Meier Primary Care Provider: Patsy York MD [facility] Encounter Date & Time: 01/18/25 Service: General Surgery Chief Complaint: Right abdominal pain Source: Patient History of Present Illness: Ms. Denver Love is a 74 y.o. female with past medical history of asthma, HTN, HLD, DM, LBP, neuropathy who recently underwent a discectomy of the thoracic spine with Dr. Millard on 01/14. She states that since discharge she has been having abdominal pain and intermittent vomiting. Last BM was Sunday and has been taking oxycodone without stool softener. Abd pain was worsening epigastric wrapping to her back with chills. Has a hx of kidney stone and known cholelithiasis. Denies any post prandial pain. Admits that she hasn't had much PO intake besides toast and crackers and fluids due to sx. Past Medical History: Allergies: Allergies Allergen Reactions Sulfa (Sulfonamide Antibiotics) Other Reaction(s): Hives/Urticaria Bactrim [Sulfamethoxazole-Trimethoprim] Morphine Sulfate Medications: No current facility-administered medications on file prior to encounter. Current Outpatient Medications on File Prior to Encounter Medication Sig Dispense Refill acetaminophen (TYLENOL 8 HOUR) 650 mg 8 hr tablet Take 1 tablet (650 mg total) by mouth. albuterol HFA (PROAIR HFA ; PROVENTIL HFA ; VENTOLIN HFA) 90 mcg/actuation inhaler Inhale 2 puffs by mouth. amLODIPine (NORVASC) 10 mg tablet TAKE 1 TABLET BY MOUTH EVERY DAY 90 tablet 0 aspirin 81 mg EC tablet Take 1 tablet (81 mg total) by mouth 1 (one) time each day. calcium carbonate-vitamin D (Calcium with Vitamin D) 600 mg-10 mcg (400 unit) per tablet Take 1 tablet by mouth 2 (two) times a day. celecoxib (CeleBREX) 200 mg capsule TAKE 1 CAPSULE BY MOUTH TWICE A DAY 180 capsule 1 cetirizine (ZyrTEC) 10 mg capsule Take 1 capsule (10 mg total) by mouth 1 (one) time each day. cholecalciferol (VITAMIN D-3) 50 mcg (2,000 unit) tablet Take 1 tablet (2,000 Units total) by mouth1 (one) time each day. fluconazole (DIFLUCAN) 150 mg tablet Take one tablet every 3 days for 3 doses fluticasone propion-salmeteroL (Advair HFA) 230-21 mcg/actuation inhaler Inhale 2 puffs by mouth 2 (two) times a day. Rinse mouth with water after use to reduce aftertaste and incidence of candidiasis. Do not swallow. 12 g 6 furosemide (LASIX) 40 mg tablet Take 1 tablet (40 mg total) by mouth 2 (two) times a day. gabapentin (NEURONTIN) 300 mg capsule Take 1 capsule (300 mg total) by mouth. lisinopril (PRINIVIL,ZESTRIL) 40 mg tablet Take 1 tablet (40 mg total) by mouth 1 (one) time each day. 90 tablet 1 metFORMIN XR (GLUCOPHAGE-XR) 500 mg 24 hr tablet Take 1 tablet (500 mg total) by mouth 1 (one) timeeach day with breakfast. 90 tablet 1 nitroglycerin (NITROSTAT) 0.[address] 1 tablet (0.4 mg total) under the tongue every 5 (five) minutes if needed. oxyBUTYnin XL (DITROPAN-XL) 10 mg 24 hr tablet Take 1 tablet (10 mg total) by mouth 1 (one) time each day. oxyCODONE (ROXICODONE) 5 mg immediate release tablet rosuvastatin (CRESTOR) 40 mg tablet TAKE 1 TABLET BY MOUTH EVERY DAY 90 tablet 1 triamcinolone (NASACORT) 55 mcg nasal inhaler Administer 1 spray into affected nostril(s). zinc oxide 20 % ointment Apply thick layer to affected area (right buttock) twice daily. Medical History: Past Medical History: Diagnosis Date Anxiety 06/21/2021 DX:Anxiety Asthma DX:Asthma Back pain 11/24/2010 DX:Back pain; COMMENT: Diffused spondylosis L, C spine Esophageal reflux DX:Esophageal reflux Essential hypertension, benign 03/15/2006 DX:Essential hypertension, benign Family history of colonic polyps 12/09/2007 DX:Family history of colonic polyps; COMMENT: Mother and father with diagnosis of colonic polyps atage younger than 60. Negative colonoscopy 12/09/2007, no colon cancer screening needed for 5 years. Morbid obesity with BMI of 40.0-44.9, adult ([facility]) 10/23/2013 DX:Morbid obesity with BMI of 40.0-44.9, adult ([facility]); COMMENT: BMI 40.26 0n 08/28/13. Unspecified disorder of lipoid metabolism 04/13/2007 DX:Unspecified disorder of lipoid metabolism Surgical History: Past Surgical History: Procedure Laterality Date ANKLE SURGERY Left 10/29/2012 PROCEDURE: HISTORICAL ANKLE SURGERY BACK SURGERY 1982, 2010 PROCEDURE: HISTORICAL BACK SURGERY COLONOSCOPY 12/09/2007 PROCEDURE: HISTORICAL COLONOSCOPY; COMMENT: Negative/diverticulosis COLONOSCOPY 01/05/2015 PROCEDURE: HISTORICAL COLONOSCOPY; COMMENT: 5 mm cecal polyp: Tubular adenoma. COLONOSCOPY 03/03/2021 PROCEDURE: HISTORICAL COLONOSCOPY; COMMENT: Sigmoid colon polyp, unable to visualize cecum. Pathology: tubular adenoma. HERNIA REPAIR PROCEDURE: REPAIR UMBILICAL HERNIA KIDNEY STONE SURGERY PROCEDURE: NM NEPHROLITHOTOMY REMOVAL CALCULUS LEG SURGERY Left PROCEDURE: HISTORICAL LEG SURGERY; COMMENT: Tib/fib fx, mult surgery, most recent 05/02/2018 TONSILLECTOMY PROCEDURE: HISTORICAL TONSILLECTOMY Social History: Social History Socioeconomic History Marital status: Spouse name: Not on file Number of children: Not on file Years of education: Not on file Highest education level: Not on file Occupational History Not on file Tobacco Use Smoking status: Never Smokeless tobacco: Never Substance and Sexual Activity Alcohol use: Yes Drug use: No Sexual activity: Not on file Other Topics Concern Not on file Social History Narrative Not on file Family History: Family History Problem Relation Name Age of Onset Arthritis Mother Osteoporosis, scoliosis Colon polyps Mother age < 60 Arthritis Father Ankylosing Spondyitis Colon polyps Father age < 60 Breast cancer Sister age 35 35.00 paternal grandmother, aunt and great aunt (all paternal) Arthritis Paternal Grandmother Breast cancer Paternal Grandmother Breast cancer Aunt pat Breast cancer Mother's side pat niece Review of Systems: Review of Systems GENERAL: No fevers, chills, malaise, fatigue, night sweats, or significant unintentional weight loss. HEENT: No changes in hearing or vision, nasal problems, or scleral icterus. NECK: No goiter or significant neck swelling. RESPIRATORY: No cough, wheezing, shortness of breath or pleuritic chest pain. CARDIOVASCULAR: No chest pain, leg swelling or palpitations. BREAST: No lumps, nipple discharge, pain or change in skin. GASTROINTESTINAL: No abdominal discomfort, nausea, vomiting, blood in stools or black stools, or change in bowel habits. GENITOURINARY: No dysuria, frequency, or incontinence. MUSCULOSKELETAL: No joint pain or swelling, back pain, or muscle pain. SKIN: No lesions, rash, jaundice, or itching. NEURO: No weakness or numbness. Physical Exam: Temp: 36.9 ??C (98.4 ??F) (01/18 1730) Heart Rate: 74 (01/18 1730) Resp: 20 (01/18 1730) BP: 132/75 (01/18 1730) BMI: Body mass index is 42.27 kg/m??. GENERAL APPEARANCE: Pleasant, awake, alert, and in no acute distress. Appears stated age. HEENT: Normocephalic, atraumatic. EOMI, sclera anicteric. Oropharynx with moist, pink mucous membranes. THORACIC: nonlabored breathing, CTA bilaterally without rhonchi, rales or wheezing CARDIOVASCULAR:Regular rate and rhythm, no audible murmur ABDOMEN Active bowel sounds, abdomen is soft, nondistended, moderate tenderness in the RUQ, negative murphys, no guarding or rebound or peritoneal signs MUSCULOSKELETAL: no gross deformities, no bilateral lower extremity edema NEUROLOGIC: alert/awake/oriented x3, grossly no abnormalities PSYCHIATRIC: Normal mood and affect. Results: Laboratories: Lab Results Component Value Date WBC 7.5 01/18/2025 HGB 13.1 01/18/2025 HCT 39.1 01/18/2025 MCV 93.3 01/18/2025 PLT 232 01/18/2025 Lab Results Component Value Date GLUCOSE 115 (H) 01/18/2025 CALCIUM 9.9 01/18/2025 NA 139 01/18/2025 K 3.9 01/18/2025 CO2 30 01/18/2025 CL 101 01/18/2025 BUN 18 01/18/2025 CREATININE 0.59 01/18/2025 Lab Results Component Value Date ALBUMIN 3.9 01/18/2025 ALKPHOS 114 01/18/2025 ALT 29 01/18/2025 AST 30 01/18/2025 BILITOT 1.0 01/18/2025 LIPASE 22 01/18/2025 Imaging Studies: US Abdomen Limited Narrative: History: Distended gallbladder noted on recent abdominal CT performed for right-sided abdominal pain. Comparison: CT abdomen/pelvis from earlier [...] view of the right kidney is remarkable fora nonobstructing calculus at the lower pole. The smaller calculus noted on the CT is not visualized. The pancreas is completely obscured by bowel gas shadowing and cannot be evaluated. Impression: Impression: 1. Distended gallbladder with small amount of mobile sludge and no specific findings of acute cholecystitis. 2. [place] [employer] [place] ([id number]) -------- FINAL REPORT -------- Dictated By: Ilda Baez Dictated Date: 01/18/2025 15:49 ET Assigned Physician: Ilda Baez Reviewed and Electronically Signed By: Ilda Baez Signed Date: 01/18/2025 15:52 ET Workstation ID: [id number] Transcribed By: Self Edit Transcribed Date: 01/18/2025 15:[address] Abdomen Pelvis wo Contrast Narrative: History: Right flank pain for several days. Comparison: 07/30/20 Technique: Helical volumetric imaging of the abdomen and pelvis was performed without intravenous or oral contrast (stone kee protocol). DLP: 1124.25 mGy/cm [employer] VCT Iterative reconstruction technique Findings: The kidneys [...] and fusion in the lower lumbar spine areagain noted, with intact hardware. Impression: Impression: 1. Abnormally distended gallbladder with suspected cholelithiasis. No specific findings of acute cholecystitis are seen. Consider right upper quadrant ultrasound if clinically appropriate. 2. Nonobstructing right renal calculi. 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 Osteoarthritis of carpometacarpal (CMC) joint of both thumbs Primary osteoarthritis of right knee Snoring Shortness of breath on exertion Umbilical hernia DDD (degenerative disc disease), lumbar Cutaneous candidiasis COVID-19 virus detected Carpal tunnel syndrome, bilateral Anxiety Age related osteoporosis Abnormal cardiovascular function study RUQ abdominal pain CAD S/P percutaneous coronary angioplasty CTS (carpal tunnel syndrome) Biliary dyskinesia Morbid obesity with BMI of 40.0-44.9, adult (CMS/HCC) Family history of breast cancer Family history of colonic polyps Pain in abdomen on palpation Assessment/Plan: 74 y.o. female who is s/p laminectomy of the thoracic spine with Dr. Millard on 01/14. Since then has been having abdominal pain nausea vomiting and no bowel function. Labs and imaging are not concerning for acute cholecystitis. There is stool in the colon and she has not had a bowel movement in 5 days and has been taking narcotics. Start patient on a bowel regimen. If not improvement with regimen then can consider further work up with HIDA scan with medical admission as no surgical indication at this time. Time Attestation: I spent a total of 30 minutes independently performing a chart review (reviewing laboratories, imaging studies, procedure reports, provider/specialist notes), obtaining history and physical exam, discussing care with the on-call surgeon (Dr. Kory Meier), formulating a plan, coordinating care with all providers/specialists involved in the patient's care. documented in this encounter Plan of Treatment Upcoming Encounters Date Type Department Care Team (Late st Contact Info) Description 02/03/2025 1:00 PM EDT Office Visit General Surgery - [place] [address] [facility] [address] [place] [address] Ildefonso Ko MD [address] [facility] [address] [place] [address] 03/02/2025 1:00 PM EDT Office Visit Pulmonolgy [facility] [address] [place] [id number] Latrice Patino NP [address] [place] [address] Scheduled Orders Name Type Priority Associated Diagnoses Orde r Schedule ECG 12 lead - Procedural (No Charge) ECG Routine Once for 1 Occur rences starting 01/19/2025 until 01/19/2025 documented as of this encounter Procedures Procedure [...] AUTO DIFFERENTIAL Routine 01/24/2025 6:17 AM EDT CBC AND DIFFERENTIAL Routine 01/24/2025 6:17 AM EDT C-REACTIVE PROTEIN Routine 01/24/2025 6:17 AM EDT MAGNESIUM Routine 01/24/2025 6:17 AM EDT BASIC METABOLIC [...] AUTO DIFFERENTIAL Routine 01/22/2025 6:38 AM EDT CBC AND DIFFERENTIAL Routine 01/22/2025 6:38 AM EDT C-REACTIVE PROTEIN Routine 01/22/2025 6:38 AM EDT BASIC METABOLIC [...] AUTO DIFFERENTIAL Routine 01/20/2025 6:14 AM EDT ACTIVATED PARTIAL THROMBOPLASTIN TIME Routine 01/20/2025 6:14 AM EDT PROTHROMBIN TIME WITH INR Routine 01/20/2025 6:14 AM EDT CBC AND DIFFERENTIAL Routine 01/20/2025 6:14 AM EDT TYPE AND SCREEN Routine 01/20/2025 6:14 AM EDT PHOSPHORUS Routine 01/20/2025 6:14 AM EDT MAGNESIUM Routine 01/20/2025 6:14 AM EDT BASIC METABOLIC PANEL Routine 01/20/2025 6:14 AM EDT POCT GLUCOSE BLOOD Routine 01/19/2025 7:44 PM EDT POCT GLUCOSE BLOOD Routine 01/19/2025 4:54 PM EDT NM HEPATOBILIARY SYSTEM IMAGING Routine 01/19/2025 3:38 PM EDT POCT GLUCOSE BLOOD Routine 01/19/2025 11:14 AM EDT POCT GLUCOSE BLOOD Routine 01/19/2025 7:40 AM EDT COMPLETE BLOOD COUNT Routine 01/19/2025 6:46 AM EDT BASIC METABOLIC PANEL Routine 01/19/2025 6:46 AM EDT URINALYSIS WITH REFLEX MICROSCOPIC AND CULTURE STAT 01/18/2025 4:50 PM EDT RAMÍREZ URINE CULTURE TUBE STAT 01/18/2025 4:50 PM EDT URINALYSIS WITH REFLEX MICROSCOPIC AND CULTURE STAT 01/18/2025 4:50 PM EDT CULTURE URINE STAT 01/18/2025 4:50 PM EDT US ABDOMEN LIMITED STAT 01/18/2025 3:[address] ABDOMEN PELVIS WO CONTRAST STAT 01/18/2025 2:34 PM EDT CBC WITH AUTO DIFFERENTIAL STAT 01/18/2025 12:23 PM EDT CBC AND DIFFERENTIAL STAT 01/18/2025 12:23 PM EDT LIPASE Add-On 01/18/2025 12:23 PM EDT COMPREHENSIVE METABOLIC PANEL STAT 01/18/2025 12:23 PM EDT CHOLECYSTECTOMY LAPAROSCOPIC Biliary dyskinesia Case Notes please add on for Dr. Perdomo 01/20/25 - laparoscopic cholecystectomy documented in this encounter Results * (ABNORMAL) POCT Glucose, blood (01/25/2025 11:09 AM EDT) Glucose POCT 152(H) 70 - 100 mg/dL 01/25/2025 11:10 AM EDT [facility] Blood Capillary blood specimen / Unknown 01/25/2025 11:09 AM EDT 01/25/2025 11:11 AM EDT Scott Wolfe MD LAB POINT OF C ARE TEST DOCKED DEVICE UNSOLICITED RESULTS Final Result [facility] [address] [place] [address], [place] [phone] * (ABNORMAL) POCT Glucose, blood (01/25/2025 7:39 AM EDT) Glucose POCT 110(H) 70 - 100 mg/dL 01/25/2025 8:06 AM EDT [facility] Blood Capillary blood specimen / Unknown 01/25/2025 7:39 AM EDT 01/25/2025 8:07 AM EDT us Scott Wolfe MD LAB POINT OF ARE TEST DOCKED DEVICE UNSOLICITED RESULTS Final Result [facility] [address] [place] [address], [place] [phone] * (ABNORMAL) POCT Glucose, blood (01/24/2025 8:57 PM EDT) Glucose POCT 159(H) 70 - 100 mg/dL 01/24/2025 8:57 PM EDT [facility] Blood Capillary blood specimen / Unknown 01/24/2025 8:57 PM EDT 01/24/2025 8:58 PM EDT us Scott Wolfe MD LAB POINT OF ARE TEST DOCKED DEVICE UNSOLICITED RESULTS Final Result Performing Organization Address [facility]/ZIP Co de Phone Number [facility] [address] [place] [address], [place] [phone] * (ABNORMAL) POCT Glucose, blood (01/24/2025 4:37 PM EDT) Glucose POCT 124(H) 70 - 100 mg/dL 01/24/2025 4:39 PM EDT [facility] Blood Capillary blood specimen / Unknown 01/24/2025 4:37 PM EDT 01/24/2025 4:40 PM EDT us Scott Wolfe MD LAB POINT OF ARE TEST DOCKED DEVICE UNSOLICITED RESULTS Final Result Performing Organization Address [facility] Co de Phone Number [facility] [address] [place] [address], [place] [phone] * (ABNORMAL) POCT Glucose, blood (01/24/2025 11:11 AM EDT) Glucose POCT 116(H) 70 - 100 mg/dL 01/24/2025 11:11 AM EDT [facility] Blood Capillary blood specimen / Unknown 01/24/2025 11:11 AM EDT 01/24/2025 11:12 AM EDT us Scott Wolfe MD LAB POINT OF ARE TEST DOCKED DEVICE UNSOLICITED RESULTS Final Result Performing Organization Address City/[facility]/ZIP Co de Phone Number [facility] [address] [place] [address], [place] [phone] * (ABNORMAL) POCT Glucose, blood (01/24/2025 8:26 AM EDT) Pathologist [facility] Glucose POCT 150(H) 70 - 100 mg/dL 01/24/2025 8:26 AM EDT [facility] Blood Capillary blood specimen / Unknown 01/24/2025 8:26 AM EDT 01/24/2025 8:28 AM EDT us Scott Wolfe MD LAB POINT OF C ARE TEST DOCKED DEVICE UNSOLICITED RESULTS Final Result Performing Organization Address [facility]/ZIP Co de Phone Number [facility] [address] [place] [address], [place] [phone] * (ABNORMAL) CBC auto differential (01/24/2025 6:17 AM EDT) WBC 8.7 4.8 - 10.8 K/mcL LAB HEMETOLOGY METHOD 01/24/2025 7:35 AM EDT [facility] RBC 4.40 3.80 - 4.80 M/mcL LAB HEMETOLOGY METHOD 01/24/2025 7:35 AM EDT [facility] Hemoglobin 13.6 11.5 - 16.0 g/dL LAB HEMETOLOGY METHOD 01/24/2025 7:35 AM EDT [facility] Hematocrit 41.3 35.0 - 47.0 % LAB HEMETOLOGY METHOD 01/24/2025 7:35 AM [facility] MCV 93.4 79.0 - 98.0 FL LAB HEMETOLOGY METHOD 01/24/2025 7:35 AM [facility] MCH 30.8 27.0 - 32.0 pcg LAB HEMETOLOGY METHOD 01/24/2025 7:35 AM [facility] MCHC 32.9 32.0 - 37.0 g/dL LAB HEMETOLOGY METHOD 01/24/2025 7:35 AM [facility] RDW 12.6 11.0 - 15.0 % LAB HEMETOLOGY METHOD 01/24/2025 7:35 AM [facility] Platelets 261 130 - 400 K/mcL LAB HEMETOLOGY METHOD 01/24/2025 7:35 AM [facility] MPV 10.9 7.0 - 11.0 FL LAB HEMETOLOGY METHOD 01/24/2025 7:35 AM [facility] NRBC 0.0 <1.0 % LAB HEMETOLOGY METHOD 01/24/2025 7:35 AM [facility] NRBC Absolute 0.00 <0.10 K/mcL LAB HEMETOLOGY METHOD 01/24/2025 7:35 AM [facility] Neutrophils Relative 78.8 % LAB HEMETOLOGY METHOD 01/24/2025 7:35 AM [facility] Lymphocytes Relative 9.6 % LAB HEMETOLOGY METHOD 01/24/2025 7:35 AM [facility] Monocytes Relative 10.4 % LAB HEMETOLOGY METHOD 01/24/2025 7:35 AM [facility] Eosinophils Relative 0.3 % LAB HEMETOLOGY METHOD 01/24/2025 7:35 AM EDT [facility] Basophils Relative 0.0 % LAB HEMETOLOGY METHOD 01/24/2025 7:35 AM EDT [facility] Immature Granulocytes Relative 0.9 % LAB HEMETOLOGY METHOD 01/24/2025 7:35 AM EDT [facility] Neutrophils Absolute 6.84 1.50 - 7.00 K/mcL LAB HEMETOLOGY METHOD 01/24/2025 7:35 AM EDT [facility] Lymphocytes Absolute 0.83(L) 1.00 - 5.00 K/mcL LAB HEMETOLOGY METHOD 01/24/2025 7:35 AM EDT [facility] Monocytes Absolute 0.90 0.20 - 1.00 K/mcL LAB HEMETOLOGY METHOD 01/24/2025 7:35 AM EDT [facility] Eosinophils Absolute 0.03 0.00 - 0.50 K/mcL LAB HEMETOLOGY METHOD 01/24/2025 7:35 AM EDT [facility] Basophils Absolute 0.00 0.00 - 0.20 K/mcL LAB HEMETOLOGY METHOD 01/24/2025 7:35 AM EDT [facility] Immature Granulocytes Absolute 0.08(H) 0.00 - 0.03 K/mcL LAB HEMETOLOGY METHOD 01/24/2025 7:35 AM EDT [facility] Blood Venous blood specimen / Unknown Venipuncture / Unknown 01/24/2025 6:17 AM EDT 01/24/2025 7:03 AM EDT us Scott Wolfe MD LAB BLOOD ORDERABLES F inal Result [facility] [address] [place] [address], * C-reactive protein (01/24/2025 6:17 AM EDT) [facility] C-Reactive Protein <0.29 <=0.50 mg/dL LAB CHEMISTRY METHOD 01/24/2025 8:08 AM EDT [facility] Blood Venous blood specimen / Unknown Venipuncture / Unknown 01/24/2025 6:17 AM EDT 01/24/2025 7:02 AM EDT us Scott Wolfe MD LAB BLOOD ORDERABLES F inal Result Performing Organization Address City/[facility]/ZIP Co de Phone Number [facility] [address] [place] [address], [place] [phone] * Magnesium (01/24/2025 6:17 AM EDT) [facility] Magnesium 2.3 1.9 - 2.6 mg/dL LAB CHEMISTRY METHOD 01/24/2025 7:59 AM EDT [facility] Blood Venous blood specimen / Unknown Venipuncture / Unknown 01/24/2025 6:17 AM EDT 01/24/2025 7:02 AM EDT us Scott Wolfe MD LAB BLOOD ORDERABLES F inal Result Performing Organization Address City/[facility]/ZIP Co de Phone Number [facility] [address] [place] [address], [place] [phone] * (ABNORMAL) Basic metabolic panel (01/24/2025 6:17 AM EDT) [facility] Sodium 138 133 - 145 mmol/L LAB CHEMISTRY METHOD 01/24/2025 8:08 AM EDT [facility] Potassium 3.9 3.5 - 5.5 mmol/L LAB CHEMISTRY METHOD 01/24/2025 8:08 AM EDT [facility] Chloride 100 96 - 110 mmol/L LAB CHEMISTRY METHOD 01/24/2025 8:08 AM [facility] CO2 33(H) 21 - 32 mmol/L LAB CHEMISTRY METHOD 01/24/2025 8:08 AM [facility] Anion Gap 5 3 - 11 LAB CHEMISTRY METHOD 01/24/2025 8:08 AM [facility] Glucose 145(H) 70 - 100 mg/dL LAB CHEMISTRY METHOD 01/24/2025 8:08 AM [facility] BUN 22 5 - 25 mg/dL LAB CHEMISTRY METHOD 01/24/2025 8:08 AM [facility] Creatinine 0.64 0.50 - 1.10 mg/dL LAB CHEMISTRY METHOD 01/24/2025 8:08 AM [facility] eGFR 94 >=60 mL/min/1. 73m2 LAB CHEMISTRY METHOD 01/24/2025 8:08 AM [facility] Comment:Calculation based on the??Chronic Kidney Disease Epidemiology Collaboration (CKD-EPI) equation refit??without adjustment for race. BUN/Creatinine Ratio 34.4 LAB CHEMISTRY METHOD 01/24/2025 8:08 AM [facility] Calcium 9.1 8.5 - 10.5 mg/dL LAB CHEMISTRY METHOD 01/24/2025 8:08 AM [facility] Blood Venous blood specimen / Unknown Venipuncture / Unknown 01/24/2025 6:17 AM EDT 01/24/2025 7:02 AM EDT us Scott Wolfe MD LAB BLOOD ORDERABLES F inal Result [facility] [address] [place] [address], * (ABNORMAL) POCT Glucose, blood (01/23/2025 8:31 PM EDT) Glucose POCT 153(H) 70 - 100 mg/dL 01/23/2025 8:32 PM EDT [facility] Blood Capillary blood specimen / Unknown 01/23/2025 8:31 PM EDT 01/23/2025 8:33 PM EDT us Scott Wolfe MD LAB POINT OF ARE TEST DOCKED DEVICE UNSOLICITED RESULTS Final Result Performing Organization Address [facility]/ZIP Co de Phone Number [facility] [address] [place] [address], [place] [phone] * (ABNORMAL) POCT Glucose, blood (01/23/2025 4:22 PM EDT) [facility] Glucose POCT 146(H) 70 - 100 mg/dL 01/23/2025 4:22 PM EDT [facility] Blood Capillary blood specimen / Unknown 01/23/2025 4:22 PM EDT 01/23/2025 4:23 PM EDT us Scott Wolfe MD LAB POINT OF ARE TEST DOCKED DEVICE UNSOLICITED RESULTS Final Result Performing Organization Address [facility] de Phone Number [facility] [address] [place] [address], [place] [phone] * ECG 12 lead (01/23/2025 2:07 PM EDT) Ventricular Rate ECG 63 BPM GEMUSE Atrial Rate 63 BPM GEMUSE P-R Interval 156 ms GEMUSE QRS Duration 156 ms GEMUSE Q-T Interval 464 ms GEMUSE QTc 474 ms GEMUSE P Wave [place] 42 degrees GEMUSE R [place] -39 degrees GEMUSE T [place] -21 degrees GEMUSE ECG Interpretation Normal sinus rhythm Left axis deviation Right bundle branch block Abnormal ECG When compared with ECG of 09-AUG-2023 13:03, T wave inversion now evident in Anterior leads Confirmed by MD Frank, Sea ([id number]) on 01/24/2025 8:50:02 AM GEMUSE 01/23/2025 2:07 PM EDT 01/24/2025 8:50 AM EDT us Scott Wolfe MD ECG ORDERABLES Final Result G[facility] * (ABNORMAL) POCT Glucose, blood (01/23/2025 11:01 AM EDT) Glucose POCT 139(H) 70 - 100 mg/dL 01/23/2025 11:01 AM EDT [facility] Blood Capillary blood specimen / Unknown 01/23/2025 11:01 AM EDT 01/23/2025 11:02 AM EDT us Scott Wolfe MD LAB POINT OF C ARE TEST DOCKED DEVICE UNSOLICITED RESULTS Final Result Performing Organization Address [facility] Co de Phone Number [facility] [address] [place] [address], [place] [phone] * (ABNORMAL) POCT Glucose, blood (01/23/2025 7:41 AM EDT) Glucose POCT 176(H) 70 - 100 mg/dL 01/23/2025 7:42 AM EDT [facility] Blood Capillary blood specimen / Unknown 01/23/2025 7:41 AM EDT 01/23/2025 7:43 AM EDT us Scott Wolfe MD LAB POINT OF C ARE TEST DOCKED DEVICE UNSOLICITED RESULTS Final Result Performing Organization Address City/[facility]/ZIP Co de Phone Number [facility] [address] [place] [address], [place] [phone] * (ABNORMAL) POCT Glucose, blood (01/22/2025 8:09 PM EDT) Glucose POCT 163(H) 70 - 100 mg/dL 01/22/2025 8:10 PM EDT [facility] Blood Capillary blood specimen / Unknown 01/22/2025 8:09 PM EDT 01/22/2025 8:11 PM EDT us Scott Wolfe MD LAB POINT [facility] ARE TEST DOCKED DEVICE UNSOLICITED RESULTS Final Result [facility] [address] [place] [address], [place] [phone] * (ABNORMAL) POCT Glucose, blood (01/22/2025 4:09 PM EDT) Glucose POCT 137(H) 70 - 100 mg/dL 01/22/2025 4:12 PM EDT [facility] Blood Capillary blood specimen / Unknown 01/22/2025 4:09 PM EDT 01/22/2025 4:13 PM EDT us Scott Wolfe MD LAB POINT [facility] ARE TEST DOCKED DEVICE UNSOLICITED RESULTS Final Result Performing Organization Address City/[facility]/ZIP Co de Phone Number [facility] [address] [place] [address], [place] [phone] * (ABNORMAL) POCT Glucose, blood (01/22/2025 11:10 AM EDT) Glucose POCT 133(H) 70 - 100 mg/dL 01/22/2025 11:12 AM EDT [facility] Blood Capillary blood specimen / Unknown 01/22/2025 11:10 AM EDT 01/22/2025 11:13 AM EDT us Scott Wolfe MD LAB POINT OF C ARE TEST DOCKED DEVICE UNSOLICITED RESULTS Final Result [facility] [address] [place] [address], [place] [phone] * (ABNORMAL) POCT Glucose, blood (01/22/2025 7:46 AM EDT) Pathologist [facility] Glucose POCT 175(H) 70 - 100 mg/dL 01/22/2025 7:47 AM EDT [facility] Blood Capillary blood specimen / Unknown 01/22/2025 7:46 AM EDT 01/22/2025 7:48 AM EDT us Scott Wolfe MD LAB POINT OF C ARE TEST DOCKED DEVICE UNSOLICITED RESULTS Final Result Performing Organization Address [facility]/ZIP Co de Phone Number [facility] [address] [place] [address], [place] [phone] * (ABNORMAL) CBC auto differential (01/22/2025 6:38 AM EDT) [facility] WBC 10.1 4.8 - 10.8 K/mcL LAB HEMETOLOGY METHOD 01/22/2025 7:56 AM EDT [facility] RBC 4.30 3.80 - 4.80 M/mcL LAB HEMETOLOGY METHOD 01/22/2025 7:56 AM EDT [facility] Hemoglobin 13.3 11.5 - 16.0 g/dL LAB HEMETOLOGY METHOD 01/22/2025 7:56 AM EDT [facility] Hematocrit 40.3 35.0 - 47.0 % LAB HEMETOLOGY METHOD 01/22/2025 7:56 AM EDT [facility] MCV 93.9 79.0 - 98.0 FL LAB HEMETOLOGY METHOD 01/22/2025 7:56 AM EDT [facility] MCH 31.0 27.0 - 32.0 pcg LAB HEMETOLOGY METHOD 01/22/2025 7:56 AM [facility] MCHC 33.0 32.0 - 37.0 g/dL LAB HEMETOLOGY METHOD 01/22/2025 7:56 AM [facility] RDW 12.7 11.0 - 15.0 % LAB HEMETOLOGY METHOD 01/22/2025 7:56 AM [facility] Platelets 267 130 - 400 K/mcL LAB HEMETOLOGY METHOD 01/22/2025 7:56 AM [facility] MPV 11.0 7.0 - 11.0 FL LAB HEMETOLOGY METHOD 01/22/2025 7:56 AM [facility] NRBC 0.0 <1.0 % LAB HEMETOLOGY METHOD 01/22/2025 7:56 AM [facility] NRBC Absolute 0.00 <0.10 K/mcL LAB HEMETOLOGY METHOD 01/22/2025 7:56 AM [facility] Neutrophils Relative 89.9 % LAB HEMETOLOGY METHOD 01/22/2025 7:56 AM [facility] Lymphocytes Relative 6.1 % LAB HEMETOLOGY METHOD 01/22/2025 7:56 AM [facility] Monocytes Relative 3.2 % LAB HEMETOLOGY METHOD 01/22/2025 7:56 AM [facility] Eosinophils Relative 0.1 % LAB HEMETOLOGY METHOD 01/22/2025 7:56 AM [facility] Basophils Relative 0.0 % LAB HEMETOLOGY METHOD 01/22/2025 7:56 AM [facility] Immature Granulocytes Relative 0.7 % LAB HEMETOLOGY METHOD 01/22/2025 7:56 AM [facility] Neutrophils Absolute 9.08(H) 1.50 - 7.00 K/[facility] LAB HEMETOLOGY METHOD 01/22/2025 7:56 AM EDT [facility] Lymphocytes Absolute 0.62(L) 1.00 - 5.00 K/mcL LAB HEMETOLOGY METHOD 01/22/2025 7:56 AM EDT [facility] Monocytes Absolute 0.32 0.20 - 1.00 K/[facility] LAB HEMETOLOGY METHOD 01/22/2025 7:56 AM EDT [facility] Eosinophils Absolute 0.01 0.00 - 0.50 K/[facility] LAB HEMETOLOGY METHOD 01/22/2025 7:56 AM EDT [facility] Basophils Absolute 0.00 0.00 - 0.20 K/mcL LAB HEMETOLOGY METHOD 01/22/2025 7:56 AM EDT [facility] Immature Granulocytes Absolute 0.07(H) 0.00 - 0.03 K/[facility] LAB HEMETOLOGY METHOD 01/22/2025 7:56 AM EDT [facility] Blood Venous blood specimen / Unknown Venipuncture / Unknown 01/22/2025 6:38 AM EDT 01/22/2025 7:09 AM EDT Scott Wolfe MD LAB BLOOD ORDERABLES F inal Result [facility] [address] [place] [address], * (ABNORMAL) C-reactive protein (01/22/2025 6:38 AM EDT) C-Reactive Protein 0.72(H) <=0.50 mg/dL LAB CHEMISTRY METHOD 01/22/2025 9:00 AM EDT [facility] Blood Venous blood specimen / Unknown Venipuncture / Unknown 01/22/2025 6:38 AM EDT 01/22/2025 7:08 AM EDT us Scott Wofle MD LAB BLOOD ORDERABLES F inal Result [facility] [address] [place] [address], * (ABNORMAL) Basic metabolic panel (01/22/2025 6:38 AM EDT) Sodium 140 133 - 145 mmol/L LAB CHEMISTRY METHOD 01/22/2025 9:00 AM [facility] Potassium 4.4 3.5 - 5.5 mmol/L LAB CHEMISTRY METHOD 01/22/2025 9:00 AM [facility] Chloride 101 96 - 110 mmol/L LAB CHEMISTRY METHOD 01/22/2025 9:00 AM [facility] CO2 33(H) 21 - 32 mmol/L LAB CHEMISTRY METHOD 01/22/2025 9:00 AM [facility] Anion Gap 6 3 - 11 LAB CHEMISTRY METHOD 01/22/2025 9:00 AM [facility] Glucose 166(H) 70 - 100 mg/dL LAB CHEMISTRY METHOD 01/22/2025 9:00 AM [facility] BUN 9 5 - 25 mg/dL LAB CHEMISTRY METHOD 01/22/2025 9:00 AM [facility] Creatinine 0.52 0.50 - 1.10 mg/dL LAB CHEMISTRY METHOD 01/22/2025 9:00 AM [facility] eGFR 99 >=60 mL/min/1. 73m2 LAB CHEMISTRY METHOD 01/22/2025 9:00 AM [facility] Comment:Calculation based on the??Chronic Kidney Disease Epidemiology Collaboration (CKD-EPI) equation refit??without adjustment for race. BUN/Creatinine Ratio 17.3 LAB CHEMISTRY METHOD 01/22/2025 9:00 AM EDT [facility] Calcium 9.5 8.5 - 10.5 mg/dL LAB CHEMISTRY METHOD 01/22/2025 9:00 AM EDT [facility] Blood Venous blood specimen / Unknown Venipuncture / Unknown 01/22/2025 6:38 AM EDT 01/22/2025 7:08 AM EDT us Scott Wolfe MD LAB BLOOD ORDERABLES F inal Result Performing Organization Address [facility]/ZIP Co de Phone Number [facility] [address] [place] [address], [place] [phone] * (ABNORMAL) POCT Glucose, blood (01/21/2025 8:21 PM EDT) [facility] Signature Glucose POCT 171(H) 70 - 100 mg/dL 01/21/2025 8:22 PM EDT [facility] Blood Capillary blood specimen / Unknown 01/21/2025 8:21 PM EDT 01/21/2025 8:23 PM EDT us Scott Wolfe MD LAB POINT OF C ARE TEST DOCKED DEVICE UNSOLICITED RESULTS Final Result Performing Organization Address [facility] Co de Phone Number [facility] [address] [place] [address], [place] [phone] * MR Lumbar Spine wo and w [...] MD on 01/21/2025 18:57:31 Rose Mary MARTINEZ [facility] MRI PROCEDURES [place] Result * MR Thoracic Spine wo and [...] IMG MRI PROCEDURES Fin al Result * (ABNORMAL) POCT Glucose, blood (01/21/2025 4:10 PM EDT) Glucose POCT 184(H) 70 - 100 mg/dL 01/21/2025 4:11 PM EDT [facility] Blood Capillary blood specimen / Unknown 01/21/2025 4:10 PM EDT 01/21/2025 4:12 PM EDT us Scott Wolfe MD LAB POINT OF C ARE TEST DOCKED DEVICE UNSOLICITED RESULTS Final Result [facility]) [facility] [address] [place] [address], [place] [phone] * (ABNORMAL) POCT Glucose, blood (01/21/2025 11:18 AM EDT) Glucose POCT 232(H) 70 - 100 mg/dL 01/21/2025 11:19 AM EDT [facility] Blood Capillary blood specimen / Unknown 01/21/2025 11:18 AM EDT 01/21/2025 11:20 AM EDT us Scott Wolfe MD LAB POINT OF ARE TEST DOCKED DEVICE UNSOLICITED RESULTS Final Result [facility] [address] [place] [address], [place] [phone] * (ABNORMAL) POCT Glucose, blood (01/21/2025 8:32 AM EDT) Glucose POCT 159(H) 70 - 100 mg/dL 01/21/2025 8:32 AM EDT [facility] Blood Capillary blood specimen / Unknown 01/21/2025 8:32 AM EDT 01/21/2025 8:33 AM EDT us Scott Wolfe MD LAB POINT OF C ARE TEST DOCKED DEVICE UNSOLICITED RESULTS Final Result [facility] [address] [place] [address], [place] [phone] * (ABNORMAL) POCT Glucose, blood (01/20/2025 7:47 PM EDT) Glucose POCT 125(H) 70 - 100 mg/dL 01/20/2025 7:47 PM EDT [facility] Blood Capillary blood specimen / Unknown 01/20/2025 7:47 PM EDT 01/20/2025 7:49 PM EDT us Scott Wolfe MD LAB POINT OF C ARE TEST DOCKED DEVICE UNSOLICITED RESULTS Final Result [facility] [address] [place] [address], [place] [phone] * MR Thoracic Spine wo Contrast (01/20/2025 [...] T12-L1. -------- FINAL REPORT -------- Dictated By: CHADD FLORES Dictated Date: 01/20/2025 17:44 ET Assigned Physician: CHADD FLORES Reviewed and Electronically Signed By: CHADD FLORES Signed Date: 01/20/2025 18:01 ET Workstation ID: [id number] Transcribed By: Self Edit Transcribed Date: 01/20/2025 [...] most likely a postoperative seroma Procedure Note Chadd Flores MD - 01/20/2025 PROCEDURE: Thoracic spine [...] in the laminectomy bed at the level [id number]. 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 Increased cord signal at T10-11. Thoracic cord is otherwise normal insignal. Cervicothoracic posterior fusion hardware seen extending to the level ofT3. Lower lumbar fusion hardware noted. Postsurgical changes in the posterior paraspinal musculature at [id number] small fluid collection in the lower thoracic [...] T12-L1. -------- FINAL REPORT -------- Dictated By: CHADD FLORES Dictated Date: 01/20/2025 17:44 ET Assigned Physician: CHADD FLORES Reviewed and Electronically Signed By: CHADD FLORES Signed Date: 01/20/2025 18:01 ET Workstation ID: [id number] Transcribed By: Self Edit Transcribed Date: 01/20/2025 17:44 ET Rose Mary MARTINEZ IMG MRI PROCEDURES [place] [facility] Result * (ABNORMAL) POCT Glucose, blood (01/20/2025 5:36 PM EDT) Glucose POCT 118(H) 70 - 100 mg/dL 01/20/2025 5:36 PM EDT [facility] Blood Capillary blood specimen / Unknown 01/20/2025 5:36 PM EDT 01/20/2025 5:37 PM EDT us Scott Wolfe MD LAB POINT OF C ARE TEST DOCKED DEVICE UNSOLICITED RESULTS Final Result [facility] [address] [place] [address], [place] [phone] * (ABNORMAL) POCT Glucose, blood (01/20/2025 11:02 AM EDT) Glucose POCT 120(H) 70 - 100 mg/dL 01/20/2025 11:02 AM EDT [facility] Blood Capillary blood specimen / Unknown 01/20/2025 11:02 AM EDT 01/20/2025 11:03 AM EDT us Scott Wolfe MD LAB POINT OF ARE TEST DOCKED DEVICE UNSOLICITED RESULTS Final Result Performing Organization Address [facility] Health/ZIP Co de Phone Number [facility] [address] [place] [address], [place] [phone] * (ABNORMAL) POCT Glucose, blood (01/20/2025 8:07 AM EDT) Glucose POCT 121(H) 70 - 100 mg/dL 01/20/2025 8:07 AM EDT [facility] Blood Capillary blood specimen / Unknown 01/20/2025 8:07 AM EDT 01/20/2025 8:09 AM EDT us Scott Wolfe MD LAB POINT OF ARE TEST DOCKED DEVICE UNSOLICITED RESULTS Final Result Performing Organization Address [facility] Co de Phone Number [facility] [address] [place] [address], [place] [phone] * (ABNORMAL) POCT Glucose, blood (01/20/2025 6:54 AM EDT) Glucose POCT 121(H) 70 - 100 mg/dL 01/20/2025 6:54 AM EDT [facility] Blood Capillary blood specimen / Unknown 01/20/2025 6:54 AM EDT 01/20/2025 6:56 AM EDT us Scott Wolfe MD LAB POINT OF ARE TEST DOCKED DEVICE UNSOLICITED RESULTS Final Result Performing Organization Address City/[facility]/ZIP Co de Phone Number [facility] [address] [place] [address], * CBC auto differential (01/20/2025 6:14 AM EDT) [facility] Signature WBC 6.4 4.8 - 10.8 K/mcL LAB HEMETOLOGY METHOD 01/20/2025 7:33 AM EDT [facility] RBC 4.10 3.80 - 4.80 M/mcL LAB HEMETOLOGY METHOD 01/20/2025 7:33 AM EDT [facility] Hemoglobin 12.5 11.5 - 16.0 g/dL LAB HEMETOLOGY METHOD 01/20/2025 7:33 AM EDT [facility] Hematocrit 38.1 35.0 - 47.0 % LAB HEMETOLOGY METHOD 01/20/2025 7:33 AM EDT [facility] MCV 93.2 79.0 - 98.0 FL LAB HEMETOLOGY METHOD 01/20/2025 7:33 AM EDT [facility] MCH 30.6 27.0 - 32.0 pcg LAB HEMETOLOGY METHOD 01/20/2025 7:33 AM EDT [facility] MCHC 32.8 32.0 - 37.0 g/dL LAB HEMETOLOGY METHOD 01/20/2025 7:33 AM EDT [facility] RDW 12.7 11.0 - 15.0 % LAB HEMETOLOGY METHOD 01/20/2025 7:33 AM EDT [facility] Platelets 228 130 - 400 K/mcL LAB HEMETOLOGY METHOD 01/20/2025 7:33 AM EDT [facility] MPV 10.5 7.0 - 11.0 FL LAB HEMETOLOGY METHOD 01/20/2025 7:33 AM EDT [facility] NRBC 0.0 <1.0 % LAB HEMETOLOGY METHOD 01/20/2025 7:33 AM [facility] NRBC Absolute 0.00 <0.10 K/mcL LAB HEMETOLOGY METHOD 01/20/2025 7:33 AM [facility] Neutrophils Relative 67.4 % LAB HEMETOLOGY METHOD 01/20/2025 7:33 AM [facility] Lymphocytes Relative 17.6 % LAB HEMETOLOGY METHOD 01/20/2025 7:33 AM [facility] Monocytes Relative 11.8 % LAB HEMETOLOGY METHOD 01/20/2025 7:33 AM [facility] Eosinophils Relative 2.0 % LAB HEMETOLOGY METHOD 01/20/2025 7:33 AM [facility] Basophils Relative 0.9 % LAB HEMETOLOGY METHOD 01/20/2025 7:33 AM [facility] Immature Granulocytes Relative 0.3 % LAB HEMETOLOGY METHOD 01/20/2025 7:33 AM [facility] Neutrophils Absolute 4.32 1.50 - 7.00 K/mcL LAB HEMETOLOGY METHOD 01/20/2025 7:33 AM [facility] Lymphocytes Absolute 1.13 1.00 - 5.00 K/mcL LAB HEMETOLOGY METHOD 01/20/2025 7:33 AM [facility] Monocytes Absolute 0.76 0.20 - 1.00 K/mcL LAB HEMETOLOGY METHOD 01/20/2025 7:33 AM [facility] Eosinophils Absolute 0.13 0.00 - 0.50 K/mcL LAB HEMETOLOGY METHOD 01/20/2025 7:33 AM [facility] Basophils Absolute 0.06 0.00 - 0.20 K/mcL LAB HEMETOLOGY METHOD 01/20/2025 7:33 AM [facility] Immature Granulocytes Absolute 0.02 0.00 - 0.03 K/mcL LAB HEMETOLOGY METHOD 01/20/2025 7:33 AM EDT [facility] Blood Venous blood specimen / Unknown Venipuncture / Unknown 01/20/2025 6:14 AM EDT 01/20/2025 7:00 AM EDT us Britt MARTINEZ LAB BLOOD ORDERABLES Final Re sult [facility] [address] [place] [address], [place] [phone] * Type and screen (01/20/2025 6:14 AM EDT) ABO Group B 01/20/2025 8:17 AM EDT [facility] Rh Type Positive 01/20/2025 8:17 AM EDT [facility] Antibody Screen Negative 01/20/2025 8:17 AM EDT [facility] Blood Venous blood specimen / Unknown Venipuncture / Unknown 01/20/2025 6:14 AM EDT 01/20/2025 6:59 AM EDT us Britt MARTINEZ LAB BLOOD BANK TEST ORDERABLE S Final Result Performing Organization Address City/[facility]/ZIP Co de Phone Number [facility] [address] [place] [address], [place] [phone] * (ABNORMAL) Prothrombin time with INR (01/20/2025 6:14 AM EDT) Protime 16.7(H) 10.6 - 13.9 sec LAB COAGULATION METHOD 01/20/2025 7:39 AM EDT [facility] INR 1.3 LAB COAGULATION METHOD 01/20/2025 7:39 AM EDT [facility] Blood Venous blood specimen / Unknown Venipuncture / Unknown 01/20/2025 6:14 AM EDT 01/20/2025 6:58 AM EDT us Britt MARTINEZ LAB BLOOD ORDERABLES Final Re sult Performing Organization Address [facility]/ZIP Co de Phone Number [facility] [address] [place] [address], [place] [phone] * Activated partial thromboplastin time (01/20/2025 6:14 AM EDT) [facility] aPTT 27.1 24.1 - 39.3 sec LAB COAGULATION METHOD 01/20/2025 7:39 AM EDT [facility] Blood Venous blood specimen / Unknown Venipuncture / Unknown 01/20/2025 6:14 AM EDT 01/20/2025 6:58 AM EDT us Britt MARTINEZ LAB BLOOD ORDERABLES Final Re sult Performing Organization Address [facility]/ZIP Co de Phone Number [facility] [address] [place] [address], [place] [phone] * Phosphorus (01/20/2025 6:14 AM EDT) [facility] Phosphorus 2.6 2.5 - 4.5 mg/dL LAB CHEMISTRY METHOD 01/20/2025 7:39 AM EDT [facility] Blood Venous blood specimen / Unknown Venipuncture / Unknown 01/20/2025 6:14 AM EDT 01/20/2025 6:58 AM EDT us Britt MARTINEZ LAB BLOOD ORDERABLES Final Re sult Performing Organization Address City/[facility]/ZIP Co de Phone Number [facility] [address] [place] [address], [place] [phone] * Magnesium (01/20/2025 6:14 AM EDT) [facility] Magnesium 2.4 1.9 - 2.6 mg/dL LAB CHEMISTRY METHOD 01/20/2025 7:39 AM [facility] Blood Venous blood specimen / Unknown Venipuncture / Unknown 01/20/2025 6:14 AM EDT 01/20/2025 6:58 AM EDT Britt MARTINEZ LAB BLOOD ORDERABLES Final Re sult [facility] [address] [place] [address], [place] [phone] * (ABNORMAL) Basic metabolic panel (01/20/2025 6:14 AM EDT) [facility] Sodium 141 133 - 145 mmol/L LAB CHEMISTRY METHOD 01/20/2025 7:42 AM [facility] Potassium 4.0 3.5 - 5.5 mmol/L LAB CHEMISTRY METHOD 01/20/2025 7:42 AM [facility] Chloride 103 96 - 110 mmol/L LAB CHEMISTRY METHOD 01/20/2025 7:42 AM [facility] CO2 34(H) 21 - 32 mmol/L LAB CHEMISTRY METHOD 01/20/2025 7:42 AM [facility] Anion Gap 4 3 - 11 LAB CHEMISTRY METHOD 01/20/2025 7:42 AM [facility] Glucose 113(H) 70 - 100 mg/dL LAB CHEMISTRY METHOD 01/20/2025 7:42 AM [facility] BUN 6 5 - 25 mg/dL LAB CHEMISTRY METHOD 01/20/2025 7:42 AM [facility] Creatinine 0.58 0.50 - 1.10 mg/dL LAB CHEMISTRY METHOD 01/20/2025 7:42 AM [facility] eGFR 96 >=60 mL/min/1. 73m2 LAB CHEMISTRY METHOD 01/20/2025 7:42 AM EDT [facility] Comment:Calculation based on the??Chronic Kidney Disease Epidemiology Collaboration (CKD-EPI) equation refit??without adjustment for race. BUN/Creatinine Ratio 10.3 LAB CHEMISTRY METHOD 01/20/2025 7:42 AM EDT [facility] Calcium 8.8 8.5 - 10.5 mg/dL LAB CHEMISTRY METHOD 01/20/2025 7:42 AM EDT [facility] Blood Venous blood specimen / Unknown Venipuncture / Unknown 01/20/2025 6:14 AM EDT 01/20/2025 6:58 AM EDT Britt MARTINEZ LAB BLOOD ORDERABLES Final Re sult Performing Organization Address [facility]/ZIP Co de Phone Number [facility] [address] [place] [address], [place] [phone] * (ABNORMAL) POCT Glucose, blood (01/19/2025 7:44 PM EDT) Glucose POCT 129(H) 70 - 100 mg/dL 01/19/2025 7:54 PM EDT [facility] Blood Capillary blood specimen / Unknown 01/19/2025 7:44 PM EDT 01/19/2025 7:55 PM EDT Scott Wolfe MD LAB POINT OF C ARE TEST DOCKED DEVICE UNSOLICITED RESULTS Final Result Performing Organization Address [facility]/ZIP Co de Phone Number [facility] [address] [place] [address], [place] [phone] * (ABNORMAL) POCT Glucose, blood (01/19/2025 4:54 PM EDT) Glucose POCT 102(H) 70 - 100 mg/dL 01/19/2025 4:55 PM EDT [facility] Blood Capillary blood specimen / Unknown 01/19/2025 4:54 PM EDT 01/19/2025 4:56 PM EDT us Scott Wolfe MD LAB POINT OF C ARE TEST DOCKED DEVICE UNSOLICITED RESULTS Final Result [facility] [address] [place] [address], [place] [phone] * NM Hepatobiliary System Imaging (01/19/2025 3:38 PM EDT) Anatomical Region Laterality Modality Body Nuclear Medicine 01/19/2025 4:39 PM EDT Impressions 01/19/2025 4:42 PM EDT Impression: 1. No evidence of cystic or common bile duct obstruction. 2.. Delayed biliary to bowel transit. [employer] PA ([id number]) -------- FINAL REPORT -------- Dictated By: Ilda Baez Dictated Date: 01/19/2025 16:39 ET Assigned Physician: Ilda Baez Reviewed and Electronically Signed By: Ilda Baez Signed Date: 01/19/2025 16:42 ET Workstation ID: [id number] Transcribed By: Self Edit Transcribed Date: 01/19/2025 [...] Delayed biliary to bowel transit. Teleul[employer] MARTINEZ ([id number]) -------- FINAL REPORT -------- Dictated By: Ilda Baez Dictated Date: 01/19/2025 16:39 ET Assigned Physician: Ilda Baez Reviewed and Electronically Signed By: Ilda Baez Signed Date: 01/19/2025 16:42 ET Workstation ID: [id number] Transcribed By: Self Edit Transcribed Date: 01/19/2025 16:39 ET Rose Mary MARTINEZ IMG NM PROCEDURES Final Result * (ABNORMAL) POCT Glucose, blood (01/19/2025 11:14 AM EDT) Glucose POCT 130(H) 70 - 100 mg/dL 01/19/2025 11:16 AM EDT [facility] Blood Capillary blood specimen / Unknown 01/19/2025 11:14 AM EDT 01/19/2025 11:17 AM EDT Scott Wolfe MD LAB POINT OF C ARE TEST DOCKED DEVICE UNSOLICITED RESULTS Final Result [facility] [address] [place] [address], [place] [phone] * (ABNORMAL) POCT Glucose, blood (01/19/2025 7:40 AM EDT) Glucose POCT 102(H) 70 - 100 mg/dL 01/19/2025 7:40 AM EDT [facility] Blood Capillary blood specimen / Unknown 01/19/2025 7:40 AM EDT 01/19/2025 7:41 AM EDT us Scott Wolfe MD LAB POINT OF C ARE TEST DOCKED DEVICE UNSOLICITED RESULTS Final Result [facility] [address] [place] [address], [place] [phone] * Complete blood count (01/19/2025 6:46 AM EDT) WBC 8.2 4.8 - 10.8 K/mcL LAB HEMETOLOGY METHOD 01/19/2025 7:59 AM EDT [facility] RBC 3.90 3.80 - 4.80 M/mcL LAB HEMETOLOGY METHOD 01/19/2025 7:59 AM EDT [facility] Hemoglobin 11.8 11.5 - 16.0 g/dL LAB HEMETOLOGY METHOD 01/19/2025 7:59 AM EDT [facility] Hematocrit 35.6 35.0 - 47.0 % LAB HEMETOLOGY METHOD 01/19/2025 7:59 AM EDT [facility] MCV 92.5 79.0 - 98.0 FL LAB HEMETOLOGY METHOD 01/19/2025 7:59 AM EDT [facility] MCH 30.6 27.0 - 32.0 pcg LAB HEMETOLOGY METHOD 01/19/2025 7:59 AM EDT [facility] MCHC 33.1 32.0 - 37.0 g/dL LAB HEMETOLOGY METHOD 01/19/2025 7:59 AM EDT [facility] RDW 12.7 11.0 - 15.0 % LAB HEMETOLOGY METHOD 01/19/2025 7:59 AM EDT [facility] Platelets 212 130 - 400 K/mcL LAB HEMETOLOGY METHOD 01/19/2025 7:59 AM EDT [facility] MPV 10.7 7.0 - 11.0 FL LAB HEMETOLOGY METHOD 01/19/2025 7:59 AM EDT [facility] NRBC 0.0 <1.0 % LAB HEMETOLOGY METHOD 01/19/2025 7:59 AM EDT [facility] NRBC Absolute 0.00 <0.10 K/mcL LAB HEMETOLOGY METHOD 01/19/2025 7:59 AM T [facility] Blood Venous blood specimen / Unknown Venipuncture / Unknown 01/19/2025 6:46 AM EDT 01/19/2025 7:43 AM EDT us Rancho Kemp MD LAB BLOOD ORDERABLES Final Resu lt [facility] [address] [place] [address], [place] [phone] * (ABNORMAL) Basic metabolic panel (01/19/2025 6:46 AM EDT) Sodium 139 133 - 145 mmol/L LAB CHEMISTRY METHOD 01/19/2025 8:26 AM [facility] Potassium 4.0 3.5 - 5.5 mmol/L LAB CHEMISTRY METHOD 01/19/2025 8:26 AM [facility] Chloride 103 96 - 110 mmol/L LAB CHEMISTRY METHOD 01/19/2025 8:26 AM [facility] CO2 29 21 - 32 mmol/L LAB CHEMISTRY METHOD 01/19/2025 8:26 AM [facility] Anion Gap 7 3 - 11 LAB CHEMISTRY METHOD 01/19/2025 8:26 AM [facility] Glucose 86 70 - 100 mg/dL LAB CHEMISTRY METHOD 01/19/2025 8:26 AM EDT [facility] BUN 15 5 - 25 mg/dL LAB CHEMISTRY METHOD 01/19/2025 8:26 AM EDT [facility] Creatinine 0.49(L) 0.50 - 1.10 mg/dL LAB CHEMISTRY METHOD 01/19/2025 8:26 AM EDT [facility] eGFR 100 >=60 mL/min/1. 73m2 LAB CHEMISTRY METHOD 01/19/2025 8:26 AM EDT [facility] Comment:Calculation based on the??Chronic Kidney Disease Epidemiology Collaboration (CKD-EPI) equation refit??without adjustment for race. BUN/Creatinine Ratio 30.6 LAB CHEMISTRY METHOD 01/19/2025 8:26 AM EDT [facility] Calcium 8.9 8.5 - 10.5 mg/dL LAB CHEMISTRY METHOD 01/19/2025 8:26 AM EDT [facility] Blood Venous blood specimen / Unknown Venipuncture / Unknown 01/19/2025 6:46 AM EDT 01/19/2025 7:44 AM EDT Rancho Kemp MD LAB BLOOD ORDERABLES Final Resu lt [facility] [address] [place] [address], * (ABNORMAL) Culture urine (01/18/2025 4:50 PM EDT) Culture, Urine >100,000 CFU/mL Pseudomonas aeruginosa(A) BARI 01/21/2025 8:20 AM EDT [facility] Comment: This is an edited [...] Pseudomonas aeruginosa Levofloxacin BARI 0.5 ug/ml: Susceptible Mina Colón MD LAB MICROBIOLOGY - GENERAL ORDERABLES Final Result Performing Organization Address [facility]/ZIP Co de Phone Number [facility] [address] [place] [address], [place] [phone] * Ramírez urine culture tube (01/18/2025 4:50 PM EDT) [facility] Extra Tube Hold for add-ons. 01/18/2025 7:01 PM EDT [facility] Comment:Auto resulted. Urine Urine specimen obtained by clean catch procedure / Unknown Non-blood Collection / Unknown 01/18/2025 4:50 PM EDT 01/18/2025 5:14 PM EDT Mina Colón MD LAB URINE ORDERABLES Final Result Performing Organization Address [facility]/ZIP Co de Phone Number [facility] [address] [place] [address], [place] [phone] * (ABNORMAL) Urinalysis with reflex microscopic and culture (01/18/2025 4:50 PM EDT) Pathologist [facility] Specific Ira Urine 1.020 1.003 - 1.030 LAB URINALYSIS - AUTOMATED METHOD 01/18/2025 5:25 PM EDT [facility] pH, Urine 6.5 5.0 - 8.0 pH LAB URINALYSIS - AUTOMATED METHOD 01/18/2025 5:25 PM EDT [facility] Leukocytes, Urine Moderate(A) Negative LAB URINALYSIS - AUTOMATED METHOD 01/18/2025 5:25 PM [facility] Nitrite, Urine Positive(A) Negative LAB URINALYSIS - AUTOMATED METHOD 01/18/2025 5:25 PM [facility] Protein, Urine 30(A) <=Trace mg/dL LAB URINALYSIS - AUTOMATED METHOD 01/18/2025 5:25 PM [facility] Glucose, Urine Negative Negative mg/dL LAB URINALYSIS - AUTOMATED METHOD 01/18/2025 5:25 PM [facility] Ketones, Urine 40(A) Negative mg/dL LAB URINALYSIS - AUTOMATED METHOD 01/18/2025 5:25 PM [facility] Urobilinogen , Urine 1.0 0.2 - 1.0 mg/dL LAB URINALYSIS - AUTOMATED METHOD 01/18/2025 5:25 PM [facility] Bilirubin, Urine Negative Negative LAB URINALYSIS - AUTOMATED METHOD 01/18/2025 5:25 PM [facility] Blood, Urine Moderate(A) Negative LAB URINALYSIS - AUTOMATED METHOD 01/18/2025 5:25 PM [facility] RBC, Urine 31.4(H) 0 - 4 /HPF LAB URINALYSIS - AUTOMATED METHOD 01/18/2025 5:25 PM [facility] WBC, Urine 114.2(H) 0 - 4 /HPF LAB URINALYSIS - AUTOMATED METHOD 01/18/2025 5:25 PM [facility] Squamous Epithelial, Urine 73(H) 0 - 60 /LPF LAB URINALYSIS - AUTOMATED METHOD 01/18/2025 5:25 PM [facility] Bacteria, Urine Few(A) Negative /HPF LAB URINALYSIS - AUTOMATED METHOD 01/18/2025 5:25 PM [facility] Hyaline Casts, Urine 8.8(H) 0 - 3 /LPF LAB URINALYSIS - AUTOMATED METHOD 01/18/2025 5:25 PM EDT [facility] Urine Urine specimen obtained by clean catch procedure / Unknown Non-blood Collection / Unknown 01/18/2025 4:50 PM EDT 01/18/2025 5:14 PM EDT us Mina Colón MD LAB URINE ORDERABLES Final Result [facility] [address] [place] [address], [place] [phone] * [place] Abdomen Limited (01/18/2025 3:47 PM EDT) Anatomical Region Laterality Modality Body Ultrasound 01/18/2025 3:49 PM EDT Impressions 01/18/2025 3:52 PM EDT Impression: 1. Distended gallbladder with small amount of mobile sludge and no specific findings of acute cholecystitis. 2. Fatty liver. [employer] JUAN ([id number]) -------- FINAL REPORT -------- Dictated By: Ilda Baez Dictated Date: 01/18/2025 15:49 ET Assigned Physician: Ilda Baez Reviewed and Electronically Signed By: Ilda Baez Signed Date: 01/18/2025 15:52 ET Workstation ID: [id number] Transcribed By: Self Edit Transcribed Date: 01/18/2025 [...] findings of acute cholecystitis. 2. Fatty liver. Flores MARTINEZ ([id number]) -------- FINAL REPORT -------- Dictated By: Ilda Baez Dictated Date: 01/18/2025 15:49 ET Assigned Physician: Ilda Baez Reviewed and Electronically Signed By: Ilda Baez Signed Date: 01/18/2025 15:52 ET Workstation ID: [id number] Transcribed By: Self Edit Transcribed Date: 01/18/2025 [...] clinically appropriate. 2. Nonobstructing right renal calculi. [employer] [place] ([id number]) -------- FINAL REPORT -------- Dictated By: Ilda Baez Dictated Date: 01/18/2025 14:40 ET Assigned Physician: Ilda Baez Reviewed and Electronically Signed By: Ilda Baez Signed Date: 01/18/2025 14:46 ET Workstation ID: [id number] Transcribed By: Self Edit Transcribed Date: 01/18/2025 14:40 ET Narrative 01/18/2025 2:46 PM EDT History: Right flank pain for several days. Comparison: 07/30/20 Technique: Helical volumetric imaging of the abdomen and pelvis was performed without intravenous or oral contrast (stone kee protocol). DLP: 1124.25 mGy/cm [employer] VCT Iterative reconstruction technique Findings: The kidneys [...] contrast (stone kee protocol). DLP: 1124.25 mGy/cm [employer] Iterative reconstruction technique Findings: The kidneys are [...] clinically appropriate. 2. Nonobstructing right renal calculi. [employer] JUAN ([id number]) -------- FINAL REPORT -------- Dictated By: Ilda Baez Dictated Date: 01/18/2025 14:40 ET Assigned Physician: Ilda Baez Reviewed and Electronically Signed By: Ilda Baez Signed Date: 01/18/2025 14:46 ET Workstation ID: [id number] Transcribed By: Self Edit Transcribed Date: 01/18/2025 14:40 ET Mina Colón MD IMG CT PROCEDURES Final Res ult * Lipase (01/18/2025 12:23 PM EDT) [facility] Lipase 22 13 - 75 unit/L LAB CHEMISTRY METHOD 01/18/2025 6:47 PM EDT [facility] Blood Venous blood specimen / Unknown Venipuncture / Unknown 01/18/2025 12:23 PM EDT 01/18/2025 12:55 PM EDT Henrietta MARTINEZ LAB BLOOD ORDERABLES Final Resu lt [facility] [address] [place] [address], [place] [phone] * CBC auto differential (01/18/2025 12:23 PM EDT) [facility] WBC 7.5 4.8 - 10.8 K/mcL LAB HEMETOLOGY METHOD 01/18/2025 1:00 PM EDT [facility] RBC 4.20 3.80 - 4.80 M/mcL LAB HEMETOLOGY METHOD 01/18/2025 1:00 PM EDT [facility] Hemoglobin 13.1 11.5 - 16.0 g/dL LAB HEMETOLOGY METHOD 01/18/2025 1:00 PM EDT [facility] Hematocrit 39.1 35.0 - 47.0 % LAB HEMETOLOGY METHOD 01/18/2025 1:00 PM EDT [facility] MCV 93.3 79.0 - 98.0 FL LAB HEMETOLOGY METHOD 01/18/2025 1:00 PM EDT [facility] MCH 31.3 27.0 - 32.0 pcg LAB HEMETOLOGY METHOD [facility]25 [facility] MCHC 33.5 32.0 - 37.0 g/dL LAB HEMETOLOGY METHOD 01/18[facility]2025 1[facility] RDW 12.5 11.0 - 15.0 % LAB HEMETOLOGY METHOD 01/18/2025 1:00 PM [facility] Platelets 232 130 - 400 K/mcL LAB HEMETOLOGY METHOD 01/18[facility]2025 1[facility] MPV 10.8 7.0 - 11.0 FL LAB HEMETOLOGY METHOD 01/18/2025 1:[facility] NRBC 0.0 <1.0 % LAB HEMETOLOGY METHOD 01/18/2025 1:00 PM [facility] NRBC Absolute 0.00 <0.10 K/mcL LAB HEMETOLOGY METHOD 01/18/2025 1:00 PM [facility] Neutrophils Relative 74.6 % LAB HEMETOLOGY METHOD 01/18/2025 1:00 PM [facility] Lymphocytes Relative 15.2 % LAB HEMETOLOGY METHOD 01/18/2025 1:00 PM [facility] Monocytes Relative 9.0 % LAB HEMETOLOGY METHOD 01/18/2025 1:00 PM [facility] Eosinophils Relative 0.3 % LAB HEMETOLOGY METHOD 01/18/2025 1:00 PM [facility] Basophils Relative 0.5 % LAB HEMETOLOGY METHOD 01/18/2025 1:00 PM [facility] Immature Granulocytes Relative 0.4 % LAB HEMETOLOGY METHOD 01/18/2025 1:00 PM EDT [facility] Neutrophils Absolute 5.58 1.50 - 7.00 K/mcL LAB HEMETOLOGY METHOD 01/18/2025 1:00 PM EDT [facility] Lymphocytes Absolute 1.14 1.00 - 5.00 K/mcL LAB HEMETOLOGY METHOD 01/18/2025 1:00 PM EDT [facility] Monocytes Absolute 0.67 0.20 - 1.00 K/mcL LAB HEMETOLOGY METHOD 01/18/2025 1:00 PM EDT [facility] Eosinophils Absolute 0.02 0.00 - 0.50 K/mcL LAB HEMETOLOGY METHOD 01/18/2025 1:00 PM EDT [facility] Basophils Absolute 0.04 0.00 - 0.20 K/mcL LAB HEMETOLOGY METHOD 01/18/2025 1:00 PM EDT [facility] Immature Granulocytes Absolute 0.03 0.00 - 0.03 K/mcL LAB HEMETOLOGY METHOD 01/18/2025 1:00 PM EDT [facility] Blood Venous blood specimen / Unknown Venipuncture / Unknown 01/18/2025 12:23 PM EDT 01/18/2025 12:55 PM EDT us Mina Colón MD LAB BLOOD ORDERABLES Final Result [facility] [address] [place] [address], * (ABNORMAL) Comprehensive metabolic panel (01/18/2025 12:23 PM EDT) Sodium 139 133 - 145 mmol/L LAB CHEMISTRY METHOD 01/18/2025 1:25 PM EDT [facility] Potassium 3.9 3.5 - 5.5 mmol/L LAB CHEMISTRY METHOD 01/18/2025 1:25 PM [facility] Chloride 101 96 - 110 mmol/L LAB CHEMISTRY METHOD 01/18/2025 1:25 PM [facility] CO2 30 21 - 32 mmol/L LAB CHEMISTRY METHOD 01/18/2025 1:25 PM [facility] Anion Gap 8 3 - 11 LAB CHEMISTRY METHOD 01/18/2025 1:25 PM [facility] Glucose 115(H) 70 - 100 mg/dL LAB CHEMISTRY METHOD 01/18/2025 1:25 PM [facility] BUN 18 5 - 25 mg/dL LAB CHEMISTRY METHOD 01/18/2025 1:25 PM [facility] Creatinine 0.59 0.50 - 1.10 mg/dL LAB CHEMISTRY METHOD 01/18/2025 1:25 PM [facility] eGFR 96 >=60 mL/min/1. 73m2 LAB CHEMISTRY METHOD 01/18/2025 1:25 PM [facility] Comment:Calculation based on the??Chronic Kidney Disease Epidemiology Collaboration (CKD-EPI) equation refit??without adjustment for race. BUN/Creatinine Ratio 30.5 LAB CHEMISTRY METHOD 01/18/2025 1:25 PM [facility] Calcium 9.9 8.5 - 10.5 mg/dL LAB CHEMISTRY METHOD 01/18/2025 1:25 PM [facility] AST (SGOT) 30 10 - 42 unit/L LAB CHEMISTRY METHOD 01/18/2025 1:25 PM [facility] ALT (SGPT) 29 10 - 60 unit/L LAB CHEMISTRY METHOD 01/18/2025 1:25 PM [facility] Alkaline Phosphatase 114 42 - 121 unit/L LAB CHEMISTRY METHOD 01/18/2025 1:25 PM [facility] Total Protein 7.3 6.0 - 8.0 g/dL LAB CHEMISTRY METHOD 01/18/2025 1:25 PM EDT [facility] Albumin 3.9 3.2 - 5.0 g/dL LAB CHEMISTRY METHOD 01/18/2025 1:25 PM EDT [facility] Total Bilirubin 1.0 0.0 - 1.4 mg/dL LAB CHEMISTRY METHOD 01/18/2025 1:25 PM EDT [facility] Blood Venous blood specimen / Unknown Venipuncture / Unknown 01/18/2025 12:23 PM EDT 01/18/2025 12:55 PM EDT us Mina Colón MD LAB BLOOD ORDERABLES Final Result [facility] [address] [place] [address], documented in this encounter Visit Diagnoses Diagnosis Thoracic myelopathy- Primary Intractable abdominal pain Biliary dyskinesia Other specified disorder of gallbladder Pain in abdomen on palpation Thoracic myelopathy Intractable abdominal pain Biliary dyskinesia Other specified disorder of gallbladder documented in this encounter Admitting Diagnoses Diagnosis Pain in abdomen on palpation Intractable abdominal pain Biliary dyskinesia Other specified disorder of gallbladder documented in this encounter Administered Medications Inactive Administered Medications - up to 3 most recent administrations Medication Order MAR Action Action Date Dose Rate Site acetaminophen (TYLENOL) tablet 1,000 mg 1,000 mg, oral, Every 8 hours scheduled, First dose on Sun01/18/25 at 2200, Scheduled medication for mild pain Given 01/25/2025 1:37 PM EDT 1,000 mg Given 01/25/2025 5:28 AM EDT 1,000 mg Given 01/24/2025 9:10 PM EDT 1,000 mg amLODIPine (NORVASC) tablet 10 mg 10 mg, oral, Daily, First dose on Sun01/19/25 at 0900 Given 01/25/2025 8:18 AM EDT 10 mg Given 01/24/2025 8:36 AM EDT 10 mg Given 01/23/2025 8:43 AM EDT 10 mg atorvastatin (LIPITOR) tablet 80 mg 80 mg, oral, Nightly, First dose on Sun01/19/25 at 2100 Given 01/24/2025 8:48 PM EDT 80 mg Given 01/23/2025 9:47 PM EDT 80 mg Given 01/22/2025 9:16 PM EDT 80 mg baclofen (LIORESAL) tablet 10 mg 10 mg, oral, 3 times daily, First dose on Sun01/21/25 at 1530 Given 01/25/2025 1:37 PM EDT 10 mg Given 01/25/2025 8:18 AM EDT 10 mg Given 01/24/2025 8:48 PM EDT 10 mg bisacodyL (DULCOLAX) EC tablet 10 mg 10 mg, oral, Daily PRN, constipation, Starting on Sun01/18/25 at 1942, 1st line for treatment of constipation - give scheduled if no bowel movement in past 24 hours. Do not crush, chew, or split. jdrxnitkkl-pbhtatbtvkywb-pugcbnwg (FIORICET, ESGIC) 50-325-40 mg per tablet 1 tablet 1 tablet, oral, Every 6 hours PRN, headaches, Starting on Sun01/22/25 at 1725 Given 01/22/2025 7:00 P M EDT 1 tablet dexAMETHasone (DECADRON) injection 10 mg 10 mg, intravenous, Once, On Sun01/20/25 at 1915, For 1 dose Given 01/20/2025 8:43 PM EDT 10 mg dexAMETHasone (DECADRON) injection 4 mg 4 mg, intravenous, Every 8 hours scheduled, First dose on Sun01/21/25 at 0300, For 9 doses Given 01/21/2025 4:03 AM EDT 4 mg dexAMETHasone (DECADRON) injection 4 mg 4 mg, intravenous, Every 6 hours scheduled, First dose (after last modification) on Sun01/21/25 at 1800, For 2 days Given 01/23/2025 11:48 AM EDT 4 mg Given 01/23/2025 6:53 AM EDT 4 mg Given 01/22/2025 11:14 PM EDT 4 mg dextrose (D50W) 50% injection 12.5 g 12.5 g, intravenous, Every 15 min PRN, low blood sugar, moderate hypoglycemia *Patient is Unconscious, NPO, unable to swallow: BG 54 - 69 mg/dl*, Starting on Sun01/19/25 at 0638 dextrose (D50W) 50% injection 25 g 25 g, intravenous, Every 15 min PRN, low blood sugar, severe hypoglycemia *Patient is Unconscious, NPO, unable to swallow: BG LESS than 54 mg/dL*, Starting on Sun01/19/25 at 0638 dextrose 15 gram/60 mL oral solution 15 g 15 g, oral, Every 15 min PRN, low blood sugar, hypoglycemia *Patient conscious AND able to drink and swallow safely*, Starting on Sun01/19/25 at 0638 dextrose 15 gram/60 mL oral solution 30 g 30 g, oral, Every 15 min PRN, low blood sugar, hypoglycemia *Patient conscious AND able to drink and swallow safely*, Starting on Sun01/19/25 at 0638 enoxaparin (LOVENOX) injection 40 mg 40 mg, subcutaneous, Daily, First dose on Sun01/21/25 at 1845, Indication: VTE/PE Prophylaxis Given 01/25/2025 8:19 AM EDT 40 mg Left Lower Abdomen Given 01/24/2025 8:37 AM EDT 40 mg Ri ght Upper Abdomen Given 01/23/2025 8:43 AM EDT 40 mg Ri ght Upper Abdomen gabapentin (NEURONTIN) capsule 300 mg 300 mg, oral, 3 times daily, First dose on Sun01/19/25 at 0900 Given 01/25/2025 1:37 PM EDT 300 mg Given 01/25/2025 8:18 AM EDT 300 mg Given 01/24/2025 8:49 PM EDT 300 mg gadoterate meglumine (CLARISCAN, DOTAREM) injection 20 mL 20 mL, intravenous, Once in imaging, Starting on Sun01/21/25 at 1758, For 1 dose Given 01/21/2025 5:58 PM EDT 20 mL Glucagon HCl (rDNA) injection 1 mg 1 mg, intramuscular, Once as needed, low blood sugar, severe hypoglycemia, Starting on Sun01/19/25 at 0638, For 1 dose HYDROmorphone (DILAUDID) tablet 2 mg 2 mg, oral, Every 4 hours PRN, moderate pain, Starting on Sun01/19/25 at 0809 Given 01/25/2025 5:31 AM EDT 2 mg Given 01/23/2025 4:05 PM EDT 2 mg Given 01/23/2025 11:48 AM EDT 2 mg HYDROmorphone (DILAUDID) tablet 4 mg 4 mg, oral, Every 4 hours PRN, severe pain, Starting on Sun01/19/25 at 0802 Given 01/24/2025 8:50 PM EDT 4 mg Given 01/24/2025 3:29 AM EDT 4 mg Given 01/22/2025 10:08 AM EDT 4 mg HYDROmorphone (PF) (DILAUDID) injection 1 mg 1 mg, intravenous, Once, On Sun01/21/25 at 1630, For 1 dose, score caller for MRI Given 01/21/2025 4:51 PM EDT 1 mg HYDROmorphone (PF) injection 0.5 mg 0.5 mg, intravenous, Once, On Sun01/18/25 at 1357, For 1 dose Given 01/18/2025 2:06 PM EDT 0.5 mg HYDROmorphone (PF) injection 0.5 mg 0.5 mg, intravenous, Once, On Sun01/18/25 at 1507, For 1 dose Given 01/18/2025 3:11 PM EDT 0.5 mg HYDROmorphone (PF) injection 0.5 mg 0.5 mg, intravenous, Once, On Sun01/19/25 at 0145, For 1 dose Given 01/19/2025 1:48 AM EDT 0.5 mg HYDROmorphone (PF) injection 0.5 mg 0.5 mg, intravenous, Every 3 hours PRN, severe breakthrough pain, Starting on Sun01/20/25 at 1724 Given 01/22/2025 6:45 AM EDT 0.5 mg Given 01/21/2025 6:35 AM EDT 0.5 mg Given 01/20/2025 5:50 PM EDT 0.5 mg insulin lispro injection 1-6 Units 1-6 Units, subcutaneous, 4 times daily before meals and nightly, First dose on Sun01/19/25 at 0730, Indication: Total Daily Dose (TDD) LESS than 40 units Correction Scale: Low Dose Administer with meal and/or mealtime dose of insulin to correct high blood glucose If mealtime insulin dose not given (e.g. patient NPO or not eating), still administer correction factor for high blood glucose Given 01/25/2025 11:42 AM EDT 1 Units Left Lower Abdomen Given 01/24/2025 9:11 PM EDT 1 Units Le ft Lower Abdomen Given 01/23/2025 9:47 PM EDT 1 Units Le ft Lower Abdomen lactated Ringer's infusion 125 mL/hr, intravenous, Continuous, Starting on 01/18/25 at 1945 New Bag 01/22/2025 5:58 AM EDT 125 mL/hr 125 mL/hr New Bag 01/21/2025 10:41 PM EDT 125 mL/hr 125 mL/hr New Bag 01/21/2025 12:53 PM EDT 125 mL/hr 125 mL/hr levoFLOXacin (LEVAQUIN) tablet 750 mg 750 mg, oral, Daily, First dose on Sun01/23/25 at 1530, For 5 days, Administer 2 hours before or after multivitamins, antacids, or other products containinig polyvalent cations (i.e., calcium, iron, magnesium, selenium, zinc). IF RECEIVING ENTERAL NUTRITION: Hold tube feeds 2 hours before and 2 hours after administration., Indication: Urinary Tract/Genitourinary Given 01/25/2025 8:18 AM EDT 750 mg Given 01/24/2025 8:36 AM EDT 750 mg Given 01/23/2025 4:05 PM EDT 750 mg lidocaine 4 % patch 1 patch 1 patch, Topical, Administer over 12 Hours, Daily, First dose on 01/24/25 at 1000, Apply to Right lower back. Patch Applied 01/25/2025 8:19 AM EDT 1 patch Back Patch Applied 01/24/2025 11:22 AM EDT 1 patch Flank lisinopriL (PRINIVIL,ZESTRIL) tablet 40 mg 40 mg, oral, Daily, First dose on Sun01/19/25 at 0900 Given 01/25/2025 8:18 AM EDT 40 mg Given 01/24/2025 8:36 AM EDT 40 mg Given 01/23/2025 8:43 AM EDT 40 mg LORazepam (ATIVAN) injection 1 mg 1 mg, intravenous, Once, On Sun01/20/25 at 1445, For 1 dose, Prior to IV use, lorazepam injection should be DILUTED with an equal volume of compatible solution; Rate of administration should NOT exceed 2 mg/min. Given 01/20/2025 4:37 PM EDT 1 mg LORazepam (ATIVAN) tablet 1 mg 1 mg, oral, Once, On Sun01/21/25 at 1630, For 1 dose Given 01/21/2025 4:30 PM EDT 1 mg magnesium citrate solution 296 mL 296 mL, oral, Once, On Sun01/19/25 at 1130, For 1 dose Given 01/19/2025 11:25 AM EDT 296 mL ondansetron (PF) (ZOFRAN) injection 4 mg 4 mg, intravenous, Once, On Sun01/18/25 at 1357, For 1 dose Given 01/18/2025 2:08 PM EDT 4 mg pantoprazole (PROTONIX) EC tablet 40 mg 40 mg, oral, 2 times daily before meals, First dose on Sun01/21/25 at 1630, Do not crush, chew, or split. Given 01/25/2025 8:18 AM EDT 40 mg Given 01/24/2025 5:16 PM EDT 40 mg Given 01/24/2025 6:38 AM EDT 40 mg polyethylene glycol (MIRALAX) packet 17 g 17 g, oral, Daily, First dose on Sun01/18/25 at 1945 Given 01/24/2025 8:37 AM EDT 17 g Given 01/23/2025 8:43 AM EDT 17 g Given 01/22/2025 9:06 AM EDT 17 g prochlorperazine (COMPAZINE) injection 10 mg 10 mg, intravenous, Every 6 hours PRN, nausea, vomiting, Starting on Sun01/23/25 at 1500, 1st Line Option: -ONLY give IV if patient is unable to take orally. -Give IM if patient does not have IV Access -If inadequate response within 30 minutes, proceed to next-line agent or contact provider if no further options ordered. prochlorperazine (COMPAZINE) suppository 25 mg 25 mg, rectal, Every 12 hours PRN, nausea, vomiting, Starting on Sun01/23/25 at 1500, 1st Line Option: -ONLY give NM if patient is unable to take orally and cannot receive IV/IM. -If inadequate response within 30 minutes, proceed to next-line agent or contact provider if no further options ordered. prochlorperazine (COMPAZINE) tablet 10 mg 10 mg, oral, Every 6 hours PRN, nausea, vomiting, Starting on Sun01/23/25 at 1500, 1st Line Option: -Give IV or IM if patient is unable to take orally. -If inadequate response within 30 minutes, proceed to next-line agent or contact provider if no further options ordered. senna (SENOKOT) tablet 17.2 mg 17.2 mg (2 tablet), oral, Nightly, First dose on Sun01/19/25 at 2100 Given 01/24/2025 8:48 PM EDT 17.2 mg Given 01/23/2025 9:46 PM EDT 17.2 mg Given 01/22/2025 9:16 PM EDT 17.2 mg sodium chloride 0.9 % bolus 1,000 mL 1,000 mL, intravenous, at 1,000 mL/hr, Administer over 1 Hours, Once, On Sun01/18/25 at 1357, For 1 dose New Bag 01/18/2025 2:09 PM EDT 1,000 mL 1000 mL/hr TC-99M mebrofenin radio-isotope injection 4.3 millicurie 4.3 millicurie, intravenous, Once in imaging, Starting on Sun01/19/25 at 1016, For 1 dose Given 01/19/2025 10:17 AM EDT 4.3 millicuries documented in this encounter Discontinued Medications Medication Sig Discontinue Reason Start Date End Da te acetaminophen (TYLENOL 8 HOUR) 650 mg 8 hr tablet Take 1 tablet (650 mg total) by mouth. 01/19/2025 cholecalciferol (VITAMIN D-3) 50 mcg (2,000 unit) tablet Take 1 tablet (2,000 Units total) by mouth 1 (one) time each day. 12/10/2023 01/19/2025 fluconazole (DIFLUCAN) 150 mg tablet Take one tablet every 3 days for 3 doses 04/02/2024 01/19/2025 oxyCODONE (ROXICODONE) 5 mg immediate release tablet Stop Taking at Discharge 01/31/2024 01/25/2025 documented as of this encounter Active and Recently Administered Medications Times are shown in EDT. Scheduled Medication Order 01/23/2025 01/24/2025 01/25/2025 acetaminophen (TYLENOL) tablet 1,000 mg 1,000 mg, oral, Every 8 hours scheduled, First dose on Sun01/18/25 at 2200, Scheduled medication for mild pain 0653 (Given - Provider: Lb George RN)1359 (Not Given - Provider: Magi Granado RN - Reason: Patient/Resident/Age nt refused - education provided )2145 (Given - Provider: Lb George RN) 0638 (Given - Provider: Lb George RN)1440 (Given - Provider: Jammie Merrill RN)2109 (Given - Provider: Kala Menchaca, RADHA) 0528 (Given - Provider: Kala Menchaca, RN)1337 (Given - Provider: Cecille Morrison, RADHA) amLODIPine (NORVASC) tablet 10 mg 10 mg, oral, Daily, First dose on Sun01/19/25 at 0900 0843 (Given - Provider: Magi Granado RN) 0836 (Given - Provider: Jammie Merrill RN) 0818 (Given - Provider: Cecille Morrison, RADHA) atorvastatin (LIPITOR) tablet 80 mg 80 mg, oral, Nightly, First dose on Sun01/19/25 at 2100 2147 (Given - Provider: Lb George RN) 2047 (Given - Provider: Kala Menchaca, RADHA) baclofen (LIORESAL) tablet 10 mg 10 mg, oral, 3 times daily, First dose on Sun01/21/25 at 1530 0843 (Given - Provider: Magi Granado RN)1359 (Given - Provider: Magi Granado RN)2147 (Given - Provider: Lb George RN) 0836 (Given - Provider: Jammie Merrill RN)1440 (Given - Provider: Jammie Merrill, RADHA)2048 (Given - Provider: Kala Menchaca, RADHA) 0818 (Given - Provider: Cecille Morrison, RADHA)1337 (Given - Provider: Cecille Morrison, RADHA) dexAMETHasone (DECADRON) injection 4 mg (COMPLETED) 4 mg, intravenous, Every 6 hours scheduled, First dose (after last modification) on Sun01/21/25 at 1800, For 2 days 0653 (Given - Provider: Lb George RN)1148 (Given - Provider: Magi Granado RN) enoxaparin (LOVENOX) injection 40 mg 40 mg, subcutaneous, Daily, First dose on Sun01/21/25 at 1845, Indication: VTE/PE Prophylaxis 0843 (Given - Provider: Magi Granado RN) 0837 (Given - Provider: Jammie Merrill RN) 0819 (Given - Provider: Cecille Morrison RN) gabapentin (NEURONTIN) capsule 300 mg 300 mg, oral, 3 times daily, First dose on Sun01/19/25 at 0900 0843 (Given - Provider: Magi Granado RN)1359 (Given - Provider: Magi Granado RN)2146 (Given - Provider: Lb George RN) 0836 (Given - Provider: Jammie Merrill RN)1440 (Given - Provider: Jammie Merrill RN)2049 (Given - Provider: Kala Menchaca RN) 0818 (Given - Provider: Cecille Morrison, RADHA)1337 (Given - Provider: Cecille Morrison RN) insulin lispro injection 1-6 Units 1-6 Units, subcutaneous, 4 times daily before meals and nightly, First dose on Sun01/19/25 at 0730, Indication: Total Daily Dose (TDD) LESS than 40 units Correction Scale: Low Dose Administer with meal and/or mealtime dose of insulin to correct high blood glucose If mealtime insulin dose not given (e.g. patient NPO or not eating), still administer correction factor for high blood glucose 0844 (Given - Provider: Magi Granado RN)1104 (Not Given - Provider: Magi Granado RN - Reason: Order parameters not met)1633 (Not Given - Provider: Magi Granado RN - Reason: Order parameters not met)2147 (Given - Provider: Lb George RN) 0827 (Not Given - Provider: Jammie Merrill RN - Reason: Order parameters not met)1114 (Not Given - Provider: Jammie Merrill RN - Reason: Order parameters not met)1657 (Not Given - Provider: Jammie Merrill RN - Reason: Order parameters not met)2111 (Given - Provider: Kala Menchaca RN) 0812 (Not Given - Provider: Cecille Morrison RN - Reason: Order parameters not met)1142 (Given - Provider: Cecille Morrison RN)1630 (Canceled Entry - Provider: Automatic Discharge Provider - Comment: Automatically canceled at discontinue of medication order) levoFLOXacin (LEVAQUIN) tablet 750 mg 750 mg, oral, Daily, First dose on Sun01/23/25 at 1530, For 5 days, Administer 2 hours before or after multivitamins, antacids, or other products containinig polyvalent cations (i.e., calcium, iron, magnesium, selenium, zinc). IF RECEIVING ENTERAL NUTRITION: Hold tube feeds 2 hours before and 2 hours after administration., Indication: Urinary Tract/Genitourinary 1605 (Given - Provider: Magi Granado RN) 0836 (Given - Provider: Jammie Merrill RN) 0818 (Given - Provider: Cecille Morrison RN) lidocaine 4 % patch 1 patch 1 patch, Topical, Administer over 12 Hours, Daily, First dose on Sun01/24/25 at 1000, Apply to Right lower back. 1122 (Patch Applied - Provider: Jammie Merrill RN)2320 (Patch Removed - Provider: Kala Menchaca RN - Comment: patch removed to lower back) 0819 (Patch Applied - Provider: Cecille Morrison RN)1430 (Due: Patch Removed - Provider: Automatic Discharge Provider - Comment: Time automatically adjusted from order being discontinued) lisinopriL (PRINIVIL,ZESTRIL) tablet 40 mg 40 mg, oral, Daily, First dose on Sun01/19/25 at 0900 0843 (Given - Provider: Magi Granado RN) 0836 (Given - Provider: Jammie Merirll RN) 0818 (Given - Provider: Cecille Morrison RN) pantoprazole (PROTONIX) EC tablet 40 mg 40 mg, oral, 2 times daily before meals, First dose on Sun01/21/25 at 1630, Do not crush, chew, or split. 0653 (Given - Provider: Lb George RN)1605 (Given - Provider: Magi Granado RN) 0638 (Given - Provider: Lb George, RADHA)1716 (Given - Provider: Jammie Merrill, RADHA) 0818 (Given - Provider: Cecille Morrison, RADHA)1630 (Canceled Entry - Provider: Automatic Discharge Provider - Comment: Automatically canceled at discontinue of medication order) polyethylene glycol (MIRALAX) packet 17 g 17 g, oral, Daily, First dose on 01/18/25 at 1945 0843 (Given - Provider: Magi Granado RN) 0837 (Given - Provider: Jammie Merrill RN) 0827 (Not Given - Provider: Cecille Morrison RN - Reason: Patient/Resident/Agent refused - education provided ) senna (SENOKOT) tablet 17.2 mg 17.2 mg (2 tablet), oral, Nightly, First dose on 01/19/25 at 2100 2146 (Given - Provider: Lb George RN) 2048 (Given - Provider: Kala Menchaca RN) sodium phosphate (FLEET) enema 133 mL 133 mL, rectal, Once, On 01/18/25 at 1945, For 1 dose PRN Medication Order 01/23/2025 01/24/2025 01/25/2025 bisacodyL (DULCOLAX) EC tablet 10 mg 10 mg, oral, Daily PRN, constipation, Starting on 01/18/25 at 1942, 1st line for treatment of constipation - give scheduled if no bowel movement in past 24 hours. Do not crush, chew, or split. butalbital-acetaminophe n-caffeine (FIORICET, ESGIC) 50-325-40 mg per tablet 1 tablet 1 tablet, oral, Every 6 hours PRN, headaches, Starting on [place] 01/22/25 at 1725 dextrose (D50W) 50% injection 12.5 g 12.5 g, intravenous, Every 15 min PRN, low blood sugar, moderate hypoglycemia *Patient is Unconscious, NPO, unable to swallow: BG 54 - 69 mg/dl*, Starting on 01/19/25 at 0638 dextrose (D50W) 50% injection 25 g 25 g, intravenous, Every 15 min PRN, low blood sugar, severe hypoglycemia *Patient is Unconscious, NPO, unable to swallow: BG LESS than 54 mg/dL*, Starting on Sun01/19/25 at 0638 dextrose 15 gram/60 mL oral solution 15 g 15 g, oral, Every 15 min PRN, low blood sugar, hypoglycemia *Patient conscious AND able to drink and swallow safely*, Starting on Sun01/19/25 at 0638 dextrose 15 gram/60 mL oral solution 30 g 30 g, oral, Every 15 min PRN, low blood sugar, hypoglycemia *Patient conscious AND able to drink and swallow safely*, Starting on Sun01/19/25 at 0638 Glucagon HCl (rDNA) injection 1 mg 1 mg, intramuscular, Once as needed, low blood sugar, severe hypoglycemia, Starting on Sun01/19/25 at 0638, For 1 dose HYDROmorphone (DILAUDID) tablet 2 mg 2 mg, oral, Every 4 hours PRN, moderate pain, Starting on Sun01/19/25 at 0809 0408 (Given - Provider: Lb George RN)1148 (Given - Provider: Magi Granado, RADHA)1605 (Given - Provider: Magi Granado, RADHA) 0531 (Given - Provider: Kala Menchaca, RADHA) HYDROmorphone (DILAUDID) tablet 4 mg 4 mg, oral, Every 4 hours PRN, severe pain, Starting on Sun01/19/25 at 0802 0329 (Given - Provider: Lb George RN)2050 (Given - Provider: Kala Menchaca, RADHA) HYDROmorphone (PF) injection 0.5 mg 0.5 mg, intravenous, Every 3 hours PRN, severe breakthrough pain, Starting on Sun01/20/25 at 1724 prochlorperazine (COMPAZINE) injection 10 mg(Linked Group 1) 10 mg, intravenous, Every 6 hours PRN, nausea, vomiting, Starting on Sun01/23/25 at 1500, 1st Line Option: -ONLY give IV if patient is unable to take orally. -Give IM if patient does not have IV Access -If inadequate response within 30 minutes, proceed to next-line agent or contact provider if no further options ordered. prochlorperazine (COMPAZINE) suppository 25 mg(Linked Group 1) 25 mg, rectal, Every 12 hours PRN, nausea, vomiting, Starting on Sun01/23/25 at 1500, 1st Line Option: -ONLY give NM if patient is unable to take orally and cannot receive IV/IM. -If inadequate response within 30 minutes, proceed to next-line agent or contact provider if no further options ordered. prochlorperazine (COMPAZINE) tablet 10 mg(Linked Group 1) 10 mg, oral, Every 6 hours PRN, nausea, vomiting, Starting on Sun01/23/25 at 1500, 1st Line Option: -Give IV or IM if patient is unable to take orally. -If inadequate response within 30 minutes, proceed to next-line agent or contact provider if no further options ordered. Linked Groups Order Group 1: prochlorperazine (COMPAZINE) tablet 10 mgJump to med 10 mg, oral, Every 6 hours PRN, nausea, vomiting, Starting on Sun01/23/25 at 1500, 1st Line Option: -Give IV or IM if patient is unable to take orally. -If inadequate response within 30 minutes, proceed to next-line agent or contact provider if no further options ordered. Or prochlorperazine (COMPAZINE) injection 10 mgJump to med 10 mg, intravenous, Every 6 hours PRN, nausea, vomiting, Starting on Sun01/23/25 at 1500, 1st Line Option: -ONLY give IV if patient is unable to take orally. -Give IM if patient does not have IV Access -If inadequate response within 30 minutes, proceed to next-line agent or contact provider if no further options ordered. Or prochlorperazine (COMPAZINE) suppository 25 mgJump to med 25 mg, rectal, Every 12 hours PRN, nausea, vomiting, Starting on Sun01/23/25 at 1500, 1st Line Option: -ONLY give NM if patient is unable to take orally and cannot receive IV/IM. -If inadequate response within 30 minutes, proceed to next-line agent or contact provider if no further options ordered. documented in this encounter Orders Medications Ordered That Johnny ht Not Have Been Administered Count Last Ordered Date First Ordered Date prochlorperazine (COMPAZINE) injection 10 mg 1 01/23/2025 prochlorperazine (COMPAZINE) suppository 25 mg 1 01/23/2025 prochlorperazine (COMPAZINE) tablet 10 mg 1 01/23/2025 ceFAZolin (ANCEF) 2 g in adam rile water 20 mL IV syringe 1 01/19/2025 dextrose (D50W) 50% injection 12.5 g 1 12/28 dextrose (D50W) 50% injection 25 g 1 2024 dextrose 15 gram/60 mL oral solution 15 g 1 01/19/2025 dextrose 15 gram/60 mL oral solution 30 g 1 01/19/2025 Glucagon HCl (rDNA) injection 1 mg 1 2024 HYDROmorphone (DILAUDID) tablet 2 mg 1 12/28 bisacodyL (DULCOLAX) EC tablet 10 mg 1 12/28 ondansetron (PF) (ZOFRAN) injection 4 mg 1 01/18/2025 ondansetron ODT (ZOFRAN-ODT) disintegrating tablet 4 mg 1 01/18/2025 sodium phosphate (FLEET) enema 133 mL 1 Lab Orders Without Results Count Last Ordered D ate First Ordered Date POCT GLUCOSE, BLOOD 27 01/25/2025 01/20/20 Diet Count Last Ordered Date First Orde red Date ADULT DISCHARGE DIET 1 01/25/2025 Nursing Count Last Ordered Date First Orde red Date ACTIVITY 1 01/25/2025 FOLLOW UP WITH PROVIDER 2 01/25/2025 Consult Count Last Ordered Date First Orde red Date IP CONSULT TO NEUROLOGY 1 01/21/2025 WOUND CARE INPATIENT FOLLOW-UP 1 01/20/2025 IP CONSULT TO SOCIAL WORK 1 01/19/2025 Admission Count Last Ordered Date First Orde red Date ADMIT TO INPATIENT 1 01/19/2025 INITIATE OBSERVATION STATUS 1 01/18/2025 Transfer Count Last Ordered Date First Orde red Date ED TO FLOOR BED REQUEST 1 01/18/2025 Discharge Count Last Ordered Date First Orde red Date DISCHARGE PATIENT 1 01/25/2025 documented in this encounter Additional Health Concerns Infection Onset 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
== END 2025-01-27 16:24 | disposition home or self-care (01) ==
LOC: HO.HNS 16:05
PROVIDERS: PCP Internal Medicine; Visit Provider Physician Assistant
DX: M47.14 Other spondylosis with myelopathy, thoracic region (principal)
CPT/HCPCS: 99024

== ENCOUNTER → 2025-01-27 16:05 | Outpatient (BNVA) | payer MEDICARE, OTHER, SELFPAY | PROVIDERS: PCP Internal Medicine; Visit Provider Physician Assistant | DX: M47.14 Other spondylosis with myelopathy, thoracic region (principal) | CPT/HCPCS: 99212 ==

== ENCOUNTER 2025-02-04 11:27 | Outpatient (REF) | payer MEDICARE, OTHER, SELFPAY ==
--- OUTSIDE RECORDS SUMMARY | 2025-02-04 14:13 | XMS_ITS | Encounter Summary ---
Author Organization [facility] Address [address] [place] [address] Care Team Providers Care Yacht Captain Name Role Phone Patsy York MD Primary Care Provider [phone] Encounter Details Date Type Department Care Team (Late st Contact Info) Description 12/12/2024 Lab Requisition [facility] - Main Lab [address] [facility] [place] [address] Willis Martinez MD [address] [address] Dysuria Social History Tobacco Use Types Packs/Day [...] 1:00 PM EDT Office Visit Pulmon[facility]gy [place] [address] [place] [phone] Latrice Patino, MIS [address] [facility] [address] [place] [address] documented as of this encounter Procedures Procedure Name Priority Date/Time Associated Diagnosis Comments BACTERIAL IDENTIFICATION AND SUSCEPTIBILITY, AEROBIC Routine 12/11/2024 12:00 AM EST Dysuria documented in this encounter Results * (ABNORMAL) Bacterial identification and susceptibility, aerobic (12/11/2024 12:00 AM EST) Culture, Bacterial ID and Sensitivity Pseudomonas aeruginosa(A) BARI 12/15/2024 9:11 AM EST [facility] Comment: The organism value for this result has been updated. These results have been appended to the previously preliminary verified report. Culture, Bacterial ID and Sensitivity Proteus mirabilis ESBL(A) BARI 12/15/2024 9:11 AM EST [facility] Comment: THIS ORGANISM IS POSITIVE FOR [...] Unknown 12/11/2024 12/12/2024 10:22 AM EST Narrative [facility] - 12/15/2024 9:11 AM EST ESBL [...] MICROBIOLOGY - G ENERAL ORDERABLES Final Result [facility] [address] [place] [address], documented in this encounter Visit Diagnoses Diagnosis Dysuria documented in this encounter Additional Health Concerns Infection Onset Date Last Indicated Resolved Time ESBL 12/11/2024 12/11/2024 documented as of this encounter Care Teams Yacht Captain Relationship Specialty Start Date End Date Patsy York MD [address] [place] [address] PCP - General Internal Medicine 07/21/15 documented as of this encounter
--- OUTSIDE RECORDS SUMMARY | 2025-02-04 14:13 | XMS_ITS | Encounter Summary ---
Author Organization [facility] Address [address] [place] [address] Care Team Providers Care Sander Machine Name Role Phone Patsy York MD Primary Care Provider [phone] Reason for Visit * Reason Onset Date Comments med refill and hosptial visit 01/30/2025 Encounter Details Date Type Department Care Team (Late st Contact Info) Description 01/30/2025 Telephone Adult Medicine [address] [phone] Annabelle Pierson [place] med refill and hosptial [...] 1:00 PM EDT Office Visit Pulmonolgy - [place] [address] [facility] [address] [place] [address] Latrice Patino NP [address] [facility] [address] [place] [address] documented as of this encounter Visit Diagnoses Not on filedocumented in this encounter Additional Health Concerns Infection Onset Date Last Indicated Resolved Time ESBL 12/11/2024 12/11/2024 documented as of this encounter Care Teams Sander Machine Relationship Specialty Start Date End Date Patsy York MD [address] [place] [address] PCP - General Internal Medicine 07/21/15 documented as of this encounter
--- OUTSIDE RECORDS SUMMARY | 2025-02-04 14:13 | XMS_ITS | Encounter Summary ---
Author Organization [facility] Address [address] [place] [address] Care Team Providers Care Ventilator Specialist Name Role Phone Patsy York MD Primary Care Provider [phone] Reason for Visit * Reason Onset Date Comments Advice Only 01/30/2025 Encounter Details Date Type Department Care Team (Late st Contact Info) Description 01/30/2025 Telephone Adult Medicine [facility] [address] [place] [address] Patsy York MD [address] [place], [place] Advice Only Social History Tobacco Use [...] by the hospital. States she went to [facility] ER on 01/18 and was admitted, [facility] She isn't sure what the issues [...] traveled recently to another state outside of [place], [place], [place], [place], [place], [place], [place]? no o If yes, did you quarantine [...] of accident/Injury: no If yes, gather 3rd republican insurance information Third Republican Information: not applicable PCP: Patsy York MD Payor: MEDICARE / Plan: MEDICARE PART A & B / Product Type: Medicare / documented in this encounter Plan of Treatment Upcoming Encounters Date Type Department Care Team (Late st Contact Info) Description 03/02/2025 1:00 PM EDT [facility] [address] [place] [address] Latrice Patino, PRODUCT TESTER [employer] [address] [facility] [address] [place] [address] documented as of this encounter Visit Diagnoses Not on filedocumented in this encounter Additional Health Concerns Infection Onset Date Last Indicated Resolved Time ESBL 12/11/2024 12/11/2024 documented as of this encounter Care Teams Ventilator Specialist Relationship Specialty Start Date End Date Patsy York MD [address] [place] [address] PCP - General Internal Medicine 07/21/15 documented as of this encounter
--- OUTSIDE RECORDS SUMMARY | 2025-02-04 14:13 | XMS_ITS | Clinical Summary ---
Author Organization 175 [facility] Address [address] [place] [address] Phone Care Team Providers Care Digitizer Operator Name Role Phone Patsy York MD Primary Care Provider [phone] Allergies Active Allergy Reactions Criticality Noted Date [...] a BNP done when she was at [facility] and I will check that. On [...] Department Care Team Description 02/03/2025 Lab Requisition [facility] Lab [address] [place] [address] Esther Varela MD Hypokalemia 01/31/2025 Lab Requisition [facility] Lab [address] [place] [address] Esther Varela MD Syncope and collapse; Type 2 diabetes mellitus without complications 01/30/2025 Telephone Adult Medicine [facility] [address] [place] [phone] Annabelle Pierson MA med refill and hosptial visit 01/30/2025 Telephone Adult [facility] [address] [place] [phone] Patsy York MD Advice Only 01/18/2025 12:45 PM EDT - 01/25/2025 2:30 PM EDT Hospital Encounter [facility] [address] [place] [address] Mina Colón MD Sondhi, Vikram, MD Santoyo-Pacheco, Omar D, MD Intractable abdominal pain (Primary Dx); Biliary dyskinesia; Pain in abdomen on palpation; Thoracic myelopathy Discharge Disposition: Usp Facility 12/12/2024 Lab Requisition [facility] - Main Lab [address] [facility] [place] [address] Willis Martinez MD Dysuria 11/07/2024 2:00 PM EST Office Visit [facility] [address] [facility] [address] [place] [phone] Sea Marie MD Essential hypertension, benign (Primary Dx); Coronary artery disease due to calcified coronary lesion; DEXTER (dyspnea on exertion) from Last 3 Months Immunizations Name Administration Dates Next Due Influenza trivalent, 0.5mL ( Fluzone High-dose) 65yo and older 07/05/2022,09/27/2021 Influenza trivalent, with pr eservative (Fluzone; Afluria) 6mo and older 08/22/2016,08/16/2015,09/30/2012,09/16 [facility] SARS-CoV-2 COVID -19, vector-nr, rS-Ad26, preservative free 01/31/2021 [facility] SARS-CoV-2 COVID-19, mRNA, LNP-S, preservative free 11/27/2021 [...] PROCEDURE: HISTORICAL TONSILLECTOMY KIDNEY STONE SURGERY PROCEDURE: IA NEPHROLITHOTOMY REMOVAL CALCULUS HERNIA REPAIR PROCEDURE: REPAIR [...] obesity with BMI of 4 0.0-44.9, adult ([facility]/HCC) 10/23/2013 DX:Morbid obesity with BMI o f 40.0-44.9, adult ([facility]); COMMENT: BMI 40.26 0n 08/28/13. Family History [...] 1:00 PM EDT Office Visit Pulmonolgy - [place] [address] [facility] [address] [place] [address] Latrice Patino NP [address] [facility] [address] [place] [address] Health Maintenance Due Date Last Done Comments [...] LAB CHEMISTRY METHOD 02/03/2025 9:[address] [facility] Blood Venous blood specimen / Unknown Venipuncture / Unknown 02/03/2025 5:33 AM EDT 02/03/2025 8:02 AM EDT us Esther Varela MD LAB BLOOD ORDERABLES Fin al Result [facility] [address] [place] [address], * (ABNORMAL) Complete blood count (01/31/2025 7:41 AM EDT) Only the most recent of2 resultswithin the time period is included. WBC 8.3 4.8 - 10.8 K/mcL LAB HEMETOLOGY METHOD 01/31/2025 9:15 AM EDT [facility] RBC 4.30 3.80 - 4.80 M/mcL LAB HEMETOLOGY METHOD 01/31/2025 9:15 AM EDT [facility] Hemoglobin 13.3 11.5 - 16.0 g/dL LAB HEMETOLOGY METHOD 01/31/2025 9:15 AM EDT [facility] Hematocrit 40.6 35.0 - 47.0 % LAB HEMETOLOGY METHOD 01/31/2025 9:15 AM EDT [facility] MCV 95.1 79.0 - 98.0 FL LAB HEMETOLOGY METHOD 01/31/2025 9:15 AM EDT [facility] MCH 31.1 27.0 - 32.0 pcg LAB HEMETOLOGY METHOD 01/31/2025 9:15 AM EDT [facility] MCHC 32.8 32.0 - 37.0 g/dL LAB HEMETOLOGY METHOD 01/31/2025 9:15 AM EDT [facility] RDW 13.2 11.0 - 15.0 % LAB HEMETOLOGY METHOD 01/31/2025 9:15 AM EDT [facility] Platelets 148 130 - 400 K/mcL LAB HEMETOLOGY METHOD 01/31/2025 9:15 AM EDT [facility] MPV 11.6(H) 7.0 - 11.0 FL LAB HEMETOLOGY METHOD 01/31/2025 9:15 AM EDT [facility] NRBC 0.0 <1.0 % LAB HEMETOLOGY METHOD 01/31/2025 9:15 AM EDT [facility] NRBC Absolute 0.00 <0.10 K/mcL LAB HEMETOLOGY METHOD 01/31/2025 9:15 AM EDT [facility] Blood Venous blood specimen / Unknown Venipuncture / Unknown 01/31/2025 7:41 AM EDT 01/31/2025 8:26 AM EDT Esther Varela MD LAB BLOOD ORDERABLES Fin al Result Performing Organization Address [facility]/ZIP Co de Phone Number [facility] [address] [place] [address], [place] [phone] * Hemoglobin A1c (01/31/2025 7:41 AM EDT) Hemoglobin A1C 6.4 <6.5 % LAB CHEMISTRY METHOD 02/01/2025 8:30 AM EDT [facility] Mean Bld Glu Estim. 137 mg/dL LAB CHEMISTRY METHOD 02/01/2025 8:30 AM EDT [facility] Blood Venous blood specimen / Unknown Venipuncture / Unknown 01/31/2025 7:41 AM EDT 01/31/2025 8:26 AM EDT Esther Varela MD LAB BLOOD ORDERABLES Fin al Result Performing Organization Address City/[facility]/ZIP Co de Phone Number [facility] [address] [place] [address], [place] [phone] * (ABNORMAL) Basic metabolic panel (01/31/2025 7:41 AM EDT) Only the most recent of5 resultswithin the time period is included. Sodium 137 133 - 145 mmol/L LAB CHEMISTRY METHOD 01/31/2025 9:13 AM EDT [facility] Potassium 4.5 3.5 - 5.5 mmol/L LAB CHEMISTRY METHOD 01/31/2025 9:13 AM [facility] Chloride 94(L) 96 - 110 mmol/L LAB CHEMISTRY METHOD 01/31/2025 9:13 AM [facility] CO2 37(H) 21 - 32 mmol/L LAB CHEMISTRY METHOD 01/31/2025 9:13 AM [facility] Anion Gap 6 3 - 11 LAB CHEMISTRY METHOD 01/31/2025 9:13 AM [facility] Glucose 100 70 - 100 mg/dL LAB CHEMISTRY METHOD 01/31/2025 9:13 AM [facility] BUN 23 5 - 25 mg/dL LAB CHEMISTRY METHOD 01/31/2025 9:13 AM [facility] Creatinine 0.92 0.50 - 1.10 mg/dL LAB CHEMISTRY METHOD 01/31/2025 9:13 AM [facility] eGFR 66 >=60 mL/min/1. 73m2 LAB CHEMISTRY METHOD 01/31/2025 9:13 AM [facility] Comment:Calculation based on the??Chronic Kidney Disease Epidemiology Collaboration (CKD-EPI) equation refit??without adjustment for race. BUN/Creatinine Ratio 25.0 LAB CHEMISTRY METHOD 01/31/2025 9:13 AM [facility] Calcium 9.6 8.5 - 10.5 mg/dL LAB CHEMISTRY METHOD 01/31/2025 9:13 AM [facility] Blood Venous blood specimen / Unknown Venipuncture / Unknown 01/31/2025 7:41 AM EDT 01/31/2025 8:26 AM EDT us Esther Varela MD LAB BLOOD ORDERABLES Fin al Result [facility] [address] [place] [address], [place] [phone] * (ABNORMAL) POCT Glucose, blood (01/25/2025 11:09 AM EDT) Only the most recent of27 resultswithin the time period is included. [facility] Glucose POCT 152(H) 70 - 100 mg/dL 01/25/2025 11:10 AM EDT [facility] Blood Capillary blood specimen / Unknown 01/25/2025 11:09 AM EDT 01/25/2025 11:11 AM EDT us Scott Wolfe MD LAB POINT OF C ARE TEST DOCKED DEVICE UNSOLICITED RESULTS Final Result [facility] [address] [place] [address], [place] [phone] * (ABNORMAL) CBC auto differential (01/24/2025 6:17 AM EDT) Only the most recent of4 resultswithin the time period is included. [facility] WBC 8.7 4.8 - 10.8 K/mcL LAB HEMETOLOGY METHOD 01/24/2025 7:35 AM EDT [facility] RBC 4.40 3.80 - 4.80 M/mcL LAB HEMETOLOGY METHOD 01/24/2025 7:35 AM EDT [facility] Hemoglobin 13.6 11.5 - 16.0 g/dL LAB HEMETOLOGY METHOD 01/24/2025 7:35 AM EDT [facility] Hematocrit 41.3 35.0 - 47.0 % LAB HEMETOLOGY METHOD 01/24/2025 7:35 AM EDT [facility] MCV 93.4 79.0 - 98.0 FL LAB HEMETOLOGY METHOD 01/24/2025 7:35 AM EDT [facility] MCH 30.8 27.0 - 32.0 pcg LAB HEMETOLOGY METHOD 01/24/2025 7:35 AM EDT [facility] MCHC 32.9 32.0 - 37.0 g/dL LAB HEMETOLOGY METHOD 01/24/2025 7:35 AM [facility] RDW 12.6 11.0 - 15.0 % LAB HEMETOLOGY METHOD 01/24/2025 7:35 AM [facility] Platelets 261 130 - 400 K/mcL LAB HEMETOLOGY METHOD 01/24/2025 7:35 AM [facility] MPV 10.9 7.0 - 11.0 FL LAB HEMETOLOGY METHOD 01/24/2025 7:35 AM [facility] NRBC 0.0 <1.0 % LAB HEMETOLOGY METHOD 01/24/2025 7:35 AM [facility] NRBC Absolute 0.00 <0.10 K/mcL LAB HEMETOLOGY METHOD 01/24/2025 7:35 AM [facility] Neutrophils Relative 78.8 % LAB HEMETOLOGY METHOD 01/24/2025 7:35 AM [facility] Lymphocytes Relative 9.6 % LAB HEMETOLOGY METHOD 01/24/2025 7:35 AM [facility] Monocytes Relative 10.4 % LAB HEMETOLOGY METHOD 01/24/2025 7:35 AM [facility] Eosinophils Relative 0.3 % LAB HEMETOLOGY METHOD 01/24/2025 7:35 AM [facility] Basophils Relative 0.0 % LAB HEMETOLOGY METHOD 01/24/2025 7:35 AM [facility] Immature Granulocytes Relative 0.9 % LAB HEMETOLOGY METHOD 01/24/2025 7:35 AM [facility] Neutrophils Absolute 6.84 1.50 - 7.00 K/mcL LAB HEMETOLOGY METHOD 01/24/2025 7:35 AM EDT [facility] Lymphocytes Absolute 0.83(L) 1.00 - 5.00 K/mcL LAB HEMETOLOGY METHOD 01/24/2025 7:35 AM EDT [facility] Monocytes Absolute 0.90 0.20 - 1.00 K/mcL LAB HEMETOLOGY METHOD 01/24/2025 7:35 AM EDT [facility] Eosinophils Absolute 0.03 0.00 - 0.50 K/[facility] LAB HEMETOLOGY METHOD 01/24/2025 7:35 AM EDT [facility] Basophils Absolute 0.00 0.00 - 0.20 K/mcL LAB HEMETOLOGY METHOD 01/24/2025 7:35 AM EDT [facility] Immature Granulocytes Absolute 0.08(H) 0.00 - 0.03 K/mcL LAB HEMETOLOGY METHOD 01/24/2025 7:35 AM EDT [facility] Blood Venous blood specimen / Unknown Venipuncture / Unknown 01/24/2025 6:17 AM EDT 01/24/2025 7:03 AM EDT us Scott Wolfe MD LAB BLOOD ORDERABLES F inal Result [facility] [address] [place] [address], * C-reactive protein (01/24/2025 6:17 AM EDT) Only the most recent of2 resultswithin the time period is included. C-Reactive Protein <0.29 <=0.50 mg/dL LAB CHEMISTRY METHOD 01/24/2025 8:08 AM EDT [facility] Blood Venous blood specimen / Unknown Venipuncture / Unknown 01/24/2025 6:17 AM EDT 01/24/2025 7:02 AM EDT us Scott Wolfe MD LAB BLOOD ORDERABLES F inal Result Performing Organization Address City/[facility]/ZIP Co de Phone Number [facility] [address] [place] [address], [place] [phone] * ECG 12 lead (01/23/2025 2:07 PM EDT) Ventricular Rate ECG 63 BPM GEMUSE Atrial Rate 63 BPM GEMUSE P-R Interval 156 ms GEMUSE QRS Duration 156 ms GEMUSE Q-T Interval 464 ms GEMUSE QTc 474 ms GEMUSE P Wave [place] 42 degrees GEMUSE R [place] -39 degrees GEMUSE T [place] -21 degrees GEMUSE ECG Interpretation Normal sinus rhythm Left axis deviation Right bundle branch block Abnormal ECG When compared with ECG of 09-AUG-2023 13:03, T wave inversion now evident in Anterior leads Confirmed by MD Frank, [place] ([id number]) on 01/24/2025 8:50:02 AM GEMUSE 01/23/2025 2:07 PM EDT 01/24/2025 8:50 AM EDT us Scott Wolfe MD ECG ORDERABLES Final Result Performing Organization Address [facility] Co de Phone Number GEMUSE * MR [...] Signed Date: 01/20/2025 18:01 ET Workstation ID: [id number] Transcribed By: Self Edit Transcribed Date: 01/20/2025 [...] in the laminectomy bed at the level [id number]. 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 Increased cord signal at T10-11. Thoracic cord is otherwise normal insignal. Cervicothoracic posterior fusion hardware seen extending to the level ofT3. Lower lumbar fusion hardware noted. Postsurgical changes in the posterior paraspinal musculature at [id number] small fluid collection in the lower thoracic [...] Signed Date: 01/20/2025 18:01 ET Workstation ID: [id number] Transcribed By: Self Edit Transcribed Date: 01/20/2025 17:44 ET Rose aMry MARTINEZ IMG MRI PROCEDURES Bella crump Result * Activated partial thromboplastin time (01/20/2025 6:14 AM EDT) aPTT 27.1 24.1 - 39.3 sec LAB COAGULATION METHOD 01/20/2025 7:39 AM EDT [facility] Blood Venous blood specimen / Unknown Venipuncture / Unknown 01/20/2025 6:14 AM EDT 01/20/2025 6:58 AM EDT Britt MARTINEZ LAB BLOOD ORDERABLES Final Re sult [facility] [address] [place] [address], [place] [phone] * (ABNORMAL) Prothrombin time with INR (01/20/2025 6:14 AM EDT) Protime 16.7(H) 10.6 - 13.9 sec LAB COAGULATION METHOD 01/20/2025 7:39 AM EDT [facility] INR 1.3 LAB COAGULATION METHOD 01/20/2025 7:39 AM EDT [facility] Blood Venous blood specimen / Unknown Venipuncture / Unknown 01/20/2025 6:14 AM EDT 01/20/2025 6:58 AM EDT us Britt MARTINEZ LAB BLOOD ORDERABLES Final Re sult [facility] [address] [place] [address], [place] [phone] * Type and screen (01/20/2025 6:14 AM EDT) ABO Group B 01/20/2025 8:17 AM EDT [facility] Rh Type Positive 01/20/2025 8:17 AM EDT [facility] Antibody Screen Negative 01/20/2025 8:17 AM EDT [facility] Blood Venous blood specimen / Unknown Venipuncture / Unknown 01/20/2025 6:14 AM EDT 01/20/2025 6:59 AM EDT Britt MARTINEZ LAB BLOOD BANK TEST ORDERABLE S Final Result Performing Organization Address City/[facility]/ZIP Co de Phone Number [facility] [address] [place] [address], [place] [phone] * Phosphorus (01/20/2025 6:14 AM EDT) Phosphorus 2.6 2.5 - 4.5 mg/dL LAB CHEMISTRY METHOD 01/20/2025 7:39 AM EDT [facility] Blood Venous blood specimen / Unknown Venipuncture / Unknown 01/20/2025 6:14 AM EDT 01/20/2025 6:58 AM EDT Britt MARTINEZ LAB BLOOD ORDERABLES Final Re sult Performing Organization Address [facility]/ZIP Co de Phone Number [facility] [address] [place] [address], [place] [phone] * NM Hepatobiliary System Imaging (01/19/2025 3:38 PM EDT) Anatomical Region Laterality Modality Body Nuclear Medicine 01/19/2025 4:39 PM EDT Impressions 01/19/2025 4:42 PM EDT Impression: 1. No evidence of cystic or common bile duct obstruction. 2.. Delayed biliary to bowel transit. Telerad JUAN ([id number]) -------- FINAL REPORT -------- Dictated By: Ilda Baez Dictated Date: 01/19/2025 16:39 ET Assigned Physician: Ilda Baez Reviewed and Electronically Signed By: Ilda Baez Signed Date: 01/19/2025 16:42 ET Workstation ID: [id number] Transcribed By: Self Edit Transcribed Date: 01/19/2025 [...] Delayed biliary to bowel transit. Teleulises MARTINEZ ([id number]) -------- FINAL REPORT -------- Dictated By: Ilda Baez Dictated Date: 01/19/2025 16:39 ET Assigned Physician: Ilda Baez Reviewed and Electronically Signed By: Ilda Baez Signed Date: 01/19/2025 16:42 ET Workstation ID: [id number] Transcribed By: Self Edit Transcribed Date: 01/19/2025 16:39 ET Rose Mary MARTINEZ [facility] PROCEDURES Final Result * (ABNORMAL) Urinalysis with reflex microscopic and culture (01/18/2025 4:50 PM EDT) Specific [place] Urine 1.020 1.003 - 1.030 LAB URINALYSIS - AUTOMATED METHOD 01/18/2025 5:25 PM EDT [facility] pH, Urine 6.5 5.0 - 8.0 pH LAB URINALYSIS - AUTOMATED METHOD 01/18/2025 5:25 PM [facility] Leukocytes, Urine Moderate(A) Negative LAB URINALYSIS - AUTOMATED METHOD 01/18/2025 5:25 PM [facility] Nitrite, Urine Positive(A) Negative LAB URINALYSIS - AUTOMATED METHOD 01/18/2025 5:25 PM [facility] Protein, Urine 30(A) <=Trace mg/dL LAB URINALYSIS - AUTOMATED METHOD 01/18/2025 5:25 PM [facility] Glucose, Urine Negative Negative mg/dL LAB URINALYSIS - AUTOMATED METHOD 01/18/2025 5:25 PM [facility] Ketones, Urine 40(A) Negative mg/dL LAB URINALYSIS - AUTOMATED METHOD 01/18/2025 5:25 PM [facility] Urobilinogen , Urine 1.0 0.2 - 1.0 mg/dL LAB URINALYSIS - AUTOMATED METHOD 01/18/2025 5:25 PM [facility] Bilirubin, Urine Negative Negative LAB URINALYSIS - AUTOMATED METHOD 01/18/2025 5:25 PM [facility] Blood, Urine Moderate(A) Negative LAB URINALYSIS - AUTOMATED METHOD 01/18/2025 5:25 PM [facility] RBC, Urine 31.4(H) 0 - 4 /HPF LAB URINALYSIS - AUTOMATED METHOD 01/18/2025 5:25 PM [facility] WBC, Urine 114.2(H) 0 - 4 /HPF LAB URINALYSIS - AUTOMATED METHOD 01/18/2025 5:25 PM [facility] Squamous Epithelial, Urine 73(H) 0 - 60 /LPF LAB URINALYSIS - AUTOMATED METHOD 01/18/2025 5:25 PM [facility] Bacteria, Urine Few(A) Negative /HPF LAB URINALYSIS - AUTOMATED METHOD 01/18/2025 5:25 PM EDT [facility] Hyaline Casts, Urine 8.8(H) 0 - 3 /LPF LAB URINALYSIS - AUTOMATED METHOD 01/18/2025 5:25 PM EDT [facility] Urine Urine specimen obtained by clean catch procedure / Unknown Non-blood Collection / Unknown 01/18/2025 4:50 PM EDT 01/18/2025 5:14 PM EDT Mina Colón MD LAB URINE ORDERABLES Final Result Performing Organization Address [facility]/ZIP Co de Phone Number [facility] [address] [place] [address], [place] [phone] * Ramírez urine culture tube (01/18/2025 4:50 PM EDT) Extra Tube Hold for add-ons. 01/18/2025 7:01 PM EDT [facility] Comment:Auto resulted. Urine Urine specimen obtained by clean catch procedure / Unknown Non-blood Collection / Unknown 01/18/2025 4:50 PM EDT 01/18/2025 5:14 PM EDT Mina Colón MD LAB URINE ORDERABLES Final Result Performing Organization Address [facility]/ZIP Co de Phone Number [facility] [address] [place] [address], [place] [phone] * (ABNORMAL) Culture urine (01/18/2025 4:50 PM EDT) Culture, Urine >100,000 CFU/mL Pseudomonas aeruginosa(A) BARI 01/21/2025 8:20 AM EDT [facility] Comment: This is an edited result. [...] LAB MICROBIOLOGY - GENERAL ORDERABLES Final Result [facility] [address] [place] [address], [place] [phone] * [place] Abdomen Limited (01/18/2025 3:47 PM EDT) Anatomical Region Laterality Modality Body Ultrasound 01/18/2025 3:49 PM EDT Impressions 01/18/2025 3:52 PM EDT Impression: 1. Distended gallbladder with small amount of mobile sludge and no specific findings of acute cholecystitis. 2. Fatty liver. Telerad PA ([id number]) -------- FINAL REPORT -------- Dictated By: Ilda Baez Dictated Date: 01/18/2025 15:49 ET Assigned Physician: Ilda Baez Reviewed and Electronically Signed By: Ilda Baez Signed Date: 01/18/2025 15:52 ET Workstation ID: [id number] Transcribed By: Self Edit Transcribed Date: 01/18/2025 [...] acute cholecystitis. 2. Fatty liver. Flores MARTINEZ ([id number]) -------- FINAL REPORT -------- Dictated By: Ilda Baez Dictated Date: 01/18/2025 15:49 ET Assigned Physician: Ilda Baez Reviewed and Electronically Signed By: Ilda Baez Signed Date: 01/18/2025 15:52 ET Workstation ID: [id number] Transcribed By: Self Edit Transcribed Date: 01/18/2025 [...] 2. Nonobstructing right renal calculi. Telerad PA ([id number]) -------- FINAL REPORT -------- Dictated By: Ilda Baez Dictated Date: 01/18/2025 14:40 ET Assigned Physician: Ilda Baez Reviewed and Electronically Signed By: Ilda Baez Signed Date: 01/18/2025 14:46 ET Workstation ID: [id number] Transcribed By: Self Edit Transcribed Date: 01/18/2025 14:40 ET Narrative 01/18/2025 2:46 PM EDT History: Right flank pain for several days. Comparison: 07/30/20 Technique: Helical volumetric imaging of the abdomen and pelvis was performed without intravenous or oral contrast (stone kee protocol). DLP: 1124.25 mGy/cm [facility] VCT Iterative reconstruction technique Findings: The kidneys [...] contrast (stone kee protocol). DLP: 1124.25 mGy/cm [facility] Iterative reconstruction technique Findings: The kidneys are [...] 2. Nonobstructing right renal calculi. Telerad JUAN ([id number]) -------- FINAL REPORT -------- Dictated By: Ilda Baez Dictated Date: 01/18/2025 14:40 ET Assigned Physician: Ilda Baez Reviewed and Electronically Signed By: Ilda Baez Signed Date: 01/18/2025 14:46 ET Workstation ID: [id number] Transcribed By: Self Edit Transcribed Date: 01/18/2025 14:40 ET us Mina Colón MD IMG CT PROCEDURES Final Res ult * Lipase (01/18/2025 12:23 PM EDT) [facility] Lipase 22 13 - 75 unit/L LAB CHEMISTRY METHOD 01/18/2025 6:47 PM EDT [facility] Blood Venous blood specimen / Unknown Venipuncture / Unknown 01/18/2025 12:23 PM EDT 01/18/2025 12:55 PM EDT us Henrietta MARTINEZ LAB BLOOD ORDERABLES Final Resu lt [facility] [address] [place] [address], [place] [phone] * (ABNORMAL) Comprehensive metabolic panel (01/18/2025 12:23 PM EDT) [facility] Sodium 139 133 - 145 mmol/L LAB CHEMISTRY METHOD 01/18/2025 1:25 PM EDT [facility] Potassium 3.9 3.5 - 5.5 mmol/L LAB CHEMISTRY METHOD 01/18/2025 1:25 PM EDT [facility] Chloride 101 96 - 110 mmol/L LAB CHEMISTRY METHOD 01/18/2025 1:25 PM EDT [facility] CO2 30 21 - 32 mmol/L LAB CHEMISTRY METHOD 01/18/2025 1:25 PM EDT [facility] Anion Gap 8 3 - 11 LAB CHEMISTRY METHOD 01/18/2025 1:25 PM [facility] Glucose 115(H) 70 - 100 mg/dL LAB CHEMISTRY METHOD 01/18/2025 1:25 PM [facility] BUN 18 5 - 25 mg/dL LAB CHEMISTRY METHOD 01/18/2025 1:25 PM [facility] Creatinine 0.59 0.50 - 1.10 mg/dL LAB CHEMISTRY METHOD 01/18/2025 1:25 PM [facility] eGFR 96 >=60 mL/min/1. 73m2 LAB CHEMISTRY METHOD 01/18/2025 1:25 PM [facility] Comment:Calculation based on the??Chronic Kidney Disease Epidemiology Collaboration (CKD-EPI) equation refit??without adjustment for race. BUN/Creatinine Ratio 30.5 LAB CHEMISTRY METHOD 01/18/2025 1:25 PM [facility] Calcium 9.9 8.5 - 10.5 mg/dL LAB CHEMISTRY METHOD 01/18/2025 1:25 PM [facility] AST (SGOT) 30 10 - 42 unit/L LAB CHEMISTRY METHOD 01/18/2025 1:25 PM [facility] ALT (SGPT) 29 10 - 60 unit/L LAB CHEMISTRY METHOD 01/18/2025 1:25 PM [facility] Alkaline Phosphatase 114 42 - 121 unit/L LAB CHEMISTRY METHOD 01/18/2025 1:25 PM [facility] Total Protein 7.3 6.0 - 8.0 g/dL LAB CHEMISTRY METHOD 01/18/2025 1:25 PM [facility] Albumin 3.9 3.2 - 5.0 g/dL LAB CHEMISTRY METHOD 01/18/2025 1:25 PM [facility] Total Bilirubin 1.0 0.0 - 1.4 mg/dL LAB CHEMISTRY METHOD 01/18/2025 1:25 PM EDT [facility] Blood Venous blood specimen / Unknown Venipuncture / Unknown 01/18/2025 12:23 PM EDT 01/18/2025 12:55 PM EDT Mina Colón MD LAB BLOOD ORDERABLES Final Result [facility] [address] [place] [address], * External Xray Report (01/14/2025) Only the most recent of2 resultswithin the time period is included. Anatomical Region Laterality Modality Radiographic Gudelia ging Provider [facility] IMG XR PROCEDURES Final Result * (ABNORMAL) Bacterial identification and susceptibility, aerobic (12/11/2024 12:00 AM EST) Pathologist [facility] Culture, Bacterial ID and Sensitivity Pseudomonas aeruginosa(A) [...] <=0.5 ug/ml: Susceptible Proteus mirabilis ESBL Ceftriaxone BAIR <=0.25 ug/ml: Susceptible Proteus mirabilis ESBL Cefepime [...] MICROBIOLOGY - G ENERAL ORDERABLES Final Result [facility]) [facility] [address] [place] [address], [place] [phone] * MG Mammo Digital Diagnostic w Franc [...] is recommended in 1 year. Mammo Location: [facility], [address] [place] [address], [facility], . -------- FINAL REPORT -------- Dictated By: Shima Boyd Dictated Date: 10/08/2024 15:16 ET Assigned Physician: Shima Boyd Reviewed and Electronically Signed By: Shima Boyd Signed Date: 10/08/2024 15:57 ET Workstation ID: [id number] Transcribed By: Self Edit Transcribed Date: 10/08/2024 [...] is recommended in 1 year. Mammo Location: [facility], [address] [place] [address], [address], . -------- FINAL REPORT -------- Dictated By: Shima Boyd Dictated Date: 10/08/2024 15:16 ET Assigned Physician: Shima Boyd Reviewed and Electronically Signed By: Shima Boyd Signed Date: 10/08/2024 15:57 ET Workstation ID: [id number] Transcribed By: Self Edit Transcribed Date: 10/08/2024 15:31 ET us Patsy York MD IMG BI PROCEDURES Final Result * PERFECTO DEXA AXIAL SKELETON (03/26/2024 5:09 PM EDT) Anatomical Region Laterality Modality Mammography 03/26/2024 1:05 PM EDT Narrative 03/26/2024 5:09 PM EDT [facility] Diagnostic Imaging Department [address] [place] [address] [id number] Patient: ??DENVER LOVE ?/Age/Sex: 1950 - 73 - F Unit#: ??[id number] ? Location/Status: ??SPDIMAM/REG CLI ? Mnemonic/Ordering Site: ??MAMDEXAAX/SPMAM Ordering Physician: ??RORY ACOSTA PA-C Perfecto Dexa Axial Skeleton - 03/26/24 - 1404 Report Status:Signed History: Low estrogen state due to menopause. Personal history of fracture. Comparison: No comparison imaging. Findings: Bone densitometry is performed utilizing dual energy x-ray absorptiometry (DXA) in the [employer] unit. The lumbar spine and proximal femora [...] 16.6 percent ??Hip 3.1 percent. IMPRESSION: Osteoporosis. [id number] Dictating Physician: ??ILDA BAEZ MD Electronically Signed by: ??ILDA BAEZ MD Dic Date/Time: ??03/26/241708 Sign date/Time: ??03/26/241708 Procedure Note Ilda Baez MD - 06/16/2024 [facility] Diagnostic Imaging Department [address] [place] [address] Patient: DENVER LOVE/Age/Sex: 1950 - 73 - F Unit#: [id number] Location/Status: SPDIMA/REG CLI Mnemonic[facility] Ordering Physician: RORY ACOSTA PA-C Perfecto Dexa Axial Skeleton - 03/26/24 - [id number] Report Status:Signed History: Low estrogen state due to menopause. Personal history offracture. Comparison: No comparison imaging. Findings: Bone densitometry is performed utilizing dual energy x-ray absorptiometry(DXA) in the [employer] unit. The lumbar spine and proximal femora [...] 16.6 percent Hip 3.1 percent. IMPRESSION: Osteoporosis. 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
--- OUTSIDE RECORDS SUMMARY | 2025-02-04 14:13 | XMS_ITS | Encounter Summary ---
Author Organization [facility] Address [address] [place] [address] Care Team Providers Care Aircraft Servicer Name Role Phone Patsy York MD Primary Care Provider [phone] Encounter Details Date Type Department Care Team (Late st Contact Info) Description 02/03/2025 Lab Requisition [facility] - Main Lab [address] [facility] [address] [place] [address] Esther Varela MD [address] [id number] Hypokalemia Social History Tobacco Use Types Packs/Day [...] Description 03/02/2025 1:00 PM EDT [facility] [address] [facility] [address] [place] [address] Latrice Patino NP [address] [facility] [address] [place] [address] documented as of this encounter Procedures Procedure Name Priority Date/Time Associated Diagnosis Comments MAGNESIUM Routine 02/03/2025 5:33 AM EDT Hypokalemia documented in this encounter Results * (ABNORMAL) Magnesium (02/03/2025 5:33 AM EDT) Magnesium 1.6(L) 1.9 - 2.6 mg/dL LAB CHEMISTRY METHOD 02/03/2025 9:06 AM EDT [facility] Blood Venous blood specimen / Unknown Venipuncture / Unknown 02/03/2025 5:33 AM EDT 02/03/2025 8:02 AM EDT us Esther Varela MD LAB BLOOD ORDERABLES Fin al Result [facility] ([facility]) [facility] [address] [place] [address], documented in this encounter Visit Diagnoses Diagnosis Hypokalemia Hypopotassemia documented in this encounter Additional Health Concerns Infection Onset Date Last Indicated Resolved Time ESBL 12/11/2024 12/11/2024 documented as of this encounter Care Teams Aircraft Servicer Relationship Specialty Start Date End Date Patsy York MD [address] [place] [address] PCP - General Internal Medicine 07/21/15 documented as of this encounter
--- OUTSIDE RECORDS SUMMARY | 2025-02-04 14:13 | XMS_ITS | Encounter Summary ---
Author Organization [facility] Address [address] [place] [address] Care Team Providers Care Appliance Sales Associate Name Role Phone Patsy York MD Primary Care Provider [phone] Encounter Details Date Type Department Care Team (Late st Contact Info) Description 01/31/2025 Lab Requisition [facility] - Main Lab [address] [facility] [place] [address] Esther Varela MD [address] [phone] Syncope and collapse; Type 2 diabetes mellitus [...] Sophia Mckenna RN documented in this encounter Plan of Treatment Upcoming Encounters Date Type Department Care Team (Late st Contact Info) Description 03/02/2025 1:00 PM EDT [facility] [address] [facility] [address] [place] [address] Latrice Patino NP [address] [facility] [address] [place] [address] documented as of this encounter Procedures Procedure [...] Hemoglobin A1c (01/31/2025 7:41 AM EDT) Pathologist [facility] Hemoglobin A1C 6.4 <6.5 % LAB CHEMISTRY METHOD 02/01/2025 8:30 AM EDT [facility] Mean Bld Glu Estim. 137 mg/dL LAB CHEMISTRY METHOD 02/01/2025 8:30 AM T [facility] Blood Venous blood specimen / Unknown Venipuncture / Unknown 01/31/2025 7:41 AM EDT 01/31/2025 8:26 AM EDT us Esther Varela MD LAB BLOOD ORDERABLES Fin al Result [facility] [address] [place] [address], * (ABNORMAL) Basic metabolic panel (01/31/2025 7:41 AM EDT) [facility] Sodium 137 133 - 145 mmol/L LAB CHEMISTRY METHOD 01/31/2025 9:13 AM [facility] Potassium 4.5 3.5 - 5.5 mmol/L LAB CHEMISTRY METHOD 01/31/2025 9:13 AM [facility] Chloride 94(L) 96 - 110 mmol/L LAB CHEMISTRY METHOD 01/31/2025 9:13 AM [facility] CO2 37(H) 21 - 32 mmol/L LAB CHEMISTRY METHOD 01/31/2025 9:13 AM [facility] Anion Gap 6 3 - 11 LAB CHEMISTRY METHOD 01/31/2025 9:13 AM [facility] Glucose 100 70 - 100 mg/dL LAB CHEMISTRY METHOD 01/31/2025 9:13 AM [facility] BUN 23 5 - 25 mg/dL LAB CHEMISTRY METHOD 01/31/2025 9:13 AM EDT [facility] Creatinine 0.92 0.50 - 1.10 mg/dL LAB CHEMISTRY METHOD 01/31/2025 9:13 AM T [facility] eGFR 66 >=60 mL/min/1. 73m2 LAB CHEMISTRY METHOD 01/31/2025 9:13 AM [facility] Comment:Calculation based on the??Chronic Kidney Disease Epidemiology Collaboration (CKD-EPI) equation refit??without adjustment for race. BUN/Creatinine Ratio 25.0 LAB CHEMISTRY METHOD 01/31/2025 9:13 AM [facility] Calcium 9.6 8.5 - 10.5 mg/dL LAB CHEMISTRY METHOD 01/31/2025 9:13 AM [facility] Blood Venous blood specimen / Unknown Venipuncture / Unknown 01/31/2025 7:41 AM EDT 01/31/2025 8:26 AM EDT us Esther Varela MD LAB BLOOD ORDERABLES Fin al Result [facility] [address] [place] [address], * (ABNORMAL) Complete blood count (01/31/2025 7:41 AM EDT) WBC 8.3 4.8 - 10.8 K/mcL LAB HEMETOLOGY METHOD 01/31/2025 9:15 AM T [facility] RBC 4.30 3.80 - 4.80 M/mcL LAB HEMETOLOGY METHOD 01/31/2025 9:15 AM [facility] Hemoglobin 13.3 11.5 - 16.0 g/dL LAB HEMETOLOGY METHOD 01/31/2025 9:15 AM [facility] Hematocrit 40.6 35.0 - 47.0 % LAB HEMETOLOGY METHOD 01/31/2025 9:15 AM EDT [facility] MCV 95.1 79.0 - 98.0 FL LAB HEMETOLOGY METHOD 01/31/2025 9:15 AM EDT [facility] MCH 31.1 27.0 - 32.0 pcg LAB HEMETOLOGY METHOD 01/31/2025 9:15 AM EDT [facility] MCHC 32.8 32.0 - 37.0 g/dL LAB HEMETOLOGY METHOD 01/31/2025 9:15 AM EDT [facility] RDW 13.2 11.0 - 15.0 % LAB HEMETOLOGY METHOD 01/31/2025 9:15 AM EDT [facility] Platelets 148 130 - 400 K/mcL LAB HEMETOLOGY METHOD 01/31/2025 9:15 AM T [facility] MPV 11.6(H) 7.0 - 11.0 FL LAB HEMETOLOGY METHOD 01/31/2025 9:15 AM EDT [facility] NRBC 0.0 <1.0 % LAB HEMETOLOGY METHOD 01/31/2025 9:15 AM T [facility] NRBC Absolute 0.00 <0.10 K/mcL LAB HEMETOLOGY METHOD 01/31/2025 9:15 AM [facility] Blood Venous blood specimen / Unknown Venipuncture / Unknown 01/31/2025 7:41 AM EDT 01/31/2025 8:26 AM EDT us Esther Varela MD LAB BLOOD ORDERABLES Fin al Result [facility] [address] [place] [address], documented in this encounter Visit Diagnoses Diagnosis Syncope and collapse Type 2 diabetes mellitus without complications documented in this encounter Additional Health Concerns Infection Onset Date Last Indicated Resolved Time ESBL 12/11/2024 12/11/2024 documented as of this encounter Care Teams Appliance Sales Associate Relationship Specialty Start Date End Date Patsy York MD [address] [place] [address] PCP - General Internal Medicine 07/21/15 documented as of this encounter
== END 2025-02-04 11:28 | disposition home or self-care (01) ==
LOC: HO.HOSX 11:27
PROVIDERS: PCP Internal Medicine; Visit Provider Physician Assistant
DX: Z13.89 Encounter for screening for other disorder (principal)
CPT/HCPCS: 99212

== ENCOUNTER 2025-02-04 11:27 | Outpatient (AMB) | payer MEDICARE, OTHER, SELFPAY ==
--- NOTE | 2025-02-04 11:28 | A.SPINEOV_ITS ---
Intake Visit Reasons: 1st post op Intake Note: Ms. Love is here today for her 1st post op. 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 She underwent T10 T11 Laminotomy, Partial facetectomy and foraminotomy with Dr. Millard on 01/14/25. See my previous office visit note for specifics regarding her current condition. In terms of her lower extremity sensational deficits, she states the left side feels essentially the same as it did during her last visit. She has hypoesthesia diffusely from the belt line down on the left. In terms of her strength in his actually subjectively improved. She states that she was able to stand for 3 x 60 second intervals with physical therapy at her rehabilitation facility yesterday. She does feel that she was slowly starting to improve, however she remains essentially bed-bound and needed to be transported to this appointment via EMS in a stretcher. Exam: Denver maintains diffuse hypoesthesia to light touch over the left lower extremity when compared to the right. Her right-sided leg strength is 5/5 diffusely. Her left-sided strength has improved, with a notable 5/5 dorsiflexion and plantar flexion. She also has 5/5 iliopsoas testing. Her knee extension and knee flexion remains 3/5. Plan: I attempted to have her obtain x-ray imaging at our orthopedic surgeons x-ray department, however they are not equipped to help the patient into a standing position. Therefore I reached out to our radiology department in the hospital, who are going to attempt to facilitate standing x-rays with her. I will send the images to of the attending neurosurgeon Dr. Millard and update the patient's next week with a plan at her appointment on 02/11/2025. Javid Millard MD,PhD [facility] Coding Level of Care Code Global (46906) Diagnoses Thoracic myelopathy M47.14
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
--- OUTSIDE RECORDS SUMMARY | 2025-02-04 13:35 | XMS_ITS | Encounter Summary ---
Author Organization [facility] Address [address] [place] [address] Care Team Providers Care Dental Technology Advisor Name Role Phone Patsy York MD Primary Care Provider [phone] Reason for Visit * Reason Onset Date Comments med refill and hosptial visit 01/30/2025 Encounter Details Date Type Department Care Team (Late st Contact Info) Description 01/30/2025 Telephone Adult Medicine [address] [phone] Annabelle Pierson MA med refill and hosptial visit Social History Tobacco Use Types Packs/Day Years [...] of Assessment Author No 01/18/2025 3:13 PM [place]ONT Sophia Cordoba RN documented as of this encounter Mental Status * Because of a physical, mental, or emotional condition, do you have serious difficulty concentrating, remembering, or making decisions? (5 years old or older) Answer Entry Date Author No 01/18/2025 3:13 PM EDSophia Valadez RN documented in this encounter Progress Notes * Annabelle Pierson MA - 01/30/2025 2:03 PM EDT I called and spoke with Denver. She is currently in rehab post her hospital visit. 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
--- OUTSIDE RECORDS SUMMARY | 2025-02-04 13:35 | XMS_ITS | Encounter Summary ---
Author Organization [facility] Address [address] [place] [address] Care Team Providers Care Fashion Styling Intern Name Role Phone Patsy York MD Primary Care Provider [phone] Encounter Details Date Type Department Care Team (Late st Contact Info) Description 12/12/[address] [facility] - Main Lab [address] [facility] [place] [address] Willis Martinez MD [address] [address] Dysuria Social History Tobacco Use Types Packs/Day [...] 1:00 PM EDT Office Visit Pulmonolgy - [place] [address] [place] [phone] Latrice Patino, MIS [address] [facility] [address] [place] [address] documented as of this encounter Procedures Procedure Name Priority Date/Time Associated Diagnosis Comments BACTERIAL IDENTIFICATION AND SUSCEPTIBILITY, AEROBIC Routine 12/11/2024 12:00 AM EST Dysuria documented in this encounter Results * (ABNORMAL) Bacterial identification and susceptibility, aerobic (12/11/2024 12:00 AM EST) Culture, Bacterial ID and Sensitivity Pseudomonas aeruginosa(A) BARI 12/15/2024 9:11 AM EST [facility] Comment: The organism value for this result has been updated. These results have been appended to the previously preliminary verified report. Culture, Bacterial ID and Sensitivity Proteus mirabilis ESBL(A) BARI 12/15/2024 9:11 AM EST [facility] Comment: THIS ORGANISM IS POSITIVE [...] Unknown 12/11/2024 12/12/2024 10:22 AM EST Narrative [facility] - 12/15/2024 9:11 AM EST [...] Trimethoprim/Sulf amethoxazol e BARI <=20 ug/ml: Susceptible Willis Martinez MD LAB MICROBIOLOGY - G ENERAL ORDERABLES Final Result [facility] [address] [place] [address], documented in this encounter Visit Diagnoses Diagnosis Dysuria documented in this encounter Additional Health Concerns 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
--- OUTSIDE RECORDS SUMMARY | 2025-02-04 13:35 | XMS_ITS | Encounter Summary ---
Author Organization [facility] Address [address] [place] [address] Care Team Providers Care Recessing Machine Operator Name Role Phone Patsy York MD Primary Care Provider [phone] Encounter Details Date Type Department Care Team (Late st Contact Info) Description 01/31/2025 Lab Requisition [facility] - Main Lab [address] [facility] [address] [place] [address] Esther Varela MD [address] [phone] Syncope and collapse; Type 2 diabetes mellitus without complications Social History Tobacco Use Types Packs/Day Years [...] No 01/18/2025 3:13 PM Sophia Mckenna RN * Are you blind or do you have serious difficulty seeing, even when wearing glasses? Answer Date of Assessment Author No 01/18/2025 3:13 PM EDSophia Valadez RN * Do you have serious difficulty walking or climbing stairs? Answer Date of Assessment Author No 01/18/2025 3:13 PM Sophia Mckenna RN * Do you have serious difficulty dressing or bathing? Answer Date of Assessment Author No 01/18/2025 3:13 PM Sophia Mckenna RN * Because of a physical, mental, [...] Entry Date Author No 01/18/2025 3:13 PM Sohpia Mckenna RN documented in this encounter Plan of Treatment Upcoming Encounters Date Type Department Care Team (Late st Contact Info) Description 03/02/2025 1:00 PM EDT [facility] [address] [facility] [address] [place] [address] Latrice Patino NP [address] [facility] [address] [place] [address] documented as of this encounter Procedures Procedure Name Priority Date/Time Associated Diagnosis Comments COMPLETE BLOOD COUNT Routine 01/31/2025 7:41 AM EDT Syncope and collapse Type 2 diabetes mellitus without complications HEMOGLOBIN A1C Routine 01/31/2025 7:41 AM EDT Syncope and collapse Type 2 diabetes mellitus without complications BASIC METABOLIC PANEL Routine 01/31/2025 7:41 AM EDT Syncope and collapse Type 2 diabetes mellitus without complications documented in this encounter Results * Hemoglobin A1c (01/31/2025 7:41 AM EDT) Pathologist [facility] Hemoglobin A1C 6.4 <6.5 % LAB CHEMISTRY METHOD 02/01/2025 8:30 AM EDT [facility] Mean Bld Glu Estim. 137 mg/dL LAB CHEMISTRY METHOD 02/01/2025 8:30 AM T [facility] Blood Venous blood specimen / Unknown Venipuncture / Unknown 01/31/2025 7:41 AM EDT 01/31/2025 8:26 AM EDT us Esther Varela MD LAB BLOOD ORDERABLES Fin al Result [facility] [address] [place] [address], * (ABNORMAL) Basic metabolic panel (01/31/2025 7:41 AM EDT) [facility] Sodium 137 133 - 145 mmol/L LAB CHEMISTRY METHOD 01/31/2025 9:13 AM [facility] Potassium 4.5 3.5 - 5.5 mmol/L LAB CHEMISTRY METHOD 01/31/2025 9:13 AM [facility] Chloride 94(L) 96 - 110 mmol/L LAB CHEMISTRY METHOD 01/31/2025 9:13 AM [facility] CO2 37(H) 21 - 32 mmol/L LAB CHEMISTRY METHOD 01/31/2025 9:13 AM [facility] Anion Gap 6 3 - 11 LAB CHEMISTRY METHOD 01/31/2025 9:13 AM [facility] Glucose 100 70 - 100 mg/dL LAB CHEMISTRY METHOD 01/31/2025 9:13 AM [facility] BUN 23 5 - 25 mg/dL LAB CHEMISTRY METHOD 01/31/2025 9:13 AM EDT [facility] Creatinine 0.92 0.50 - 1.10 mg/dL LAB CHEMISTRY METHOD 01/31/2025 9:13 AM T [facility] eGFR 66 >=60 mL/min/1. 73m2 LAB CHEMISTRY METHOD 01/31/2025 9:13 AM [facility] Comment:Calculation based on the??Chronic Kidney Disease Epidemiology Collaboration (CKD-EPI) equation refit??without adjustment for race. BUN/Creatinine Ratio 25.0 LAB CHEMISTRY METHOD 01/31/2025 9:13 AM [facility] Calcium 9.6 8.5 - 10.5 mg/dL LAB CHEMISTRY METHOD 01/31/2025 9:13 AM [facility] Blood Venous blood specimen / Unknown Venipuncture / Unknown 01/31/2025 7:41 AM EDT 01/31/2025 8:26 AM EDT us Esther Varela MD LAB BLOOD ORDERABLES Fin al Result [facility] [address] [place] [address], * (ABNORMAL) Complete blood count (01/31/2025 7:41 AM EDT) WBC 8.3 4.8 - 10.8 K/mcL LAB HEMETOLOGY METHOD 01/31/2025 9:15 AM T [facility] RBC 4.30 3.80 - 4.80 M/mcL LAB HEMETOLOGY METHOD 01/31/2025 9:15 AM [facility] Hemoglobin 13.3 11.5 - 16.0 g/dL LAB HEMETOLOGY METHOD 01/31/2025 9:15 AM [facility] Hematocrit 40.6 35.0 - 47.0 % LAB HEMETOLOGY METHOD 01/31/2025 9:15 AM EDT [facility] MCV 95.1 79.0 - 98.0 FL LAB HEMETOLOGY METHOD 01/31/2025 9:15 AM EDT [facility] MCH 31.1 27.0 - 32.0 pcg LAB HEMETOLOGY METHOD 01/31/2025 9:15 AM EDT [facility] MCHC 32.8 32.0 - 37.0 g/dL LAB HEMETOLOGY METHOD 01/31/2025 9:15 AM EDT [facility] RDW 13.2 11.0 - 15.0 % LAB HEMETOLOGY METHOD 01/31/2025 9:15 AM EDT [facility] Platelets 148 130 - 400 K/mcL LAB HEMETOLOGY METHOD 01/31/2025 9:15 AM T [facility] MPV 11.6(H) 7.0 - 11.0 FL LAB HEMETOLOGY METHOD 01/31/2025 9:15 AM EDT [facility] NRBC 0.0 <1.0 % LAB HEMETOLOGY METHOD 01/31/2025 9:15 AM T [facility] NRBC Absolute 0.00 <0.10 K/mcL LAB HEMETOLOGY METHOD 01/31/2025 9:15 AM [facility] Blood Venous blood specimen / Unknown Venipuncture / Unknown 01/31/2025 7:41 AM EDT 01/31/2025 8:26 AM EDT us Esther Varela MD LAB BLOOD ORDERABLES Fin al Result [facility] [address] [place] [address], documented in this encounter Visit Diagnoses Diagnosis Syncope and collapse Type 2 diabetes mellitus without complications documented in this encounter Additional Health Concerns Infection 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
--- OUTSIDE RECORDS SUMMARY | 2025-02-04 13:35 | XMS_ITS | Clinical Summary ---
Author Organization [facility] Address [address] [place] [address] Phone Care Team Providers Care Professor Of Violin Name Role Phone Patsy York MD Primary Care Provider [phone] Allergies Active Allergy Reactions Criticality Noted Date [...] breakfast. 90 tablet 1 11/14/19 25 Active baclofen (LIORESAL) 10 mg tablet Take 1 tablet (10 mg total) by mouth 3 (three) times a day. 90 each 01/26/20 25 025 Active HYDROmorphone (DILAUDID) 2 mg tabletIndicatio ns:Thoracic myelopathy Take 1-2 tablets (2-4 mg total) by mouth every 6 (six) hours if needed for moderate pain or severe pain. Max Daily Amount: 16 mg 14 tablet 01/26/20 Active lidocaine 4 % patch Apply 1 patch topically 1 (one) time each day for 14 days. 01/27/20 025 Active pantoprazole (PROTONIX) 40 mg EC tablet Take 1 tablet (40 mg total) by mouth 2 (two) times a day before meals for 14 days. Do not crush, chew, or split. 01/26/20 025 Active senna (SENOKOT) 8.6 mg tablet Take 2 tablets (17.2 mg total) by mouth at bedtime. 60 each 11 01/26/20 026 Active acetaminophen (TYLENOL 8 HOUR) 650 [...] (ROXICODONE) 5 mg immediate release tablet 01/31/20 24 025 Discontinued(S top Taking at Discharge) acetaminophen (TYLENOL) 500 mg tablet Take 2 tablets (1,000 mg total) by mouth every 8 (eight) hours for 7 days. 01/26/20 25 025 levoFLOXacin (LEVAQUIN) 750 mg tablet Take 1 tablet (750 mg total) by mouth 1 (one) time each day for 2 doses. 2 each 01/27/20 25 025 polyethylene glycol (MIRALAX) 17 gram packet Take 17 g by mouth 1 (one) time each day for 3 days. 51 g 01/27/20 25 025 prochlorperazin e (COMPAZINE) 10 mg tablet Take 1 tablet (10 mg total) by mouth every 6 (six) hours if needed for nausea or vomiting for up to 7 days. 01/26/20 025 Active Problems Problem Noted Date Diagnosed Date [...] a BNP done when she was at [facility] and I will check that. On exam [...] Encounters Date Type Department Care Team Description 02/03/2025 Lab Requisition [facility] - Main Lab [address] [place] [address] Esther Varela MD Hypokalemia 01/31/2025 Lab Requisition [facility] Lab [address] [place] [address] Esther Varela MD Syncope and collapse; Type 2 diabetes mellitus without complications 01/30/2025 Telephone Adult Medicine [facility] [place] [address] [place] [phone] Annabelle Pierson MA med refill and hosptial visit 01/30/2025 Telephone Adult [facility] [address] [place] [phone] Patsy York MD Advice Only 01/18/2025 12:45 PM EDT - 01/25/2025 2:30 PM EDT Hospital Encounter [facility] [address] [place] [address] Mina Colón MD Sondhi, Vikram, MD Santoyo-Pacheco, Omar D, MD Intractable abdominal pain (Primary Dx); Biliary dyskinesia; Pain in abdomen on palpation; Thoracic myelopathy Discharge Disposition: Long Term Facility 12/12/2024 Lab Requisition [facility] - Main Lab [address] [place] [address] Willis Martinez MD Dysuria 11/07/2024 2:00 PM EST Office Visit [facility] [address] [facility] [address] [place] [phone] Sea Marie MD Essential hypertension, benign (Primary Dx); Coronary artery disease due to calcified coronary lesion; DEXTER (dyspnea on exertion) from Last 3 Months Immunizations Name Administration Dates Next Due Influenza trivalent, 0.5mL ( Fluzone High-dose) 65yo and older 07/05/2022,09/27/2021 Influenza trivalent, with pr eservative (Fluzone; Afluria) 6mo and older 08/22/2016,08/16/2015,09/30/2012,09/16 [employer] SARS-CoV-2 COVID -19, vector-nr, [id number], preservative free 01/31/2021 [facility] SARS-CoV-2 COVID-19, mRNA, LNP-S, preservative free 11/27/2021 [...] PROCEDURE: HISTORICAL TONSILLECTOMY KIDNEY STONE SURGERY PROCEDURE: OH NEPHROLITHOTOMY REMOVAL CALCULUS HERNIA REPAIR PROCEDURE: REPAIR UMBILICAL HERNIA BACK SURGERY 1982, 2010 PROCEDURE: HISTORICAL BACK SURGERY COLONOSCOPY 01/05/2015 [...] obesity with BMI of 4 0.0-44.9, adult ([facility]) 10/23/2013 DX:Morbid obesity with BMI o f 40.0-44.9, adult ([facility]); COMMENT: BMI 40.26 0n 08/28/13. Family History [...] 1:00 PM EDT Office Visit Pulmonolgy - [place] [address] [facility] [address] [place] [address] Latrice Patino NP [address] [facility] [address] [place] [address] Health Maintenance Due Date Last Done Comments Diabetes: Annual Foot Exam 1962 Diabetes: Annual Retina Eye Exam 1962 Zoster Vaccines (1 of 2) 2002 DTaP,Tdap,and Td Vaccines (2 - Td or Tdap) 02/06/2021 02/06/2011 Colorectal Cancer Screening: Stool Based Tests (FOBT/FIT) 10/07/2022 Depression Screening 10/07/2022 Hepatitis C Screening 10/07/2022 Medicare Annual Wellness Visit 10/07/2022 Social Influencers of Health Screening 10/07/2022 COVID-19 Vaccine ( season) 2024 08/15/2023, 11/27/2021, 01/31/2021 Diabetes: Annual Urine Albumin-Creatinine Ratio (uACR) 01/31/2025 Diabetes: Blood Sugar Control Test (HGBA1C) 08/02/2025 01/31/2025, 12/05/2023 Falls Risk Assessment 01/25/2026 01/25/2025 Diabetes: Annual GFR (Glomerular Filtration Rate) 01/31/2026 01/31/2025, 01/24/2025, 01/22/2025, Additional history exists Hypertension/CHF/CAD Annual BMP Blood Test 01/31/2026 01/31/2025, 01/24/2025, 01/22/2025, Additional history exists Breast Cancer Screening 10/08/2026 10/08/20, 09/23/2024, 03/08/2023, Additional history exists Cholesterol Screening (Lipid Panel) 04/02/2028 04/02/2023 Osteoporosis Screening (Bone Density Screening) 03/26/2034 03/26/2024, 03/26/2024, 04/21/2019 Pneumococcal Vaccine: 50+ Years Completed 05/14/2023, 08/16/2015 RSV Immunization Adult Patients Completed 08/15/2023 Influenza Vaccine Completed 08/14/2024, , [...] age to complete this topic Meningococcal B Vaccine Aged Out No l onger eligible based on patient's age to complete this topic RSV Immunization Patients Under 20 months Aged Out No longer eligible based on patient's age to complete this topic Varicella Vaccines Aged Out No longer eligible based on patient's age to complete this topic Procedures Procedure Name Priority Date/Time Associated Diagnosis Comments MAGNESIUM Routine 02/03/2025 5:33 AM EDT Hypokalemia HEMOGLOBIN A1C Routine 01/31/2025 7:41 AM EDT Syncope and collapse Type 2 diabetes mellitus without complications BASIC METABOLIC PANEL Routine 01/31/2025 7:41 AM EDT Syncope and collapse Type 2 diabetes mellitus without complications COMPLETE BLOOD COUNT Routine 01/31/2025 7:41 AM EDT Syncope and collapse Type 2 diabetes mellitus without complications POCT GLUCOSE BLOOD Routine 01/25/2025 11:09 AM [...] Relevant to Health Maintenance Results * (ABNORMAL) Magnesium (02/03/2025 5:33 AM EDT) Only the most recent of3 resultswithin the time period is included. Magnesium 1.6(L) 1.9 - 2.6 mg/dL LAB CHEMISTRY METHOD 02/03/2025 9:06 AM EDT [facility] Blood Venous blood specimen / Unknown Venipuncture / Unknown 02/03/2025 5:33 AM EDT 02/03/2025 8:02 AM EDT us Esther Varela MD LAB BLOOD ORDERABLES Fin al Result [facility] [address] [place] [address], * (ABNORMAL) Complete blood count (01/31/2025 7:41 AM EDT) Only the most recent of2 resultswithin the time period is included. WBC 8.3 4.8 - 10.8 K/mcL LAB HEMETOLOGY METHOD 01/31/2025 9:15 AM EDT [facility] RBC 4.30 3.80 - 4.80 M/mcL LAB HEMETOLOGY METHOD 01/31/2025 9:15 AM EDT [facility] Hemoglobin 13.3 11.5 - 16.0 g/dL LAB HEMETOLOGY METHOD 01/31/2025 9:15 AM EDT [facility] Hematocrit 40.6 35.0 - 47.0 % LAB HEMETOLOGY METHOD 01/31/2025 9:15 AM EDT [facility] MCV 95.1 79.0 - 98.0 FL LAB HEMETOLOGY METHOD 01/31/2025 9:15 AM EDT [facility] MCH 31.1 27.0 - 32.0 pcg LAB HEMETOLOGY METHOD 01/31/2025 9:15 AM EDT [facility] MCHC 32.8 32.0 - 37.0 g/dL LAB HEMETOLOGY METHOD 01/31/2025 9:15 AM EDT [facility] RDW 13.2 11.0 - 15.0 % LAB HEMETOLOGY METHOD 01/31/2025 9:15 AM EDT [facility] Platelets 148 130 - 400 K/mcL LAB HEMETOLOGY METHOD 01/31/2025 9:15 AM EDT [facility] MPV 11.6(H) 7.0 - 11.0 FL LAB HEMETOLOGY METHOD 01/31/2025 9:15 AM EDT [facility] NRBC 0.0 <1.0 % LAB HEMETOLOGY METHOD 01/31/2025 9:15 AM EDT [facility] NRBC Absolute 0.00 <0.10 K/mcL LAB HEMETOLOGY METHOD 01/31/2025 9:15 AM EDT [facility] Blood Venous blood specimen / Unknown Venipuncture / Unknown 01/31/2025 7:41 AM EDT 01/31/2025 8:26 AM EDT Esther Varela MD LAB BLOOD ORDERABLES Fin al Result Performing Organization Address [facility]/ZIP Co de Phone Number [facility] [address] [place] [address], [place] [phone] * Hemoglobin A1c (01/31/2025 7:41 AM EDT) Hemoglobin A1C 6.4 <6.5 % LAB CHEMISTRY METHOD 02/01/2025 8:30 AM EDT [facility] Mean Bld Glu Estim. 137 mg/dL LAB CHEMISTRY METHOD 02/01/2025 8:30 AM EDT [facility] Blood Venous blood specimen / Unknown Venipuncture / Unknown 01/31/2025 7:41 AM EDT 01/31/2025 8:26 AM EDT Esther Varela MD LAB BLOOD ORDERABLES Fin al Result Performing Organization Address City/[facility]/ZIP Co de Phone Number [facility] [address] [place] [address], [place] [phone] * (ABNORMAL) Basic metabolic panel (01/31/2025 7:41 AM EDT) Only the most recent of5 resultswithin the time period is included. Sodium 137 133 - 145 mmol/L LAB CHEMISTRY METHOD 01/31/2025 9:13 AM EDT [facility] Potassium 4.5 3.5 - 5.5 mmol/L LAB CHEMISTRY METHOD 01/31/2025 9:[address] [facility] Chloride 94(L) 96 - 110 mmol/L LAB CHEMISTRY METHOD 01/31/2025 9:[address] [facility] CO2 37(H) 21 - 32 mmol/L LAB CHEMISTRY METHOD 01/31/2025 9:[address] [facility] Anion Gap 6 3 - 11 LAB CHEMISTRY METHOD 01/31/2025 9:[address] [facility] Glucose 100 70 - 100 mg/dL LAB CHEMISTRY METHOD 01/31/2025 9:[address] [facility] BUN 23 5 - 25 mg/dL LAB CHEMISTRY METHOD 01/31/2025 9:[address] [facility] Creatinine 0.92 0.50 - 1.10 mg/dL LAB CHEMISTRY METHOD 01/31/2025 9:[address] [facility] eGFR 66 >=60 mL/min/1. 73m2 LAB CHEMISTRY METHOD 01/31/2025 9:[address] [facility] Comment:Calculation based on the??Chronic Kidney Disease Epidemiology Collaboration (CKD-EPI) equation refit??without adjustment for race. BUN/Creatinine Ratio 25.0 LAB CHEMISTRY METHOD 01/31/2025 9:[address] [facility] Calcium 9.6 8.5 - 10.5 mg/dL LAB CHEMISTRY METHOD 01/31/2025 9:[address] [facility] Blood Venous blood specimen / Unknown Venipuncture / Unknown 01/31/2025 7:41 AM EDT 01/31/2025 8:26 AM EDT us Esther Varela MD LAB BLOOD ORDERABLES Fin al Result [facility] [address] [place] [address], [place] [phone] * (ABNORMAL) POCT Glucose, blood (01/25/2025 11:09 AM EDT) Only the most recent of27 resultswithin the time period is included. [facility] Glucose POCT 152(H) 70 - 100 mg/dL 01/25/2025 11:10 AM EDT [facility] Blood Capillary blood specimen / Unknown 01/25/2025 11:09 AM EDT 01/25/2025 11:11 AM EDT us Scott Wolfe MD LAB POINT OF C ARE TEST DOCKED DEVICE UNSOLICITED RESULTS Final Result [facility] [address] [place] [address], [place] [phone] * (ABNORMAL) CBC auto differential (01/24/2025 6:17 AM EDT) Only the most recent of4 resultswithin the time period is included. [facility] WBC 8.7 4.8 - 10.8 K/mcL LAB HEMETOLOGY METHOD 01/24/2025 7:35 AM EDT [facility] RBC 4.40 3.80 - 4.80 M/mcL LAB HEMETOLOGY METHOD 01/24/2025 7:35 AM EDT [facility] Hemoglobin 13.6 11.5 - 16.0 g/dL LAB HEMETOLOGY METHOD 01/24/2025 7:35 AM EDT [facility] Hematocrit 41.3 35.0 - 47.0 % LAB HEMETOLOGY METHOD 01/24/2025 7:35 AM EDT [facility] MCV 93.4 79.0 - 98.0 FL LAB HEMETOLOGY METHOD 01/24/2025 7:35 AM EDT [facility] MCH 30.8 27.0 - 32.0 pcg LAB HEMETOLOGY METHOD 01/24/2025 7:35 AM EDT [facility] MCHC 32.9 32.0 - 37.0 g/dL LAB HEMETOLOGY METHOD 01/24/2025 7:[address] [facility] RDW 12.6 11.0 - 15.0 % LAB HEMETOLOGY METHOD 01/24/2025 7:[address] [facility] Platelets 261 130 - 400 K/mcL LAB HEMETOLOGY METHOD 01/24/2025 7:[address] [facility] MPV 10.9 7.0 - 11.0 FL LAB HEMETOLOGY METHOD 01/24/2025 7:[address] [facility] NRBC 0.0 <1.0 % LAB HEMETOLOGY METHOD 01/24/2025 7:[address] [facility] NRBC Absolute 0.00 <0.10 K/mcL LAB HEMETOLOGY METHOD 01/24/2025 7:[address] [facility] Neutrophils Relative 78.8 % LAB HEMETOLOGY METHOD 01/24/2025 7:[address] [facility] Lymphocytes Relative 9.6 % LAB HEMETOLOGY METHOD 01/24/2025 7:[address] [facility] Monocytes Relative 10.4 % LAB HEMETOLOGY METHOD 01/24/2025 7:[address] [facility] Eosinophils Relative 0.3 % LAB HEMETOLOGY METHOD 01/24/2025 7:[address] [facility] Basophils Relative 0.0 % LAB HEMETOLOGY METHOD 01/24/2025 7:[address] [facility] Immature Granulocytes Relative 0.9 % LAB HEMETOLOGY METHOD 01/24/2025 7:[address] [facility] Neutrophils Absolute 6.84 1.50 - 7.00 K/mcL LAB HEMETOLOGY METHOD 01/24/2025 7:35 AM EDT [facility] Lymphocytes Absolute 0.83(L) 1.00 - 5.00 K/mcL LAB HEMETOLOGY METHOD 01/24/2025 7:35 AM EDT [facility] Monocytes Absolute 0.90 0.20 - 1.00 K/mcL LAB HEMETOLOGY METHOD 01/24/2025 7:35 AM EDT [facility] Eosinophils Absolute 0.03 0.00 - 0.50 K/[facility] LAB HEMETOLOGY METHOD 01/24/2025 7:35 AM EDT [facility] Basophils Absolute 0.00 0.00 - 0.20 K/mcL LAB HEMETOLOGY METHOD 01/24/2025 7:35 AM EDT [facility] Immature Granulocytes Absolute 0.08(H) 0.00 - 0.03 K/mcL LAB HEMETOLOGY METHOD 01/24/2025 7:35 AM EDT [facility] Blood Venous blood specimen / Unknown Venipuncture / Unknown 01/24/2025 6:17 AM EDT 01/24/2025 7:03 AM EDT us Scott Wolfe MD LAB BLOOD ORDERABLES F inal Result [facility] [address] [place] [address], * C-reactive protein (01/24/2025 6:17 AM EDT) Only the most recent of2 resultswithin the time period is included. C-Reactive Protein <0.29 <=0.50 mg/dL LAB CHEMISTRY METHOD 01/24/2025 8:08 AM EDT [facility] Blood Venous blood specimen / Unknown Venipuncture / Unknown 01/24/2025 6:17 AM EDT 01/24/2025 7:02 AM EDT us Sctot Wolfe MD LAB BLOOD ORDERABLES F inal Result Performing Organization Address City/[facility]/ZIP Co de Phone Number [facility] [address] [place] [address], [place] [phone] * ECG 12 lead (01/23/2025 2:07 PM EDT) Ventricular Rate ECG 63 BPM GEMUSE Atrial Rate 63 BPM GEMUSE P-R Interval 156 ms GEMUSE QRS Duration 156 ms GEMUSE Q-T Interval 464 ms GEMUSE QTc 474 ms GEMUSE P Wave [place] 42 degrees GEMUSE R [place] -39 degrees GEMUSE T [place] -21 degrees GEMUSE ECG Interpretation Normal sinus rhythm Left axis deviation Right bundle branch block Abnormal ECG When compared with ECG of 09-AUG-2023 13:03, T wave inversion now evident in Anterior leads Confirmed by MD Frank, [place]ah ([id number]) on 01/24/2025 8:50:02 AM GEMUSE 01/23/2025 2:07 PM EDT 01/24/2025 8:50 AM EDT us Scott Wolfe MD ECG ORDERABLES Final Result Performing Organization Address [facility] Co de Phone Number GEMUSE * MR Lumbar Spine wo and [...] by: Antonio Alonso MD on 01/21/2025 18:57:31 us Rose Mary MARTINEZ IMG MRI PROCEDURES [...] by: Antonio Alonso MD on 01/21/2025 18:48:29 Scott Wolfe MD IMG MRI PROCEDURES Fin [...] Signed Date: 01/20/2025 18:01 ET Workstation ID: [id number] Transcribed By: Self Edit Transcribed Date: 01/20/2025 [...] in the laminectomy bed at the level [id number]. 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 Increased cord signal at T10-11. Thoracic cord is otherwise normal insignal. Cervicothoracic posterior fusion hardware seen extending to the level ofT3. Lower lumbar fusion hardware noted. Postsurgical changes in the posterior paraspinal musculature at [id number] small fluid collection in the lower thoracic [...] Signed Date: 01/20/2025 18:01 ET Workstation ID: [id number] Transcribed By: Self Edit Transcribed Date: 01/20/2025 17:44 ET Rose Mary MARTINEZ IMG MRI PROCEDURES Bella crump Result * Activated partial thromboplastin time (01/20/2025 6:14 AM EDT) aPTT 27.1 24.1 - 39.3 sec LAB COAGULATION METHOD 01/20/2025 7:39 AM EDT [facility] Blood Venous blood specimen / Unknown Venipuncture / Unknown 01/20/2025 6:14 AM EDT 01/20/2025 6:58 AM EDT Britt MARTINEZ LAB BLOOD ORDERABLES Final Re sult [facility] [address] [place] [address], [place] [phone] * (ABNORMAL) Prothrombin time with INR (01/20/2025 6:14 AM EDT) Protime 16.7(H) 10.6 - 13.9 sec LAB COAGULATION METHOD 01/20/2025 7:39 AM EDT [facility] INR 1.3 LAB COAGULATION METHOD 01/20/2025 7:39 AM EDT [facility] Blood Venous blood specimen / Unknown Venipuncture / Unknown 01/20/2025 6:14 AM EDT 01/20/2025 6:58 AM EDT us Britt MARTINEZ LAB BLOOD ORDERABLES Final Re sult [facility] [address] [place] [address], [place] [phone] * Type and screen (01/20/2025 6:14 AM EDT) ABO Group B 01/20/2025 8:17 AM EDT [facility] Rh Type Positive 01/20/2025 8:17 AM EDT [facility] Antibody Screen Negative 01/20/2025 8:17 AM EDT [facility] Blood Venous blood specimen / Unknown Venipuncture / Unknown 01/20/2025 6:14 AM EDT 01/20/2025 6:59 AM EDT Britt MARTINEZ LAB BLOOD BANK TEST ORDERABLE S Final Result Performing Organization Address City/[facility]/ZIP Co de Phone Number [facility] [address] [place] [address], [place] [phone] * Phosphorus (01/20/2025 6:14 AM EDT) Phosphorus 2.6 2.5 - 4.5 mg/dL LAB CHEMISTRY METHOD 01/20/2025 7:39 AM EDT [facility] Blood Venous blood specimen / Unknown Venipuncture / Unknown 01/20/2025 6:14 AM EDT 01/20/2025 6:58 AM EDT Britt MARTINEZ LAB BLOOD ORDERABLES Final Re sult Performing Organization Address [facility]/ZIP Co de Phone Number [facility] [address] [place] [address], [place] [phone] * NM Hepatobiliary System Imaging (01/19/2025 3:38 PM EDT) Anatomical Region Laterality Modality Body Nuclear Medicine 01/19/2025 4:39 PM EDT Impressions 01/19/2025 4:42 PM EDT Impression: 1. No evidence of cystic or common bile duct obstruction. 2.. Delayed biliary to bowel transit. Telerad JUAN ([id number]) -------- FINAL REPORT -------- Dictated By: Ilda Baez Dictated Date: 01/19/2025 16:39 ET Assigned Physician: Ilda Baez Reviewed and Electronically Signed By: Ilda Baez Signed Date: 01/19/2025 16:42 ET Workstation ID: [id number] Transcribed By: Self Edit Transcribed Date: 01/19/2025 [...] Delayed biliary to bowel transit. Teleulises MARTINEZ ([id number]) -------- FINAL REPORT -------- Dictated By: Ilda Baez Dictated Date: 01/19/2025 16:39 ET Assigned Physician: Ilda Baez Reviewed and Electronically Signed By: Ilda Baez Signed Date: 01/19/2025 16:42 ET Workstation ID: [id number] Transcribed By: Self Edit Transcribed Date: 01/19/2025 16:39 ET Rose Mary MARTINEZ [facility] PROCEDURES Final Result * (ABNORMAL) Urinalysis with reflex microscopic and culture (01/18/2025 4:50 PM EDT) Specific [place] Urine 1.020 1.003 - 1.030 LAB URINALYSIS - AUTOMATED METHOD 01/18/2025 5:25 PM EDT [facility] pH, Urine 6.5 5.0 - 8.0 pH LAB URINALYSIS - AUTOMATED METHOD 01/18/2025 5:[address] [facility] Leukocytes, Urine Moderate(A) Negative LAB URINALYSIS - AUTOMATED METHOD 01/18/2025 5:[address] [facility] Nitrite, Urine Positive(A) Negative LAB URINALYSIS - AUTOMATED METHOD 01/18/2025 5:[address] [facility] Protein, Urine 30(A) <=Trace mg/dL LAB URINALYSIS - AUTOMATED METHOD 01/18/2025 5:[address] [facility] Glucose, Urine Negative Negative mg/dL LAB URINALYSIS - AUTOMATED METHOD 01/18/2025 5:[address] [facility] Ketones, Urine 40(A) Negative mg/dL LAB URINALYSIS - AUTOMATED METHOD 01/18/2025 5:[address] [facility] Urobilinogen , Urine 1.0 0.2 - 1.0 mg/dL LAB URINALYSIS - AUTOMATED METHOD 01/18/2025 5:[address] [facility] Bilirubin, Urine Negative Negative LAB URINALYSIS - AUTOMATED METHOD 01/18/2025 5:[address] [facility] Blood, Urine Moderate(A) Negative LAB URINALYSIS - AUTOMATED METHOD 01/18/2025 5:[address] [facility] RBC, Urine 31.4(H) 0 - 4 /HPF LAB URINALYSIS - AUTOMATED METHOD 01/18/2025 5:[address] [facility] WBC, Urine 114.2(H) 0 - 4 /HPF LAB URINALYSIS - AUTOMATED METHOD 01/18/2025 5:[address] [facility] Squamous Epithelial, Urine 73(H) 0 - 60 /LPF LAB URINALYSIS - AUTOMATED METHOD 01/18/2025 5:[address] [facility] Bacteria, Urine Few(A) Negative /HPF LAB URINALYSIS - AUTOMATED METHOD 01/18/2025 5:25 PM EDT [facility] Hyaline Casts, Urine 8.8(H) 0 - 3 /LPF LAB URINALYSIS - AUTOMATED METHOD 01/18/2025 5:25 PM EDT [facility] Urine Urine specimen obtained by clean catch procedure / Unknown Non-blood Collection / Unknown 01/18/2025 4:50 PM EDT 01/18/2025 5:14 PM EDT Mina Colón MD LAB URINE ORDERABLES Final Result Performing Organization Address [facility]/ZIP Co de Phone Number [facility] [address] [place] [address], [place] [phone] * Ramírez urine culture tube (01/18/2025 4:50 PM EDT) Extra Tube Hold for add-ons. 01/18/2025 7:01 PM EDT [facility] Comment:Auto resulted. Urine Urine specimen obtained by clean catch procedure / Unknown Non-blood Collection / Unknown 01/18/2025 4:50 PM EDT 01/18/2025 5:14 PM EDT Mina Colón MD LAB URINE ORDERABLES Final Result Performing Organization Address [facility]/ZIP Co de Phone Number [facility] [address] [place] [address], [place] [phone] * (ABNORMAL) Culture urine (01/18/2025 4:50 PM EDT) Culture, Urine >100,000 CFU/mL Pseudomonas aeruginosa(A) BARI 01/21/2025 8:20 AM EDT [facility] Comment: This is an [...] LAB MICROBIOLOGY - GENERAL ORDERABLES Final Result [facility] [address] [place] [address], [place] [phone] * [place] Abdomen Limited (01/18/2025 3:47 PM EDT) Anatomical Region Laterality Modality Body Ultrasound 01/18/2025 3:49 PM EDT Impressions 01/18/2025 3:52 PM EDT Impression: 1. Distended gallbladder with small amount of mobile sludge and no specific findings of acute cholecystitis. 2. Fatty liver. Telerad PA ([id number]) -------- FINAL REPORT -------- Dictated By: Ilda Baez Dictated Date: 01/18/2025 15:49 ET Assigned Physician: Ilda Baez Reviewed and Electronically Signed By: Ilda Baez Signed Date: 01/18/2025 15:52 ET Workstation ID: [id number] Transcribed By: Self Edit Transcribed Date: 01/18/2025 [...] acute cholecystitis. 2. Fatty liver. Flores MARTINEZ ([id number]) -------- FINAL REPORT -------- Dictated By: Ilda Baez Dictated Date: 01/18/2025 15:49 ET Assigned Physician: Ilda Baez Reviewed and Electronically Signed By: Ilda Baez Signed Date: 01/18/2025 15:52 ET Workstation ID: [id number] Transcribed By: Self Edit Transcribed Date: 01/18/2025 [...] 2. Nonobstructing right renal calculi. [place] ([id number]) -------- FINAL REPORT -------- Dictated By: Ilda Baez Dictated Date: 01/18/2025 14:40 ET Assigned Physician: Ilda Baez Reviewed and Electronically Signed By: Ilda Baez Signed Date: 01/18/2025 14:46 ET Workstation ID: [id number] Transcribed By: Self Edit Transcribed Date: 01/18/2025 14:40 ET Narrative 01/18/2025 2:46 PM EDT History: Right flank pain for several days. Comparison: 07/30/20 Technique: Helical volumetric imaging of the abdomen and pelvis was performed without intravenous or oral contrast (stone kee protocol). DLP: 1124.25 mGy/cm CRESCELpeed VCT Iterative reconstruction technique Findings: The kidneys [...] contrast (stone kee protocol). DLP: 1124.25 mGy/cm [employer] Iterative reconstruction technique Findings: The kidneys are [...] 2. Nonobstructing right renal calculi. Telerad JUAN ([id number]) -------- FINAL REPORT -------- Dictated By: Ilda Baez Dictated Date: 01/18/2025 14:40 ET Assigned Physician: Ilda Baez Reviewed and Electronically Signed By: Ilda Baez Signed Date: 01/18/2025 14:46 ET Workstation ID: [id number] Transcribed By: Self Edit Transcribed Date: 01/18/2025 14:40 ET us Mina Colón MD IMG CT PROCEDURES Final Res ult * Lipase (01/18/2025 12:23 PM EDT) [facility] Lipase 22 13 - 75 unit/L LAB CHEMISTRY METHOD 01/18/2025 6:47 PM EDT [facility] Blood Venous blood specimen / Unknown Venipuncture / Unknown 01/18/2025 12:23 PM EDT 01/18/2025 12:55 PM EDT us Henrietta MARTINEZ LAB BLOOD ORDERABLES Final Resu lt [facility] [address] [place] [address], [place] [phone] * (ABNORMAL) Comprehensive metabolic panel (01/18/2025 12:23 PM EDT) [facility] Sodium 139 133 - 145 mmol/L LAB CHEMISTRY METHOD 01/18/2025 1:25 PM EDT [facility] Potassium 3.9 3.5 - 5.5 mmol/L LAB CHEMISTRY METHOD 01/18/2025 1:25 PM EDT [facility] Chloride 101 96 - 110 mmol/L LAB CHEMISTRY METHOD 01/18/2025 1:25 PM EDT [facility] CO2 30 21 - 32 mmol/L LAB CHEMISTRY METHOD 01/18/2025 1:25 PM EDT [facility] Anion Gap 8 3 - 11 LAB CHEMISTRY METHOD 01/18/2025 1:[address] [facility] Glucose 115(H) 70 - 100 mg/dL LAB CHEMISTRY METHOD 01/18/2025 1:[address] [facility] BUN 18 5 - 25 mg/dL LAB CHEMISTRY METHOD 01/18/2025 1:[address] [facility] Creatinine 0.59 0.50 - 1.10 mg/dL LAB CHEMISTRY METHOD 01/18/2025 1:[address] [facility] eGFR 96 >=60 mL/min/1. 73m2 LAB CHEMISTRY METHOD 01/18/2025 1:[address] [facility] Comment:Calculation based on the??Chronic Kidney Disease Epidemiology Collaboration (CKD-EPI) equation refit??without adjustment for race. BUN/Creatinine Ratio 30.5 LAB CHEMISTRY METHOD 01/18/2025 1:[address] [facility] Calcium 9.9 8.5 - 10.5 mg/dL LAB CHEMISTRY METHOD 01/18/2025 1:[address] [facility] AST (SGOT) 30 10 - 42 unit/L LAB CHEMISTRY METHOD 01/18/2025 1:[address] [facility] ALT (SGPT) 29 10 - 60 unit/L LAB CHEMISTRY METHOD 01/18/2025 1:[address] [facility] Alkaline Phosphatase 114 42 - 121 unit/L LAB CHEMISTRY METHOD 01/18/2025 1:[address] [facility] Total Protein 7.3 6.0 - 8.0 g/dL LAB CHEMISTRY METHOD 01/18/2025 1:[address] [facility] Albumin 3.9 3.2 - 5.0 g/dL LAB CHEMISTRY METHOD 01/18/2025 1:[address] [facility] Total Bilirubin 1.0 0.0 - 1.4 mg/dL LAB CHEMISTRY METHOD 01/18/2025 1:25 PM EDT [facility] Blood Venous blood specimen / Unknown Venipuncture / Unknown 01/18/2025 12:23 PM EDT 01/18/2025 12:55 PM EDT Mina Colón MD LAB BLOOD ORDERABLES Final Result [facility] [address] [place] [address], * External Xray Report (01/14/2025) Only the most recent of2 resultswithin the time period is included. Anatomical Region Laterality Modality Radiographic Gudelia ging Provider [facility] IMG XR PROCEDURES Final Result * (ABNORMAL) Bacterial identification and susceptibility, aerobic (12/11/2024 12:00 AM EST) Pathologist [facility] Culture, Bacterial ID and Sensitivity Pseudomonas aeruginosa(A) BARI 12/15/2024 9:11 AM EST [facility] Comment: The organism value for this result has been updated. These results have been appended to the previously preliminary verified report. Culture, Bacterial ID and Sensitivity Proteus mirabilis ESBL(A) BARI 12/15/2024 9:11 AM EST [facility] Comment: THIS ORGANISM IS POSITIVE [...] Unknown 12/11/2024 12/12/2024 10:22 AM EST Narrative [facility] - 12/15/2024 9:11 AM EST [...] MICROBIOLOGY - G ENERAL ORDERABLES Final Result [facility] [address] [place] [address], [place] [phone] * MG Mammo Digital Diagnostic w Franc [...] is recommended in 1 year. Mammo Location: [facility], [address] [place] [address], [facility], . -------- FINAL REPORT -------- Dictated By: Shima Boyd Dictated Date: 10/08/2024 15:16 ET Assigned Physician: Shima Boyd Reviewed and Electronically Signed By: Shima Boyd Signed Date: 10/08/2024 15:57 ET Workstation ID: [id number] Transcribed By: Self Edit Transcribed Date: 10/08/2024 [...] , spot MLO 15/80 and spot CC 10/59. ??On today's images, this appears similar to [...] cm from the nipple: ML 90 degrees 14/87, spotMLO 15/80 and spot CC 10/59. On today's images, this appears similar toprior [...] is recommended in 1 year. Mammo Location: [facility], [address] [place] [address], [id number], . -------- FINAL REPORT -------- Dictated By: Shima Boyd Dictated Date: 10/08/2024 15:16 ET Assigned Physician: Shima Boyd Reviewed and Electronically Signed By: Shima Boyd Signed Date: 10/08/2024 15:57 ET Workstation ID: [id number] Transcribed By: Self Edit Transcribed Date: 10/08/2024 15:31 ET us Patsy York MD IMG BI PROCEDURES Final Result * PERFECTO DEXA AXIAL SKELETON (03/26/2024 5:09 PM EDT) Anatomical Region Laterality Modality Mammography 03/26/2024 1:05 PM EDT Narrative 03/26/2024 5:09 PM EDT [facility] Diagnostic Imaging Department [address] [place] [id number] Patient: ??DENVER LOVE ?/Age/Sex: 1950 - 73 - F Unit#: ??[id number] ? Location/Status: ??SPDIMAM/REG CLI ? Mnemonic/Ordering Site: ??MAMDEXAAX/SPMAM Ordering Physician: ??RORY ACOSTA PA-C Perfecto Dexa Axial Skeleton - 03/26/24 - [id number] Report Status:Signed History: Low estrogen state due to menopause. Personal history of fracture. Comparison: No comparison imaging. Findings: Bone densitometry is performed utilizing dual energy x-ray absorptiometry (DXA) in the Zymer[employer] unit. The lumbar spine and proximal femora [...] 16.6 percent ??Hip 3.1 percent. IMPRESSION: Osteoporosis. [id number] Dictating Physician: ??ILDA BAEZ MD Electronically Signed by: ??ILDA BAEZ MD Dic Date/Time: ??03/26/241708 Sign date/Time: ??03/26/241708 Procedure Note Ilda Baez MD - 06/16/2024 [facility] Diagnostic Imaging Department [address] [place] [address] Patient: DENVER LOVE/Age/Sex: 1950 - 73 - F Unit#: [id number] Location/Status: SPDIMA/REG CLI [facility] Ordering Physician: RORY ACOSTA PA-C Perfecto Dexa Axial Skeleton - 03/26/24 - 8983 Report Status:Signed History: Low estrogen state due to menopause. Personal history offracture. Comparison: No comparison imaging. Findings: Bone densitometry is performed utilizing dual energy x-ray absorptiometry(DXA) in the reQall unit. The lumbar spine and proximal femora [...] 16.6 percent Hip 3.1 percent. IMPRESSION: Osteoporosis. 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
--- OUTSIDE RECORDS SUMMARY | 2025-02-04 13:35 | XMS_ITS | Encounter Summary ---
Author Organization [facility] Address [address] [place] [address] Care Team Providers Care Nuclear Plant Technical Advisor Name Role Phone Patsy York MD Primary Care Provider [phone] Encounter Details Date Type Department Care Team (Late st Contact Info) Description 02/03/2025 Lab Requisition [facility] - Main Lab [address] [facility] [address] [place] [address] Esther Varela MD [address] [id number] Hypokalemia Social History Tobacco Use Types Packs/Day Years [...] 01/18/2025 3:13 PM EDT Sophia Cordoba RN documented as of this encounter Mental Status * Because of a physical, mental, or emotional condition, do you have serious difficulty concentrating, remembering, or making decisions? (5 years old or older) Answer Entry Date Author No 01/18/2025 3:13 PM EDSophia Valadez RN documented in this encounter Plan of Treatment Upcoming Encounters Date Type Department Care Team (Late st Contact Info) Description 03/02/2025 1:00 PM EDT [facility] [address] [facility] [address] [place] [address] Latrice Patino NP [address] [facility] [address] [place] [address] documented as of this encounter Procedures Procedure Name Priority Date/Time Associated Diagnosis Comments MAGNESIUM Routine 02/03/2025 5:33 AM EDT Hypokalemia documented in this encounter Results * (ABNORMAL) Magnesium (02/03/2025 5:33 AM EDT) Magnesium 1.6(L) 1.9 - 2.6 mg/dL LAB CHEMISTRY METHOD 02/03/2025 9:06 AM EDT [facility] Blood Venous blood specimen / Unknown Venipuncture / Unknown 02/03/2025 5:33 AM EDT 02/03/2025 8:02 AM EDT us Esther Varela MD LAB BLOOD ORDERABLES Fin al Result [facility] [address] [place] [address], documented in this encounter Visit Diagnoses Diagnosis Hypokalemia Hypopotassemia documented in this encounter Additional Health Concerns Infection Onset Date Last Indicated Resolved Time ESBL 12/11/2024 12/11/2024 documented as of this encounter Care Teams Nuclear Plant Technical Advisor Relationship Specialty Start Date End Date Patsy York MD [address] [place] [address] PCP - General Internal Medicine 07/21/15 documented as of this encounter
== END 2025-02-04 12:14 | disposition home or self-care (01) ==
LOC: HO.HNS 11:27
PROVIDERS: PCP Internal Medicine; Visit Provider Physician Assistant
DX: M47.14 Other spondylosis with myelopathy, thoracic region (principal)
CPT/HCPCS: 99024

== ENCOUNTER 2025-02-04 12:25 | Outpatient (REF) | payer MEDICARE, OTHER, SELFPAY ==
--- NOTE | ~2025-02-04 | XR_ITS ---
EXAMINATION: XR THORACIC SPINE CLINICAL INFORMATION: M47.14 - Other spondylosis with myelopathy, thoracic region COMPARISON: Correlated to CT dated October 17, 2024. TECHNIQUE: 3 views of the thoracic spine were obtained. FINDINGS: Multilevel marginal osteophyte formation and endplate sclerosis and decreased intervertebral disc height. S-shaped curvature of the thoracolumbar spine with a levoconvex curvature at the thoracolumbar junction and dextroconvex curvature in the lower thoracic segment. Metallic hardware lower cervical spine extending to T2. XR/XR thoracic spine 2V IMPRESSION: Multilevel thoracolumbar spondylosis and levoconvex scoliosis at the thoracolumbar junction and mild dextroscoliosis lower thoracic spine. Electronically signed by: Balaji Holcomb MD 02/04/2025 02:56 PM EDT
== END 2025-02-04 12:26 | disposition home or self-care (01) ==
LOC: HO.XRAY 12:25
PROVIDERS: PCP Internal Medicine; Visit Provider Physician Assistant
DX: M47.14 Other spondylosis with myelopathy, thoracic region (principal)
CPT/HCPCS: 72070; 99212

== ENCOUNTER → 2025-02-04 12:32 | Outpatient (BNV) | payer MEDICARE, OTHER, SELFPAY | PROVIDERS: PCP Internal Medicine; Visit Provider Radiology Diagnostic Radiology | DX: M47.14 Other spondylosis with myelopathy, thoracic region (principal) | CPT/HCPCS: 72070 ==

== ENCOUNTER 2025-03-11 12:56 | Outpatient (AMB) | payer MEDICARE, OTHER, SELFPAY ==
--- NOTE | 2025-03-11 12:58 | A.SPINEOV_ITS ---
Intake Visit Reasons: 2nd post op Intake Note: Ms. Love is here today for her 2nd post op appointment. Smt Machine Operator Required: No Allergies sulfamethoxazole [From Bactrim] Allergy (Severe, Verified 03/11/25 13:31) Hives trimethoprim [From Bactrim] Allergy (Severe, Verified 03/11/25 13:31) Hives morphine Allergy (Intermediate, Verified 03/11/25 13:31) Vomiting Assessment & Plan Assessment & Plan (1) Thoracic myelopathy: Code(s): M47.14 - Other spondylosis with myelopathy, thoracic region Category: Medical Plan Denver comes in today for a subsequent follow up appointment after having T10 T11 Laminotomy, Partial facetectomy and foraminotomy with Dr. Millard on 01/14/25. She had a complicated postoperative course. See previous office visit notes for specifics regarding this. She remains admitted to a rehabilitation/nursing facility. She reports that she is getting daily occupational and physical therapy. She is able to walk about 20 steps with the assistance of a walker. He feels that she is starting to have some strength return her left lower extremity, and is feeling much better than she did at her prior appointment. She also has been having some return of sensation in her left lower extremity compared to her previous hypoesthesia at baseline postoperatively. On examination today, it appears that her lower extremity strength has significantly improved. Her right lower extremity remains 5/5, and her left lower extremity is 4/5 diffusely. I would like Denver to follow up with us again when she transitions out of Rehab. She should not be there any more than another couple of weeks, especially if she is now able to ambulate with an assistive device. Javid Millard MD,PhD [facility] Coding Level of Care Code Global (33023) Diagnoses Thoracic myelopathy M47.14
--- OUTSIDE RECORDS SUMMARY | 2025-03-11 13:15 | XMS_ITS | Encounter Summary ---
Author Organization [facility] Address [address] [place] [address] Care Team Providers Care Building Construction Ironworker Name Role Phone Patsy York MD Primary Care Provider [phone] Encounter Details Date Type Department Care Team (Late st Contact Info) Description 12/12/2024 Lab Requisition [facility] - Main Lab [address] [facility] [place] [address] Willis Martinez MD [address] [address] Dysuria Social History Tobacco Use Types Packs/Day [...] Care Team (Late st Contact Info) Description 03/26/2025 4:25 PM EDT Office Visit [facility] [place] [address] [place] [phone] Latrice Patino, MIS [address] [place] [address] 06/05/2025 11:50 AM EDT Office Visit [facility] [address] [place] [phone] Latrice Patino NP [address] [place] [address] documented as of this encounter Procedures Procedure Name Priority Date/Time Associated Diagnosis Comments BACTERIAL IDENTIFICATION AND SUSCEPTIBILITY, AEROBIC Routine 12/11/2024 12:00 AM EST Dysuria documented in this encounter Results * (ABNORMAL) Bacterial identification and susceptibility, aerobic (12/11/2024 12:00 AM EST) Pathologist [facility] Culture, Bacterial ID and Sensitivity Pseudomonas aeruginosa(A) [...] MICROBIOLOGY - G ENERAL ORDERABLES Final Result [facility]) [facility] [address] [place] [address], [place] [phone] documented in this encounter Visit Diagnoses Diagnosis Dysuria documented in this encounter Additional Health Concerns Infection Onset Date Last Indicated Resolved Time ESBL 12/11/2024 12/11/2024 documented as of this encounter Care Teams Building Construction Ironworker Relationship Specialty Start Date End Date Patsy York MD [address] [place] [address] PCP - General Internal Medicine 07/21/15 documented as of this encounter
--- OUTSIDE RECORDS SUMMARY | 2025-03-11 13:15 | XMS_ITS | Clinical Summary ---
Author Organization 175 [facility] Address [address] [place] [address] Phone Care Team Providers Care Process Tech Name Role Phone Patsy York MD Primary Care Provider [phone] Allergies Active Allergy Reactions Criticality Noted Date Comments Sulfamethoxazole-Trimethop rim 09/01/2024 Morphine Sulfate 09/01/2024 Sulfa (Sulfonamide Antibiotics) High 02/14/2006 Other Reaction(s): Hives/Urticaria Medications albuterol HFA (PROAIR HFA ; PROVENTIL HFA ; VENTOLIN HFA) 90 mcg/actuation inhaler Inhale 2 puffs by mouth. 4 Active aspirin 81 mg EC tablet Take 1 tablet (81 mg total) by mouth 1 (one) time each day. Active cetirizine (ZyrTEC) 10 mg capsule Take 1 capsule (10 mg total) by mouth 1 (one) time each day. 6 Active furosemide (LASIX) 40 mg tablet Take 1 tablet (40 mg total) by mouth 2 (two) times a day. Active gabapentin (NEURONTIN) 300 mg capsule Take 1 capsule (300 mg total) by mouth. 4 Active nitroglycerin (NITROSTAT) 0.[address] 1 tablet (0.4 mg total) under the tongue every 5 (five) minutes if needed. 3 Active oxyBUTYnin XL (DITROPAN-XL) 10 mg 24 hr tablet Take 1 tablet (10 mg total) by mouth 1 (one) time each day. 4 Active triamcinolone (NASACORT) 55 mcg nasal inhaler Administer 1 spray into affected nostril(s). Active zinc oxide 20 % ointment Apply thick layer to affected area (right buttock) twice daily. 4 Active calcium carbonate-vitami n D (Calcium with Vitamin D) 600 mg-10 mcg (400 unit) per tablet Take 1 tablet by mouth 2 (two) times a day. 4 Active fluticasone propion-salmeter oL (Advair HFA) 230-21 mcg/actuation inhalerIndicatio ns:Moderate persistent asthma without complication Inhale 2 puffs by mouth 2 (two) times a day. Rinse mouth with water after use to reduce aftertaste and incidence of candidiasis. Do not swallow. 12 g 6 4 09/01/20 25 Active rosuvastatin (CRESTOR) 40 mg tablet TAKE 1 TABLET BY MOUTH EVERY DAY 90 tablet 1 4 Active celecoxib (CeleBREX) 200 mg capsule TAKE 1 CAPSULE BY MOUTH TWICE A DAY 180 capsule 1 4 Active amLODIPine (NORVASC) 10 mg tabletIndication s:Essential (primary) hypertension TAKE 1 TABLET BY MOUTH EVERY DAY 90 tablet 5 Active lisinopril (PRINIVIL,ZESTRI L) 40 mg tabletIndication s:Essential (primary) hypertension Take 1 tablet (40 mg total) by mouth 1 (one) time each day. 90 tablet 1 5 Active metFORMIN XR (GLUCOPHAGE-XR) 500 mg 24 hr tablet Take 1 tablet (500 mg total) by mouth 1 (one) time each day with breakfast. 90 tablet 1 5 Active baclofen (LIORESAL) 10 mg tablet Take 1 tablet (10 mg total) by mouth 3 (three) times a day. 90 each 5 Active HYDROmorphone (DILAUDID) 2 mg tabletIndication s:Thoracic myelopathy Take 1-2 tablets (2-4 mg total) by mouth every 6 (six) hours if needed for moderate pain or severe pain. Max Daily Amount: 16 mg 14 tablet 5 Active senna (SENOKOT) 8.6 mg tablet Take 2 tablets (17.2 mg total) by mouth at bedtime. 60 each 11 5 01/26/20 26 Active lidocaine 4 % patch Apply 1 patch topically 1 (one) time each day for 14 days. 5 02/10/20 25 Active Problems Problem Noted Date Diagnosed Date Thoracic myelopathy 01/25/2025 Intractable abdominal pain 01/19/2025 Pain in abdomen on palpation 01/18/2025 RUQ abdominal pain 07/23/2024 CAD S/P percutaneous coronary angioplasty 2023 CTS (carpal tunnel syndrome) 07/23/2024 Biliary dyskinesia 07/23/2024 Morbid obesity with BMI of 4 0.0-44.9, adult (CMS/[facility] V24, CMS/[facility] V28) 07/23/2024 Family history of breast cancer 07/23/2024 Family [...] a BNP done when she was at [facility] and I will check that. On exam [...] 12, 2023 was 51. Diastolic congestive heart f ailure ([facility] V24, [facility] V28) 08/25/2022 Overview (07/23/2024): Last Assessment & Plan: [...] November 2020. Acute CHF (congestive heart failure) ([facility] V24, [facility] V28) 08/09/2022 Anxiety 06/21/2021 Osteoarthritis of carpometac arpal [...] Department Care Team Description 02/03/2025 Lab Requisition [facility] [address] [place] [address] Esther Varela MD Hypokalemia 01/31/2025 Lab Requisition [facility] [address] [place] [address] Esther Varela MD Syncope and collapse; Type 2 diabetes mellitus without complications (CMS/[facility] V24, CMS/[facility] V28) 01/30/2025 Telephone Adult Medicine [address] [phone] Annabelle Pierson MA med refill and hosptial visit 01/30/2025 Telephone Adult Medicine [address] [phone] Patsy York MD Advice Only 01/18/2025 12:45 PM EDT - 01/25/2025 2:30 PM EDT Hospital Encounter [facility] [address] [place] [phone] Mina Cloón MD Sondhi, Vikram, MD Santoyo-Pacheco, Omar D, MD Intractable abdominal pain (Primary Dx); Biliary dyskinesia; Pain in abdomen on palpation; Thoracic myelopathy Discharge Disposition: Longterm Facility from Last 3 Months Immunizations Name Administration Dates Next Due Influenza trivalent, 0.5mL ( Fluzone High-dose) 65yo and older 07/05/2022,09/27/2021 Influenza trivalent, with pr eservative (Fluzone; Afluria) 6mo and older 08/22/2016,08/16/2015,09/30/2012,09/16 [employer] SARS-CoV-2 COVID -19, vector-nr, [id number], preservative free 01/31/2021 [employer] SARS-CoV-2 COVID-19, mRNA, LNP-S, preservative free 11/27/2021 [...] PROCEDURE: HISTORICAL TONSILLECTOMY KIDNEY STONE SURGERY PROCEDURE: ME NEPHROLITHOTOMY REMOVAL CALCULUS HERNIA REPAIR PROCEDURE: REPAIR [...] obesity with BMI of 4 0.0-44.9, adult ([facility] V24, [facility] V28) 10/23/2013 DX:Morbid obesity wit h BMI of 40.0-44.9, adult ([facility]); COMMENT: BMI 40.26 0n 08/28/13. Family History [...] Description 03/26/2025 4:25 PM EDT Office Visit [facility] [address] [facility] [address] [place] [phone] Latrice Patino NP [address] [facility] [address] [place] [address] 06/05/2025 11:50 AM EDT Office Visit [facility] [address] [facility] [address] [place] [phone] Latrice Patino NP 175 [facility] [address] [place] [address] Health Maintenance Due Date Last Done Comments [...] XRAY REPORT 01/14/2025 EXTERNAL XRAY REPORT 01/14/2025 MG MAMMO DIGITAL DIAGNOSTIC W FRANC RIGHT [...] LAB CHEMISTRY METHOD 02/03/2025 9:06 AM EDT [facility] Blood Venous blood specimen / Unknown Venipuncture / Unknown 02/03/2025 5:33 AM EDT 02/03/2025 8:02 AM EDT us Esther Varela MD LAB BLOOD ORDERABLES Fin al Result [facility] [address] [place] [address], * (ABNORMAL) Complete blood count (01/31/2025 7:41 AM EDT) Only the most recent of2 resultswithin the time period is included. WBC 8.3 4.8 - 10.8 K/mcL LAB HEMETOLOGY METHOD 01/31/2025 9:15 AM [facility] RBC 4.30 3.80 - 4.80 M/mcL LAB HEMETOLOGY [facility] Hemoglobin 13.3 11.5 - 16.0 g/dL LAB HEMETOLOGY METHOD 01/31/2025 9:15 AM [facility] Hematocrit 40.6 35.0 - 47.0 % LAB HEMETOLOGY METHOD 01/31/2025 9:15 AM [facility] MCV 95.1 79.0 - 98.0 FL LAB HEMETOLOGY METHOD 01/31/2025 9:15 AM EDT [facility] MCH 31.1 27.0 - 32.0 pcg LAB HEMETOLOGY METHOD 01/31/2025 9:15 AM [facility] MCHC 32.8 32.0 - 37.0 g/dL LAB HEMETOLOGY METHOD 01/31/2025 9:15 AM [facility] RDW 13.2 11.0 - 15.0 % LAB HEMETOLOGY METHOD 01/31/2025 9:15 AM [facility] Platelets 148 130 - 400 K/mcL LAB HEMETOLOGY METHOD 01/31/2025 9:15 AM EDT [facility] MPV 11.6(H) 7.0 - 11.0 FL LAB HEMETOLOGY METHOD 01/31/2025 9:15 AM EDT [facility] NRBC 0.0 <1.0 % LAB HEMETOLOGY METHOD 01/31/2025 9:15 AM EDT [facility] NRBC Absolute 0.00 <0.10 K/[facility] LAB HEMETOLOGY METHOD 01/31/2025 9:15 AM EDT [facility] Blood Venous blood specimen / Unknown Venipuncture / Unknown 01/31/2025 7:41 AM EDT 01/31/2025 8:26 AM EDT Esther Varela MD LAB BLOOD ORDERABLES Fin al Result [facility] [address] [place] [address], [place] [phone] * Hemoglobin A1c (01/31/2025 7:41 AM EDT) Hemoglobin A1C 6.4 <6.5 % LAB CHEMISTRY METHOD 02/01/2025 8:30 AM EDT [facility] Mean Bld Glu Estim. 137 mg/dL LAB CHEMISTRY METHOD 02/01/2025 8:30 AM EDT [facility] Blood Venous blood specimen / Unknown Venipuncture / Unknown 01/31/2025 7:41 AM EDT 01/31/2025 8:26 AM EDT Esther Varela MD LAB BLOOD ORDERABLES Fin al Result Performing Organization Address City/[facility]/ZIP Co de Phone Number [facility] [address] [place] [address], [place] [phone] * (ABNORMAL) Basic metabolic panel (01/31/2025 7:41 AM EDT) Only the most recent of5 resultswithin the time period is included. Sodium 137 133 - 145 mmol/L LAB CHEMISTRY METHOD 01/31/2025 9:13 AM [facility] Potassium 4.5 3.5 - [...] AM EDT 01/31/2025 8:26 AM EDT Esther aVrela MD LAB BLOOD ORDERABLES Fin al Result Performing Organization Address [facility]/ZIP Co de Phone Number [facility] [address] [place] [address], [place] [phone] * (ABNORMAL) POCT Glucose, blood (01/25/2025 11:09 AM EDT) Only the most recent of27 resultswithin the time period is included. [facility] Glucose POCT 152(H) 70 - 100 mg/dL 01/25/2025 11:10 AM EDT [facility] Blood Capillary blood specimen / Unknown 01/25/2025 11:09 AM EDT 01/25/2025 11:11 AM EDT Scott Wolfe MD LAB POINT OF C ARE TEST DOCKED DEVICE UNSOLICITED RESULTS Final Result Performing Organization Address [facility] de Phone Number [facility] [address] [place] [address], [place] [phone] * (ABNORMAL) CBC auto differential (01/24/2025 6:17 AM EDT) Only the most recent of4 resultswithin the time period is included. Pathologist [facility] WBC 8.7 4.8 - 10.8 K/mcL LAB HEMETOLOGY METHOD 01/24/2025 7:35 AM EDT [facility] RBC 4.40 3.80 - 4.80 M/mcL LAB HEMETOLOGY METHOD 01/24/2025 7:35 AM EDT [facility] Hemoglobin 13.6 11.5 - 16.0 g/dL LAB HEMETOLOGY METHOD 01/24/2025 7:35 AM EDT [facility] Hematocrit 41.3 35.0 - 47.0 % LAB HEMETOLOGY METHOD 01/24/2025 7:35 AM EDT [facility] MCV 93.4 79.0 - 98.0 FL LAB HEMETOLOGY METHOD 01/24/2025 7:[facility] MCH 30.8 27.0 - 32.0 pcg LAB HEMETOLOGY METHOD 01/24/2025 7:35 AM [facility] MCHC 32.9 32.0 - 37.0 g/dL LAB HEMETOLOGY METHOD 01/24/2025 7:35 AM [facility] RDW 12.6 11.0 - 15.0 % LAB HEMETOLOGY METHOD 01/24/2025 7:35 AM [facility] Platelets 261 130 - 400 K/mcL LAB HEMETOLOGY METHOD 01/24/2025 7:35 AM [facility] MPV 10.9 7.0 - 11.0 FL LAB HEMETOLOGY METHOD 01/24/2025 7:35 [facility] NRBC 0.0 <1.0 % LAB HEMETOLOGY METHOD 01/24/2025 7:35 AM [facility] NRBC Absolute 0.00 <0.10 K/mcL LAB HEMETOLOGY METHOD 01/24/2025 7:35 AM [facility] Neutrophils Relative 78.8 % LAB HEMETOLOGY METHOD 01/24/2025 7:35 AM T [facility] Lymphocytes Relative 9.6 % LAB HEMETOLOGY METHOD 01/24/2025 7:35 AM [facility] Monocytes Relative 10.4 % LAB HEMETOLOGY METHOD 01/24/2025 7:35 AM [facility] Eosinophils Relative 0.3 % LAB HEMETOLOGY METHOD 01/24/2025 7:35 AM [facility] Basophils Relative 0.0 % LAB HEMETOLOGY METHOD 01/24/2025 7:35 AM EDT [facility] Immature Granulocytes Relative 0.9 % LAB HEMETOLOGY METHOD 01/24/2025 7:35 AM EDT [facility] Neutrophils Absolute 6.84 1.50 - 7.00 K/mcL LAB HEMETOLOGY METHOD 01/24/2025 7:35 AM EDT [facility] Lymphocytes Absolute 0.83(L) 1.00 - 5.00 K/mcL LAB HEMETOLOGY METHOD 01/24/2025 7:35 AM EDT [facility] Monocytes Absolute 0.90 0.20 - 1.00 K/mcL LAB HEMETOLOGY METHOD 01/24/2025 7:35 AM EDT [facility] Eosinophils Absolute 0.03 0.00 - 0.50 K/mcL LAB HEMETOLOGY METHOD 01/24/2025 7:35 AM EDT [facility] Basophils Absolute 0.00 0.00 - 0.20 K/mcL LAB HEMETOLOGY METHOD 01/24/2025 7:35 AM EDT [facility] Immature Granulocytes Absolute 0.08(H) 0.00 - 0.03 K/mcL LAB HEMETOLOGY METHOD 01/24/2025 7:35 AM EDT [facility] Blood Venous blood specimen / Unknown Venipuncture / Unknown 01/24/2025 6:17 AM EDT 01/24/2025 7:03 AM EDT us Scott Wolfe MD LAB BLOOD ORDERABLES F inal Result [facility]) [facility] [address] [place] [address], * C-reactive protein (01/24/2025 6:17 AM EDT) Only the most recent of2 resultswithin the time period is included. C-Reactive Protein <0.29 <=0.50 mg/dL LAB CHEMISTRY METHOD 01/24/2025 8:08 AM EDT [facility] Blood Venous blood specimen / Unknown Venipuncture / Unknown 01/24/2025 6:17 AM EDT 01/24/2025 7:02 AM EDT us Scott Wolfe MD LAB BLOOD ORDERABLES F inal Result [facility] [address] [place] [address], [place] [phone] * ECG 12 lead (01/23/2025 2:07 PM EDT) Ventricular Rate ECG 63 BPM GEMUSE Atrial Rate 63 BPM GEMUSE P-R Interval 156 ms GEMUSE QRS Duration 156 ms GEMUSE Q-T Interval 464 ms GEMUSE QTc 474 ms GEMUSE P Wave [place] 42 degrees GEMUSE R [place] -39 degrees GEMUSE T [place] -21 degrees GEMUSE ECG Interpretation Normal sinus rhythm Left axis deviation Right bundle branch block Abnormal ECG When compared with ECG of 09-AUG-2023 13:03, T wave inversion now evident in Anterior leads Confirmed by MD Frank, Sea ([id number]) on 01/24/2025 8:50:02 AM GEMUSE 01/23/2025 2:07 [...] Alonso MD on 01/21/2025 18:57:31 Rose Mary Hernandez Prince MARTINEZ IMG MRI PROCEDURES Bella l Result [...] MD on 01/21/2025 18:48:29 Scott Wolfe MD IM MRI PROCEDURES Fin al Result * MR [...] Signed Date: 01/20/2025 18:01 ET Workstation ID: [id number] Transcribed By: Self Edit Transcribed Date: 01/20/2025 [...] in the laminectomy bed at the level dqH28-30. 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 Increased cord signal at T10-11. Thoracic cord is otherwise normal insignal. Cervicothoracic posterior fusion hardware seen extending to the level ofT3. Lower lumbar fusion hardware noted. Postsurgical changes in the posterior paraspinal musculature at [id number] small fluid collection in the lower thoracic [...] Signed Date: 01/20/2025 18:01 ET Workstation ID: [id number] Transcribed By: Self Edit Transcribed Date: 01/20/2025 17:44 ET us Rose Mary MARTINEZ IMG MRI PROCEDURES Bella l Result * Activated partial thromboplastin time (01/20/2025 6:14 AM EDT) [facility] aPTT 27.1 24.1 - 39.3 sec LAB COAGULATION METHOD 01/20/2025 7:39 AM EDT [facility] Blood Venous blood specimen / Unknown Venipuncture / Unknown 01/20/2025 6:14 AM EDT 01/20/2025 6:58 AM EDT us Britt MARTINEZ LAB BLOOD ORDERABLES Final Re sult Performing Organization Address City/[facility]/ZIP Co de Phone Number [facility] [address] [place] [address], [place] [phone] * (ABNORMAL) Prothrombin time with INR (01/20/2025 6:14 AM EDT) [facility] Protime 16.7(H) 10.6 - 13.9 sec LAB COAGULATION METHOD 01/20/2025 7:39 AM EDT [facility] INR 1.3 LAB COAGULATION METHOD 01/20/2025 7:39 AM EDT [facility] Blood Venous blood specimen / Unknown Venipuncture / Unknown 01/20/2025 6:14 AM EDT 01/20/2025 6:58 AM EDT Britt MARTINEZ LAB BLOOD ORDERABLES Final Re sult [facility] [address] [place] [address], [place] [phone] * Type and screen (01/20/2025 6:14 AM EDT) Pathologist [facility] ABO Group B 01/20/2025 8:17 AM EDT [facility] Rh Type Positive 01/20/2025 8:17 AM EDT [facility] Antibody Screen Negative 01/20/2025 8:17 AM EDT [facility] Blood Venous blood specimen / Unknown Venipuncture / Unknown 01/20/2025 6:14 AM EDT 01/20/2025 6:59 AM EDT Britt MARTINEZ LAB BLOOD BANK TEST ORDERABLE S Final Result Performing Organization Address [facility]/ZIP Co de Phone Number [facility] [address] [place] [address], [place] [phone] * Phosphorus (01/20/2025 6:14 AM EDT) Phosphorus 2.6 2.5 - 4.5 mg/dL LAB CHEMISTRY METHOD 01/20/2025 7:39 AM EDT [facility] Blood Venous blood specimen / Unknown Venipuncture / Unknown 01/20/2025 6:14 AM EDT 01/20/2025 6:58 AM EDT Britt MARTINEZ LAB BLOOD ORDERABLES Final Re sult Performing Organization Address [facility]/ZIP Co de Phone Number [facility] [address] [place] [address], [place] [phone] * NM Hepatobiliary System Imaging (01/19/2025 3:38 PM EDT) Anatomical Region Laterality Modality Body Nuclear Medicine 01/19/2025 4:39 PM EDT Impressions 01/19/2025 4:42 PM EDT Impression: 1. No evidence of cystic or common bile duct obstruction. 2.. Delayed biliary to bowel transit. Flores MARTINEZ ([id number]) -------- FINAL REPORT -------- Dictated By: Ilda Baez Dictated Date: 01/19/2025 16:39 ET Assigned Physician: Ilda Baez Reviewed and Electronically Signed By: Ilda Baez Signed Date: 01/19/2025 16:42 ET Workstation ID: [id number] Transcribed By: Self Edit Transcribed Date: 01/19/2025 [...] obstruction. 2.. Delayed biliary to bowel transit. Flores MARTINEZ ([id number]) -------- FINAL REPORT -------- Dictated By: Ilda Baez Dictated Date: 01/19/2025 16:39 ET Assigned Physician: Ilda Baez Reviewed and Electronically Signed By: Ilda Baez Signed Date: 01/19/2025 16:42 ET Workstation ID: [id number] Transcribed By: Self Edit Transcribed Date: 01/19/2025 16:39 ET Rose Mary MARTINEZ IMG NM PROCEDURES Final Result * (ABNORMAL) Urinalysis with reflex microscopic and culture (01/18/2025 4:50 PM EDT) Specific [place] Urine 1.020 1.003 - 1.030 LAB URINALYSIS - AUTOMATED METHOD 01/18/2025 5:25 PM [facility] pH, Urine 6.5 5.0 [...] - AUTOMATED METHOD 01/18/2025 5:25 PM EDT [facility] Bacteria, Urine Few(A) Negative /HPF LAB URINALYSIS - AUTOMATED METHOD 01/18/2025 5:25 PM EDT [facility] Hyaline Casts, Urine 8.8(H) 0 - 3 /LPF LAB URINALYSIS - AUTOMATED METHOD 01/18/2025 5:25 PM EDT [facility] Urine Urine specimen obtained by clean catch procedure / Unknown Non-blood Collection / Unknown 01/18/2025 4:50 PM EDT 01/18/2025 5:14 PM EDT Mina Colón MD LAB URINE ORDERABLES Final Result Performing Organization Address City/[facility]/ZIP Co de Phone Number [facility] [address] [place] [address], [place] [phone] * Rmaírez urine culture tube (01/18/2025 4:50 PM EDT) Extra Tube Hold for add-ons. 01/18/2025 7:01 PM EDT [facility] Comment:Auto resulted. Urine Urine specimen obtained by clean catch procedure / Unknown Non-blood Collection / Unknown 01/18/2025 4:50 PM EDT 01/18/2025 5:14 PM EDT Mina Colón MD LAB URINE ORDERABLES Final Result Performing Organization Address City/[facility]/ZIP Co de Phone Number [facility] [address] [place] [address], [place] [phone] * (ABNORMAL) Culture urine (01/18/2025 4:50 PM EDT) Culture, Urine >100,000 CFU/mL Pseudomonas aeruginosa(A) BARI 01/21/2025 8:20 AM EDT [facility] Comment: This is an edited [...] LAB MICROBIOLOGY - GENERAL ORDERABLES Final Result [facility] [address] [place] [address], [place] [phone] * [place] Abdomen Limited (01/18/2025 3:47 PM EDT) Anatomical Region Laterality Modality Body Ultrasound 01/18/2025 3:49 PM EDT Impressions 01/18/2025 3:52 PM EDT Impression: 1. Distended gallbladder with small amount of mobile sludge and no specific findings of acute cholecystitis. 2. Fatty liver. Telerad PA ([id number]) -------- FINAL REPORT -------- Dictated By: Ilda Baze Dictated Date: 01/18/2025 15:49 ET Assigned Physician: Ilda Baez Reviewed and Electronically Signed By: Ilda Baez Signed Date: 01/18/2025 15:52 ET Workstation ID: [id number] Transcribed By: Self Edit Transcribed Date: 01/18/2025 [...] acute cholecystitis. 2. Fatty liver. Telerad JUAN ([id number]) -------- FINAL REPORT -------- Dictated By: Ilda Baez Dictated Date: 01/18/2025 15:49 ET Assigned Physician: Ilda Baez Reviewed and Electronically Signed By: Ilda Baez Signed Date: 01/18/2025 15:52 ET Workstation ID: [id number] Transcribed By: Self Edit Transcribed Date: 01/18/2025 [...] 2. Nonobstructing right renal calculi. Telerad PA ([id number]) -------- FINAL REPORT -------- Dictated By: Ilda Baez Dictated Date: 01/18/2025 14:40 ET Assigned Physician: Ilda Baez Reviewed and Electronically Signed By: Ilda Baez Signed Date: 01/18/2025 14:46 ET Workstation ID: [id number] Transcribed By: Self Edit Transcribed Date: 01/18/2025 14:40 ET Narrative 01/18/2025 2:46 PM EDT History: Right flank pain for several days. Comparison: 07/30/20 Technique: Helical volumetric imaging of the abdomen and pelvis was performed without intravenous or oral contrast (stone kee protocol). DLP: 1124.25 mGy/cm Bypass Mobile VCT Iterative reconstruction technique Findings: The kidneys [...] noted, with intact hardware. Procedure Note Ilda Baze MD - 01/18/2025 History: Right flank pain for several days. Comparison: 07/30/20 Technique: Helical volumetric imaging of the abdomen and pelvis wasperformed without intravenous or oral contrast (stone kee protocol). DLP: 1124.25 mGy/cm Bypass Mobile VCT Iterative reconstruction technique Findings: The kidneys [...] 2. Nonobstructing right renal calculi. Teleulises MARTINEZ ([id number]) -------- FINAL REPORT -------- Dictated By: Ilda Baez Dictated Date: 01/18/2025 14:40 ET Assigned Physician: Ilda Baez Reviewed and Electronically Signed By: Ilda Baez Signed Date: 01/18/2025 14:46 ET Workstation ID: [id number] Transcribed By: Self Edit Transcribed Date: 01/18/2025 14:40 ET Mina Colón MD IMG CT PROCEDURES Final Res ult * Lipase (01/18/2025 12:23 PM EDT) [facility] Lipase 22 13 - 75 unit/L LAB CHEMISTRY METHOD 01/18/2025 6:47 PM EDT [facility] Blood Venous blood specimen / Unknown Venipuncture / Unknown 01/18/2025 12:23 PM EDT 01/18/2025 12:55 PM EDT Henrietta MARTINEZ LAB BLOOD ORDERABLES Final Resu lt [facility] [address] [place] [address], [place] [phone] * (ABNORMAL) Comprehensive metabolic panel (01/18/2025 12:23 PM EDT) [facility] Sodium 139 133 - 145 mmol/L LAB CHEMISTRY METHOD 01/18/2025 1:25 PM EDT [facility] Potassium 3.9 3.5 - 5.5 mmol/L LAB CHEMISTRY METHOD 01/18/2025 1:25 PM [facility] Chloride 101 96 - 110 mmol/L LAB CHEMISTRY METHOD 01/18/2025 1:25 PM [facility] CO2 30 21 - 32 mmol/L LAB CHEMISTRY METHOD 01/18/2025 1:25 PM [facility] Anion Gap 8 3 [...] LAB CHEMISTRY METHOD 01/18/2025 1:25 PM EDT [facility] Albumin 3.9 3.2 - 5.0 g/dL LAB CHEMISTRY METHOD 01/18/2025 1:25 PM EDT [facility] Total Bilirubin 1.0 0.0 - 1.4 mg/dL LAB CHEMISTRY METHOD 01/18/2025 1:25 PM EDT [facility] Blood Venous blood specimen / Unknown Venipuncture / Unknown 01/18/2025 12:23 PM EDT 01/18/2025 12:55 PM EDT Mina Colón MD LAB BLOOD ORDERABLES Final Result [facility] [address] [place] [address], [place] [phone] * External Xray Report (01/14/2025) Only the most recent of2 resultswithin the time period is included. Anatomical Region Laterality Modality Radiographic Gudelia ging us Provider [facility] IMG XR PROCEDURES Final Result * MG Mammo Digital Diagnostic w Franc [...] is recommended in 1 year. Mammo Location: [facility], [address] [place] [address], [id number], . -------- FINAL REPORT -------- Dictated By: Shima Boyd Dictated Date: 10/08/2024 15:16 ET Assigned Physician: Shima Boyd Reviewed and Electronically Signed By: Shima Boyd Signed Date: 10/08/2024 15:57 ET Workstation ID: [id number] Transcribed By: Self Edit Transcribed Date: 10/08/2024 [...] the nipple: ML 90 degrees , spotMLO and spot CC . On today's images, [...] is recommended in 1 year. Mammo Location: [facility], [address] [place] [address], [address], . -------- FINAL REPORT -------- Dictated By: Shima Boyd Dictated Date: 10/08/2024 15:16 ET Assigned Physician: Shima Boyd Reviewed and Electronically Signed By: Shima Boyd Signed Date: 10/08/2024 15:57 ET Workstation ID: [id number] Transcribed By: Self Edit Transcribed Date: 10/08/2024 15:31 ET us Patsy York MD IMG BI PROCEDURES Final Result * PERFECTO DEXA AXIAL SKELETON (03/26/2024 5:09 PM EDT) Anatomical Region Laterality Modality Mammography 03/26/2024 1:05 PM EDT Narrative 03/26/2024 5:09 PM EDT [facility] Diagnostic Imaging Department [address] [place] [address] Patient: ??JEREMYESTELLEDENVER ACOSTA ?/Age/Sex: 1950 - 73 - F Unit#: ??[id number] ? Location/Status: ??SPDIMAM/REG CLI ? Mnemonic/Ordering Site: ??MAMDEXAAX/SPMAM Ordering Physician: ??RORY ACOSTA PA-C [facility] Dexa Axial Skeleton - 03/26/24 - [id number] Report Status:Signed History: Low estrogen state due to menopause. Personal history of fracture. Comparison: No comparison imaging. Findings: Bone densitometry is performed utilizing dual energy x-ray absorptiometry (DXA) in the [employer] Prodig[employer]ppy Bandz unit. The lumbar spine and proximal femora [...] 16.6 percent ??Hip 3.1 percent. IMPRESSION: Osteoporosis. [id number] Dictating Physician: ??ILDA BAEZ MD Electronically Signed by: ??ILDA BAEZ MD Dic Date/Time: ??03/26/241708 Sign date/Time: ??03/26/241708 Procedure Note Ilda Baez MD - 06/16/2024 [facility] Diagnostic Imaging Department [address] [place] [address] Patient: RITESHDENVER./Age/Sex: 1950 - 73 - F Unit#: [id number] Location/Status: SPDIMAM/REG CLI [facility] Ordering Physician: RORY ACOSTA PA-C [facility] Dexa Axial Skeleton - 03/26/24 - [id number] Report Status:Signed History: Low estrogen state due to menopause. Personal history offracture. Comparison: No comparison imaging. Findings: Bone densitometry is performed utilizing dual energy x-ray absorptiometry(DXA) in the [employer] Bandz unit. The lumbar spine and proximal femora [...] 16.6 percent Hip 3.1 percent. IMPRESSION: Osteoporosis. [id number] Dictating Physician: ILDA BAEZ MD Electronically Signed [...] Last Indicated ESBL 12/11/2024 12/11/2024 Insurance MEDICARE [facility] [address] [place] [address] Advance Directives Documents on File Type Date Recorded Patient Ethics Instructor Expl anation Advance Directives and Living Will 01/21/2025 3:34 PM Luli Rosario [facility] Prox y * Full Code - Default [...] Agents on File Name Relationship Healthcare Agent [facility] Communication Luli Romero Daughter First Alternate Health Care Agent Trang Iqbal Sister Second Alternate Health Care Agent Care Teams Process Tech Relationship Specialty Start Date End Date Patsy York MD [address] [place] [id number] PCP - General Internal Medicine 07/21/15
--- OUTSIDE RECORDS SUMMARY | 2025-03-11 13:15 | XMS_ITS | Encounter Summary ---
Author Organization [facility] Address [address] [place] [address] Care Team Providers Care Railway Track Plant Operator Name Role Phone Patsy York MD Primary Care Provider [phone] Reason for Visit * Reason Onset Date Comments Advice Only 01/30/2025 Encounter Details Date Type Department Care Team (Late st Contact Info) Description 01/30/2025 Telephone Adult Medicine [facility] [address] [place] [address] Patsy York MD [address] [place], [place] Advice Only Social History Tobacco Use [...] documented in this encounter Progress Notes * Rimma Trejo - 02/18/2025 3:06 PM EDT . * Annabelle Pierson MA - 02/03/2025 3:26 [...] patient to follow with me/team * Rimma Rabagojaylyn - 01/30/2025 11:49 AM EDT Patient call requires triage: Symptoms patient is presenting: patient states she received a txt message from the pharmacy indicating there are problems with medication polyethylene glycol (MIRALAX) 17 gram packet and baclofen (LIORESAL) tablet 10 mg that were prescribed by the hospital. States she went to [facility] ER on 01/18 and was admitted, [facility] there [facility]. She isn't sure what the issues [...] traveled recently to [place], [place], [place], [place], [place]? no o If yes, did you quarantine [...] of accident/Injury: no If yes, gather 3rd constitution party insurance information Third Libertarian Information: not applicable PCP: Patsy York MD Payor: MEDICARE / Plan: MEDICARE PART A & B / Product Type: Medicare / documented in this encounter Plan of Treatment Upcoming Encounters Date Type Department Care Team (Late st Contact Info) Description 03/26/2025 4:25 PM EDT [facility] [address] [place] [phone] Latrice Patino NP [address] [place] [address] 06/05/2025 11:50 AM EDT [facility] [address] [place] [phone] Latrice Patino NP [address] [place] [address] documented as of this encounter Visit Diagnoses Not on filedocumented in this encounter Additional Health Concerns Infection Onset Date Last Indicated Resolved Time ESBL 12/11/2024 12/11/2024 documented as of this encounter Care Teams Railway Track Plant Operator Relationship Specialty Start Date End Date Patsy York MD [address] [place] [address] PCP - General Internal Medicine 07/21/15 documented as of this encounter
--- OUTSIDE RECORDS SUMMARY | 2025-03-11 13:15 | XMS_ITS | Encounter Summary ---
Author Organization [facility] Address [address] [place] [address] Care Team Providers Care Licensed Life And Health Agent Name Role Phone Patsy York MD Primary Care Provider [phone] Encounter Details Date Type Department Care Team (Late st Contact Info) Description 01/31/2025 Lab Requisition [facility] - Main Lab [address] [place] [address] Esther Varela MD [address] [phone] Syncope and collapse; Type 2 diabetes mellitus without complications (CMS/HCC V24, CMS/HCC V28) Social History Tobacco Use Types Packs/Day Years [...] Assessment Author No 01/18/2025 3:13 PM EDT Sopiha Cordoba RN * Do you have serious [...] Entry Date Author No 01/18/2025 3:13 PM EDT Sophia Cordoba RN documented in this encounter Plan of Treatment Upcoming Encounters Date Type Department Care Team (Late st Contact Info) Description 03/26/2025 4:25 PM EDT Office Visit [facility] [address] [phone] Latrice Patino NP 175 [facility] [address] [place] [address] 06/05/2025 11:50 AM EDT Office Visit [facility] 175 [facility] [address] [place] [phone] Latrice Patino NP 175 [facility] [address] [place] [address] documented as of this encounter Procedures Procedure [...] A1c (01/31/2025 7:41 AM EDT) Pathologist [facility] Hemoglobin A1C 6.4 <6.5 % LAB CHEMISTRY METHOD 02/01/2025 8:30 AM EDT [facility] Mean Bld Glu Estim. 137 mg/dL LAB CHEMISTRY METHOD 02/01/2025 8:30 AM EDT [facility] Blood Venous blood specimen / Unknown Venipuncture / Unknown 01/31/2025 7:41 AM EDT 01/31/2025 8:26 AM EDT us Esther Varela MD LAB BLOOD ORDERABLES Fin al Result [facility] [address] [place] [address], * (ABNORMAL) Basic metabolic panel (01/31/2025 7:41 AM EDT) Pathologist [facility] Sodium 137 133 - 145 mmol/L LAB CHEMISTRY METHOD 01/31/2025 9:13 AM EDT [facility] Potassium 4.5 3.5 - 5.5 mmol/L LAB CHEMISTRY METHOD 01/31/2025 9:13 AM EDT [facility] Chloride 94(L) 96 - 110 mmol/L LAB CHEMISTRY METHOD 01/31/2025 9:13 AM EDT [facility] CO2 37(H) 21 - 32 mmol/L LAB CHEMISTRY METHOD 01/31/2025 9:13 AM EDT [facility] Anion Gap 6 3 - 11 LAB CHEMISTRY METHOD 01/31/2025 9:13 AM [facility] Glucose 100 70 - 100 mg/dL LAB CHEMISTRY METHOD 01/31/2025 9:13 AM [facility] BUN 23 5 - 25 mg/dL LAB CHEMISTRY METHOD 01/31/2025 9:13 AM [facility] Creatinine 0.92 0.50 - 1.10 mg/dL LAB CHEMISTRY METHOD 01/31/2025 9:13 AM [facility] eGFR 66 >=60 mL/min/1. 73m2 LAB CHEMISTRY METHOD 01/31/2025 9:13 AM [facility] Comment:Calculation based on the??Chronic Kidney Disease Epidemiology Collaboration (CKD-EPI) equation refit??without adjustment for race. BUN/Creatinine Ratio 25.0 LAB CHEMISTRY METHOD 01/31/2025 9:13 AM [facility] Calcium 9.6 8.5 - 10.5 mg/dL LAB CHEMISTRY METHOD 01/31/2025 9:13 AM [facility] Blood Venous blood specimen / Unknown Venipuncture / Unknown 01/31/2025 7:41 AM EDT 01/31/2025 8:26 AM EDT us Esther Varela MD LAB BLOOD ORDERABLES Fin al Result [facility] [address] [place] [address], * (ABNORMAL) Complete blood count (01/31/2025 7:41 AM EDT) WBC 8.3 4.8 - 10.8 K/mcL LAB HEMETOLOGY METHOD 01/31/2025 9:15 AM [facility] RBC 4.30 3.80 - 4.80 M/mcL LAB HEMETOLOGY METHOD 01/31/2025 9:15 AM [facility] Hemoglobin 13.3 11.5 - 16.0 g/dL LAB HEMETOLOGY METHOD 01/31/2025 9:15 AM [facility] Hematocrit 40.6 35.0 - 47.0 % LAB HEMETOLOGY METHOD 01/31/2025 9:15 AM [facility] MCV 95.1 79.0 - 98.0 FL LAB HEMETOLOGY METHOD 01/31/2025 9:15 AM [facility] MCH 31.1 27.0 - 32.0 pcg LAB HEMETOLOGY METHOD 01/31/2025 9:15 AM [facility] MCHC 32.8 32.0 - 37.0 g/dL LAB HEMETOLOGY METHOD 01/31/2025 9:15 AM [facility] RDW 13.2 11.0 - 15.0 % LAB HEMETOLOGY METHOD 01/31/2025 9:15 AM [facility] Platelets 148 130 - 400 K/mcL LAB HEMETOLOGY METHOD 01/31/2025 9:15 AM [facility] MPV 11.6(H) 7.0 - 11.0 FL LAB HEMETOLOGY METHOD 01/31/2025 9:15 AM [facility] NRBC 0.0 <1.0 % LAB HEMETOLOGY METHOD 01/31/2025 9:15 AM [facility] NRBC Absolute 0.00 <0.10 K/mcL LAB HEMETOLOGY METHOD 01/31/2025 9:15 AM [facility] Blood Venous blood specimen / Unknown Venipuncture / Unknown 01/31/2025 7:41 AM EDT 01/31/2025 8:26 AM EDT Esther Varela MD LAB BLOOD ORDERABLES Fin al Result [facility] [address] [place] [address], documented in this encounter Visit Diagnoses Diagnosis Syncope and collapse Type 2 diabetes mellitus without complications (CMS/HCC V24, CMS/HCC V28) documented in this encounter Additional Health Concerns Infection Onset Date Last Indicated Resolved Time ESBL 12/11/2024 12/11/2024 documented as of this encounter Care Teams Licensed Life And Health Agent Relationship Specialty Start Date End Date Patsy York MD [address] [place] [address] PCP - General Internal Medicine 07/21/15 documented as of this encounter
--- OUTSIDE RECORDS SUMMARY | 2025-03-11 13:15 | XMS_ITS | Encounter Summary ---
Author Organization [facility] Address [address] [place] [address] Care Team Providers Care Feeder Driver Name Role Phone Patsy York MD Primary Care Provider [phone] Encounter Details Date Type Department Care Team (Late st Contact Info) Description 02/03/2025 Lab Requisition [facility] - Main Lab [address] [place] [address] Esther Varela MD [address] [phone] Hypokalemia Social History Tobacco Use Types Packs/Day [...] 01/18/2025 3:13 PM EDSophia Valadez RN * Are you blind or do [...] Description 03/26/2025 4:25 PM EDT Office Visit [facility] 175 [facility] [address] [place] [phone] Latrice Patino NP 175 [facility] [address] [place] [address] 06/05/2025 11:50 AM EDT Office Visit [facility] 175 [facility] [address] [place] [phone] Latrice Patino NP 175 [facility] [address] [place] [address] documented as of this encounter Procedures Procedure Name Priority Date/Time Associated Diagnosis Comments MAGNESIUM Routine 02/03/2025 5:33 AM EDT Hypokalemia documented in this encounter Results * (ABNORMAL) Magnesium (02/03/2025 5:33 AM EDT) Magnesium 1.6(L) 1.9 - 2.6 mg/dL LAB CHEMISTRY METHOD 02/03/2025 9:06 AM EDT [facility] Blood Venous blood specimen / Unknown Venipuncture / Unknown 02/03/2025 5:33 AM EDT 02/03/2025 8:02 AM EDT us Esther Varela MD LAB BLOOD ORDERABLES Fin al Result [facility] [address] [place] [address], documented in this encounter Visit Diagnoses Diagnosis Hypokalemia Hypopotassemia documented in this encounter Additional Health Concerns Infection Onset Date Last Indicated Resolved Time ESBL 12/11/2024 12/11/2024 documented as of this encounter Care Teams Feeder Driver Relationship Specialty Start Date End Date Patsy York MD [address] [place] [address] PCP - General Internal Medicine 07/21/15 documented as of this encounter
== END 2025-03-11 14:07 | disposition home or self-care (01) ==
LOC: HO.HNS 12:57
PROVIDERS: PCP Internal Medicine; Visit Provider Physician Assistant
DX: M47.14 Other spondylosis with myelopathy, thoracic region (principal)
CPT/HCPCS: 99024

== ENCOUNTER → 2025-03-11 12:56 | Outpatient (BNVA) | payer MEDICARE, OTHER, SELFPAY | PROVIDERS: PCP Internal Medicine; Visit Provider Physician Assistant | DX: Z47.89 Encounter for other orthopedic aftercare (principal); Z98.890 Other specified postprocedural states | CPT/HCPCS: 99212 ==

== ENCOUNTER 2025-03-30 13:16 | Outpatient (AMB) | payer MEDICARE, OTHER, SELFPAY ==
--- NOTE | 2025-03-30 13:22 | A.SPINEOV_ITS ---
Intake Visit Reasons: 1 month f/u Intake Note: Ms. Love is here today for her 1month F/u. 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 She had a complicated postoperative course, see previous office visit notes for specifics regarding this. She has been making continued progress with physical therapy. She is still unable to stand independently without support (she feels like she is going to fall over when doing so) and still relies on her family members to complete some of her ADLs such as getting underwear on and performing other self care activities. Given this, strength has subjectively improved in her left lower extremity, but states that she has continued difficulty engaging full strength in her left leg when she stands. She has been ordered at home PT / OT / nursing already when she was discharged from rehab, so we don't need to place those orders for her. She will be getting PT 3 x weekly starting this week. On exam Denver remains in her wheelchair for the duration of this visit. She has what I would call full 5/5 strength with left sided dorsiflexion, plantar flexion & knee extension. She still has about 4/5 strength with left sided knee flexion and iliopsoas testing. I would like Denver to continue working with PT via home PT for the next few weeks. She should follow up with Dr. Millard in clinic when she has completed her course of home PT in about 2 months, so he can make a final evaluation of her postoperative baseline and determine if she requires any further inter vention. Coding Level of Care Code Global (78546) Diagnoses Thoracic myelopathy M47.14
--- OUTSIDE RECORDS SUMMARY | 2025-03-30 14:20 | XMS_ITS | Clinical Summary ---
Author Organization 175 [facility] Address [address] [place] [address] Phone Care Team Providers Care Deputy Chief Executive Name Role Phone Patsy York MD Primary Care Provider [phone] Allergies Active Allergy Reactions Criticality Noted Date [...] (right buttock) twice daily. 4 Active calcium carbonate-vitamin D (Calcium with Vitamin D) 600 mg-10 mcg (400 unit) per tablet Take 1 tablet by mouth 2 (two) times a day. 4 Active fluticasone propion-salmetero L (Advair HFA) 230-21 mcg/actuation inhalerIndication s:Moderate persistent asthma without complication Inhale 2 puffs [...] 1 4 Active amLODIPine (NORVASC) 10 mg tabletIndications :Essential (primary) hypertension TAKE 1 TABLET BY MOUTH EVERY DAY 90 tablet 5 Active lisinopril (PRINIVIL,ZESTRIL ) 40 mg tabletIndications :Essential (primary) hypertension Take 1 tablet (40 mg [...] each 5 Active HYDROmorphone (DILAUDID) 2 mg tabletIndications :Thoracic myelopathy Take 1-2 tablets (2-4 mg total) by mouth every 6 (six) hours if needed for moderate pain or severe pain. Max Daily Amount: 16 mg 14 tablet 5 Active senna (SENOKOT) 8.6 mg tablet Take 2 tablets (17.2 mg total) by mouth at bedtime. 60 each 11 5 01/26/20 26 Active Active Problems Problem Noted Date Diagnosed Date Thoracic myelopathy 01/25/2025 Intractable abdominal pain 01/19/2025 Pain in abdomen on palpation 01/18/2025 RUQ abdominal pain 07/23/2024 CAD S/P percutaneous coronary angioplasty 2023 CTS (carpal tunnel syndrome) 07/23/2024 Biliary dyskinesia 07/23/2024 Morbid obesity with BMI of 4 0.0-44.9, adult (CMS/[facility] V24, CMS/[facility] V28) 07/23/2024 Family history of breast cancer 07/23/2024 Family history of colonic polyps 07/23/2024 Age related osteoporosis 04/17/2024 Cutaneous candidiasis 04/02/2024 Abnormal cardiovascular function study 3 Overview (07/23/2024): Last Assessment & Plan: She [...] a BNP done when she was at [facility] and I will check that. On exam [...] was 51. Diastolic congestive heart f ailure (CMS/[facility] V24, CMS/[facility] V28) 08/25/2022 Overview (07/23/2024): Last Assessment & [...] November 2020. Acute CHF (congestive heart failure) ([facility] V24, CMS/[facility] V28) 08/09/2022 Anxiety 06/21/2021 Osteoarthritis of carpometac [...] Encounters Date Type Department Care Team Description 03/30/[address] [phone] Patsy York MD FYI 03/26/[address] [phone] Patsy York MD Hospital Follow-up 03/15/2025 Lab Requisition [facility] [address] [place] [phone] Esther Varela MD Essential (primary) hypertension; Heart failure, unspecified ([facility] [place]24, [facility] [place] V28); Type 2 diabetes mellitus without complications ([facility] [place]24, [facility] [place] V28) 02/03/2025 Lab Requisition [facility] [address] [place] [phone] Esther Varela MD Hypokalemia 01/31/2025 Lab Requisition [facility] [address] [place] [phone] Esther Varela MD Syncope and collapse; Type 2 diabetes mellitus without complications ([facility] [place] V24, [facility] [place] V28) 01/30/[address] [phone] Annabelle Pierson MA med refill and hosptial visit 01/30/[address] [phone] Patsy York MD Advice Only 01/18/2025 12:45 PM EDT - 01/25/2025 2:30 PM EDT Hospital Encounter [facility] [address] [place] [phone] Mina Colón MD Sondhi, Vikram, MD Santoyo-Pacheco, Omar D, MD Intractable abdominal pain (Primary Dx); Biliary dyskinesia; Pain in abdomen on palpation; Thoracic myelopathy Discharge Disposition: Custodial Facility from Last 3 Months Immunizations Name Administration Dates Next Due Influenza trivalent, 0.5mL ( Fluzone High-dose) 65yo and older 07/05/2022,09/27/2021 Influenza trivalent, with pr eservative (Fluzone; Afluria) 6mo and older 08/22/2016,08/16/2015,09/30/2012,09/16 [employer] SARS-CoV-2 COVID -19, vector-nr, rS-Ad26, preservative free 01/31/2021 [employer] SARS-CoV-2 COVID-19, mRNA, LNP-S, preservative free 11/27/2021 [...] PROCEDURE: HISTORICAL TONSILLECTOMY KIDNEY STONE SURGERY PROCEDURE: VA NEPHROLITHOTOMY REMOVAL CALCULUS HERNIA REPAIR PROCEDURE: REPAIR [...] obesity with BMI of 4 0.0-44.9, adult ([facility] V24, [facility] V28) 10/23/2013 DX:Morbid obesity wit h BMI of 40.0-44.9, adult ([facility]); COMMENT: BMI 40.26 0n 08/28/13. Family [...] drink = 0.6 oz pur e alcohol) Housing Instability Answer Date Recorde d Are you worried that in the next 2 months you may not have stable housing? No 03/30/2025 Food Access & Nutrition Answer Date Rec orded Do you have access to a vari ety of food including fruits and vegetables? Yes 03/30/2025 Financial Risk Answer Date Recorded How hard is it for you to pa y for the very basics like food, housing, medical care, and air conditioning / heating? Not very hard 03/30/2025 Transportation Answer Date Recorded Has the lack of transportati on kept you from meetings, work, or from getting things needed for daily living? No Has the lack of transportati on kept you from medical appointments or from getting medications? No 03/30/2025 Food Risk Answer Date Recorded Within the past 12 months we worried whether our food would run out before we got money to buy more. Never true 03/30/2025 Within the past 12 months th e food we bought just didn't last and we didn't have money to get more. Never true 03/30/2025 Education Answer Date Recorded Do you think completing more education or training, like finishing a GED, going to college, or learning a trade, would be helpful for you? N/A 03/30/2025 Living Situation Answer Date Recorded What is your living situation? 0 03/30/2025 Interpersonal Safety Answer Date Record ed Physical [...] Multiple Livin g Live Births 1 1 Date Outcome GA Total Labor [...] Care Team (Late st Contact Info) Description 04/06/2025 1:30 PM EDT Office Visit Adult Medicine [address] [phone] Patsy York MD [address] [place] [address] 06/05/2025 11:50 AM EDT Office Visit Pulmonolgy - [place] [address] [facility] [address] [place] [phone] Latrice Patino NP 175 [facility] [address] [place] [address] Health Maintenance Due Date Last Done Comments Diabetes: Annual Foot Exam 1962 Diabetes: Annual Retina Eye Exam 1960 Zoster Vaccines (1 of 2) 2002 DTaP,Tdap,and Td Vaccines (2 - Td or Tdap) 02/06/2021 02/06/2011 Colorectal Cancer Screening: Stool Based Tests (FOBT/FIT) 10/07/2022 Depression Screening 10/07/2022 Hepatitis C Screening 10/07/2022 Medicare Annual Wellness Visit 10/07/2022 COVID-19 Vaccine ( season) 2024 08/15/2023, 11/27/2021, 01/31/2021 Diabetes: Annual Urine Albumin-Creatinine Ratio (uACR) 01/31/2025 Diabetes: Blood Sugar Control Test (HGBA1C) 08/02/2025 01/31/2025, 12/05/2023 Falls Risk Assessment 01/25/2026 01/25/2025 Diabetes: Annual GFR (Glomerular Filtration Rate) 03/16/2026 03/16/2025, 01/31/2025, 01/24/2025, Additional history exists Hypertension/CHF/CAD Annual BMP Blood Test 03/16/2026 03/16/2025, 01/31/2025, 01/24/2025, Additional history exists Social Influencers of Health Screening 03/30/2026 03/30/2025 Breast Cancer Screening 10/08/2026 10/08/20 24, 09/23/2024, 03/08/2023, Additional history exists Cholesterol Screening [...] Priority Date/Time Associated Diagnosis Comments MAGNESIUM Routine 03/16/2025 7:46 AM EDT Essential (primary) hypertension Heart failure, unspecified (CMS/HCC V24, CMS/HCC V28) Type 2 diabetes mellitus without complications (CMS/HCC V24, CMS/HCC V28) BASIC METABOLIC PANEL Routine 03/16/2025 7:46 AM EDT Essential (primary) hypertension Heart failure, unspecified (CMS/HCC V24, CMS/HCC V28) Type 2 diabetes mellitus without complications (CMS/HCC V24, CMS/HCC V28) COMPLETE BLOOD COUNT Routine 03/16/2025 7:46 AM EDT Essential (primary) hypertension Heart failure, unspecified (CMS/HCC V24, CMS/HCC V28) Type 2 diabetes mellitus without complications (CMS/HCC V24, CMS/HCC V28) MAGNESIUM Routine 02/03/2025 5:33 AM EDT Hypokalemia [...] Relevant to Health Maintenance Results * (ABNORMAL) Complete blood count (03/16/2025 7:46 AM EDT) Only the most recent of3 resultswithin the time period is included. WBC 9.0 4.8 - 10.8 K/mcL LAB HEMETOLOGY METHOD 03/16/2025 2:26 PM [facility] RBC 3.80 3.80 - 4.80 M/mcL LAB HEMETOLOGY METHOD 03/16/2025 2:26 PM [facility] Hemoglobin 11.9 11.5 - 16.0 g/dL LAB HEMETOLOGY METHOD 03/16/2025 2:26 PM [facility] Hematocrit 37.5 35.0 - 47.0 % LAB HEMETOLOGY METHOD 03/16/2025 2:26 PM [facility] MCV 98.9(H) 79.0 - 98.0 FL LAB HEMETOLOGY METHOD 03/16/2025 2:26 PM [facility] MCH 31.4 27.0 - 32.0 pcg LAB HEMETOLOGY METHOD 03/16/2025 2:26 PM [facility] MCHC 31.7(L) 32.0 - 37.0 g/dL LAB HEMETOLOGY METHOD 03/16/2025 2:26 PM [facility] RDW 13.8 11.0 - 15.0 % LAB HEMETOLOGY METHOD 03/16/2025 2:26 PM [facility] Platelets 213 130 - 400 K/mcL LAB HEMETOLOGY METHOD 03/16/2025 2:26 PM [facility] MPV 10.9 7.0 - 11.0 FL LAB HEMETOLOGY METHOD 03/16/2025 2:26 PM EDT [facility] NRBC 0.0 <1.0 % LAB HEMETOLOGY METHOD 03/16/2025 2:26 PM EDT [facility] NRBC Absolute 0.00 <0.10 K/mcL LAB HEMETOLOGY METHOD 03/16/2025 2:26 PM EDT [facility] Blood Venous blood specimen / Unknown Venipuncture / Unknown 03/16/2025 7:46 AM EDT 03/16/2025 12:32 PM EDT Esther Varela MD LAB BLOOD ORDERABLES Fin al Result Performing Organization Address [facility] Co de Phone Number [facility] [address] [place] [address], [place] [phone] * Magnesium (03/16/2025 7:46 AM EDT) Only the most recent of4 resultswithin the time period is included. Magnesium 2.4 1.9 - 2.6 mg/dL LAB CHEMISTRY METHOD 03/16/2025 1:55 PM EDT [facility] Blood Venous blood specimen / Unknown Venipuncture / Unknown 03/16/2025 7:46 AM EDT 03/16/2025 12:32 PM EDT Esther Varela MD LAB BLOOD ORDERABLES Fin al Result Performing Organization Address City/[facility]/ZIP Co de Phone Number [facility] [address] [place] [address], [place] [phone] * Basic metabolic panel (03/16/2025 7:46 AM EDT) Only the most recent of6 resultswithin the time period is included. Sodium 138 133 - 145 mmol/L LAB CHEMISTRY METHOD 03/16/2025 1:57 PM EDT [facility] Potassium 3.9 3.5 - 5.5 mmol/L LAB CHEMISTRY METHOD 03/16/2025 1:57 PM T [facility] Chloride 99 96 - 110 mmol/L LAB CHEMISTRY METHOD 03/16/2025 1:57 PM [facility] CO2 29 21 - 32 mmol/L LAB CHEMISTRY METHOD 03/16/2025 1:57 PM T [facility] Anion Gap 10 3 - 11 LAB CHEMISTRY METHOD 03/16/2025 1:57 PM [facility] Glucose 100 70 - 100 mg/dL LAB CHEMISTRY METHOD 03/16/2025 1:57 PM [facility] BUN 17 5 - 25 mg/dL LAB CHEMISTRY METHOD 03/16/2025 1:57 PM [facility] Creatinine 0.94 0.50 - 1.10 mg/dL LAB CHEMISTRY METHOD 03/16/2025 1:57 PM T [facility] eGFR 65 >=60 mL/min/1. 73m2 LAB CHEMISTRY METHOD 03/16/2025 1:57 PM [facility] Comment:Calculation based on the Chronic Kidney Disease Epidemiology Collaboration (CKD-EPI) equation refit without adjustment for race. BUN/Creatinine Ratio 18.1 LAB CHEMISTRY METHOD 03/16/2025 1:57 PM [facility] Calcium 9.2 8.5 - 10.5 mg/dL LAB CHEMISTRY METHOD 03/16/2025 1:57 PM [facility] Blood Venous blood specimen / Unknown Venipuncture / Unknown 03/16/2025 7:46 AM EDT 03/16/2025 12:32 PM EDT us Esther Varela MD LAB BLOOD ORDERABLES Fin al Result [facility] [address] [place] [address], * Hemoglobin A1c (01/31/2025 7:41 AM EDT) Hemoglobin A1C 6.4 <6.5 % LAB CHEMISTRY METHOD 02/01/2025 8:30 AM EDT [facility] Mean Bld Glu Estim. 137 mg/dL LAB CHEMISTRY METHOD 02/01/2025 8:30 AM EDT [facility] Blood Venous blood specimen / Unknown Venipuncture / Unknown 01/31/2025 7:41 AM EDT 01/31/2025 8:26 AM EDT Esther Varela MD LAB BLOOD ORDERABLES Fin al Result [facility] [address] [place] [address], * (ABNORMAL) POCT Glucose, blood (01/25/2025 11:09 AM EDT) Only the most recent of27 resultswithin the time period is included. [facility] Glucose POCT 152(H) 70 - 100 mg/dL 01/25/2025 11:10 AM EDT [facility] Blood Capillary blood specimen / Unknown 01/25/2025 11:09 AM EDT 01/25/2025 11:11 AM EDT Scott Wolfe MD LAB POINT OF C ARE TEST DOCKED DEVICE UNSOLICITED RESULTS Final Result [facility] [address] [place] [address], [place] [phone] * (ABNORMAL) CBC auto differential (01/24/2025 6:17 AM EDT) Only the most recent of4 resultswithin the time period is included. WBC 8.7 4.8 - 10.8 K/[facility] LAB HEMETOLOGY METHOD 01/24/2025 7:35 AM [facility] RBC 4.40 3.80 - 4.80 M/mcL LAB HEMETOLOGY METHOD 01/24/2025 7:35 AM [facility] Hemoglobin 13.6 11.5 - 16.0 g/dL LAB HEMETOLOGY METHOD 01/24/2025 7:35 AM [facility] Hematocrit 41.3 35.0 - 47.0 % LAB HEMETOLOGY METHOD 01/24/2025 7:35 AM [facility] MCV 93.4 79.0 - 98.0 FL LAB HEMETOLOGY METHOD 01/24/2025 7:35 AM [facility] MCH 30.8 27.0 - 32.0 pcg LAB HEMETOLOGY METHOD 01/24/2025 7:35 AM [facility] MCHC 32.9 32.0 - 37.0 g/dL LAB HEMETOLOGY METHOD 01/24/2025 7:35 AM [facility] RDW 12.6 11.0 - 15.0 % LAB HEMETOLOGY METHOD 01/24/2025 7:35 AM [facility] Platelets 261 130 - 400 K/mcL LAB HEMETOLOGY METHOD 01/24/2025 7:35 AM [facility] MPV 10.9 7.0 - 11.0 FL LAB HEMETOLOGY METHOD 01/24/2025 7:35 AM [facility] NRBC 0.0 <1.0 % LAB HEMETOLOGY METHOD 01/24/2025 7:35 AM [facility] NRBC Absolute 0.00 <0.10 K/mcL LAB HEMETOLOGY METHOD 01/24/2025 7:35 AM [facility] Neutrophils Relative 78.8 % LAB HEMETOLOGY METHOD 01/24/2025 7:35 AM [facility] Lymphocytes Relative 9.6 % LAB HEMETOLOGY METHOD 01/24/2025 7:35 AM [facility] Monocytes Relative 10.4 % LAB HEMETOLOGY METHOD 01/24/2025 7:35 AM [facility] Eosinophils Relative 0.3 % LAB HEMETOLOGY METHOD 01/24/2025 7:35 AM [facility] Basophils Relative 0.0 % LAB HEMETOLOGY METHOD 01/24/2025 7:35 AM [facility] Immature Granulocytes Relative 0.9 % LAB HEMETOLOGY METHOD 01/24/2025 7:35 AM [facility] Neutrophils Absolute 6.84 1.50 - 7.00 K/mcL LAB HEMETOLOGY METHOD 01/24/2025 7:35 AM [facility] Lymphocytes Absolute 0.83(L) 1.00 - 5.00 K/mcL LAB HEMETOLOGY METHOD 01/24/2025 7:35 AM [facility] Monocytes Absolute 0.90 0.20 - 1.00 K/mcL LAB HEMETOLOGY METHOD 01/24/2025 7:35 AM [facility] Eosinophils Absolute 0.03 0.00 - 0.50 K/mcL LAB HEMETOLOGY METHOD 01/24/2025 7:35 AM [facility] Basophils Absolute 0.00 0.00 - 0.20 K/mcL LAB HEMETOLOGY METHOD 01/24/2025 7:35 AM [facility] Immature Granulocytes Absolute 0.08(H) 0.00 - 0.03 K/mcL LAB HEMETOLOGY METHOD 01/24/2025 7:35 AM [facility] Blood Venous blood specimen / Unknown Venipuncture / Unknown 01/24/2025 6:17 AM EDT 01/24/2025 7:03 AM EDT us Scott Wolfe MD LAB BLOOD ORDERABLES F inal Result Performing Organization Address [facility] Co de Phone Number [facility] [address] [place] [address], [place] [phone] * C-reactive protein (01/24/2025 6:17 AM EDT) Only the most recent of2 resultswithin the time period is included. [facility] C-Reactive Protein <0.29 <=0.50 mg/dL LAB CHEMISTRY METHOD 01/24/2025 8:08 AM EDT [facility] Blood Venous blood specimen / Unknown Venipuncture / Unknown 01/24/2025 6:17 AM EDT 01/24/2025 7:02 AM EDT us Scott Wolfe MD LAB BLOOD ORDERABLES F inal Result Performing Organization Address [facility] Co de Phone Number [facility] [address] [place] [address], [place] [phone] * ECG 12 lead (01/23/2025 2:07 PM EDT) [facility] Ventricular Rate ECG 63 BPM GEMUSE Atrial Rate 63 BPM GEMUSE P-R Interval 156 ms GEMUSE QRS Duration 156 ms GEMUSE Q-T Interval 464 ms GEMUSE QTc 474 ms GEMUSE P Wave [place] 42 degrees GEMUSE R [place] -39 degrees GEMUSE T [place] -21 degrees GEMUSE ECG Interpretation Normal sinus rhythm Left axis deviation Right bundle branch block Abnormal ECG When compared with ECG of 09-AUG-2023 13:03, T wave inversion now evident in Anterior leads Confirmed by MD Frank, Sea ([id number]) on 01/24/2025 8:50:02 AM GEMUSE 01/23/2025 2:07 [...] Signed Date: 01/20/2025 18:01 ET Workstation ID: [id number] Transcribed By: Self Edit Transcribed Date: 01/20/2025 [...] in the laminectomy bed at the level tbP11-09. 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 Increased cord signal at T10-11. Thoracic cord is otherwise normal insignal. Cervicothoracic posterior fusion hardware seen extending to the level ofT3. Lower lumbar fusion hardware noted. Postsurgical changes in the posterior paraspinal musculature at [id number] small fluid collection in the lower thoracic [...] Signed Date: 01/20/2025 18:01 ET Workstation ID: [id number] Transcribed By: Self Edit Transcribed Date: 01/20/2025 17:44 ET Rose Mary MARTINEZ IMG MRI PROCEDURES Bella l Result * Activated partial thromboplastin time (01/20/2025 6:14 AM EDT) aPTT 27.1 24.1 - 39.3 sec LAB COAGULATION METHOD 01/20/2025 7:39 AM EDT [facility] Blood Venous blood specimen / Unknown Venipuncture / Unknown 01/20/2025 6:14 AM EDT 01/20/2025 6:58 AM EDT us Britt MARTINEZ LAB BLOOD ORDERABLES Final Re sult [facility] [address] [place] [address], [place] [phone] * (ABNORMAL) Prothrombin time with INR (01/20/2025 6:14 AM EDT) Protime 16.7(H) 10.6 - 13.9 sec LAB COAGULATION METHOD 01/20/2025 7:39 AM EDT [facility] INR 1.3 LAB COAGULATION METHOD 01/20/2025 7:39 AM EDT [facility] Blood Venous blood specimen / Unknown Venipuncture / Unknown 01/20/2025 6:14 AM EDT 01/20/2025 6:58 AM EDT us Britt MARTINEZ LAB BLOOD ORDERABLES Final Re sult Performing Organization Address [facility]/ZIP Co de Phone Number [facility] [address] [place] [address], [place] [phone] * Type and screen (01/20/2025 6:14 AM EDT) ABO Group B 01/20/2025 8:17 AM EDT [facility] Rh Type Positive 01/20/2025 8:17 AM EDT [facility] Antibody Screen Negative 01/20/2025 8:17 AM EDT [facility] Blood Venous blood specimen / Unknown Venipuncture / Unknown 01/20/2025 6:14 AM EDT 01/20/2025 6:59 AM EDT us Britt MARTINEZ LAB BLOOD BANK TEST ORDERABLE S Final Result Performing Organization Address [facility] Co de Phone Number [facility] [address] [place] [address], [place] [phone] * Phosphorus (01/20/2025 6:14 AM EDT) Pathologist [facility] Phosphorus 2.6 2.5 - 4.5 mg/dL LAB CHEMISTRY METHOD 01/20/2025 7:39 AM EDT [facility] Blood Venous blood specimen / Unknown Venipuncture / Unknown 01/20/2025 6:14 AM EDT 01/20/2025 6:58 AM EDT us Britt MARTINEZ LAB BLOOD ORDERABLES Final Re sult Performing Organization Address City/[facility]/ZIP Co de Phone Number [facility] [address] [place] [address], [place] [phone] * NM Hepatobiliary System Imaging (01/19/2025 3:38 PM EDT) Anatomical Region Laterality Modality Body Nuclear Medicine 01/19/2025 4:39 PM EDT Impressions 01/19/2025 4:42 PM EDT Impression: 1. No evidence of cystic or common bile duct obstruction. 2.. Delayed biliary to bowel transit. Telerad JUAN ([id number]) -------- FINAL REPORT -------- Dictated By: Ilda Baez Dictated Date: 01/19/2025 16:39 ET Assigned Physician: Ilda Baez Reviewed and Electronically Signed By: Ilda Baez Signed Date: 01/19/2025 16:42 ET Workstation ID: [id number] Transcribed By: Self Edit Transcribed Date: 01/19/2025 [...] Delayed biliary to bowel transit. Telerad PA ([id number]) -------- FINAL REPORT -------- Dictated By: Ilda Baez Dictated Date: 01/19/2025 16:39 ET Assigned Physician: Ilda Baez Reviewed and Electronically Signed By: Ilda Baez Signed Date: 01/19/2025 16:42 ET Workstation ID: [id number] Transcribed By: Self Edit Transcribed Date: 01/19/2025 16:39 ET Rose Mary MARTINEZ IMG NM PROCEDURES Final Result * (ABNORMAL) Urinalysis with reflex microscopic and culture (01/18/2025 4:50 PM EDT) Pathologist [facility] Specific [place] Urine 1.020 1.003 - 1.030 LAB URINALYSIS - AUTOMATED METHOD [facility], Urine 6.5 5.0 - 8.0 pH LAB URINALYSIS - AUTOMATED METHOD 01/18/2025 5:25 PM [facility] Leukocytes, Urine Moderate(A) Negative LAB URINALYSIS - AUTOMATED METHOD 01/18/2025 5:25 PM [facility] Nitrite, Urine Positive(A) Negative LAB URINALYSIS - AUTOMATED METHOD 01/18/2025 5:25 PM [facility] Protein, Urine 30(A) <=Trace mg/dL LAB URINALYSIS - AUTOMATED METHOD 01/18/2025 5:25 PM [facility] Glucose, Urine Negative Negative mg/dL LAB URINALYSIS - AUTOMATED METHOD 01/18/2025 5:25 PM [facility] Ketones, Urine 40(A) Negative mg/dL LAB URINALYSIS - AUTOMATED METHOD 01/18/2025 5:25 PM [facility] Urobilinogen , Urine 1.0 0.2 - 1.0 mg/dL LAB URINALYSIS - AUTOMATED METHOD 01/18/2025 5:25 PM [facility] Bilirubin, Urine Negative Negative LAB URINALYSIS - AUTOMATED METHOD 01/18/2025 5:25 PM EDT [facility] Blood, Urine Moderate(A) Negative LAB URINALYSIS - AUTOMATED METHOD [facility]/18[facility]25 [facility] RBC, Urine 31.4(H) 0 - 4 /HPF LAB URINALYSIS - AUTOMATED METHOD 01/18/2025 5:25 PM [facility] WBC, Urine 114.2(H) 0 - 4 /HPF LAB URINALYSIS - AUTOMATED METHOD 01/18/2025 5:25 PM [facility] Squamous Epithelial, Urine 73(H) 0 - 60 /LPF LAB URINALYSIS - AUTOMATED METHOD 01/18/2025 5:25 PM [facility] Bacteria, Urine Few(A) Negative /HPF LAB URINALYSIS - AUTOMATED METHOD 01/18/2025 5:25 PM [facility] Hyaline Casts, Urine 8.8(H) 0 - 3 /LPF LAB URINALYSIS - AUTOMATED METHOD 01/18/2025 5:25 PM [facility] Urine Urine specimen obtained by clean catch procedure / Unknown Non-blood Collection / Unknown 01/18/2025 4:50 PM EDT 01/18/2025 5:14 PM EDT us Mina Colón MD LAB URINE ORDERABLES Final Result [facility] [address] [place] [address], * Ramírez urine culture tube (01/18/2025 4:50 PM EDT) Extra Tube Hold for add-ons. 01/18/2025 7:01 PM T [facility] Comment:Auto resulted. Urine Urine specimen obtained by clean catch procedure / Unknown Non-blood Collection / Unknown 01/18/2025 4:50 PM EDT 01/18/2025 5:14 PM EDT Mina Colón MD LAB URINE ORDERABLES Final Result Performing Organization Address [facility] de Phone Number [facility] [address] [place] [address], [place] [phone] * (ABNORMAL) Culture urine (01/18/2025 4:50 PM EDT) Culture, Urine >100,000 CFU/mL Pseudomonas aeruginosa(A) BARI 01/21/2025 8:20 AM EDT [facility] Comment: This is an [...] GENERAL ORDERABLES Final Result Performing Organization Address [facility] Co de Phone Number [facility] [address] [place] [address], [place] [phone] * US Abdomen Limited (01/18/2025 3:47 PM EDT) Anatomical Region Laterality Modality Body Ultrasound 01/18/2025 3:49 PM EDT Impressions 01/18/2025 3:52 PM EDT Impression: 1. Distended gallbladder with small amount of mobile sludge and no specific findings of acute cholecystitis. 2. Fatty liver. Telerad JUAN ([id number]) -------- FINAL REPORT -------- Dictated By: Ilda Baez Dictated Date: 01/18/2025 15:49 ET Assigned Physician: Ilda Baez Reviewed and Electronically Signed By: Ilda Baez Signed Date: 01/18/2025 15:52 ET Workstation ID: [id number] Transcribed By: Self Edit Transcribed Date: 01/18/2025 [...] acute cholecystitis. 2. Fatty liver. Telerad JUAN ([id number]) -------- FINAL REPORT -------- Dictated By: Ilda Baez Dictated Date: 01/18/2025 15:49 ET Assigned Physician: Ilda Baez Reviewed and Electronically Signed By: Ilda Baez Signed Date: 01/18/2025 15:52 ET Workstation ID: [id number] Transcribed By: Self Edit Transcribed Date: 01/18/2025 [...] 2. Nonobstructing right renal calculi. Telerad JUAN ([id number]) -------- FINAL REPORT -------- Dictated By: Ilda Baez Dictated Date: 01/18/2025 14:40 ET Assigned Physician: Ilda Baez Reviewed and Electronically Signed By: Ilda Baez Signed Date: 01/18/2025 14:46 ET Workstation ID: [id number] Transcribed By: Self Edit Transcribed Date: 01/18/2025 14:40 ET Narrative 01/18/2025 2:46 PM EDT History: Right flank pain for several days. Comparison: 07/30/20 Technique: Helical volumetric imaging of the abdomen and pelvis was performed without intravenous or oral contrast (stone kee protocol). DLP: 1124.25 mGy/cm GE 40billion.compeed VCT Iterative reconstruction technique Findings: The kidneys [...] contrast (stone kee protocol). DLP: 1124.25 mGy/cm GE 40billion.compeed VCT Iterative reconstruction technique Findings: The kidneys [...] 2. Nonobstructing right renal calculi. Flores MARTINEZ ([id number]) -------- FINAL REPORT -------- Dictated By: Ilda Baez Dictated Date: 01/18/2025 14:40 ET Assigned Physician: Ilda Baez Reviewed and Electronically Signed By: Ilda Baez Signed Date: 01/18/2025 14:46 ET Workstation ID: [id number] Transcribed By: Self Edit Transcribed Date: 01/18/2025 14:40 ET Mina Colón MD IMG CT PROCEDURES Final Res ult * Lipase (01/18/2025 12:23 PM EDT) Lipase 22 13 - 75 unit/L LAB CHEMISTRY METHOD 01/18/2025 6:47 PM EDT [facility] ([facility]) [facility] Blood Venous blood specimen / Unknown Venipuncture / Unknown 01/18/2025 12:23 PM EDT 01/18/2025 12:55 PM EDT Henrietta MARTINEZ LAB BLOOD ORDERABLES Final Resu lt [facility] [address] [place] [address], [place] [phone] * (ABNORMAL) Comprehensive metabolic panel (01/18/2025 12:23 PM EDT) Sodium 139 133 - 145 mmol/L LAB CHEMISTRY METHOD 01/18/2025 1:25 PM EDT [facility] Potassium 3.9 3.5 - 5.5 mmol/L LAB CHEMISTRY METHOD 01/18/2025 1:25 PM EDT [facility] Chloride 101 96 - 110 mmol/L LAB CHEMISTRY METHOD 01/18/2025 1:25 PM T [facility] CO2 30 21 - 32 mmol/L LAB CHE[facility]STR[facility] An[facility] Gap 8 3 - 11 LAB CHEMISTRY METHOD 01/18/2025 1:25 PM [facility] Glucose 115(H) 70 - 100 mg/dL LAB CHEMISTRY METHOD 01/18/2025 1:25 PM [facility] BUN 18 5 - 25 mg/dL LAB CHEMISTRY METHOD 01/18/2025 1:25 PM [facility] Creatinine 0.59 0.50 - 1.10 mg/dL LAB CHEMISTRY METHOD [facility]/18[facility]25 [facility] eGFR 96 >=60 mL/min/1. 73m2 LAB CHEMISTRY METHOD 01/18/2025 1:25 PM [facility] Comment:Calculation based on the??Chronic Kidney Disease Epidemiology Collaboration (CKD-EPI) equation refit??without adjustment for race. BUN/Creatinine Ratio 30.5 LAB CHEMISTRY METHOD 01/18/2025 1:25 PM [facility] Calcium 9.9 8.5 - 10.5 mg/dL LAB CHEMISTRY METHOD 01/18/2025 1:25 PM [facility] AST (SGOT) 30 10 - 42 unit/L LAB CHEMISTRY METHOD 01/18/2025 1:25 PM EDT [facility] ALT (SGPT) 29 10 - 60 unit/L LAB CHEMISTRY METHOD 01/18/2025 1:25 PM EDT [facility] Alkaline Phosphatase 114 42 - 121 unit/L LAB CHEMISTRY METHOD 01/18/2025 1:25 PM EDT [facility] Total Protein 7.3 6.0 - 8.0 g/dL LAB CHEMISTRY METHOD 01/18/2025 1:25 PM EDT [facility] Albumin 3.9 3.2 - 5.0 g/dL LAB CHEMISTRY METHOD 01/18/2025 1:25 PM EDT [facility] Total Bilirubin 1.0 0.0 - 1.4 mg/dL LAB CHEMISTRY METHOD 01/18/2025 1:25 PM EDT [facility] Blood Venous blood specimen / Unknown Venipuncture / Unknown 01/18/2025 12:23 PM EDT 01/18/2025 12:55 PM EDT Mina Colón MD LAB BLOOD ORDERABLES Final Result [facility] [address] [place] [address], * External Xray Report (01/14/2025) Only the [...] is recommended in 1 year. Mammo Location: [facility], [address] [place] [address], [address], . -------- FINAL REPORT -------- Dictated By: Shima Boyd Dictated Date: 10/08/2024 15:16 ET Assigned Physician: Shima Boyd Reviewed and Electronically Signed By: Shima Boyd Signed Date: 10/08/2024 15:57 ET Workstation ID: [id number] Transcribed By: Self Edit Transcribed Date: 10/08/2024 [...] , spot MLO 15/80 and spot CC . ??On today's images, this appears similar to [...] the nipple: ML 90 degrees , spotMLO 15/80 and spot CC 10/. On today's images, this appears similar toprior [...] is recommended in 1 year. Mammo Location: [facility], [address] [place] [address], [address], . -------- FINAL REPORT -------- Dictated By: Shima Boyd Dictated Date: 10/08/2024 15:16 ET Assigned Physician: Shima Boyd Reviewed and Electronically Signed By: Shima Boyd Signed Date: 10/08/2024 15:57 ET Workstation ID: [id number] Transcribed By: Self Edit Transcribed Date: 10/08/2024 15:31 ET us Patsy York MD IMRobert BI PROCEDURES Final Result * [facility] DEXA AXIAL SKELETON (03/26/2024 5:09 PM EDT) Anatomical Region Laterality Modality Mammography 03/26/2024 1:05 PM EDT Narrative 03/26/2024 5:09 PM EDT [facility] Diagnostic Imaging Department [address] [place] [address] Patient: ??DENVER LOVE ?/Age/Sex: 1950 - 73 - F Unit#: ??[id number] ? Location/Status: ??SPDIMAM/REG CLI ? Mnemonic/Ordering Site: ??MAMDEXAAX/SPMAM Ordering Physician: ??RORY ACOSTA PA-C [facility] Dexa Axial Skeleton - 03/26/24 - [id number] Report Status:Signed History: Low estrogen state due to menopause. Personal history of fracture. Comparison: No comparison imaging. Findings: Bone densitometry is performed utilizing dual energy x-ray absorptiometry (DXA) in the IKO System unit. The lumbar spine and proximal femora [...] 16.6 percent ??Hip 3.1 percent. IMPRESSION: Osteoporosis. [id number] Dictating Physician: ??ILDA BAEZ MD Electronically Signed by: ??ILDA BAEZ MD Dic Date/Time: ??03/26/241708 Sign date/Time: ??03/26/241708 Procedure Note Ilda Baez MD - 06/16/2024 [facility] Diagnostic Imaging Department [address] [place] [address] Patient: JEREMYESTELLEKARLADENVER/Age/Sex: 1950 73 - F Unit#: [id number] Location/Status: [facility] Ordering Physician: RORY ACOSTA PA-C [facility] Dexa Axial Skeleton - 03/26/24 - [id number] Report Status:Signed History: Low estrogen state due to menopause. Personal history offracture. Comparison: No comparison imaging. Findings: Bone densitometry is performed utilizing dual energy x-ray absorptiometry(DXA) in the Lunar Prodigy unit. The lumbar spine and proximal femora [...] 16.6 percent Hip 3.1 percent. IMPRESSION: Osteoporosis. 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
== END 2025-03-30 13:48 | disposition home or self-care (01) ==
LOC: HO.HNS 13:17
PROVIDERS: PCP Internal Medicine; Visit Provider Physician Assistant
DX: M47.14 Other spondylosis with myelopathy, thoracic region (principal)
CPT/HCPCS: 99024

== ENCOUNTER → 2025-03-30 13:16 | Outpatient (BNVA) | payer MEDICARE, OTHER, SELFPAY | PROVIDERS: PCP Internal Medicine; Visit Provider Physician Assistant | DX: M47.14 Other spondylosis with myelopathy, thoracic region (principal) | CPT/HCPCS: 99212 ==

== ENCOUNTER 2025-06-03 13:10 | Outpatient (REF) | payer MEDICARE, OTHER, SELFPAY ==
--- NOTE | ~2025-06-03 | XR_ITS ---
CLINICAL HISTORY: M47.14 - Other spondylosis with myelopathy, thoracic region --- Additional Notes or Special Instructions: AP LAT FLEX EX 4 views lumbar spine Comparison: None provided Findings: Severe leftward curvature of the lumbar spine. L3-L5 fusion hardware is present. No acute fractures or dislocation. Multilevel disc space narrowing and endplate osteophyte formation, as well as facet hypertrophy. Arterial vascular calcifications are present. IMPRESSION: No acute findings. This document has been electronically signed by: Tracee Dockery MD on 06/03/2025 16:10:28
--- OUTSIDE RECORDS SUMMARY | 2025-06-03 13:44 | XMS_ITS | Patient Health Record ---
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 Role Phone Chela CUELLO, Patsy Lynn Primary Care Provider Unav ailable Black, Che Unavailable [phone] Allergies Allergen (clinical drug ingredient) Drug/Non Drug Allergy documented on EMR Reaction Allergy Type Onset Date Status sulfamethoxazole / trimethoprim Bactrim Welts Drug Allergy Active morphine Morphine Sulfate nausea and vomiting Drug Allergy Active Reason For Referral No Information Medications Medication SIG (Take, Route, Frequency, Duration) Notes Start Date End Date Status Albuterol Sulfate 3 ml Inhalation 4 times a day as needed Active Terbinafine HCl 250 MG 1 tablet Orally Once a day Not-Taking CeleBREX 100 MG 1 capsule Orally Twice a day Active Lamisil 250 250 MG 1 Tab for 7 days(1 week) then stop for 3 weeks -repeat cycle 12 months Oral Daily; Duration: 12 months 01/25/2017 Active Acetaminophen 500 MG 1 capsule as needed Orally every 6 hrs Active hydroCHLOROthiazide 25 MG 1 tablet Orall y Once a day Not-Taking Flonase 50 MCG/ACT 1 spray in each nostril Nasally Once a day Active Claritin 10 MG 1 tablet Orally Once a day Not-Taking Benadryl 25 MG 1 tablet as needed Orally every 6 hrs Active Diphenhydramine 25 1 tab Oral 8 hrs as needed Not-Taking Work Note . . . out of work 05/19/14 due to minor foot sx; Duration: . 05/19/2014 Active Gabapentin 100 MG Orally 2 times a day Not-Taking Loratadine 10 MG 1 tablet Orally Once a day Active Lipitor Active Tylenol 500 MG/15ML Orally Active Keflex 500 MG 1 capsule Orally Twice a day; Duration: 10 day(s) 05/19/2014 Not-Taking ZyrTEC Allergy Activ e Doxycycline Monohydrate 100 MG 1 capsule Orally Twice a day Not-Taking Pravastatin Sodium 40 MG 1 tablet Orally Once a day Active Fluticasone Propionate (Inhal) Active Lisinopril 40 MG 1 tablet Orally Once a day Active Ciclopirox Olamine 0.77% external Apply to effected areas twice a day; Duration: 30 days 08/28/2016 Active amLODIPine Besy-Benazepril HCl 10-40 MG 1 capsule Orally Once a day Active Social History Tobacco Use: Social History Observation Description Date Details (start date - stop date) Never Smoker NA - NA Tobacco Use/Smoking Question Answer Notes Are you a: nonsmoker Additional Findings: Tobacco Non-User Current no n-smoker Alcohol Screen Question Answer Notes Did you have a drink containing alcohol in the p ast year? No Points 0 Interpretation Negative Tobacco use other than smoking: Question Answer Notes Are you an other tobacco user? 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 Problem Neuropathy (418288578) Neuropathy (G62.9) Active confirmed Plan Of Treatment Pending Test Test Name Order Date *Liver Function Test (LFT) 05/22/2016 *Liver Function Test (LFT) 08/28/2016 *Liver Function Test (LFT) 12/14/2016 [id number] NAIL, 6 OR MORE 04/26/2017 [id number] NAIL, 6 OR MORE 12/14/2016 [id number] NAIL, 6 OR MORE 08/28/2016 [id number] NAIL, 6 OR MORE 05/22/2016 [id number] SKIN/TISSUE 06/02/2014 09827 I&D ABSCESS- SIMPLE,SINGLE 014 Insurance Providers Payer Name Payer Address Payer Phone Subscriber Number Group Number Insured Name Patient Relationship to Insured Coverage Start Date Coverage End Date [facility] [address] [place] [address] [id number] [place] Rene Self - patient is the insured Medical (General) History Medical History History ICD Code Arthritis asthma Back,Hip,and Knee pain Diverticulosis Headaches High blood pressure Macular degeneration Neuropathy Psoriasis/eczema Sciatica chronic sinusitis Measles Mumps Joint implants/screws Surgical History Surgery Date(Month/Year) back surgery hernia 03/2010 carpal tunnel surgery
--- OUTSIDE RECORDS SUMMARY | 2025-06-03 13:44 | XMS_ITS | Clinical Summary ---
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 Active LISINOPRIL ORAL Take 40 mg by mouth daily. Active atorvastatin calcium (ATORVASTATIN ORAL) Take 40 mg by mouth daily. Active cetirizine HCl (ZYRTEC ORAL) Take 10 mg by mouth daily. Active albuterol 90 mcg/actuation inhaler Inhale 2 Puffs as directed every 6 hours as needed for Wheezing. Active polyethylene glycol (MIRALAX) 17 gram/dose powder Take 17 g by mouth daily. Active magnesium oxide (MAG-OX) 400 mg tablet Take 400 mg by mouth 2 times daily. Active calcium carbonate (TUMS) 200 mg calcium (500 mg) tablet,chewable Take 1 Tab by mouth 3 times daily. Active oxyCODONE (ROXICODONE) 5 mg immediate release tablet Take 5 mg by mouth every 4 hours. Starting 04/19, 5 mg Q 4 h scheduled + 2.5-5.0 mg Q 2 h PRN pain. Active acetaminophen (TYLENOL) 500 mg tablet Take 2 Tabs by mouth every 6 hours as needed for Pain. 8 Active ascorbic acid, vitamin C, (VITAMIN C) 500 mg tablet Take 1 Tab by mouth at bedtime. 8 Active cholecalciferol, Vitamin D3, 1,000 unit tablet Take 2 Tabs by mouth at bedtime. 8 Active docusate sodium (COLACE) 100 mg capsule Take 2 Caps by mouth 2 times daily as needed for Constipation. 8 Active Multivitamins with Minerals tablet tablet Take 1 Tab by mouth at bedtime. 8 Active ondansetron (ZOFRAN ODT) 4 mg disintegrating tablet Take 1 Tab by mouth every 4 hours as needed for Nausea. 60 Tab 8 Active senna (SENOKOT) 8.6 mg tablet Take 2 Tabs by mouth 2 times daily as needed for Other. 8 Active zinc sulfate (ZINCATE) 220 (50) mg capsule Take 1 Cap by mouth at bedtime. 8 Active oxyCODONE (ROXICODONE) 5 mg immediate release tablet Take 1-3 Tabs by mouth every 4 hours as needed for Pain. Daily Max: 90 mg 100 Tab 8 Active methocarbamol (ROBAXIN) 500 mg tablet Take 2 Tabs by mouth every 6 hours as needed (muscle spasms). 60 Tab 8 Active Active Problems Problem Noted Date Diagnosed Date Closed osteochondral fracture of proximal end of left tibia 04/30/2018 Hypertension 04/15/2018 Asthma 04/15/2018 Closed fracture of left proximal tibia 8 Surgical History Surgery Date Site/Laterality Comments ANKLE SURGERY BACK SURGERY TIBIA FRACTURE SURGERY 04/13/2018 Left Closed reduction external fixation of left tibial plateau fracture Medical History Medical History Date Comments Asthma Hypertension Kidney calculi Social History Tobacco Use Types Packs/Day Years Used Date Smoking Tobacco: Never Smokeless Tobacco: Never Alcohol Use Standard Drinks/Week Comments No 0 (1 standard drink = 0.6 oz pur e alcohol) Interpersonal Safety Answer Date Record ed Physically Hurt Never 05/31/2020 Verbally Threaten Not on file 05/31/2020 Comments Unknown Sex and Gender Information Value Date Recorded Sex Assigned at Not on file Legal Sex Female 7:17 EDT Gender Identity Not on file Sexual Orientation Not on file Obstetrics History Last Filed Vital Signs Vital Sign Reading Time Taken Comments Blood Pressure 126/81 05/04/2018 0800 EDT Pulse 79 05/03/2018 1715 EDT Temperature 37.8 C (100 F) 05/04/2018 0511 EDT Respiratory Rate 16 05/04/2018 0511 EDT Oxygen Saturation 94% 05/04/2018 0511 EDT Inhaled Oxygen Concentration - - Weight 119.3 kg (263 lb 0.1 oz) 05/01/2018 1500 EDT Height 177.8 cm (5' 10 ) 05/01/2018 1500 EDT Body Mass Index 37.74 05/01/2018 1500 EDT Plan of Treatment Health Maintenance Due Date Last Done Comments Hepatitis C Screen 1950 Fall Risk Screening 2017 COVID-19 Vaccine (2023- season) 2024 RSV Immunization ( o r 60+ Years) (1 - 1-dose 75+ series) 2027 Advance Directives For more information, please contact: [phone] Documents on File Type Date Recorded Patient Caregivers Homecare Expl anation COLST/MOLST 04/19/2018 11:06 2018-04-17 D NR/COLST * Full Code (Latest Code Status on File) Date Activated Date Inactivated Comments 04/30/2018 20:40 05/04/2018 12:15 Question Answer Comments Reason for decision includes: Full code consistent with overall plan of care Who participated in the discussion? Not Discusse d * Full Code Date Activated Date Inactivated Comments 04/30/2018 8:57 04/30/2018 20:40 Question Answer Comments Reason for decision includes: Other (Please spec jared) Specify other: Other Who participated in the discussion? Not Discusse d * Full Code Date Activated Date Inactivated Comments 04/13/2018 14:57 04/17/2018 17:42 Question Answer Comments Reason for decision includes: Full code consistent with overall plan of care Who participated in the discussion? 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
--- OUTSIDE RECORDS SUMMARY | 2025-06-03 13:44 | XMS_ITS ---
Author Name [facility] Organization Unknown Care Team Organization Name Specialty Phone Email Start Date End Da [facility] 09/05/2022 06/16/2024
--- OUTSIDE RECORDS SUMMARY | 2025-06-03 13:44 | XMS_ITS | Clinical Summary ---
Author Organization [facility] Address [address] [place] [address] Phone Care Team Providers Care [employer] Of [employer] Name Role Phone Patsy York MD Primary Care Provider [phone] Allergies Active Allergy Reactions Criticality Noted Date [...] mouth 2 (two) times a day. Active nitroglycerin (NITROSTAT) 0.4 mg SL tablet [...] 12 g 6 09/01/20 24 025 Active celecoxib (CeleBREX) 200 mg capsule TAKE 1 CAPSULE BY MOUTH TWICE A DAY 180 capsule 1 10/17/20 24 Active lisinopril (PRINIVIL,ZESTR IL) 40 mg tabletIndicatio ns:Essential (primary) hypertension Take 1 tablet (40 mg total) by mouth 1 (one) time each day. 90 tablet 1 11/14/19 25 Active metFORMIN XR (GLUCOPHAGE-XR) 500 mg 24 hr tablet Take 1 tablet (500 mg total) by mouth 1 (one) time each day with breakfast. 90 tablet 1 11/14/19 25 Active HYDROmorphone (DILAUDID) 2 mg tabletIndicatio ns:Thoracic myelopathy Take 1-2 tablets (2-4 mg total) by mouth every 6 (six) hours if needed for moderate pain or severe pain. Max Daily Amount: 16 mg 14 tablet 01/26/20 25 Active Additional Information Patient not taking.Reported on 04/06/2025 senna (SENOKOT) 8.6 mg tablet Take 2 tablets (17.2 mg total) by mouth at bedtime. 60 each 11 01/26/20 25 026 Active Additional Information Patient not taking.Reported on 04/06/2025 baclofen (LIORESAL) 10 mg tablet Take 1 tablet (10 mg total) by mouth 3 (three) times a day. 90 each 1 04/02/20 Active oxychlorosene (CLORPACTIN) powder Apply topically. Active oxyCODONE (OXY-IR) 5 mg immediate release capsule Take by mouth. Active rosuvastatin (CRESTOR) 40 mg tablet TAKE 1 TABLET BY MOUTH EVERY DAY 90 tablet 1 04/13/20 Active gabapentin (NEURONTIN) 300 mg capsule Take 1 capsule (300 mg total) by mouth at bedtime. 270 capsule 1 05/04/20 25 Active amLODIPine (NORVASC) 10 mg tabletIndicatio ns:Essential (primary) hypertension TAKE 1 TABLET BY MOUTH EVERY DAY 90 tablet 1 05/12/20 25 Active amLODIPine (NORVASC) 10 mg tabletIndicatio ns:Essential (primary) hypertension TAKE 1 TABLET BY MOUTH EVERY DAY 90 tablet 11/17/19 025 Discontinued Active Problems Problem Noted Date Diagnosed Date Thoracic myelopathy 01/25/2025 Intractable abdominal pain 01/19/2025 Pain in abdomen on palpation 01/18/2025 RUQ abdominal pain 07/23/2024 CAD S/P percutaneous coronary angioplasty 2023 CTS (carpal tunnel syndrome) 07/23/2024 Biliary dyskinesia 07/23/2024 Morbid obesity with BMI of 4 0.0-44.9, adult (CMS/HCC V24, CMS/HCC V28) 07/23/2024 Family history of breast cancer [...] BNP done when she was at [facility] and I will check that. On exam [...] was 51. Diastolic congestive heart f ailure ([facility] V24, CMS/[facility] V28) 08/25/2022 Overview (07/23/2024): Last Assessment & [...] November 2020. Acute CHF (congestive heart failure) (CMS/HCC V24, CMS/[facility] V28) 08/09/2022 Anxiety 06/21/2021 Osteoarthritis of carpometac [...] Encounters Date Type Department Care Team Description 05/22/2025 Telephone Adult Medicine [address] [phone] Patsy York MD VNA 05/08/2025 Telephone Adult [address] [phone] Annabelle Pierson [place] order [id number] 04/24/[address] [phone] Annabelle Pierson [place] PO [phone] (Home health certificate [id number]) 04/20/2025 Telephone Adult [address] [phone] Patsy York MD Hypertension 04/06/2025 1:30 PM EDT Office Visit Adult [address] [phone] Patsy York MD Frequent urination (Primary Dx); Biliary dyskinesia; Essential hypertension, benign; Numbness; Spinal surgery in prior 3 months 04/02/2025 Nurse Triage Adult [address] [phone] Patsy York MD FYI 03/30/2025 Telephone Adult Medicine [address] [phone] Patsy York MD FYI 03/26/2025 [place] [facility] [address] [phone] Patsy York MD Hospital Follow-up 03/15/2025 Lab Requisition [facility] - Main Lab [address] [place] [address] Esther Varela MD Essential (primary) hypertension; Heart failure, unspecified (CMS/HCC V24, CMS/HCC V28); Type 2 diabetes mellitus without complications (CMS/HCC V24, CMS/HCC V28) from Last 3 Months Immunizations Name Administration Dates Next Due Influenza trivalent, 0.5mL ( Fluzone High-dose) 65yo and older 07/05/2022,09/27/2021 Influenza trivalent, with pr eservative (Fluzone; Afluria) 6mo and older 08/22/2016,08/16/2015,09/30/2012,09/16 [employer] SARS-CoV-2 COVID -19, vector-nr, [id number], preservative free 01/31/2021 [employer] SARS-CoV-2 COVID-19, mRNA, LNP-S, preservative free 11/27/2021 [...] PROCEDURE: HISTORICAL TONSILLECTOMY KIDNEY STONE SURGERY PROCEDURE: [place] NEPHROLITHOTOMY REMOVAL CALCULUS HERNIA REPAIR PROCEDURE: REPAIR [...] obesity with BMI of 4 0.0-44.9, adult ([facility] V24, [facility] V28) 10/23/2013 DX:Morbid obesity wit h BMI of 40.0-44.9, adult ([facility]); COMMENT: BMI 40.26 0n 08/28/13. Family History [...] Sign Reading Time Taken Comments Blood Pressure 110/60 04/06/2025 1:26 PM EDT Pulse 64 04/06/2025 1:26 PM EDT Temperature 36.1 C (96.9 F) 04/06/2025 1:26 PM EDT Respiratory Rate 20 04/06/2025 1:26 PM EDT Oxygen Saturation 98% 01/25/2025 7:39 AM EDT Inhaled Oxygen Concentration - - Weight 111 kg (244 lb) 04/06/2025 1:26 PM EDT Height 172.7 cm (5' 7.99 ) 04/06/2025 1:26 PM ED T Body Mass Index 37.11 04/06/2025 1:26 PM EDT Plan of Treatment Upcoming Encounters Date Type Department Care Team (Late st Contact Info) Description 07/10/2025 10:30 AM EDT Office Visit Adult Medicine [facility] [place] [address] [place] [address] Patsy York MD [address] [place] [address] 07/27/2025 3:35 PM EDT Office Visit Pulmonolgy - [place] [facility] [address] [place] [phone] Latrice Patino NP [address] [facility] [address] [place] [address] Health Maintenance Due Date Last Done Comments Diabetes: Annual Foot Exam 1962 Diabetes: Annual Retina Eye Exam 1960 Zoster Vaccines (1 of 2) 2002 DTaP,Tdap,and Td Vaccines (2 - Td or Tdap) 02/06/2021 02/06/2011 Colorectal Cancer Screening: Stool Based Tests (FOBT/FIT) 10/07/2022 Hepatitis C Screening 10/07/2022 Medicare Annual Wellness Visit 10/07/2022 COVID-19 Vaccine ( season) 2024 08/15/2023, 11/27/2021, 01/31/2021 Depression Screening 10/29/2024 Diabetes: Annual Urine Albumin-Creatinine Ratio (uACR) 01/31/2025 Influenza Vaccine (#1) 2025 , 07/05/2022, 09/27/2021, Additional history exists Diabetes: Blood Sugar Control Test (HGBA1C) 08/02/2025 01/31/2025, 12/05/2023 Falls Risk Assessment 01/25/2026 01/25/2025 Diabetes: Annual GFR (Glomerular Filtration Rate) 03/16/2026 03/16/2025, 01/31/2025, 01/24/2025, Additional history exists Hypertension/CHF/CAD Annual BMP Blood Test 03/16/2026 03/16/2025, 01/31/2025, 01/24/2025, Additional history exists Social Influencers of Health Screening 03/30/2026 03/30/2025 Breast Cancer Screening 10/08/2026 10/08/20, 09/23/2024, 03/08/2023, Additional history exists Cholesterol Screening (Lipid Panel) 04/02/2028 04/02/2023 Osteoporosis Screening (Bone Density Screening) 03/26/2034 03/26/2024, 03/26/2024, 04/21/2019 Pneumococcal Vaccine: 50+ Years Completed 05/14/2023, 08/16/2015 RSV Immunization Adult Patients Completed 08/15/2023 HIB Vaccines Aged Out No longer eligi [...] Procedure Name Priority Date/Time Associated Diagnosis Comments RAMÍREZ URINE CULTURE TUBE Routine 04/06/2025 2:44 PM EDT Frequent urination URINALYSIS WITH REFLEX MICROSCOPIC AND CULTURE Routine 04/06/2025 2:44 PM EDT Frequent urination URINALYSIS WITH REFLEX MICROSCOPIC AND CULTURE Routine 04/06/2025 2:44 PM EDT Frequent urination CULTURE URINE Routine 04/06/2025 2:44 PM EDT Frequent urination POC URINE NON-AUTO W/O MICRO Routine 04/06/2025 1:53 PM EDT Frequent urination MAGNESIUM Routine 03/16/2025 7:46 AM EDT Essential [...] mellitus without complications (CMS/HCC V24, CMS/HCC V28) HEMOGLOBIN A1C Routine 01/31/2025 7:41 AM EDT Syncope and collapse Type 2 diabetes mellitus without complications MG MAMMO DIGITAL DIAGNOSTIC W FRANC RIGHT Routine 10/08/2024 2:22 PM EST Abnormal mammogram PERFECTO DEXA AXIAL SKELETON Routine 03/26/2024 5:09 PM EDT Encounter for screening for osteoporosis LIPID PANEL Routine 04/02/2023 from Last 3 Months or Most Recently Relevant to Health Maintenance Results * (ABNORMAL) Urinalysis with reflex microscopic and culture (04/06/2025 2:44 PM EDT) Specific [place] Urine 1.019 1.003 - 1.030 LAB URINALYSIS - AUTOMATED METHOD 04/06/2025 6:54 PM [facility] pH, Urine 6.0 5.0 - 8.0 pH LAB URINALYSIS - AUTOMATED METHOD 04/06/2025 6:54 PM [facility] Leukocytes, Urine Moderate(A) Negative LAB URINALYSIS - AUTOMATED METHOD 04/06/2025 6:54 PM [facility] Nitrite, Urine Positive(A) Negative LAB URINALYSIS - AUTOMATED METHOD 04/06/2025 6:54 PM [facility] Protein, Urine 100(A) <=Trace mg/dL LAB URINALYSIS - AUTOMATED METHOD 04/06/2025 6:54 PM [facility] Glucose, Urine Negative Negative mg/dL LAB URINALYSIS - AUTOMATED METHOD 04/06/2025 6:54 PM [facility] Ketones, Urine Negative Negative mg/dL LAB URINALYSIS - AUTOMATED METHOD 04/06/2025 6:54 PM [facility] Urobilinogen , Urine 1.0 0.2 - 1.0 mg/dL LAB URINALYSIS - AUTOMATED METHOD 04/06/2025 6:54 PM [facility] Bilirubin, Urine Negative Negative LAB URINALYSIS - AUTOMATED METHOD 04/06/2025 6:54 PM [facility] Blood, Urine Moderate(A) Negative LAB URINALYSIS - AUTOMATED METHOD 04/06/2025 6:54 PM [facility] RBC, Urine 25.3(H) 0 - 4 /HPF LAB URINALYSIS - AUTOMATED METHOD 04/06/2025 6:54 PM [facility] WBC, Urine 104.6(H) 0 - 4 /HPF LAB URINALYSIS - AUTOMATED METHOD 04/06/2025 6:54 PM [facility] Squamous Epithelial, Urine 56 0 - 60 /LPF LAB URINALYSIS - AUTOMATED METHOD 04/06/2025 6:54 PM EDT [facility] Bacteria, Urine Many(A) Negative /HPF LAB URINALYSIS - AUTOMATED METHOD 04/06/2025 6:54 PM EDT [facility] Hyaline Casts, Urine 15(H) 0 - 3 /LPF LAB URINALYSIS - AUTOMATED METHOD 04/06/2025 6:54 PM EDT [facility] Urine Urine specimen obtained by clean catch procedure / Unknown Non-blood Collection / Unknown 04/06/2025 2:44 PM EDT 04/06/2025 2:44 PM EDT us Patsy York MD LAB URINE ORDERABLES Final Resul t Performing Organization Address [facility] Co de Phone Number [facility] [address] [place] [address], [place] [phone] * Ramírez urine culture tube (04/06/2025 2:44 PM EDT) Extra Tube Hold for add-ons. 04/06/2025 7:01 PM EDT [facility] Comment:Auto resulted. Urine Urine specimen obtained by clean catch procedure / Unknown Non-blood Collection / Unknown 04/06/2025 2:44 PM EDT 04/06/2025 2:44 PM EDT Patsy York MD LAB URINE ORDERABLES Final Resul t Performing Organization Address [facility]/ZIP Co de Phone Number [facility] [address] [place] [address], [place] [phone] * (ABNORMAL) Culture urine (04/06/2025 2:44 PM EDT) Culture, Urine >100,000 CFU/mL Pseudomonas aeruginosa(A) BARI 04/09/2025 8:46 AM EDT [facility] Comment: This is an edited result. Previous organism was Gram negative bacilli on 04/08/2025 at 1030 EDT. Culture, Urine >100,000 CFU/mL Proteus mirabilis ESBL(A) BARI 04/09/2025 8:46 AM EDT [facility] Comment: TESTING SUGGESTS AN ESBL(EXTENDED-SPECTRUM BETA-L ACTAMASE PRODUCING STRAIN)WHICH MAY BE RESISTANT C LINICALLY TO ALL CEPHALOSPORINS AND AZTREONAM. The organism value for this result has been updated. These results have been appended to the previously preliminary verified report. Edited result: Previously reported as Proteus species on 04/08/2025 at 1030 EDT. Urine Urine specimen obtained by clean catch procedure / Unknown Non-blood Collection / Unknown 04/06/2025 2:44 PM EDT 04/06/2025 6:54 PM EDT Narrative [facility] - 04/09/2025 8:46 AM EDT Faxed to [facility] Medicine [facility] - Dr. Patsy York Organism Antibiotic Method Susceptibility Pseudomonas aeruginosa Piperacillin/Tazobactam BARI 8 ug/ml: Susceptible Pseudomonas aeruginosa Ceftazidime BARI 1 ug/ml: Susceptible Pseudomonas aeruginosa Cefepime BARI 2 ug/ml: Susceptible Pseudomonas aeruginosa Meropenem BARI 1 ug/ml: Susceptible Pseudomonas aeruginosa Amikacin BARI 4 ug/ml: Susceptible Pseudomonas aeruginosa Ciprofloxacin BARI 0.12 [...] ug/ml: Susceptible Proteus mirabilis ESBL Cefepime BARI 0.5 ug/ml: Susceptible Proteus mirabilis ESBL Meropenem BARI 0.5 ug/ml: Susceptible Proteus mirabilis ESBL Amikacin BARI 4 ug/ml: Susceptible Proteus mirabilis ESBL Gentamicin BARI <=1 ug/ml: Susceptible Proteus mirabilis ESBL Ciprofloxacin BARI <=0.06 ug/ml: Susceptible Proteus mirabilis ESBL Levofloxacin BARI <=0.12 ug/ml: Susceptible Proteus mirabilis ESBL Nitrofurantoin BARI 128 ug/ml: Resistant Proteus mirabilis ESBL Trimethoprim/Sulf amethoxazol e BARI <=20 ug/ml: Susceptible Patsy York MD LAB MICROBIOLOGY - GENERAL ORDER DELGADO Final Result [facility] [address] [place] [address], [place] [phone] * (ABNORMAL) POC Urine Non-Auto W/O Micro (04/06/2025 1:53 PM EDT) Pathologist [facility] Leukocytes UA POC Trace(A) Negative Urobilinogen UA POC 3+(A) Negative Leukocytes UA POC Positive(A) Negative Nitrite UA POC Positive(A) Negative Urobilinogen UA POC Positive(A) Negative Protein UA POC Positive(A) Negative PH UA POC 6.5 5.0 - 9.0 Blood UA POC Positive(A) Negative, Trace Specific [place] UA POC 1.030 1.001 - 1.035 Ketones UA POC Negative Negative Bilirubin UA POC Negative Negative Glucose UA POC Normal Normal, Trace Urine Urine specimen obtained by clean catch procedure / Unknown 04/06/2025 1:53 PM EDT Patsy York MD POINT OF CARE TEST ENTER/EDIT OR DERABLES Final Result * (ABNORMAL) Complete blood count (03/16/2025 7:46 AM EDT) Pathologist [facility] WBC 9.0 4.8 - 10.8 K/mcL LAB HEMETOLOGY METHOD 03/16/2025 2:26 PM EDT [facility] RBC 3.80 3.80 - 4.80 M/mcL LAB HEMETOLOGY METHOD 03/16/2025 2:26 PM EDT [facility] Hemoglobin 11.9 11.5 - 16.0 g/dL LAB HEMETOLOGY METHOD 03/16/2025 2:26 PM EDT [facility] Hematocrit 37.5 35.0 - 47.0 % LAB HEMETOLOGY METHOD 03/16/2025 2:26 PM EDT [facility] MCV 98.9(H) 79.0 - 98.0 FL LAB HEMETOLOGY METHOD 03/16/2025 2:26 PM EDT [facility] MCH 31.4 27.0 - 32.0 pcg LAB HEMETOLOGY METHOD 03/16/2025 2:26 PM EDT [facility] MCHC 31.7(L) 32.0 - 37.0 g/dL LAB HEMETOLOGY METHOD 03/16/2025 2:26 PM EDT [facility] RDW 13.8 11.0 - 15.0 % LAB HEMETOLOGY METHOD 03/16/2025 2:26 PM EDT [facility] Platelets 213 130 - 400 K/mcL LAB HEMETOLOGY METHOD 03/16/2025 2:26 PM EDT [facility] MPV 10.9 7.0 - 11.0 FL LAB HEMETOLOGY METHOD 03/16/2025 2:26 PM EDT [facility] NRBC 0.0 <1.0 % LAB HEMETOLOGY METHOD 03/16/2025 2:26 PM EDT [facility] NRBC Absolute 0.00 <0.10 K/mcL LAB HEMETOLOGY METHOD 03/16/2025 2:26 PM EDT [facility] Blood Venous blood specimen / Unknown Venipuncture / Unknown 03/16/2025 7:46 AM EDT 03/16/2025 12:32 PM EDT us Esther Varela MD LAB BLOOD ORDERABLES Fin al Result [facility] [address] [place] [address], [place] [phone] * Magnesium (03/16/2025 7:46 AM EDT) [facility] Magnesium 2.4 1.9 - 2.6 mg/dL LAB CHEMISTRY METHOD 03/16/2025 1:55 PM EDT [facility] Blood Venous blood specimen / Unknown Venipuncture / Unknown 03/16/2025 7:46 AM EDT 03/16/2025 12:32 PM EDT Esther Varela MD LAB BLOOD ORDERABLES Fin al Result [facility] [address] [place] [address], [place] [phone] * Basic metabolic panel (03/16/2025 7:46 AM EDT) [facility] Sodium 138 133 - 145 mmol/L LAB CHEMISTRY METHOD 03/16/2025 1:57 PM [facility] Potassium 3.9 3.5 - 5.5 mmol/L LAB CHEMISTRY METHOD 03/16/2025 1:57 PM [facility] Chloride 99 96 - 110 mmol/L LAB CHEMISTRY METHOD 03/16/2025 1:57 PM [facility] CO2 29 21 - 32 mmol/L LAB CHEMISTRY METHOD 03/16/2025 1:57 PM T [facility] Anion Gap 10 3 - 11 LAB CHEMISTRY METHOD 03/16/2025 1:57 PM [facility] Glucose 100 70 - 100 mg/dL LAB CHEMISTRY METHOD 03/16/2025 1:57 PM [facility] BUN 17 5 - 25 mg/dL LAB CHEMISTRY METHOD 03/16/2025 1:57 PM T [facility] Creatinine 0.94 0.50 - 1.10 mg/dL LAB CHEMISTRY METHOD 03/16/2025 1:57 PM EDT [facility] eGFR 65 >=60 mL/min/1. 73m2 LAB CHEMISTRY METHOD 03/16/2025 1:57 PM EDT [facility] Comment:Calculation based on the Chronic Kidney Disease Epidemiology Collaboration (CKD-EPI) equation refit without adjustment for race. BUN/Creatinine Ratio 18.1 LAB CHEMISTRY METHOD 03/16/2025 1:57 PM EDT [facility] Calcium 9.2 8.5 - 10.5 mg/dL LAB CHEMISTRY METHOD 03/16/2025 1:57 PM EDT [facility] Blood Venous blood specimen / Unknown Venipuncture / Unknown 03/16/2025 7:46 AM EDT 03/16/2025 12:32 PM EDT us Esther Varela MD LAB BLOOD ORDERABLES Fin al Result [facility] [address] [place] [address], [place] [phone] * Hemoglobin A1c (01/31/2025 7:41 AM EDT) [...] Result [facility] [address] [place] [address], [place] [phone] * MG Mammo Digital Diagnostic w Franc Right (10/08/2024 2:22 PM EST) Anatomical Region Laterality Modality Breast Right Mammography 10/08/2024 3:16 PM EST Impressions 10/08/2024 3:57 PM EST RIGHT BREAST: 0.4 cm mass in the lower outer quadrant, similar in appearance to prior studies as far back as 2021, can be considered a benign finding. Benign, no evidence of malignancy. Normal interval follow-up mammogram is recommended in 12 months. Findings and recommendations were discussed with the patient. BREAST DENSITY: B - There are scattered areas of fibroglandular density. BI-RADS CATEGORY: 2 - BENIGN RECOMMENDATION: Mammography: Screening bilateral mammogram is recommended in 1 year. Ultrasound: Screening left mammogram is recommended in 1 year. Mammo Location: [facility], [address] [place] [address], [id number], . -------- FINAL REPORT -------- Dictated By: Shima Boyd Dictated Date: 10/08/2024 15:16 ET Assigned Physician: Shima Boyd Reviewed and Electronically Signed By: Shima Boyd Signed Date: 10/08/2024 15:57 ET Workstation ID: [id number] Transcribed By: Self Edit Transcribed Date: 10/08/2024 15:31 ET Narrative 10/08/2024 3:57 PM EST HISTORY: Callback from screening for finding in the upper-outer quadrant of the right breast. STUDIES: 1. Unilateral right diagnostic mammography with tomosynthesis and CAD 2. Targeted ultrasound of the right breast TECHNIQUE: Unilateral right digital diagnostic mammography is obtained and read in conjunction with computer-aided detection. Tomosynthesis as well as 2-D C view imaging were obtained. Spot compression Tomosynthesis images were also obtained. COMPARISON: Comparison made to multiple prior, most recent September 23, 2024, and most remote December 08, 2023. RIGHT BREAST: Previously seen 0.4 cm mass is identified in the lower outer quadrant at about 5-7 cm from the nipple: ML 90 degrees 14/87, spot MLO 15/80 and spot CC 10/59. On today's images, this appears similar to prior studies as far back as 2021. Targeted ultrasound of the right breast was performed at the location of the mammographic finding. The survey performed throughout the lower outer quadrant, [...] is recommended in 1 year. Mammo Location: [facility], [address] [place] [address], [id number], . -------- FINAL REPORT -------- Dictated By: Shima Boyd Dictated Date: 10/08/2024 15:16 ET Assigned Physician: Shima Boyd Reviewed and Electronically Signed By: Shima Boyd Signed Date: 10/08/2024 15:57 ET Workstation ID: [id number] Transcribed By: Self Edit Transcribed Date: 10/08/2024 15:31 ET us Patsy York MD IMG BI PROCEDURES Final Result * PERFECTO DEXA AXIAL SKELETON (03/26/2024 5:09 PM EDT) Anatomical Region Laterality Modality Mammography 03/26/2024 1:05 PM EDT Narrative 03/26/2024 5:09 PM EDT [facility] Diagnostic Imaging Department [address] [place] [id number] Patient: DENVER LOVE /Age/Sex: 1950 - 73 - F Unit#: [id number] Location/Status: SPDIMAM/REG CLI Mnemonic/Ordering Site: MAMDEXAAX/SPMAM Ordering Physician: RORY ACOSTA PA-C Perfecto Dexa Axial Skeleton - 03/26/24 - [id number] Report Status:Signed History: Low estrogen state due to menopause. Personal history of fracture. Comparison: No comparison imaging. Findings: Bone densitometry is performed utilizing dual energy x-ray absorptiometry (DXA) in the [employer] unit. The lumbar spine and proximal femora are evaluated in the AP projection. The FRAX questionaire was completed. The results indicate osteoporosis, with a left femoral neck T-score of -2.8. The Z score is -1.8, indicating low bone mineral density for age. The detailed DEXA report will be mailed to the referring physician's office. Dual[employer]em[employer] FRAX: 10-year Probability of Fracture: Major Osteoporotic 16.6 percent Hip 3.1 percent. IMPRESSION: Osteoporosis. [id number] Dictating Physician: ILDA BAEZ MD Electronically Signed by: ILDA BAEZ MD Dic Date/Time: 03/26/241708 Sign date/Time: 03/26/241708 Procedure Note Ilda Baez MD - 06/16/2024 [facility] Diagnostic Imaging Department [address] [place] [address] Patient: SARAH LOVEGAGANDEEP Castro./Age/Sex: 1950 - 73 - F Unit#: [id number] [facility] Ordering Physician: RORY ACOSTA PA-C Perfecto Dexa Axial Skeleton - 03/26/24 - [id number] Report Status:Signed History: Low estrogen state due to menopause. Personal history offracture. Comparison: No comparison imaging. Findings: Bone densitometry is performed utilizing dual energy x-ray absorptiometry(DXA) in the [employer] unit. The lumbar spine and proximal femora [...] 16.6 percent Hip 3.1 percent. IMPRESSION: Osteoporosis. 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
== END 2025-06-03 13:11 | disposition home or self-care (01) ==
LOC: HO.HOSX 13:10
PROVIDERS: Visit Provider Neurological Surgery
DX: M47.14 Other spondylosis with myelopathy, thoracic region (principal)
CPT/HCPCS: 72110; 99212

== ENCOUNTER 2025-06-03 13:11 | Outpatient (AMB) | payer MEDICARE, OTHER, SELFPAY ==
--- NOTE | 2025-06-03 13:46 | A.SPINEOV_ITS ---
Intake Visit Reasons: 2 months f/up Intake Note: Mrs. Love is here today for her 2 month f/up. Allergies sulfamethoxazole (From Bactrim) Allergy (Severe, Verified 03/11/25 13:31) Hives trimethoprim (From Bactrim) Allergy (Severe, Verified 03/11/25 13:31) Hives morphine Allergy (Intermediate, Verified 03/11/25 13:31) Vomiting Assessment & Plan Assessment & Plan (1) Thoracic myelopathy: Code(s): M47.14 - Other spondylosis with myelopathy, thoracic region Category: Medical Plan Dear colleague, On June 02, 2025, I saw for postoperative visit Denver Love. She underwent a T10 T11 Laminotomy for thoracic spinal stenosis on 01 14 2025. Three days postoperatively she acutely neurologically deteriorated with profound weakness of the left leg. Additional imaging, showed a stable thoracolumbar scoliosis. An MRI showed no other significant findings. Differential diagnosis was a spinal cord ischemia/stroke versus a minor change in the scoliotic curve. Over time, she has had neurological improvement. She still in active physical therapy. She is able to make small steps with a walker. She is still has balance problems. Today's x-rays shows a stable thoracolumbar curvature. I am glad that the patient is making neurological progress and I told her that most improvement will occur up to 1 year postoperatively. I also explained to her why no additional surgeries are indicated. She suffering from osteoporosis and therefore correction of the scoliosis will put her at risk of hardware failure. Moreover, correction of the scoliosis may actually cause more neurological damage to the spinal cord. I would like to follow-up with the patient's in 6 months. I spent 20 minutes in his visit to review imaging and answering questions. Bryan Millard MD, PhD Spine Fellowship Trained Neurosurgeon Director, [facility] Orders: Orders XR lumbar spine 4V min Today M47.14 - Other spondylosis with myelopathy, thoracic region Coding Level of Care Code Est Pt Level 3 (25377) Diagnoses Thoracic myelopathy M47.14
== END 2025-06-03 14:16 | disposition home or self-care (01) ==
LOC: HO.HNS 13:11
PROVIDERS: PCP Internal Medicine; Visit Provider Neurological Surgery
DX: M47.14 Other spondylosis with myelopathy, thoracic region (principal)
CPT/HCPCS: 99213

== ENCOUNTER → 2025-06-03 13:16 | Outpatient (BNV) | payer MEDICARE, OTHER, SELFPAY | PROVIDERS: Visit Provider Radiology Diagnostic Radiology | DX: M47.14 Other spondylosis with myelopathy, thoracic region (principal) | CPT/HCPCS: 72110 ==